=== PATIENT | female | born 1935 | race Caucasian/White ===

== ENCOUNTER 2016-12-15 12:06 | Outpatient (CLI) | payer MEDICARE, BC | END 2016-12-15 12:07 | disposition home or self-care (01) | LOC: LABBT 12:06 | PROVIDERS: ATTEND Internal Medicine Cardiovascular Disease | DX: Z01.818 Encounter for other preprocedural examination (principal); I48.91 Unspecified atrial fibrillation ==

== ENCOUNTER 2016-12-18 06:15 | Day surgery (SDC) | payer MEDICARE, BC ==
[2016-12-15 12:14] VITALS: BMI 30.2
[2016-12-18] MEDS ORDERED: Diprivan 20 ML ONE (07:32)
[2016-12-18] MEDS ORDERED: Propofol 200 MG/20 ML VIAL ONE (08:03)
--- NOTE | 2016-12-18 08:35 | OP ---
DATE OF PROCEDURE: 12/18/2016 PROCEDURE: External cardioversion. INDICATION: Persistent atrial fibrillation. The patient was brought to cardiac recovery area in the fasting state. She confirmed that she had b een taking her Xarelto and also took it last night. She was sedated by Anesthesia. She was given 2 00 joules direct current energy, synchronized and converted to sinus rhythm. CONCLUSION: Successful cardioversion. The patient will resume her previous cardiac medicines to see me in 2-3 weeks. If she has recurrent atrial fibrillation, consideration for atrial fibrillation ablation as she is highly symptomatic wh en she is in atrial fibrillation. ADDENDUM: The patient's hemoglobin was 13. Previously, she had some recent laboratory work done at her primary care physician's office.
== END 2016-12-18 09:00 | disposition home or self-care (01) ==
LOC: SDC 06:15
PROVIDERS: ATTEND Internal Medicine Cardiovascular Disease
DX: I48.1 Persistent atrial fibrillation (principal); I11.0 Hypertensive heart disease with heart failure; I50.9 Heart failure, unspecified; E78.5 Hyperlipidemia, unspecified; E03.9 Hypothyroidism, unspecified; Z88.1 Allergy status to other antibiotic agents; Z90.49 Acquired absence of other specified parts of digestive tract; Z90.710 Acquired absence of both cervix and uterus; Z90.89 Acquired absence of other organs; Z96.651 Presence of right artificial knee joint; Z98.890 Other specified postprocedural states; Z87.891 Personal history of nicotine dependence
CPT/HCPCS: 92960; J2704

== ENCOUNTER 2016-12-21 10:22 | Observation (INO) | payer MEDICARE, BC ==
[2016-12-21 10:52] LABS: Hematocrit 36.5 % (36.0-47.0); Mean Platelet Volume 7.7 fL (7.4-10.4); Red Blood Cell (RBC) Count 3.96 mill/uL (4.20-5.40); White Blood Cell (WBC) Count 9.2 thou/uL (4.8-10.8)
[2016-12-21 10:56] LABS: PTT 35.5 SEC (22.9-36.1); Prothrombin Time 16.5 SEC (12.0-14.7)
--- NOTE | 2016-12-21 11:05 | RAD ---
PORTABLE CHEST: Date: 12/21/16 HISTORY: Chest pain. COMPARISON: 06/16/09. FINDINGS: Heart size is mildly prominent. Mild vascular prominence. No focal infiltrate. Interstitium is promi nent, but is stable from prior exam. IMPRESSION: No acute interval change. POS: [facility]
[2016-12-21 11:27] LABS: Band 6 % (5-11); Neutrophil 58 % (42-75); Reactive Lymphocytes 1 % (0-10)
[2016-12-21] MEDS ORDERED: Albuterol Sulfate 2.5 mg/3 ml Neb ONE (12:54)
[2016-12-21] MEDS ORDERED: Albuterol Sulfate 2.5 mg/0.5 ml Neb ONE (12:54)
[2016-12-21 14:06] LABS: ALT (SGPT) 20 U/L (8-55); AST (SGOT) 17 U/L (5-34); Alkaline Phosphatase 62 U/L (40-150); Anion Gap 17 mmol/L (10-20); BUN (Urea Nitrogen) 14 mg/dL (9.8-20.1); Bilirubin, Total 0.6 mg/dL (0.2-1.2); Calc. Creatinine Clearance 0 mL/min (70-130); Carbon Dioxide 21 mmol/L (23-31); Chloride 101 mmol/L (98-107); Estimated GFR-MDRD 68; Globulin 2.8 g/dL (2.4-3.5); Protein, Total 6.7 g/dL (6.0-8.3)
[2016-12-21 15:00] LABS: Troponin I 0.017 ng/mL (< 0.028)
--- NOTE | 2016-12-21 15:03 | HP ---
PRIMARY CARE PHYSICIAN: Sheree Santos M.D. PRIMARY LIFT TRUCK OPERATOR: Dr. Ennis. REASON FOR ADMISSION: Dyspnea. HISTORY OF PRESENT ILLNESS: An 81-year-old female who has history of paroxysmal atrial fibrillation who had cardioversion on last Wednesday. Procedure was done on Wednesday morning and she did very well d uring Wednesday, entire day. On Wednesday, she was experiencing dyspnea on exertion. After walking few steps, she was feeling dyspnea. On Wednesday, she noticed wheezing. She denies any lower extremity e rogelio. She denies any cough. She denies any chest pain. She was feeling mild dizziness. She denie s any palpitations. She denies any orthopnea, PND. She denies any fever or any flu-like illness. She denies any runny nose, sore throat, or hemoptysis. She denies any lower extremity edema or calf tenderness. She denies any urinary tract infection symptoms. Patient was feeling shortness of mo ath with exertion. Patient does not know when she had last echocardiography done, but she is taking Lasix. She does no t know the diagnosis of congestive heart failure. She denies any history of asthma or COPD and she denies any ongoing smoking. This patient was saturating 96% on room air and she was hypertensive initially, patient also reporte d to me that her blood pressure was fluctuating at home since Wednesday. REVIEW OF SYSTEMS: The following complete review of systems was negative, unless otherwise mentione d in the HPI or below: Constitutional: Weight loss or gain, ability to conduct usual activities. Skin: Rash, itching. Eyes: Double vision, pain. ENT/Mouth: Nose bleeding, neck stiffness, pain, tenderness. Cardiovascular: Palpitations, dyspnea on exertion, orthopnea. Respiratory: Shortness of breath, wheezing, cough, hemoptysis, fever or night sweats. Gastrointestinal: Poor appetite, abdominal pain, heartburn, nausea, vomiting, constipation, or diar marvin. Genitourinary: Urgency, frequency, dysuria, nocturia. Musculoskeletal: Pain, swelling. Neurologic/Psychiatric: Anxiety, depression. Allergy/Immunologic: Skin rash, bleeding tendency. Please see my HPI for pertinent positive and negative. All other review of systems reviewed and neg ative except as mentioned in the HPI. PAST MEDICAL HISTORY: Paroxysmal atrial fibrillation, required cardioversion on last Wednesday; polyne uropathy; osteoarthritis; restless leg syndrome; hypothyroidism; hypertension; diet controlled diabe tania. PAST SURGICAL HISTORY: Right knee replacement, biopsy of the bilateral breast, surgery to right elb ow, appendicectomy, cholecystectomy, hysterectomy, tonsillectomy, and cardioversion was done on last Wednesday PAST PSYCHIATRIC HISTORY: Anxiety and depression. CURRENT HOME MEDICATIONS: Tegretol 200 mg p.o. daily, Coreg 6.25 mg p.o. b.i.d., flecainide 50 mg p .o. b.i.d., Lasix 20 mg p.o. twice daily, hydralazine 10 mg twice daily, Synthroid 125 mcg p.o. briana y, Limbrel 500 mg twice daily, levothyroxine 5 mcg p.o. daily, Lipitor 40 mg p.o. daily, metformin 5 00 mg p.o. b.i.d., Zoloft 100 mg p.o. at bedtime, Xarelto 20 mg p.o. at bedtime, Mirapex 0.5 mg p.o. in the evening, lisinopril 10 mg p.o. b.i.d., Flonase nasal spray daily, vitamin D3 1000 units p.o. b.i.d., azelastine nasal spray b.i.d., Lipitor 40 mg p.o. at bedtime, Xanax 0.25 mg p.o. at bedtime , and tramadol 100 mg p.o. b.i.d. SOCIAL HISTORY: Patient drinks alcohol socially. She is a former smoker. She quit smoking more th an 10 years ago. She lives at home by herself. No history of drug abuse. FAMILY HISTORY: No strong family history of premature coronary artery disease, stroke or cancer. ALLERGIES: STREPTOMYCIN. EMERGENCY ROOM COURSE: Patient has received albuterol nebulization therapy. The patient had elevat ed D-dimer and that is why she is getting CT angio. PHYSICAL EXAMINATION: VITAL SIGNS: On arrival, blood pressure 174/106, pulse 81, respiratory rate 24, temperature 98.5, s aturation 100% on room air, and weight 81.6 kilograms. GENERAL: Patient is currently alert, awake, no obvious acute distress. HEAD: Normocephalic, atraumatic. EYES: Pupils round, reactive to light. Extraocular muscles intact. ENT: Oropharynx within normal limits. Moist mucous membranes. No oral lesions. No pharyngeal trevor thema, no exudate. NECK: Supple. Range of motion is normal. No meningeal signs of irritation. LUNGS: On admission, the patient had end expiratory wheezing bilaterally, but after albuterol nebul ization therapy, patient's wheezing significantly reduced and air entry is reduced. I could not hea r any rales basally. No accessory muscles of respiration in use. CARDIAC: S1, S2 appears regular. No murmur, no gallop, no rub. ABDOMEN: Soft, bowel sounds present, nontender, nondistended. No organomegaly, no mass, no suprapu bic tenderness. BACK: Examination unremarkable, no CVA tenderness. EXTREMITIES: Upper extremity passive movements of all joints are normal. Lower extremity, no edema , no calf tenderness. Good distal pulsation. SKIN: No skin rash. HEMATOLOGICAL SYSTEM: No lymphadenopathy. PSYCHIATRIC: Normal affect. IMAGING AND SIGNIFICANT LABORATORY DATA: 1. EKG based on my review reveals normal sinus rhythm, nonspecific ST-T changes. 2. Chest x-ray based on my review, no acute cardiopulmonary process. 3. CBC: WBC 9.2, hemoglobin 11.9, platelet 225 with bands 6%. INR 1.3. D-dimer 0.45. 4. BMP: CK 160, CK-MB 2.7, troponin I 0.020. BNP 177.1. 5. CMP profile is pending and CT angio is pending. ASSESSMENT AND PLAN/IMPRESSION: 1. Dyspnea on exertion. At this point, I have 3 differential diagnoses for this particular problem . One, patient has recently required hospital visit for cardioversion and at that time, patient fallon ht have given sedatives for procedure, so possibly aspiration is one of the possibility and subseque nt atypical pneumonia versus aspiration pneumonia is possibility given her wheezing as well as bande es, but she does not have any fever at this point in hospital other than just low grade 99 subjecti ve fever here reported one time only. Second possibility is given her D-dimer is slightly elevated and she was just in hospital though probability of pulmonary embolism extremely unlikely, but we nhung l do CT angio that will also help us to rule out any silent infiltration which we are not able to se e on x-ray chest and third possibility is given her uncontrolled hypertension and elevated BNP, hughes tolic dysfunction/diastolic heart failure is also a possibility. This patient will be treated with empiric antibiotic therapy with levofloxacin 500 mg p.o. daily. Patient will be given Lasix 20 mg I V b.i.d. and we are also going to do CT angio to rule out pulmonary embolism and we will try to cont rol her blood pressure effectively while in hospital. 2. Chronic diastolic heart failure. I am suspecting this patient has underlying congestive heart f ailure though type of congestive heart failure is not known given the patient is taking Lasix alread y at home. We will continue Lasix IV while in hospital and we will control her blood pressure with her home medication for blood pressure. 3. Hypothyroidism. We will continue Synthroid 125 mcg p.o. daily and levothyroxine 5 mcg p.o. briana y. 4. Dyslipidemia. Continue Lipitor 40 mg p.o. at bedtime. 5. Paroxysmal atrial fibrillation, currently in sinus rhythm after cardioversion. Patient is on fl ecainide 50 mg p.o. twice daily. I am hoping that patient should be on anticoagulant therapy, which she is taking Xarelto at home. We will continue while in hospital if she is taking still at home. 6. Hypertension. We will continue with lisinopril 10 mg p.o. b.i.d., hydralazine 10 mg twice daily , Coreg 6.25 mg twice daily and we will adjust blood pressure medication. 7. Diabetes type 2. We will continue with insulin as per sliding scale per protocol. We will hold on metformin therapy given CT angio. 8. Anxiety and depression. We will continue Xanax and Zoloft as per home dosage. 9. Peripheral neuropathy. We will continue Tegretol 200 mg p.o. daily. 10. Deep venous thrombosis prophylaxis not needed because the patient is on chronic anticoagulation therapy. 11. Gastrointestinal prophylaxis, Pepcid 20 mg p.o. b.i.d. 12. Code status: The patient is FULL CODE. Patient does not have any surrogate decision maker. Disposition and plan based on clinical course, most likely within 24 hours patient will be discharge d home. During this admission, we will try to control her blood pressure and adjust medication for blood pressure.
--- NOTE | 2016-12-21 15:51 | CT ---
CT ANGIOGRAM THORAX WITH IV CONTRAST AND 3D RECONSTRUCTIONS: Date: 12-21-16 History: Elevated D-Dimer, dyspnea, worsening shortness of breath which began Wednesday afternoon. Wh eezing. FINDINGS: No filling defects are seen in the pulmonary arteries to suggest pulmonary embolus. Thoracic aorta is normal in caliber without evidence of an aortic dissection. Vascular calcification s are seen in the coronary arteries as well as involving the thoracic aorta. There is calcification in the region of the mitral valve annulus. The heart is mildly enlarged. There are small bilateral pleural effusions, greater on the right, with associated passive atelectas is. There is mild interstitial thickening which may relate to an element of mild pulmonary edema. Villa btle ground glass densities are also present. There is a very tiny less than 3 mm pulmonary nodule lateral aspect of the right upper lobe. Small p leural based nodular density at the right lung base which could be related to atelectasis as this is adjacent to the region of the pleural effusion. Small hiatal hernia is noted. IMPRESSION: 1. Small bilateral pleural effusions with findings likely related to element of mild pulmonary edema . 2. Cardiomegaly. 3. No CT evidence of a pulmonary embolus. 4. Small hiatal hernia. POS: [facility]
[2016-12-21] MEDS ORDERED: Acetaminophen 325 MG TAB PO PRN ×2 (16:04→16:30)
[2016-12-21] MEDS ORDERED: Ondansetron HCl/PF 4 MG/2 ML Vial IVP PRN (16:30)
[2016-12-21] MEDS ORDERED: HYDROcodone/Acetaminophen 5/325 mg Tablet PO PRN (16:30)
[2016-12-21] MEDS ORDERED: Labetalol HCl 100 MG/20 ML VIAL SLOW IVP PRN (16:30)
[2016-12-21] MEDS ORDERED: Zolpidem Tartrate 5 MG TAB PO PRN (16:30)
[2016-12-21] MEDS ORDERED: Albuterol Sulfate 2.5 mg/3 ml Neb NEB PRN (16:30)
[2016-12-21] MEDS ORDERED: Mag-Al 1200 mg/1200 mg/30 ML UDCUP PO PRN (16:30)
[2016-12-21] MEDS ORDERED: Eucerin (Mineral Oil/Petrolatum,White) 30 gm Jar TOP PRN (16:30)
[2016-12-21] MEDS ORDERED: Dextrose 50% Abboject 50 ML SYRINGE SLOW IVP PRN (16:30)
[2016-12-21] MEDS ORDERED: Diabetic Tussin 200 MG/10 ML UDCUP PO PRN (16:30)
[2016-12-21] MEDS ORDERED: Ondansetron ODT 4 MG TAB PO PRN (16:30)
[2016-12-21] MEDS ORDERED: HumaLOG 300 UNITS/3 ML VIAL SC PRN ×2 (16:30)
[2016-12-21] MEDS ORDERED: Sodium Chloride 0.65% Nasal 44 ML BOT EA NARE PRN (16:30)
[2016-12-21] MEDS ORDERED: Chloraseptic Spray 180 ml Bottle PO PRN (16:30)
[2016-12-21] MEDS ORDERED: Dextrose 5% in Water 1,000 ML IV PRN (16:30)
[2016-12-21] MEDS ORDERED: Milk Of Magnesia 30 ML UDCUP PO PRN (16:30)
[2016-12-21] MEDS ORDERED: Artificial Tears 18 DROP/0.9 ML EA EYE PRN (16:30)
[2016-12-21] MEDS ORDERED: Senokot 8.6 MG TAB PO PRN (16:30)
[2016-12-21] MEDS ORDERED: Loperamide HCl 2 MG CAP PO PRN (16:30)
[2016-12-21] MEDS ORDERED: Nitroglycerin 0.4 MG TAB (25 Tab Bottle) SL PRN (16:30)
[2016-12-21] MEDS ORDERED: Loratadine 10 MG TAB PO PRN (16:30)
[2016-12-21] MEDS ORDERED: ISOVUE-370 76%-LOCM 1 ML ONE (16:32)
[2016-12-21 17:28] VITALS: BMI 30.3
[2016-12-21 17:44] LABS: Troponin I 0.012 ng/mL (< 0.028)
[2016-12-21] MEDS ORDERED: Spironolactone 25 MG TAB PO SCH (18:15)
[2016-12-21] MEDS ORDERED: Potassium Chloride 20 MEQ TAB PO SCH (18:15)
[2016-12-21] MEDS ORDERED: Furosemide 100 MG/10 ML VIAL SLOW IVP SCH (18:15)
[2016-12-21] MEDS: Rivaroxaban 10 MG TAB PO SCH (18:16)
[2016-12-21] MEDS: Carvedilol 6.25 MG TAB PO SCH (18:16)
[2016-12-21 19:49] LABS: Bilirubin Negative (Negative); Blood, Urine Negative (Negative); Glucose, Urine (Dipstick) Negative (Negative); Ketone, Urine Negative (Negative); Nitrite Negative (Negative); Protein, Urine (Dipstick) Negative (Neg-Trace); Urobilinogen 0.2 mg/dL (0.2-1.0)
[2016-12-21 19:51] LABS: Bacteria/HPF 4+ HPF (None Seen); Hyaline Casts/LPF 0-3 HYALINE CAST LPF (0-3 Hyaline); RBC/HPF 0-3 HPF (0-3); Squamous Epithelial None Seen HPF (0-3)
[2016-12-21] MEDS: Atorvastatin Calcium 40 MG TAB PO SCH (20:55)
[2016-12-21] MEDS: Famotidine 20 MG TAB PO SCH (20:55)
[2016-12-21] MEDS: ALPRAZolam 0.25 MG TAB PO PRN (21:59)
--- NOTE | 2016-12-21 23:06 | CON ---
DATE OF CONSULTATION: 12/21/2016 REASON FOR CONSULTATION: Shortness of breath and diastolic congestive heart failure. HISTORY OF PRESENT ILLNESS: Ms. Angelica Tony is a very pleasant 81-year-old woman. She has a histor y of atrial fibrillation, paroxysmal. She has undergone previous ablation I believe for atrial flut ter. She has never had an atrial fibrillation ablation. She came to the office recently short of b reath and not feeling well and she was found to be in atrial fibrillation. She has underwent cardio version and felt better, but over the weekend started getting more short of breath and was having so me wheezing. Finally, came to the emergency room here and found to have evidence of mild pulmonary edema on imaging. The patient is still having some trouble breathing. MEDICATIONS: At home, she was taking Xarelto 20 mg a day in the evening meal. She was taken diuret ic twice a day. The other medicines included: 1. Flecainide 50 mg twice a day. 2. Coreg 6.25 mg twice a day. 3. Hydralazine 10 mg twice a day. 4. Lisinopril 10 mg twice a day. 5. Lipitor. 6. Xanax. 7. Tramadol. 8. Lasix 20 mg twice a day. SOCIAL HISTORY: Occasional alcohol. Former smoker. FAMILY HISTORY: No strong family history of coronary artery disease at a young age. ALLERGIES: STREPTOMYCIN. PHYSICAL EXAMINATION: GENERAL: A pleasant elderly woman. VITAL SIGNS: Initially blood pressure was high at 174/106, pulse 80 regular. HEENT: Eyes: Sclerae nonicteric. Mouth mucous membranes moist. NECK: Supple, no lymphadenopathy. LUNGS: Expiratory wheezing. CARDIAC: Normal S1, normal S2. I do not hear a murmur, rub, or gallop. ABDOMEN: Soft, nontender, no hepatosplenomegaly. EXTREMITIES: Warm, dry, no clubbing or cyanosis. There is no edema. X-RAY FINDINGS: Chest x-ray I was interpreted show some evidence of congestive heart failure. CT p ulmonary angiogram showed no clots, but it looked like there was some pulmonary edema. PERTINENT LABORATORY AND IMAGING: BNP 177. EKG does show sinus rhythm. ASSESSMENT: Diastolic congestive heart failure, decompensated, previously normal left ventricular f unction. PLAN: 1. Additional diuretic therapy. 2. Echocardiogram to be reviewed. 3. Stress testing at some point.
[2016-12-21] MEDS: Nitroglycerin 2% Ointment 1 INCH/1 GM Packet TOP SCH (23:15)
[2016-12-22 05:38] LABS: Anion Gap 13 mmol/L (10-20); BUN (Urea Nitrogen) 11 mg/dL (9.8-20.1); Calc. Creatinine Clearance 77 mL/min (70-130); Calcium 9.2 mg/dL (7.8-10.44); Carbon Dioxide 25 mmol/L (23-31); Chloride 104 mmol/L (98-107); Estimated GFR-MDRD 75
[2016-12-22 05:42] LABS: Band 1 % (5-11); Hematocrit 37.2 % (36.0-47.0); Mean Platelet Volume 7.3 fL (7.4-10.4); Neutrophil 60 % (42-75); Red Blood Cell (RBC) Count 4.02 mill/uL (4.20-5.40); White Blood Cell (WBC) Count 7.2 thou/uL (4.8-10.8)
[2016-12-22] MEDS: Nitroglycerin 2% Ointment 1 INCH/1 GM Packet TOP SCH (06:27)
[2016-12-22] MEDS: Levothyroxine Sodium 125 MCG TAB PO SCH (06:29)
[2016-12-22] MEDS: Furosemide 20 MG/2 ML VIAL SLOW IVP SCH ×2 (06:29→14:56)
[2016-12-22] MEDS: Lisinopril 10 MG TAB PO SCH ×2 (08:24→19:43)
[2016-12-22] MEDS: Aspirin 81 mg Enteric Coated Tablet PO SCH (08:24)
[2016-12-22] MEDS: carBAMazepine 200 MG TAB PO SCH (08:25)
[2016-12-22] MEDS: Famotidine 20 MG TAB PO SCH ×2 (08:25→19:42)
[2016-12-22] MEDS: Carvedilol 6.25 MG TAB PO SCH ×2 (08:25→18:35)
[2016-12-22] MEDS: Liothyronine Sodium 5 MCG TAB PO SCH (08:26)
[2016-12-22] MEDS ORDERED: Spironolactone 25 MG TAB PO SCH (10:15)
--- NOTE | 2016-12-22 10:22 | PRG ---
DATE OF SERVICE: 12/22/2016 Ms. Tony feels MUCH better. She states that she had an excellent response to the diuretic last night. She says, \\\\"oh Lordy yes \\\\" when asked if she had a good response to the diuretics. She said, \\\\" I was up all night urinat ing.\\\\" Her I\\T\\O only reflects 2 liters out last night, but I think likely she had liters more. PHYSICAL EXAMINATION: VITAL SIGNS: Blood pressure 152/67, pulse 70, it is regular. LUNGS: Clear with only minimal wheezing. CARDIAC: Normal S1 and S2. ABDOMEN: Soft, nontender. EXTREMITIES: No edema. ASSESSMENT: 1. Diastolic congestive heart failure, improved. 2. No significant coronary artery disease based on catheterization 2014. PLAN: 1. Continue diuretic therapy. 2. Probably be released home tomorrow.
[2016-12-22] MEDS ORDERED: Potassium Chloride 20 MEQ TAB PO SCH (12:00)
--- NOTE | 2016-12-22 13:38 | PDOC.PN ---
- Subjective Encounter Start Date: 12/22/16 Encounter Start Time: 11:00 Patient seen and examined. No new complaints. No overnight events. SOb improving. Ambulating in hallways - Objective Resuscitation Status: Resuscitation Status FULL:Full Resuscitation MAR Reviewed: Yes Vital Signs & Weight: Vital Signs (12 hours) Temp Pulse Resp BP Pulse Ox 12/22/16 10:45 98.6 F 63 16 121/59 L 95 12/22/16 08:20 98.7 F 72 16 12/22/16 07:10 98.7 F 72 16 152/67 H 95 12/22/16 05:00 98.9 F 74 16 156/72 H 93 L Weight Weight 182 lb 9.6 oz I&O: 12/21/16 12/22/16 12/23/16 06:59 06:59 06:59 Intake Total 850 550 Output Total 1800 850 Balance -950 -300 Result Diagrams: 12/22/16 04:58 12/22/16 04:58 Additional Labs: Accuchecks 12/22/16 12/22/16 12/21/16 10:52 06:34 20:51 POC Glucose 139 H 109 196 H 12/21/16 18:12 POC Glucose 105 EKG Reviewed by me: Yes (Tele SR) Phys Exam - Physical Examination Constitutional: NAD Respiratory: no wheezing, no rhonchi Scat bibasilar rales Cardiovascular: RRR, no rub Gastrointestinal: soft, non-tender, positive bowel sounds Musculoskeletal: edema present (trace) Neurological: moves all 4 limbs Dx/Plan (1) Acute on chronic diastolic heart failure Code(s): I50.33 - ACUTE ON CHRONIC DIASTOLIC (CONGESTIVE) HEART FAILURE Status : Acute (2) UTI (urinary tract infection) Status: Acute (3) DM2 (diabetes mellitus, type 2) Status: Chronic (4) HTN (hypertension) Code(s): I10 - ESSENTIAL (PRIMARY) HYPERTENSION Status: Chronic (5) Paroxysmal a-fib Code(s): I48.0 - PAROXYSMAL ATRIAL FIBRILLATION Status: Chronic Comment: s/ p recent cardioversion (6) other issues per previous notes Status: Chronic Comment: Obesity BMI 30.4, Anxiety and Depression, Dyslipidemia, Peripheral neuropathy, CKD 2 - Plan cont current plan of care, continue antibiotics * Cardiology following * AM labs * Cont current meds as below * Cont diuresis * Urine culture pending Review of Systems - Review of Systems Respiratory: negative: Cough, Dry, Shortness of Breath, Hemoptysis, SOB with Excertion, Pleuritic Pain, Sputum, Wheezing Cardiovascular: negative: Chest Pain, Palpitations, Orthopnea, Paroxysmal Noc. Dyspnea, Edema, Light Headedness, Other Gastrointestinal: negative: Nausea, Vomiting, Abdominal Pain, Diarrhea, Constipation, Melena, Hematochezia, Other - Medications/Allergies Allergies/Adverse Reactions: Allergies Allergy/AdvReac Type Severity Reaction Status Date / Time streptomycin Allergy Verified 12/15/16 12:13 Medications: Current Medications Acetaminophen (Tylenol) 650 mg PO Q4H PRN PRN Reason: Headache/Fever or Pain Hydrocodone Bitart/Acetaminophen (Flat Top 5/325) 1 tab PO Q4H PRN PRN Reason: Moderate Pain (4-6) Al Hydroxide/Mg Hydroxide (Maalox) 30 ml PO Q6H PRN PRN Reason: Heartburn or Indigestion Albuterol Sulfate (Ventolin) 2.5 mg NEB [id number] PRN PRN Reason: Wheezing Alprazolam (Xanax) 0.25 mg PO HSPRN PRN PRN Reason: Anxiety/INSOMNIA Last Admin: 12/21/16 21:59 Dose: 0.25 mg Artificial Tears (Tears Naturale) 0 drop EA EYE PRN PRN PRN Reason: Dry Eyes Aspirin (Ecotrin) 81 mg PO DAILY [facility] Last Admin: 12/22/16 08:24 Dose: 81 mg Atorvastatin Calcium (Lipitor) 40 mg PO HS [facility] Last Admin: 12/21/16 20:55 Dose: 40 mg Carbamazepine (Tegretol) 200 mg PO DAILY [facility] Last Admin: 12/22/16 08:25 Dose: 200 mg Carvedilol (Coreg) 6.25 mg PO BID-WM [facility] Last Admin: 12/22/16 08:25 Dose: 6.25 mg Dextrose/Water (Dextrose 50%) 25 gm SLOW IVP PRN PRN PRN Reason: Hypoglycemia Famotidine (Pepcid) 20 mg PO BID [facility] Last Admin: 12/22/16 08:25 Dose: 20 mg Flecainide Acetate (Tambocor) 50 mg PO Q12HR [facility] Last Admin: 12/22/16 08:24 Dose: 50 mg Furosemide (Lasix) 20 mg SLOW IVP 0600,1400 [facility] Last Admin: 12/22/16 06:29 Dose: 20 mg Glucagon (Glucagon) 1 mg IM PRN PRN PRN Reason: Hypoglycemia Guaifenesin (Robitussin Sf) 200 mg PO Q4H PRN PRN Reason: Cough Hydralazine HCl (Apresoline) 10 mg SLOW IVP Q4H PRN PRN Reason: Systolic BP > 180 Hydralazine HCl (Apresoline) 10 mg PO BID [facility] Last Admin: 12/22/16 08:26 Dose: 10 mg Dextrose/Water (D5w) 1,000 mls @ 0 mls/hr IV .Q0M PRN; As Directed PRN Reason: Hypoglycemia Insulin Human Lispro (Humalog) 0 units SC .MODERATE SLIDING SC PRN PRN Reason: Moderate Correctional Scale Insulin Human Lispro (Humalog) 0 units SC .BEDTIME SLIDING SC PRN PRN Reason: Bedtime Correctional Scale Labetalol HCl (Normodyne) 20 mg SLOW IVP Q4H PRN PRN Reason: Systolic BP > 180 Levofloxacin (Levaquin) 500 mg PO 1999 [facility] Last Admin: 12/21/16 20:55 Dose: 500 mg Levothyroxine Sodium (Synthroid) 125 mcg PO 0600 [facility] Last Admin: 12/22/16 06:29 Dose: 125 mcg Liothyronine Sodium (Cytomel) 5 mcg PO DAILY [facility] Last Admin: 12/22/16 08:26 Dose: 5 mcg Lisinopril (Zestril) 10 mg PO BID [facility] Last Admin: 12/22/16 08:24 Dose: 10 mg Loperamide HCl (Imodium) 2 mg PO PRN PRN PRN Reason: Diarrhea/Loose Stools Loratadine (Claritin) 10 mg PO DAILYPRN PRN PRN Reason: Sinus Symptoms Magnesium Hydroxide (Milk Of Magnesium) 30 ml PO DAILYPRN PRN PRN Reason: Constipation Mineral Oil/White Petrolatum (Eucerin Cream) 0 gm TOP BIDPRN PRN PRN Reason: Dry Skin Nitroglycerin (Nitrostat) 0.4 mg SL Q5MIN PRN PRN Reason: Chest Pain Ondansetron HCl (Zofran Odt) 4 mg PO Q6H PRN PRN Reason: Nausea/Vomiting Ondansetron HCl (Zofran) 4 mg IVP Q6H PRN PRN Reason: Nausea/Vomiting Phenol (Chloraseptic Walton 180 Ml Bot) 0 ml PO PRN PRN PRN Reason: Sore Throat Potassium Chloride (K-Dur) 20 meq PO NOW [facility] Stop: 12/22/16 14:01 Last Admin: 12/22/16 12:13 Dose: 20 meq Rivaroxaban (Xarelto) 20 mg PO 1800 [facility] Last Admin: 12/21/16 18:16 Dose: 20 mg Senna (Senokot) 2 tab PO HSPRN PRN PRN Reason: Constipation Sodium Chloride (Shallow Water Nasal Walton 0.65%) 0 ml EA NARE QIDPRN PRN PRN Reason: Nasal Congestion Spironolactone (Aldactone) 25 mg PO QA-[facility] Zolpidem Tartrate (Ambien) 5 mg PO HSPRN PRN PRN Reason: Insomnia
[2016-12-22] MEDS: Rivaroxaban 10 MG TAB PO SCH (18:34)
[2016-12-22] MEDS: Atorvastatin Calcium 40 MG TAB PO SCH (19:42)
[2016-12-22] MEDS: ALPRAZolam 0.25 MG TAB PO PRN (21:15)
[2016-12-23 04:20] VITALS: TEMP 98.4
[2016-12-23] MEDS: Furosemide 20 MG/2 ML VIAL SLOW IVP SCH (05:15)
[2016-12-23] MEDS: Levothyroxine Sodium 125 MCG TAB PO SCH (05:15)
[2016-12-23 06:55] LABS: Anion Gap 11 mmol/L (10-20); BUN (Urea Nitrogen) 17 mg/dL (9.8-20.1); Calc. Creatinine Clearance 58 mL/min (70-130); Calcium 9.4 mg/dL (7.8-10.44); Carbon Dioxide 29 mmol/L (23-31); Chloride 101 mmol/L (98-107); Estimated GFR-MDRD 56; Magnesium 2.3 mg/dL (1.6-2.6); Phosphorus 3.9 mg/dL (2.3-4.7)
[2016-12-23] MEDS ORDERED: Spironolactone 25 MG TAB PO SCH (08:00)
[2016-12-23 08:09] VITALS: BP 122/58
[2016-12-23] MEDS: Aspirin 81 mg Enteric Coated Tablet PO SCH (09:01)
[2016-12-23] MEDS: Carvedilol 6.25 MG TAB PO SCH (09:01)
[2016-12-23] MEDS: carBAMazepine 200 MG TAB PO SCH (09:01)
[2016-12-23] MEDS: Lisinopril 10 MG TAB PO SCH (09:02)
[2016-12-23] MEDS: Famotidine 20 MG TAB PO SCH (09:02)
[2016-12-23] MEDS: Liothyronine Sodium 5 MCG TAB PO SCH (09:02)
[2016-12-23 09:20] LABS: Anion Gap 12 mmol/L (10-20); BUN (Urea Nitrogen) 16 mg/dL (9.8-20.1); Calc. Creatinine Clearance 60 mL/min (70-130); Carbon Dioxide 29 mmol/L (23-31); Chloride 99 mmol/L (98-107); Estimated GFR-MDRD 57
--- NOTE | 2016-12-23 09:39 | PRG ---
DATE OF SERVICE: 12/23/2016 SUBJECTIVE: Ms. Tony is doing well today, no complaints. She feels better. She said she did not sleep well, but her breathing is fine. No chest pain or pressure. PHYSICAL EXAMINATION: VITAL SIGNS: Blood pressure 122/58, pulse 66 regular. LUNGS: Clear. There is no wheezing today. CARDIAC: Normal S1, normal S2. ABDOMEN: Soft, nontender. EXTREMITIES: No edema. ASSESSMENT: 1. Diastolic congestive heart failure, acute on chronic, improved. 2. Atrial fibrillation, paroxysmal, staying in sinus rhythm. 3. Hypertension, controlled. PLAN: 1. She will go home on spironolactone 25 mg daily. Other medicines the same as prior to admission: 2. She will have a base met in 1 week and she will have another basic met before she leaves today.
[2016-12-23] MEDS ORDERED: Furosemide 20 MG TAB PO SCH (14:00)
--- NOTE | 2016-12-24 08:05 | DIS ---
DISCHARGE DISPOSITION: Home. FOLLOWUP: Follow up with primary care physician, Dr. Sheree Santos in 1 week. Follow up with Cardiol oggarret, Dr. Ennis as scheduled. Base met in 1 week is recommended. Primary care physician is advised to follow. ALLERGIES: Patient is allergic to STREPTOMYCIN. BRIEF HOSPITAL COURSE: The patient is an 81-year-old female with paroxysmal atrial fibrillation wit h cardioversion last week who presented to the hospital with shortness of breath. Please refer to t jane history and physical dated 12/21/2016 for further details. The patient was admitted to the hospital with acute on chronic diastolic heart failure. She was sta rted on diuretics with good response. The patient was evaluated by Cardiology as well. The patient remained in sinus rhythm. Her medications have been optimized by Dr. Ennis. She has been cleared by Dr. Ennis for discharge. DIAGNOSTIC TESTS: CT angiogram of the chest showed small bilateral pleural effusion with mild pulmo nary edema without any pulmonary embolus. DISCHARGE MEDICATIONS: 1. Xanax 0.25 mg at bedtime as needed. 2. Lipitor 40 mg daily. 3. Azelastine as needed. 4. Limbrel 500 mg b.i.d. 5. Carvedilol 6.25 mg b.i.d. 6. Vitamin D3 1000 units b.i.d. 7. Flecainide 50 mg b.i.d. 8. Flonase b.i.d. 9. Lasix 20 mg b.i.d. 10. Levaquin 500 mg daily for the next 2 days. 11. Levothyroxine 125 mcg daily. 12. Liothyronine 5 mcg daily. 13. Lisinopril 10 mg b.i.d. 14. Mirapex 0.5 mg q.p.m. 15. Xarelto 20 mg at bedtime. 16. Zoloft 100 mg at bedtime. 17. Aldactone 25 mg daily (new medication). . 18. Carbamazepine 200 mg daily. 19. Hydralazine 10 mg b.i.d. 20. Metformin 500 mg b.i.d. to be restarted after 1 more day. 21. Tramadol 50 mg b.i.d. FINAL DIAGNOSES: 1. Acute on chronic diastolic heart failure exacerbation, resolved. 2. Paroxysmal atrial fibrillation with cardioversion last week, currently on anticoagulation. 3. Hypertension. 4. Diabetes mellitus type 2. 5. Klebsiella urinary tract infection sensitive to quinolones. 6. Obesity with a BMI 3.0. 7. Anxiety, depression. 8. Dyslipidemia. 9. Peripheral neuropathy. 10. Chronic kidney disease stage 2. 11. Diet controlled diabetes mellitus type 2.
--- OUTSIDE RECORDS SUMMARY | 2016-12-28 03:19 | XMS | Clinical Summary ---
:1935 Author Organization [facility] Address [address] [place] [address] Phone Care Team Providers Name Role Phone , Primary Care Provider Unavailable Allergies Not on File Current Medications Not on file Active Problems Not on file Social History Tobacco Use Types Packs/Day Years Used Date Never Assessed Sex Assigned at Date Recorded Not on file Last Filed Vital Signs Not on file Plan of Treatment Not on file Results Not on filefrom Last 3 Months
== END 2016-12-23 10:45 | disposition home or self-care (01) ==
LOC: ERS 10:22 → 2SW 15:36
PROVIDERS: ADMIT Internal Medicine; ATTEND Internal Medicine
DX: I13.0 Hypertensive heart and chronic kidney disease with heart failure and stage 1 through stage 4 chronic kidney disease, or unspecified chronic kidney disease (principal); I50.33 Acute on chronic diastolic (congestive) heart failure; N18.2 Chronic kidney disease, stage 2 (mild); E11.22 Type 2 diabetes mellitus with diabetic chronic kidney disease; I48.0 Paroxysmal atrial fibrillation; N39.0 Urinary tract infection, site not specified; E78.5 Hyperlipidemia, unspecified; E11.42 Type 2 diabetes mellitus with diabetic polyneuropathy; B96.1 Klebsiella pneumoniae [K. pneumoniae] as the cause of diseases classified elsewhere; E66.9 Obesity, unspecified; Z68.30 Body mass index [BMI] 30.0-30.9, adult; Z79.01 Long term (current) use of anticoagulants; Z79.84 Long term (current) use of oral hypoglycemic drugs; Z79.899 Other long term (current) drug therapy; Z16.23 Resistance to quinolones and fluoroquinolones; Z88.1 Allergy status to other antibiotic agents
CPT/HCPCS: 71010; 71275; 80048 ×3; 80053; 81001; 82550; 82553; 82962 ×3; 83735; 83880; 84100; 84484 ×2; 85025 ×2; 85379; 85610; 85730; 87077; 87086; 87186; 90732; 93005; 93306; 93798; 94640; 94760; 96374; 96376 ×2; 99285; G0009; G0378; 36415; 36416; 90471; J1940; J7611

== ENCOUNTER 2017-03-15 09:07 | Day surgery (SDC) | payer MEDICARE, BC ==
[2017-03-12 14:17] VITALS: BMI 29.3
[2017-03-15 10:53] LABS: INR-International Normal Ratio 1.3; PTT 29.8 SEC (22.9-36.1); Prothrombin Time 16.1 SEC (12.0-14.7)
[2017-03-15 10:57] LABS: #Eosinphils 0.1 thou/uL (0.0-0.7); #Lymphocytes 1.5 thou/uL (1.20-3.40); #Neutrophils 4.5 thou/uL (1.40-6.50); %Basophils 0.6 % (0.0-1.0); %Eosinophils 1.2 % (0.0-10.0); %Lymphocytes 20.7 % (21.0-51.0); %Monocytes 14.1 % (0.0-10.0); %Neutrophils 63.4 % (42.0-75.0); Hemoglobin 11.5 g/dL (12.0-16.0); Mean Corpuscular HGB CONC 33.1 g/dL (32.0-36.0); Mean Corpuscular Hemoglobin 30.4 pg (27.0-31.0); Mean Platelet Volume 8.2 fL (7.4-10.4); Platelet Count 204 thou/uL (130-400); RBC Distribution Width 12.1 % (11.5-14.5); Red Blood Cell (RBC) Count 3.78 mill/uL (4.20-5.40); White Blood Cell (WBC) Count 7.1 thou/uL (4.8-10.8)
[2017-03-15 11:04] LABS: ALT (SGPT) 20 U/L (8-55); AST (SGOT) 18 U/L (5-34); Albumin 4.1 g/dL (3.4-4.8); Alkaline Phosphatase 44 U/L (40-150); Anion Gap 14 mmol/L (10-20); BUN (Urea Nitrogen) 24 mg/dL (9.8-20.1); Bilirubin, Total 0.4 mg/dL (0.2-1.2); Calc. Creatinine Clearance 50 mL/min (70-130); Calcium 9.3 mg/dL (7.8-10.44); Carbon Dioxide 28 mmol/L (23-31); Chloride 102 mmol/L (98-107); Estimated GFR-MDRD 50; Globulin 2.3 g/dL (2.4-3.5); Glucose 115 mg/dL (83-110); Potassium 4.1 mmol/L (3.5-5.1); Protein, Total 6.4 g/dL (6.0-8.3); Sodium 140 mmol/L (136-145)
[2017-03-15] MEDS ORDERED: PROPOFOL 20 ML ONE (14:30)
[2017-03-15] MEDS ORDERED: PROPOFOL 200 MG/20 ML VIAL ONE (16:53)
--- NOTE | 2017-03-15 21:34 | OP ---
DATE OF PROCEDURE: 03/15/2017 CARDIOVERSION REPORT REASON FOR PROCEDURE: Ms. Tony is an 82-year-old woman who has a history of longstanding flecainide use and sufficient suppression of her atrial fibrillation. Now, she is persisting in atrial fibrill ation. Her flecainide was increased to 75 mg twice a day dose. She did not take her dose this morni ng, but she has been taking her Xarelto without interruption. She is here for cardioversion. PROCEDURE: The patient received propofol per Anesthesia specialist. After an adequate level of reema tion achieved, a synchronized 100 joule shock promptly converted her back to sinus rhythm. CONCLUSION: Successful cardioversion. PLAN: Resume flecainide and continue Xarelto. Followup in the office.
--- NOTE | 2017-04-09 16:31 | EKG ---
Test Reason : POST CARDIOVERSION Blood Pressure : / mmHG Vent. Rate : 071 BPM Atrial Rate : 043 BPM P-R Int : 182 ms QRS Dur : 094 ms QT Int : 420 ms P-R-T Axes : 076 011 101 degrees QTc Int : 456 ms Marked sinus bradycardia with marked sinus arrhythmia with Premature supraventricular complexes Nonspecific ST and T wave abnormality Abnormal ECG When compared with ECG of 13-JAN-2017 16:29, Sinus rhythm has replaced Atrial flutter Criteria for Anteroseptal infarct are no longer Present Confirmed by DR. Sapna LEDEZMA ([id number]) on 04/09/2017 4:31:06 PM Referred By: [facility] Confirmed By:DR. Sapna LEDEZMA
== END 2017-03-15 15:55 | disposition home or self-care (01) ==
LOC: CCL 09:07
PROVIDERS: ATTEND Internal Medicine Cardiovascular Disease
DX: I48.1 Persistent atrial fibrillation (principal); I10 Essential (primary) hypertension; E78.5 Hyperlipidemia, unspecified; E11.9 Type 2 diabetes mellitus without complications; M19.049 Primary osteoarthritis, unspecified hand; Z87.891 Personal history of nicotine dependence; Z82.3 Family history of stroke; Z88.1 Allergy status to other antibiotic agents; Z79.84 Long term (current) use of oral hypoglycemic drugs; Z79.51 Long term (current) use of inhaled steroids; Z79.01 Long term (current) use of anticoagulants; Z79.899 Other long term (current) drug therapy; Z96.651 Presence of right artificial knee joint; Z90.710 Acquired absence of both cervix and uterus; Z90.49 Acquired absence of other specified parts of digestive tract; Z98.890 Other specified postprocedural states
CPT/HCPCS: 36415; 80053; 85025; 85610; 85730; 92960; 93005; 93010; J2704

== ENCOUNTER 2017-07-08 10:17 | Outpatient (CLI) | payer MEDICARE, BC ==
[2017-07-08] MEDS ORDERED: ISOVUE-370 76%-LOCM 1 ML ONE (13:22)
== END 2017-07-08 10:18 | disposition home or self-care (01) ==
LOC: BICCT 10:17
PROVIDERS: ATTEND Internal Medicine Cardiovascular Disease
DX: I48.0 Paroxysmal atrial fibrillation (principal); I48.1 Persistent atrial fibrillation; K44.9 Diaphragmatic hernia without obstruction or gangrene
CPT/HCPCS: 71275; 82565

== ENCOUNTER 2017-07-08 12:01 | Outpatient (CLI) | payer MEDICARE, BC ==
[2017-07-08 12:57] LABS: Hemoglobin 12.3 g/dL (12.0-16.0); Mean Corpuscular HGB CONC 33.8 g/dL (32.0-36.0); Mean Corpuscular Hemoglobin 30.7 pg (27.0-31.0); Mean Corpuscular Volume 90.9 fl (81.0-99.0); Mean Platelet Volume 8.8 fL (7.4-10.4); Platelet Count 198 thou/uL (130-400); RBC Distribution Width 11.8 % (11.5-14.5); White Blood Cell (WBC) Count 4.7 thou/uL (4.8-10.8)
[2017-07-08 13:06] LABS: INR-International Normal Ratio 1.3; PTT 29.2 SEC (22.9-36.1); Prothrombin Time 16.9 SEC (12.0-14.7)
[2017-07-08 13:10] LABS: Anion Gap 12 mmol/L (10-20); BUN (Urea Nitrogen) 26 mg/dL (9.8-20.1); Calc. Creatinine Clearance 0 mL/min (70-130); Calcium 8.9 mg/dL (7.8-10.44); Carbon Dioxide 26 mmol/L (23-31); Chloride 99 mmol/L (98-107); Estimated GFR-MDRD 56; Glucose 124 mg/dL (83-110); Potassium 4.3 mmol/L (3.5-5.1); Sodium 133 mmol/L (136-145)
--- NOTE | 2017-07-09 07:25 | EKG ---
Test Reason : Blood Pressure : / mmHG Vent. Rate : 065 BPM Atrial Rate : 065 BPM P-R Int : 192 ms QRS Dur : 092 ms QT Int : 404 ms P-R-T Axes : 072 025 067 degrees QTc Int : 420 ms Normal sinus rhythm Anteroseptal infarct , age undetermined Abnormal ECG When compared with ECG of 15-MAR-2017 14:57, Premature supraventricular complexes are no longer Present Anteroseptal infarct is now Present T wave inversion no longer evident in Lateral leads Confirmed by DR. Fang PAREKH ([id number]) on 07/09/2017 7:25:19 AM Referred By: [facility] Confirmed By:DR. Fang PAREKH
== END 2017-07-08 12:02 | disposition home or self-care (01) ==
LOC: LABBT 12:01
PROVIDERS: ATTEND Internal Medicine Cardiovascular Disease
DX: Z01.818 Encounter for other preprocedural examination (principal); Z51.81 Encounter for therapeutic drug level monitoring; I48.91 Unspecified atrial fibrillation; Z79.01 Long term (current) use of anticoagulants
CPT/HCPCS: 80048; 85027; 85610; 85730; 93005; 93010

== ENCOUNTER 2017-07-12 05:51 | Day surgery (SDC) | payer MEDICARE, BC ==
[2017-07-08 12:51] VITALS: BMI 29.2
[2017-07-12] MEDS ORDERED: Heparin 10,000 UNITS/1 ML VIAL ONE ×2 (06:41→10:05)
[2017-07-12] MEDS ORDERED: Lidocaine 1% (PF) 30 ML VIAL ONE (06:41)
[2017-07-12] MEDS ORDERED: Fentanyl 100 MCG/2 ML VIAL ONE (07:28)
[2017-07-12] MEDS ORDERED: Heparin 25,000 units/D5W 500 ML ONE (09:14)
[2017-07-12] MEDS ORDERED: Isoproterenol 0.2 MG/1 ML AMP ONE (10:22)
[2017-07-12] MEDS ORDERED: Furosemide 40 MG/4 ML VIAL ONE (11:00)
[2017-07-12] MEDS ORDERED: Protamine Sulfate 50 MG/5 ML VIAL ONE ×2 (11:00→11:22)
[2017-07-12] MEDS ORDERED: PROPOFOL 200 MG/20 ML VIAL ONE (11:56)
[2017-07-12] MEDS ORDERED: Heparin 30,000 units/30 ml VIAL ONE (11:56)
[2017-07-12] MEDS ORDERED: Lidocaine 1% PF 5 ML VIAL ONE (11:56)
[2017-07-12] MEDS ORDERED: PHENYLEPHRINE-NS 100 MCG/ML 10 ML SYRINGE ONE (11:56)
[2017-07-12] MEDS ORDERED: Glycopyrrolate 0.2 MG/ML 5 ML SYRINGE ONE (11:56)
--- NOTE | 2017-07-12 12:05 | OP ---
DATE OF PROCEDURE: 07/12/2017 ELECTROPHYSIOLOGY STUDY AND RADIOFREQUENCY ABLATION REFERRING PHYSICIAN: Dr. Conrado Ennis REASON FOR PROCEDURE: Mrs. Tony is an 82-year-old woman who has history of paroxysmal atrial fibrillation, previously well suppressed with flecainide, but now recently had recurrences of atrial fibrillation despite flecainide suppression. She had a cardioversion in 12/2016 and 03/2017. She has been on Xarelto for anticoagulation. She stopped yesterday. PROCEDURE: The patient received propofol per Anesthesia specialist. The left and right femoral venous area was prepped, draped and anesthetized using subcutaneous lidocaine and under ultrasound guidance a 4-8-[place] sheaths were introduced. Subsequent to that the left-sided veins were ablated to 11 [place] sheath through which a 10 [place] intracardiac echo catheter was advanced to the right atrial area for further monitoring of the procedure, transseptal and rule out effusions. With the help of a preface sheath a Duodeca catheter was advanced to the CS right atrial area. Following that, the right-sided veins were accessed and a SL1 transseptal catheter was advanced to the right atrium. With ultrasound guidance, a transseptal puncture was performed with the Cop[place] transseptal needle x2. The catheters were exchanged over the wire to an Agiles deflectable catheter. Through the Agiles sheath a deflectable Lasso catheter was advanced to the left atrium and left atrial 3D map was obtained with the Carto imaging system. Following that with the help of a FJ deflectable bidirectional ThermoCool SF ST catheter was advanced to the left atrium and pulmonary venous isolation procedure was performed. Throughout the procedure the esophageal temperature were monitored. Heparin was administered at the time of transseptal puncture and it was adjusted with the heparin drip to maintain ACT over 350. The posterior wall was also isolated with a roofl and an inferior line as well. At the end of the procedure and complete EP study was performed. Baseline cycle is 847 milliseconds, OH 74, QRS 82, QT 397 milliseconds, HV 44 milliseconds. The sinus node recovery time was 1329, corrected was 480 milliseconds. The AV Wenckebach cycle was 450 milliseconds without preexcitation. VA Wenckebach cycle length was about 400 milliseconds with also central retrograde deactivation, AV nitza ERP was measured at 600/350. No dual AV physiology was demonstrated. Burst atrial pacing caused atrial fibrillation , which was eventually shock terminated. Isuprel was administered and the reconnections were ablated. Eventually all 4 pulmonary veins were isolated as well as posterior remained isolated. The cardiac silhouette did not change from baseline and the ice catheter demonstrates no significant pericardial effusion. The patient remained hemodynamically stable. At the end of the case the anticoagulation was reversed with 40 mg of protamine and the sheaths were pulled in the equipment operator/laborer. The patient tolerated the procedure well, no complication noted. PLAN: Resume Xarelto, Carafate and Protonix. Routine followup requested. For now we will hold off flecainide unless recurrent atrial arrhythmias are seen. MTDD
[2017-07-12] MEDS: metFORMIN 500 MG TAB PO SCH (18:22)
[2017-07-12] MEDS: Sucralfate 1 GM TAB PO SCH (18:22)
[2017-07-12] MEDS ORDERED: Rivaroxaban 10 MG TAB PO SCH (21:00)
[2017-07-12] MEDS ORDERED: Pramipexole Di-HCl 0.25 MG TAB PO SCH (21:00)
[2017-07-12] MEDS: Lisinopril 10 MG TAB PO SCH (21:02)
[2017-07-12] MEDS: hydrALAZINE 10 MG TAB PO SCH (21:03)
[2017-07-12] MEDS: Levothyroxine Sodium 125 MCG TAB PO SCH (21:03)
[2017-07-12] MEDS: traMADol HCl 50 MG TAB PO SCH (21:03)
[2017-07-13] MEDS: Sucralfate 1 GM TAB PO SCH ×3 (04:41→12:53)
[2017-07-13] MEDS ORDERED: Spironolactone 25 MG TAB PO SCH (08:00)
[2017-07-13] MEDS ORDERED: Liothyronine Sodium 5 MCG TAB PO SCH (09:00)
[2017-07-13] MEDS ORDERED: Acetaminophen 325 MG TAB PO PRN (09:17)
[2017-07-13] MEDS: Lisinopril 10 MG TAB PO SCH (09:32)
[2017-07-13] MEDS: hydrALAZINE 10 MG TAB PO SCH (09:33)
[2017-07-13] MEDS: Levothyroxine Sodium 125 MCG TAB PO SCH (09:33)
[2017-07-13] MEDS: metFORMIN 500 MG TAB PO SCH (09:35)
[2017-07-13] MEDS: traMADol HCl 50 MG TAB PO SCH (09:40)
[2017-07-13] MEDS ORDERED: Potassium Chloride 20 MEQ TAB PO SCH (13:15)
[2017-07-13] MEDS ORDERED: Furosemide 40 MG/4 ML VIAL SLOW IVP SCH (13:15)
--- NOTE | 2017-07-13 14:31 | EKG ---
Test Reason : POST ABLATION Blood Pressure : / mmHG Vent. Rate : 072 BPM Atrial Rate : 072 BPM P-R Int : 180 ms QRS Dur : 092 ms QT Int : 406 ms P-R-T Axes : 078 030 099 degrees QTc Int : 444 ms Normal sinus rhythm Nonspecific ST and T wave abnormality Abnormal ECG When compared with ECG of 08-JUL-2017 12:19, Criteria for Anteroseptal infarct are no longer Present Nonspecific T wave abnormality now evident in Lateral leads Confirmed by DR. Sapna LEDEZMA ([id number]) on 07/13/2017 2:31:09 PM Referred By: [facility]ABE Confirmed By:DR. Sapna LEDEZMA
[2017-07-13 16:03] VITALS: BP 125/59; TEMP 98.7
--- NOTE | 2017-07-13 16:21 | DIS ---
DATE OF ADMISSION: 07/12/2017 DATE OF DISCHARGE: 07/13/2017 This is Denise Juares, nurse practitioner, dictating for Dr. Reinier Yarbrough. ATTENDING PHYSICIAN: Reinier Yarbrough M.D. FINAL DIAGNOSES: Paroxysmal atrial fibrillation, early recurrence of atypical flutter. CONDITION ON DISCHARGE: Stable. PROCEDURES PERFORMED: Pulmonary venous isolation and complete EP study. HISTORY OF PRESENT ILLNESS: Ms. Tony is a very pleasant 82-year-old woman with a history of paroxys mal atrial fibrillation that was previously well suppressed with flecainide, who began experiencing r ecurrence of atrial fibrillation despite antiarrhythmic therapy. She had required 2 cardioversions i n the past 6-9 months. She has been maintained on Xarelto for oral anticoagulation and stroke prophy laxis in the setting of paroxysmal atrial arrhythmias. She was admitted on 07/12/2017 for an electiv e pulmonary venous isolation ablation by Dr. Yarbrough which was performed on the date of admission. A co mplete EP study was performed. All 4 pulmonary veins were isolated as well as the posterior wall. T he patient tolerated the procedure well and has had an uneventful recovery. She maintained sinus rhy thm overnight with occasional atrial ectopy. She did have some shortness of breath and has shown bao e clinical signs of fluid retention this morning on exam. She had some slight bibasilar crackles as well as some mild jugular venous distention. She has been up ambulating without difficulty and denie s any heart racing, palpitations, chest pain, pressure, syncope or near syncope. Her bilateral groin sites have remained stable and are without hematoma or complication. At one point while up ambulati ng to the restroom, her heart rate did climb to 120 beats per minute and she converted to atypical at rial flutter. She is currently stating they are with ventricular rates controlled in the 80-90 beats per minute range. She is asymptomatic with this and otherwise vital signs remained stable. Most re cent blood pressure 141/63, T-max of 99.0 overnight. Currently, 98.2, respirations are 20. Given he r early recurrence of her atypical flutter, I will resume her previous dose of flecainide at 50 mg b. i.d. and she is okay to discharge home. She is to continue on Xarelto without interruption for the f ollowing 3 months and has been instructed to call [facility] prior to stopping this medication. Routine fol lowup is requested in 4-6 weeks post-ablation and she will receive an event monitor mailed to her [facility] e for her use over the next 6 months. She is to call [facility] with any additional questions. DISCHARGE MEDICATIONS: Prescriptions provided include: 1. Protonix 40 mg daily x30 days. 2. Carafate 1 g a.c. and at bedtime x14 days. 3. Lasix 40 mg daily x3 days, then as needed for shortness of breath. 4. Potassium chloride 20 mEq daily x3 days and only if taking Lasix. HOME MEDICATIONS: To continue Xanax, atorvastatin, Astepro, carbamazepine, carvedilol 6.25 mg b.i.d. , vitamin D, flecainide 50 mg b.i.d., Flonase, furosemide 40 mg daily x3 days, then resume home dose, hydralazine, levothyroxine 125 mcg daily, liothyronine sodium 5 mcg daily, lisinopril 10 mg b.i.d., metformin 500 mg b.i.d., Protonix 40 mg daily x30 days, potassium chloride 20 mEq daily x3 days, then as needed only of taking in a higher dose of Lasix, Mirapex, Xarelto 20 mg at bedtime, sertraline 10 0 mg p.o. at bedtime, spironolactone 25 mg q.a.m., Carafate 1 gram p.o. before meals and at bedtime x 14 days, and tramadol 50 mg p.o. b.i.d. DISCHARGE INSTRUCTIONS: No soaking baths or lifting greater than 25 pounds for 1 week, then no restr ictions and resume activity as tolerated. Monitor for signs of recurrence of atrial arrhythmias incl uding heart racing, palpitations, fatigue, shortness of breath or dyspnea on exertion. Use event mon itor at least once a week and with any concerns of abnormal heart rhythms. Take medications as presc ribed and call [facility] with any questions regarding medication instructions or postoperative care. Follo w up with [facility] in 4-6 weeks as already scheduled.
[2017-07-13] MEDS ORDERED: Sucralfate 1 GM TAB PO SCH (17:00)
[2017-07-14] MEDS ORDERED: Furosemide 40 MG TAB PO SCH (07:30)
[2017-07-14] MEDS ORDERED: Potassium Chloride 20 MEQ TAB PO SCH (08:00)
== END 2017-07-13 14:37 | disposition home or self-care (01) ==
LOC: CCL 05:51 → UNDOADMOB 13:12 → 2SW 13:12 → CCL 07-13 14:37 → UNDODISOB 07-13 14:37
PROVIDERS: ATTEND Internal Medicine Cardiovascular Disease
PROC: 4A023FZ Measurement of Cardiac Rhythm, Percutaneous Approach (ICD-10-PCS; principal; 2017-07-12)
PROC: 4A0234Z Measurement of Cardiac Electrical Activity, Percutaneous Approach (ICD-10-PCS; 2017-07-12)
DX: I48.0 Paroxysmal atrial fibrillation (principal); I11.0 Hypertensive heart disease with heart failure; I50.30 Unspecified diastolic (congestive) heart failure; E03.9 Hypothyroidism, unspecified; E78.5 Hyperlipidemia, unspecified; E11.9 Type 2 diabetes mellitus without complications; Z88.1 Allergy status to other antibiotic agents; Z79.01 Long term (current) use of anticoagulants; Z79.84 Long term (current) use of oral hypoglycemic drugs; Z79.899 Other long term (current) drug therapy; Z98.890 Other specified postprocedural states
CPT/HCPCS: 76942; 82962; 85347 ×2; 92960; 93005 ×2; 93613; 93623; 93656; 93662; 93798; C1730; C1731; C1732; C1759; C1769; 36416; 93010; A4216; J1644; J1940; J2001; J2704; J2720; J3010

== ENCOUNTER → 2017-07-23 | Day surgery (SDC) | payer MEDICARE, BC ==
[2017-07-22 15:58] VITALS: BMI 28.3
[~2017-07-23] MED LIST: Flecainide 50 MG TAB PO SCH; PROPOFOL 0 ML ONE; PROPOFOL 20 ML ONE; PROPOFOL 200 MG/20 ML VIAL ONE
--- NOTE | 2017-07-23 22:21 | OP ---
DATE OF PROCEDURE: 07/23/2017 CARDIOVERSION REPORT REFERRING PHYSICIAN: Dr. Ennis. REASON FOR PROCEDURE: Ms. Tony is an 82-year-old woman with history of persistent atrial fibrillati on, flecainide in the past. She underwent a pulmonary venous isolation procedure on 07/10/2017. She is here for a cardioversion hence recurrence. She has restarted her flecainide medication, but did not take it this morning. Hence, she has been on Xarelto without fail since the procedure. PROCEDURE IN DETAIL: The patient received propofol via anesthesia specialist. After adequate level of sedation achieved, a synchronized 70-joule shock promptly converted the patient back to sinus rhyt hm. CONCLUSION: Successful cardioversion. PLAN: Continue flecainide and Xarelto. Routine followup in the office.
--- NOTE | 2017-07-26 18:38 | EKG ---
Test Reason : POST CARDIOVERSION Blood Pressure : / mmHG Vent. Rate : 082 BPM Atrial Rate : 082 BPM P-R Int : 176 ms QRS Dur : 094 ms QT Int : 380 ms P-R-T Axes : 082 022 113 degrees QTc Int : 443 ms Normal sinus rhythm Abnormal ECG When compared with ECG of 23-JUL-2017 12:31, (Unconfirmed) Sinus rhythm has replaced Atrial fibrillation Confirmed by ENRICO GONCALVES (2) on 07/26/2017 6:38:20 PM Referred By: GABE Confirmed By:ENRICO GONCALVES
--- NOTE | 2017-07-26 18:38 | EKG ---
Test Reason : PREOP Blood Pressure : / mmHG Vent. Rate : 088 BPM Atrial Rate : 234 BPM P-R Int : 000 ms QRS Dur : 094 ms QT Int : 354 ms P-R-T Axes : 000 004 131 degrees QTc Int : 428 ms Atrial fibrillation Abnormal ECG When compared with ECG of 13-JUL-2017 14:30, Atrial fibrillation has replaced Atrial flutter T wave inversion more evident in Lateral leads Confirmed by ENRICO GONCALVES (2) on 07/26/2017 6:37:56 PM Referred By: GABE Confirmed By:ENRICO GONCALVES
== END ==
LOC: CCL 11:48
PROVIDERS: ATTEND Internal Medicine Cardiovascular Disease
PROC: 5A2204Z Restoration of Cardiac Rhythm, Single (ICD-10-PCS; principal; 2017-07-23)
DX: I48.1 Persistent atrial fibrillation (principal); I48.0 Paroxysmal atrial fibrillation; E03.9 Hypothyroidism, unspecified; E78.5 Hyperlipidemia, unspecified; E11.9 Type 2 diabetes mellitus without complications; I11.0 Hypertensive heart disease with heart failure; I50.30 Unspecified diastolic (congestive) heart failure; M19.90 Unspecified osteoarthritis, unspecified site; Z87.891 Personal history of nicotine dependence; Z79.01 Long term (current) use of anticoagulants; Z79.84 Long term (current) use of oral hypoglycemic drugs; Z79.51 Long term (current) use of inhaled steroids; Z79.899 Other long term (current) drug therapy; Z88.1 Allergy status to other antibiotic agents
CPT/HCPCS: 92960; 93005; 93010; J2704

== ENCOUNTER 2017-07-27 12:55 | Outpatient (CLI) | payer MEDICARE, BC ==
--- NOTE | 2017-07-27 14:22 | CT ---
NONCONTRAST CT THORAX: DATE: 07/27/17. HISTORY: Shortness of breath, dyspnea. History of multiple heart ablations. COMPARISON: CTA of the chest on 12/21/16. FINDINGS: Again noted are small bilateral pleural effusions and associated passive atelectasis. Linear density is seen in the right upper lobe, also noted on prior study, which may relate to mild scarring. Ther e is a stable pleural-based nodular density right lung base measuring 6 mm. This was present on the prior exam and is adjacent to the region of pleural fluid. No other discrete pulmonary nodule or mas s is seen. There is dense calcification and mitral valve annulus. Vascular calcifications are again seen involv ing the pulmonary arteries as well as the thoracic aorta. Lack of intravenous contrast limits evaluation of the mediastinum and vascular structures, but no enl arged lymph nodes are seen by CT size criteria. A small hiatal hernia is noted. Post cholecystectomy changes. There is minimal pneumobilia present. Colonic diverticulosis is present. Degenerative changes are again seen in the thoracic spine. IMPRESSION: 1. Stable pleural-based pulmonary nodule right lower lobe measuring 6 mm. This also appeared to hav e been present on a prior CT angiogram of the thorax in 2009. 2. Small bilateral pleural effusions. 3. Small hiatal hernia. 4. Post cholecystectomy changes with evidence of pneumobilia. POS: [facility]
== END 2017-07-27 12:56 | disposition home or self-care (01) ==
LOC: CT 12:55
PROVIDERS: ATTEND Internal Medicine Cardiovascular Disease
DX: R06.00 Dyspnea, unspecified (principal); R91.1 Solitary pulmonary nodule; J90 Pleural effusion, not elsewhere classified; K44.9 Diaphragmatic hernia without obstruction or gangrene; Z90.49 Acquired absence of other specified parts of digestive tract
CPT/HCPCS: 71250

== ENCOUNTER 2017-08-17 09:49 | Outpatient (CLI) | payer MEDICARE, BC ==
--- NOTE | 2017-08-18 12:12 | MMO ---
BILATERAL DIGITAL SCREENING MAMMOGRAMS WITH CAD: COMPARISON: 07/13/2016, 01/02/2015, 12/29/2013 FINDINGS: There are scattered fibroglandular densities with benign calcifications. No suspicious masses or luis a cifications are identified. IMPRESSION: BI-RADS Category 2: Benign findings. Return to annual mammographic screening. POS: [facility]
== END 2017-08-17 09:50 | disposition home or self-care (01) ==
LOC: SCSMAMMO 09:49
PROVIDERS: ATTEND Internal Medicine
DX: Z12.31 Encounter for screening mammogram for malignant neoplasm of breast (principal)
CPT/HCPCS: 77067

== ENCOUNTER → 2017-08-31 | Day surgery (SDC) | payer MEDICARE, BC ==
[2017-08-30 16:16] VITALS: BMI 28.3
[2017-08-31 11:53] LABS: Hemoglobin 11.1 g/dL (12.0-16.0); Mean Corpuscular HGB CONC 32.9 g/dL (32.0-36.0); Mean Corpuscular Hemoglobin 29.5 pg (27.0-31.0); Mean Corpuscular Volume 89.7 fL (78.0-98.0); Platelet Count 215 thou/uL (130-400); RBC Distribution Width 12.3 % (11.5-14.5); Red Blood Cell (RBC) Count 3.76 mill/uL (4.20-5.40); White Blood Cell (WBC) Count 6.9 thou/uL (4.8-10.8)
[2017-08-31 12:02] LABS: INR-International Normal Ratio 1.3; PTT 27.7 SEC (22.9-36.1); Prothrombin Time 16.6 SEC (12.0-14.7)
[2017-08-31 12:17] LABS: Anion Gap 12 mmol/L (10-20); BUN (Urea Nitrogen) 21 mg/dL (9.8-20.1); Band 2 % (5-11); Calc. Creatinine Clearance 53 mL/min (70-130); Calcium 9.6 mg/dL (7.8-10.44); Carbon Dioxide 26 mmol/L (23-31); Chloride 102 mmol/L (98-107); Eosinophils 3 % (0-10); Estimated GFR-MDRD 55; Glucose 101 mg/dL (83-110); Lymphocytes 22 % (21-51); MDiff Complete? YES; Monocytes 13 % (0-10); Neutrophil 54 % (42-75); Potassium 4.8 mmol/L (3.5-5.1); RBC Morphology Normal; Reactive Lymphocytes 4 % (0-10); Sodium 135 mmol/L (136-145)
--- NOTE | 2017-09-13 15:51 | EKG ---
Test Reason : CONVERTED TO SRTHYM Blood Pressure : / mmHG Vent. Rate : 070 BPM Atrial Rate : 070 BPM P-R Int : 182 ms QRS Dur : 100 ms QT Int : 390 ms P-R-T Axes : 072 -03 076 degrees QTc Int : 421 ms Normal sinus rhythm Nonspecific ST abnormality Abnormal ECG When compared with ECG of 23-JUL-2017 14:27, T wave inversion no longer evident in Lateral leads Confirmed by DR. Sapna LEDEZMA ([id number]) on 09/13/2017 3:51:09 PM Referred By: GABE Confirmed By:DR. Sapna LEDEZMA
--- NOTE | 2017-09-22 00:47 | PRG ---
DATE OF SERVICE: 08/31/2017 This is a canceled procedure report. SUBJECTIVE: Ms. Tony is here for a cardioversion. Her EKG though suggest sinus rhythm, therefore, cardioversion was canceled. PLAN: Continue current medication and routine followup in the office.
== END ==
LOC: CCL 11:05
PROVIDERS: ATTEND Internal Medicine Cardiovascular Disease
DX: I48.91 Unspecified atrial fibrillation (principal); E78.5 Hyperlipidemia, unspecified; E11.9 Type 2 diabetes mellitus without complications; E03.9 Hypothyroidism, unspecified; I11.0 Hypertensive heart disease with heart failure; I50.30 Unspecified diastolic (congestive) heart failure; Z53.8 Procedure and treatment not carried out for other reasons; Z79.899 Other long term (current) drug therapy; Z79.01 Long term (current) use of anticoagulants; Z79.52 Long term (current) use of systemic steroids; Z88.1 Allergy status to other antibiotic agents; Z79.84 Long term (current) use of oral hypoglycemic drugs
CPT/HCPCS: 36415; 80048; 85025; 85610; 85730; 93005; 93010

== ENCOUNTER 2017-09-13 08:11 | Outpatient (CLI) | payer MEDICARE, BC ==
--- NOTE | 2017-09-13 12:28 | MRI ---
MRA REDDING OF CHANG WITH 3D VOLUME RENDERING: CLINICAL HISTORY: Aneurysm. COMPARISON: No prior imaging comparisons are available. 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 There is an additional 4 mm aneurysm, just lat eral to the origin of the right PCOM, at the posterior aspect of the right carotid terminus. Each AC A and MCA are patent, without high grade stenosis or occlusion. There is a left sided variant circulation with a prominent PCOM and a diminutive A1 segment left WRITING CENTER DIRECTOR. Posterior cerebral arteries reveal no significant stenosis. The distal right vertebral artery is patent. There is nonvisualizat ion of a distal left vertebral artery on this exam, which may relate to termination in PICA. The leeroy ged distal ICA bilaterally reveals appropriate patency. 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 The additional 4 mm aneurysm is at the basilar tip. Consider six month follow-up imaging for con tinued assessment. The case was discussed with the patient's neurosurgeon, Yash Wilson M.D., at the time of the interpre tation. CODE CR POS: [facility]
== END 2017-09-13 08:12 | disposition home or self-care (01) ==
LOC: MRI 08:11
PROVIDERS: ATTEND Neurological Surgery
DX: I67.1 Cerebral aneurysm, nonruptured (principal); I72.5 Aneurysm of other precerebral arteries
CPT/HCPCS: 70544

== ENCOUNTER 2017-11-16 15:34 | Outpatient (CLI) | payer MEDICARE, BC ==
[2017-11-16 16:39] LABS: Hemoglobin 12.5 g/dL (12.0-16.0); Mean Corpuscular HGB CONC 33.6 g/dL (32.0-36.0); Mean Corpuscular Hemoglobin 29.7 pg (27.0-31.0); Mean Corpuscular Volume 88.6 fL (78.0-98.0); Mean Platelet Volume 8.3 fL (7.4-10.4); Platelet Count 238 thou/uL (130-400); RBC Distribution Width 13.5 % (11.5-14.5); Red Blood Cell (RBC) Count 4.19 mill/uL (4.20-5.40); White Blood Cell (WBC) Count 5.9 thou/uL (4.8-10.8)
[2017-11-16 17:02] LABS: PTT 25.4 SEC (22.9-36.1); Prothrombin Time 13.7 SEC (12.0-14.7)
[2017-11-16 17:07] LABS: Anion Gap 15 mmol/L (10-20); BUN (Urea Nitrogen) 28 mg/dL (9.8-20.1); Calc. Creatinine Clearance 0 mL/min (70-130); Calcium 9.3 mg/dL (7.8-10.44); Carbon Dioxide 25 mmol/L (23-31); Chloride 102 mmol/L (98-107); Estimated GFR-MDRD 46; Glucose 96 mg/dL (83-110); Sodium 137 mmol/L (136-145)
== END 2017-11-16 15:35 | disposition home or self-care (01) ==
LOC: LABBT 15:34
PROVIDERS: ATTEND Internal Medicine Cardiovascular Disease
DX: Z01.818 Encounter for other preprocedural examination (principal); Z51.81 Encounter for therapeutic drug level monitoring; I48.91 Unspecified atrial fibrillation; Z79.01 Long term (current) use of anticoagulants
CPT/HCPCS: 80048; 85027; 85610; 85730; 93005; 93010

== ENCOUNTER 2017-11-18 06:07 | Day surgery (SDC) | payer MEDICARE, BC ==
[2017-11-16 15:57] VITALS: BMI 28.6
--- NOTE | 2017-11-18 08:21 | OP ---
DATE OF PROCEDURE: 11/18/2017 SURGEON: Dr. Reinier Yarbrough PROCEDURE: Cardioversion. PRIMARY CARE PHYSICIAN: ____ REASON FOR PROCEDURE: Ms. Tony is a pleasant 82-year-old woman with history of paroxysmal atrial f ibrillation, eventually failing flecainide and requiring a venous isolation procedure in 07/23/2017. She has a recurrence of atypical atrial flutter. Hence she was placed back on flecainide. She was also continued on anticoagulation with Xarelto without a fail. She is here for cardioversion. PROCEDURE: The patient received propofol by Anesthesia specialist. After adequate level of sedation achieved, a synchronized 70 joule shock promptly converted the patient back to sinus rhythm. CONCLUSION: Successful cardioversion. PLAN: Continue Xarelto and flecainide. The plan is a redo left atrial ablation procedure in a near date.
== END 2017-11-18 08:51 | disposition home or self-care (01) ==
LOC: CCL 06:07
PROVIDERS: ATTEND Internal Medicine Cardiovascular Disease
DX: I48.4 Atypical atrial flutter (principal); I48.0 Paroxysmal atrial fibrillation; Z79.01 Long term (current) use of anticoagulants; Z79.899 Other long term (current) drug therapy; Z79.52 Long term (current) use of systemic steroids; Z88.1 Allergy status to other antibiotic agents; Z98.890 Other specified postprocedural states
CPT/HCPCS: 92960

== ENCOUNTER 2017-12-09 12:12 | Outpatient (CLI) | payer MEDICARE, BC ==
--- NOTE | 2017-12-09 17:17 | ULT ---
ABDOMINAL ULTRASOUND: Date: 12-09-17 Provided Clinical History: Abdominal pain. FINDINGS: The visualized abdominal aorta, IVC, and pancreas appear normal. The liver demonstrates no evidence f or mass or intrahepatic biliary ductal dilatation. Common duct is not dilated. Gallbladder is not vis ualized, compatible with the provided clinical history of prior cholecystectomy. Kidneys demonstrate no hydronephrosis or mass. Spleen is not enlarged and demonstrates no focal abnormality. IMPRESSION: No evidence for an acute process. POS: [facility]
== END 2017-12-09 12:13 | disposition home or self-care (01) ==
LOC: BICULT 12:12
PROVIDERS: ATTEND Internal Medicine Nephrology
DX: I13.10 Hypertensive heart and chronic kidney disease without heart failure, with stage 1 through stage 4 chronic kidney disease, or unspecified chronic kidney disease (principal); E11.22 Type 2 diabetes mellitus with diabetic chronic kidney disease; N18.9 Chronic kidney disease, unspecified; D63.1 Anemia in chronic kidney disease; N17.9 Acute kidney failure, unspecified; N39.0 Urinary tract infection, site not specified; K21.9 Gastro-esophageal reflux disease without esophagitis; M19.90 Unspecified osteoarthritis, unspecified site; E78.5 Hyperlipidemia, unspecified; E03.9 Hypothyroidism, unspecified; I25.10 Atherosclerotic heart disease of native coronary artery without angina pectoris
CPT/HCPCS: 76700

== ENCOUNTER 2018-01-06 13:11 | Inpatient (IN) | payer MEDICARE, BC ==
[2018-01-06] MEDS ORDERED: Iopamidol 370 76% 50 ML VIAL FS ONE (13:27)
[2018-01-06 13:45] LABS: Hemoglobin 10.9 g/dL (12.0-16.0); Mean Corpuscular HGB CONC 31.7 g/dL (32.0-36.0); Mean Corpuscular Hemoglobin 28.8 pg (27.0-31.0); Mean Corpuscular Volume 90.9 fL (78.0-98.0); Platelet Count 170 thou/uL (130-400); RBC Distribution Width 13.6 % (11.5-14.5); Red Blood Cell (RBC) Count 3.79 mill/uL (4.20-5.40); White Blood Cell (WBC) Count 11.9 thou/uL (4.8-10.8)
[2018-01-06 13:49] LABS: INR-International Normal Ratio 1.3; PTT 28.7 SEC (22.9-36.1); Prothrombin Time 16.6 SEC (12.0-14.7)
[2018-01-06 14:05] LABS: ALT (SGPT) 85 U/L (8-55); AST (SGOT) 154 U/L (5-34); Albumin 3.9 g/dL (3.4-4.8); Alkaline Phosphatase 73 U/L (40-150); Anion Gap 15 mmol/L (10-20); BUN (Urea Nitrogen) 26 mg/dL (9.8-20.1); Bilirubin, Total 0.6 mg/dL (0.2-1.2); CK (CPK) 291 U/L (29-168); Calc. Creatinine Clearance 0 mL/min (70-130); Calcium 8.9 mg/dL (7.8-10.44); Carbon Dioxide 21 mmol/L (23-31); Chloride 101 mmol/L (98-107); Estimated GFR-MDRD 27; Globulin 2.6 g/dL (2.4-3.5); Glucose 210 mg/dL (83-110); Protein, Total 6.5 g/dL (6.0-8.3); Sodium 132 mmol/L (136-145)
[2018-01-06 14:06] LABS: Band 4 % (5-11); Eosinophils 1 % (0-10); Lymphocytes 13 % (21-51); MDiff Complete? YES; Monocytes 13 % (0-10); Neutrophil 66 % (42-75); PLT Morphology Comment Appears Adequate; Polychromasia SLIGHT = 2-3 cells (100X) (0-2/hpf); Reactive Lymphocytes 3 % (0-10)
[2018-01-06 14:09] LABS: CKMB 6.3 ng/mL (0-6.6)
--- NOTE | 2018-01-06 14:50 | RAD ---
SINGLE VIEW CHEST: Date: 01/06/18 COMPARISON: 06/16/09 and 10/16/16. HISTORY: Generalized weakness and nausea this morning. Chest pain. FINDINGS: Single view of the chest shows a normal sized cardiomediastinal silhouette. There is no evidence of c onsolidation, mass, or pleural effusion. Degenerative changes are seen in the spine. IMPRESSION: No evidence of acute cardiopulmonary disease. POS: [facility]
[2018-01-06] MEDS ORDERED: Lidocaine 1% (PF) 30 ML VIAL ONE ×2 (15:16→16:36)
[2018-01-06] MEDS ORDERED: CEFAZOLIN 2 GM/50 ML BAG ONE ×2 (15:16→15:42)
[2018-01-06] MEDS ORDERED: CEFAZOLIN 1 GM VIAL ONE (15:16)
[2018-01-06] MEDS ORDERED: Gentamicin 80 MG/2 ML VIAL ONE (15:16)
[2018-01-06 16:02] LABS: Bilirubin Negative (Negative); Blood, Urine Negative (Negative); Clarity CLOUDY (Clear); Glucose, Urine (Dipstick) Negative (Negative); Leukocyte Large (Negative); Nitrite Negative (Negative); Protein, Urine (Dipstick) 100 mg/dL (Neg-Trace); Specific Gravity, Urine 1.018 (1.002-1.036); Urobilinogen 0.2 mg/dL (0.2-1.0); pH, Urine 5.5 (5.0-9.0)
[2018-01-06 16:04] LABS: Bacteria/HPF None Seen HPF (None Seen); Hyaline Casts/LPF 0-3 HYALINE CAST LPF (0-3 Hyaline); Pathc Cast-AUWi Flag 0.29 (0-2.49); Squamous Epithelial 0-3 HPF (0-3)
[2018-01-06] MEDS ORDERED: diphenhydrAMINE 50 MG/ML VIAL ONE (16:13)
[2018-01-06] MEDS ORDERED: Hydrocortisone Sod Succ/PF 100 mg/2 ml Vial ONE (16:13)
[2018-01-06] MEDS ORDERED: Fentanyl 100 MCG/2 ML VIAL ONE (16:34)
--- NOTE | 2018-01-06 16:44 | CON ---
DATE OF CONSULTATION: 01/06/2018 REASON FOR CONSULTATION: Chest pain. PRIMARY TOP LIFT NAILER: Conrado Ennis M.D. HISTORY OF PRESENT ILLNESS: Ms. Tony is a very pleasant 82-year-old white female who comes to the ospital for not feeling well. She has a history of atrial fibrillation, recently had an ablation, bu t 2 days ago, daughter who is in the room with her tells me that she has been going downhill ever sin ce she has not felt that well, felt lightheaded when she would stand up and felt chest pain when she would take a deep breath in. She was otherwise at home today and started feeling much worse, started vomiting, so she decided to come in for evaluation. In the ER, an EKG was drawn and her heart rate was in the 30s, but the EKG was read as possibly having an inferior CO, so Cardiology is being consul jonh emergently. On my evaluation, Mrs. Tony is chest pain free. Her only pain is when she takes a deep breath consistent with a recent ablation. She is comfortably lying on the bed. I do not think EKG shows any acute ischemia. I do not think it fits the criteria for acute ST elevation CO. She ot herwise has no other issues for now. PAST MEDICAL HISTORY: 1. Atrial fibrillation, status post ablation. 2. Osteoarthritis. PAST SURGICAL HISTORY: 1. Knee replacement. 2. Breast biopsy. SOCIAL HISTORY: No alcohol, tobacco or drugs. FAMILY HISTORY: No early coronary artery disease. OUTPATIENT MEDICATIONS: 1. Tramadol. 2. Metformin. 3. Hydralazine 10 mg p.o. b.i.d. 4. Carbamazepine. 5. PreserVision vitamin. 6. Torsemide 20 mg a day. 7. Aldactone 25 mg q.a.m. 8. Sertraline 100 mg at bedtime. 9. Xarelto 10 mg at bedtime. 10. Mirapex q.p.m. 11. Lisinopril 10 mg p.o. b.i.d. 12. Liothyronine (Cytomel) 5 mcg b.i.d. 13. Synthroid 125 mcg q.a.m. 14. Fluticasone. 15. Flecainide 100 mg b.i.d. 16. Docusate. 17. Cholecalciferol. 18. Carvedilol 6.25 b.i.d. 19. Azelastine. 20. Atorvastatin. 21. Alprazolam. ALLERGIES: STREPTOMYCIN. REVIEW OF SYSTEMS: A 12-point review of systems was done and is all negative unless stated in the hi story of present illness. PHYSICAL EXAMINATION: VITAL SIGNS: Respiratory is 22, pulse is 38, blood pressure is , temperature is 98.4. GENERAL: Awake, alert, oriented x3, in no distress. HEENT: Normocephalic. NECK: Supple. LUNGS: Clear. CARDIOVASCULAR: S1, S2, no S3, S4, no murmurs. ABDOMEN: Soft. Positive bowel sounds. EXTREMITIES: No edema. SKIN: Warm and dry. LABORATORY WORK: Reviewed. CBC with a white count of 11, hemoglobin 10, hematocrit 34, platelet cou nt of 170. Coags were reviewed. Chemistry with a troponin of 8 consistent with recent ablation. BN P is 530, creatinine 1.7, BUN 26. UA with yellow, cloudy, large leukocyte esterase, 50 white blood c ells, 100 proteins. EKG is reviewed, atrial fibrillation and severely bradycardic in the mid-30s. Echocardiogram was reviewed. She has got no pericardial effusion. Her EF is actually 60-65% with no regional wall motion abnormalities. Inferior wall is moving quite well. We can see very well on th e test. She has severe mitral annular calcification with mild to moderate MR and moderate tricuspid regurgitation. No pericardial effusion. ASSESSMENT AND PLAN: 1. Atrial fibrillation with slow ventricular response. 2. Tachybrady syndrome, recent ablation. 3. Elevated troponin likely related to recent ablation. PLAN: 1. Dr. Daigle wanted us to make sure that this was not an inferior CO which I do not think it is and if that was the case, she will need a pacemaker. This will be placed later today with Dr. Daigle. I do not think this is an acute coronary syndrome as her LV seems to be quite normal and her EKG avitia ges are not meeting criteria for an acute myocardial infarction. 2. Dr. Ennis, her primary holder pile driving will follow up in the morning.
[2018-01-06] MEDS ORDERED: Midazolam HCl 2 mg/2 ml Vial ONE (16:53)
[2018-01-06] MEDS ORDERED: DOPamine 400 MG/D5W 250 ML 250 ML ONE (17:16)
[2018-01-06] MEDS ORDERED: Dextrose 50% Abboject 50 ML SYRINGE IVP PRN (19:13)
[2018-01-06] MEDS ORDERED: Dextrose 5% in Water 1,000 ML IV PRN (19:13)
--- NOTE | 2018-01-06 20:53 | RAD ---
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 Pacemaker placement. FINDINGS: Single view of the chest shows a normal sized cardiomediastinal silhouette. There is a left subclavia n pacemaker with its leads in the right atrium and ventricle. No pneumothorax is seen. IMPRESSION: Status post pacemaker placement without evidence of complication. POS: [facility]
--- NOTE | 2018-01-06 20:55 | HP ---
DATE OF CONSULTATION: 01/06/2018 REASON FOR CONSULTATION: Severe symptomatic bradycardia. PHYSICIAN REQUESTING CONSULTATION: Emergency Department. HISTORY OF PRESENT ILLNESS: Angelica Tony is an 82-year-old woman. She is well known to me with a his tory of atrial fibrillation. She underwent pulmonary vein antral isolation, did included left atrial appendage isolation on 01/04/2018. She underwent a Watchman closure over appendage, which had been previously planned at the time of that procedure. Once pentecostalism of sinus rhythm was seen, the pat ient had sinus rhythm with no significant bradycardia. She was discharged home in stable condition o n all of her home medications. She came in this afternoon complaining of presyncope and was found to be severely bradycardic with a sinus rhythm but with a heart rate in the 35-40 beat per minute range . There have been no changes to medications of any kind. She remains on anticoagulation as per prot ocol following Watchman and ablation. REVIEW OF SYSTEMS: Negative 10-point except as outlined in the HPI. PHYSICAL EXAMINATION: NECK: Supple. HEART: Demonstrates a regular but bradycardic rate, normal S1, S2. LUNGS: Clear with no rales, rhonchi or wheezes. ABDOMEN: Soft. EXTREMITIES: Without edema. SKIN: Warm and dry. NEUROLOGIC: Nonfocal. LABORATORY AND X-RAY FINDINGS: Electrocardiogram demonstrates severe sinus bradycardia with first de gree AV block and a narrow QRS complex with an escape rhythm. MEDICAL DECISION MAKING: I had a 15-minute discussion with Mr. Tony and her daughter. We talked ab out all treatment options and alternatives. At this juncture, it appears that she is no obvious reve rsible cause for bradycardia which appears to be at the level of sinus node. The ablation was not pe rformed at the level of the sinus node but if possible that her previous tachyarrhythmias could have masked this underlying problem. As a result, I think that a dual-chamber pacemaker placement is appr opriate and essentially unavoidable at this point. She understands risks, benefits, and alternatives , and agreed to proceed. IMPRESSION: 1. Symptomatic bradycardia, sinus. 2. History of atrial arrhythmia, status post recent ablation of the left atrium which included isola tion of the appendage. 3. Status post Watchman closure of the appendage. 4. High CHADS-VASc score and high bleeding risk. RECOMMENDATIONS: Proceed with dual-chamber pacemaker placement today.
[2018-01-06] MEDS ORDERED: Acetaminophen 325 MG TAB PO PRN ×2 (20:57→20:58)
[2018-01-06] MEDS ORDERED: carBAMazepine 200 MG TAB PO SCH (21:00)
[2018-01-06] MEDS ORDERED: Liothyronine Sodium 5 MCG TAB PO SCH (21:00)
[2018-01-06] MEDS ORDERED: Spironolactone 25 MG TAB PO SCH (21:00)
[2018-01-06] MEDS: Docusate Calcium (SURFAK) 240 MG CAP PO SCH (21:25)
[2018-01-06] MEDS: Pramipexole Di-HCl 0.25 MG TAB PO SCH (21:26)
[2018-01-06 22:35] VITALS: BMI 31.0
[2018-01-07] MEDS: Morphine 4 MG/ML VIAL SLOW IVP PRN ×3 (03:09→22:01)
[2018-01-07] MEDS: Acetaminophen/Codeine 30-300mg Tablet PO PRN (07:16)
[2018-01-07] MEDS: Levothyroxine Sodium 125 MCG TAB PO SCH (07:16)
--- NOTE | 2018-01-07 07:40 | OP ---
DATE OF PROCEDURE: 01/06/2018 PROCEDURE PERFORMED: Pericardiocentesis. REFERRING PHYSICIAN: Dr. Daigle. REASON FOR PROCEDURE: Ms. Tony has developed marked bradycardia requiring emergent pacemaker implantation. She developed hypertension and a single pericardial effusion, that was detected fluro and also on stat echocardiography. Decision was made to proceed with emergent pericardiocentesis. PROCEDURE IN DETAIL: The patient received Versed and fentanyl. Subcutaneous lidocaine was used to anesthetize the epigastric area after prep and drape. Under fluoroscopic guidance utilizing contrast dye, pericardiocentesis was performed and a long draining sheath was introduced. About 200 mL of bloody effusion was drained, then no more effusion could be drained further. Reduction of the pericardial silhouette has been noted. Sheath was sutured in place, blood pressure stabilized, the patient tolerated the procedure well. CONCLUSION: Successful pericardiocentesis. PLAN: A gravity drain overnight. Hold anticoagulants. Repeat echo in the morning to evaluate residual effusion. Admit to ICU. [facility]
[2018-01-07] MEDS ORDERED: Furosemide 20 MG/2 ML VIAL SLOW IVP SCH (08:00)
--- NOTE | 2018-01-07 08:12 | RAD ---
PORTABLE SEMI-UPRIGHT FRONTAL CHEST RADIOGRAPH: 01/07/2018 HISTORY: Generalized weakness and nausea. Recent cardiac ablation. Atrial fibrillation. Chest pain. COMPARISON: 01/06/2018 FINDINGS: There is a dual-lead transvenous pacing device inserted via a left subclavian approach. The cardiac silhouette is enlarged and unchanged. No pneumothorax is seen. There is mild increased density in t he medial left base, which may represent volume loss or infiltrate. When compared to the 01/06/2018 examination, there is new focal increased density in the right perihilar region. There is also new/w orsened blunting of the right costophrenic angle, with new increased density in the inferolateral rig ht upper lobe and new increased density in the medial right lung base. IMPRESSION: New right perihilar and right basilar opacity. Findings suggest developing right pleural effusion an d nonspecific right parenchymal opacity, which may signify passive atelectasis, infiltrate, or aspira tion. Follow-up imaging following treatment, to document resolution, advised. POS: BRITANY
[2018-01-07 08:35] LABS: INR-International Normal Ratio 1.2; PTT 28.8 SEC (22.9-36.1); Prothrombin Time 15.5 SEC (12.0-14.7)
[2018-01-07 08:37] LABS: Hemoglobin 10.5 g/dL (12.0-16.0); Mean Corpuscular HGB CONC 31.2 g/dL (32.0-36.0); Mean Corpuscular Hemoglobin 28.3 pg (27.0-31.0); Mean Corpuscular Volume 90.6 fL (78.0-98.0); Mean Platelet Volume 9.1 fL (7.4-10.4); Platelet Count 169 thou/uL (130-400); RBC Distribution Width 13.5 % (11.5-14.5); Red Blood Cell (RBC) Count 3.71 mill/uL (4.20-5.40); White Blood Cell (WBC) Count 16.5 thou/uL (4.8-10.8)
[2018-01-07 08:38] LABS: Anion Gap 20 mmol/L (10-20); BUN (Urea Nitrogen) 18 mg/dL (9.8-20.1); Calc. Creatinine Clearance 27 mL/min (70-130); Calcium 8.6 mg/dL (7.8-10.44); Carbon Dioxide 17 mmol/L (23-31); Chloride 104 mmol/L (98-107); Estimated GFR-MDRD 24; Glucose 127 mg/dL (83-110); Potassium 4.6 mmol/L (3.5-5.1); Sodium 136 mmol/L (136-145)
[2018-01-07 08:43] LABS: Critical Call Chem Troponin I RESULT DECREASING; Troponin I 3.591 ng/mL (< 0.028)
[2018-01-07 08:56] LABS: Band 3 % (5-11); Lymphocytes 21 % (21-51); MDiff Complete? YES; Monocytes 4 % (0-10); Neutrophil 72 % (42-75); PLT Morphology Comment Appears Adequate
[2018-01-07] MEDS ORDERED: Prevnar 13-Val Conj/PF 0.5 ML SYRINGE IM ONE (09:00)
[2018-01-07] MEDS: hydrALAZINE 10 MG TAB PO SCH ×2 (09:50→22:09)
[2018-01-07] MEDS: Spironolactone 25 MG TAB PO SCH (09:50)
[2018-01-07] MEDS: Docusate Calcium (SURFAK) 240 MG CAP PO SCH ×2 (09:50→22:00)
[2018-01-07] MEDS: Liothyronine Sodium 5 MCG TAB PO SCH ×2 (09:56→22:01)
[2018-01-07] MEDS: Torsemide 20 MG TAB PO SCH (10:14)
[2018-01-07] MEDS: traMADol HCl 50 MG TAB PO PRN (10:14)
[2018-01-07] MEDS: Insulin Regular 300 UNITS/3 ML VIAL SC PRN ×2 (12:24→18:02)
[2018-01-07] MEDS: Fluticasone Propionate Nasal Spray 16 gm Bottle NASAL SCH ×2 (14:00→21:59)
--- NOTE | 2018-01-07 14:20 | PDOC.CTH ---
Cardiology Progress Note - Subjective EP progress note: Doing fair overnight. Her VS have been stable without suspicion for recurrent tamponade. No hypotension. reports mild pain at pacemaker implant site as well as pain with deep inspiration. Denies: heart racing, palpitations, dizziness, passing out, shortness of breath , leg swelling, nausea, vomiting, diarrhea Reports: dyspnea with deep inspiration, pain at implant site. mild fatigue - Objective Vital Signs Temp Pulse BP 01/07/18 12:00 99.9 F H 01/07/18 09:50 86 139/70 01/07/18 08:00 98.3 F Weight 180 lb 12.465 oz 01/06/18 01/07/18 01/08/18 06:59 06:59 06:59 Intake Total 750 560 Output Total 420 200 Balance 330 360 - Physical Examination General/Neuro: alert & oriented x3, NAD Neck: carotid US brisk, no JVD present Lungs: CTA, unlabored respirations Heart: other: (parox flutter, demand AV pacing) - Telemetry Telemetry Rhythm: parox flutter, demand AV pacing - Labs Result Diagrams: 01/10/18 05:21 01/10/18 05:21 Troponin/CKMB CK-MB (CK-2) 6.3 ng/mL (0-6.6) 01/06/18 13:30 Troponin I 3.591 ng/mL (< 0.028) H* 01/07/18 07:52 - Assessment/Plan Assessment: 1. Atrial fibrillation/atypical flutter -s/p redo ablation last week with Dr Daigle, now in early recurrent atypical atrial flutter. Largely controlled VR 90-100 2. Symptomatic sinus bradycardia -s/p dual chamber pacemaker implantation, complicated by acute pericardial effusion. 3. Pericardial effusion -s/p pericardiocentesis and drain placement. Intially 200mLs removed. 200mL output overnight and progressively serous in appearance. Attempted further aspiration bedside via drain with no additional output received. Drain was removed and gauze dressing applied. Patient tolerated well. 4. Pleural effusion, right -mild by CXR this AM 5. Dyspnea -attributed to inflammation with recent ablation, pericardial effusion and drain placement 6. Dual chamber [employer] pacemaker - Site stable this AM with minimal swelling and bruising. Painful to patient. PRN ultram, T3, and morphine available. No pneumothorax by CXR this AM. - Stable device check today 7. Acute kidney injury - Creatinine 2 today 8. Hypotension - transient, largely resolved with percardiocentesis. Stable this AM. Plan: - Resume home coreg 6.25mg BID - Monitor over weekend for recurrent pericardial effusion - Resuming OAC am with reduced dose Eliquis 2.5mg BID as she had a watchman closure device placed last week following her redo ablation. Protocol requires OAC x 6 weeks after watchman. OAC for at least 3 months post ablation. - Hospitalist consult to assist with medical needs. - Anticipate transfer out of ICU to tele today. - Continue rate control for paroxysmal atrial flutter. Minimal atrial pacing seen on tele today, rate regular, Difficult to see the flutter but evident on PPM interrogation/EGM review. - Cardiology will also follow over the weekend. Attending Addendum - Attending Addendum Date/Time: 01/10/18 [id number] I personally evaluated the patient and discussed the management with Ms Juares. I agree with the History, Examination, Assessment and Plan documented above with any addition or exceptions noted below.
--- NOTE | 2018-01-07 15:03 | PRG ---
DATE OF SERVICE: 01/07/2018. SUBJECTIVE: Ms. Tony is doing well. As outlined in the chart, the patient had recent atrial fibril lation ablation and Watchman procedure. Subsequently, developed severe bradycardia requiring emergen cy pacemaker insertion. The patient did suffer pericardial effusion due to perforation with successf ul pericardiocentesis. The tube has been removed. Dr. Yarbrough has placed her back on apixaban. The patient is doing well now. OBJECTIVE: VITAL SIGNS: Blood pressure 134/66, pulse 90, appears to be atrial sensed ventricular paced. LUNGS: Clear. CARDIAC: Normal S1, normal S2. ASSESSMENT: 1. Status post recent atrial fibrillation ablation and Watchman procedure. 2. Pacemaker insertion, requiring pericardiocentesis. PLAN: 1. We will keep her in the Intensive Care Unit overnight as she is being put back on the apixaban. 2. She received a dose of furosemide. 3. Reduce carvedilol for now. 4. She is on torsemide and spironolactone.
[2018-01-07] MEDS ORDERED: Bisacodyl 5 MG TAB PO PRN (16:31)
[2018-01-07] MEDS ORDERED: Mag-Al 1200 mg/1200 mg/30 ML UDCUP PO PRN (16:31)
--- NOTE | 2018-01-07 16:34 | PDOC.PN ---
- Subjective Encounter Start Date: 01/07/18 Encounter Start Time: 16:32 Subjective: seen and examined at bedside.chart reviewed .PCP Sheree Santos -: s/p Watchman Wednesday and ablation w bradycardia & PPM & pericard effusion -: no ws/p Abhinav sam subsequent removal.IM team consulted for medical issues Reports epigastric pain and some constipation. having difficulty breathing due to pain - Objective MAR Reviewed: Yes Vital Signs & Weight: Vital Signs (12 hours) Temp Pulse BP Pulse Ox 01/07/18 12:00 99.9 F H 01/07/18 09:50 86 139/70 01/07/18 08:00 98.3 F 100 Weight Weight 180 lb 12.465 oz Most Recent Monitor Data Heart Rate from ECG 90 NIBP 126/70 NIBP BP-Mean 88 Respiration from ECG 31 SpO2 95 I&O: 01/06/18 01/07/18 01/08/18 06:59 06:59 06:59 Intake Total 750 680 Output Total 420 500 Balance 330 180 Result Diagrams: 01/07/18 08:22 01/07/18 07:52 Additional Labs: Accuchecks 01/07/18 01/07/18 12:18 06:38 POC Glucose 168 H 108 Phys Exam - Physical Examination Constitutional: NAD easily winded HEENT: PERRLA, moist MMs, sclera anicteric, oral pharynx no lesions Neck: no nodes, no JVD, supple, full ROM Respiratory: no wheezing, no rales, no rhonchi, clear to auscultation bilateral Cardiovascular: RRR, no significant murmur, no rub Gastrointestinal: soft, no distention, positive bowel sounds TTP epigastric region Musculoskeletal: no edema, pulses present Neurological: non-focal, normal sensation, moves all 4 limbs Psychiatric: normal affect, A&O x 3 Skin: no rash Dx/Plan (1) MARKUS (acute kidney injury) Code(s): N17.9 - ACUTE KIDNEY FAILURE, UNSPECIFIED Status: Acute (2) Pericardial effusion Code(s): I31.3 - PERICARDIAL EFFUSION (NONINFLAMMATORY) Status: Acute Comment: s/p pericardiocentesis and drain removal (3) Epigastric pain Code(s): R10.13 - EPIGASTRIC PAIN Status: Acute (4) Chronic diastolic heart failure Code(s): I50.32 - CHRONIC DIASTOLIC (CONGESTIVE) HEART FAILURE Status: Chronic (5) DM2 (diabetes mellitus, type 2) Status: Chronic (6) HTN (hypertension) Code(s): I10 - ESSENTIAL (PRIMARY) HYPERTENSION Status: Chronic (7) Hypothyroidism Code(s): E03.9 - HYPOTHYROIDISM, UNSPECIFIED Status: Chronic (8) Paroxysmal a-fib Code(s): I48.0 - PAROXYSMAL ATRIAL FIBRILLATION Status: Chronic Comment: s/ p recent cardioversion - Plan continue antibiotics, clinical social worker, out of bed/ambulate, DVT proph w/SCDs add PPI. ? gastritis. Monitor H/H. Maalox prn.laxatives prn -: Urine and blood Cx. WBC high likley d/t stress and reactive. -: Monitor renal Fx as pt on diuretics. suspect hypoperfusion. Urien output OK -: Supportive care.CCU monitoring -: Cardiology & EP .IM team will follow. Check Labs in am * . Review of Systems - Review of Systems Constitutional: weakness, malaise. negative: fever, chills, sweats, other Respiratory: Shortness of Breath. negative: Cough, Dry, Hemoptysis, SOB with Excertion, Pleuritic Pain, Sputum, Wheezing Cardiovascular: negative: chest pain, palpitations, orthopnea, paroxysmal nocturnal dyspnea, edema, light headedness, other Gastrointestinal: Abdominal Pain. negative: Nausea, Vomiting, Diarrhea, Constipation, Melena, Hematochezia, Other Genitourinary: negative: Dysuria, Frequency, Incontinence, Hematuria, Retention , Other Musculoskeletal: negative: Neck Pain, Shoulder Pain, Arm Pain, Back Pain, Hand Pain, Leg Pain, Foot Pain, Other Skin: negative: Rash, Lesions, Michael, Bruising, Other Neurological: negative: Weakness, Numbness, Incoordination, Change in Speech, Confusion, Seizures, Other - Medications/Allergies Allergies/Adverse Reactions: Allergies Allergy/AdvReac Type Severity Reaction Status Date / Time streptomycin Allergy Verified 01/06/18 22:45 Medications: Current Medications Acetaminophen (Tylenol) 325 mg PO ONE PRN PRN Reason: Headache Stop: 01/07/18 23:00 Last Admin: 01/06/18 21:24 Dose: 325 mg Acetaminophen/Codeine Phosphate (Tylenol #3) 1 tab PO Q4H PRN PRN Reason: Mild Pain (1-3) Last Admin: 01/07/18 07:16 Dose: 1 tab Acetaminophen/Codeine Phosphate (Tylenol #3) 2 tab PO Q4H PRN PRN Reason: Moderate Pain (4-6) Al Hydroxide/Mg Hydroxide (Maalox) 30 ml PO Q4H PRN PRN Reason: Heartburn or Indigestion Apixaban (Eliquis) 2.5 mg PO BID [facility] Bisacodyl (Dulcolax) 10 mg PO DAILYPRN PRN PRN Reason: Constipation Carbamazepine (Tegretol) 200 mg PO HS [facility] Carvedilol (Coreg) 3.12 mg PO BID-WM [facility] Cephalexin (Keflex) 500 mg PO TID [facility] Dextrose/Water (Dextrose 50%) 25 gm IVP PRN PRN PRN Reason: HYPOGLYCEMIA PROTOCOL Docusate Calcium (Surfak) 240 mg PO BID [facility] Last Admin: 01/07/18 09:50 Dose: 240 mg Fluticasone Propionate (Flonase Nasal [employer]) 0 gm NASAL BID [facility] Glucagon (Glucagon) 1 mg IM PRN PRN PRN Reason: HYPOGLYCEMIA PROTOCOL Hydralazine HCl (Apresoline) 10 mg PO BID [facility] Last Admin: 01/07/18 09:50 Dose: 10 mg Dextrose/Water (D5w) 1,000 mls @ 0 mls/hr IV INF PRN PRN Reason: HYPOGLYCEMIA PROTOCOL Insulin Human Regular (Humulin R) 0 units SC .MODERATE SLIDING SC PRN; Protocol PRN Reason: MODERATE SLIDING SCALE Last Admin: 01/07/18 12:24 Dose: 2 unit Insulin Human Regular (Humulin R) 0 units SC .BEDTIME SLIDING SC PRN; Protocol PRN Reason: BEDTIME SLIDING SCALE Levothyroxine Sodium (Synthroid) 125 mcg PO 0600 [facility] Last Admin: 01/07/18 07:16 Dose: 125 mcg Liothyronine Sodium (Cytomel) 5 mcg PO BID [facility] Last Admin: 01/07/18 09:56 Dose: 5 mcg Mometasone Furoate (Asmanex) 1 puff INH 1830 [facility] Morphine Sulfate (Morphine) 1 mg SLOW IVP Q2H PRN PRN Reason: Breakthrough Pain Morphine Sulfate (Morphine) 2 mg SLOW IVP Q2H PRN PRN Reason: SEVERE Breakthrough Pain Last Admin: 01/07/18 12:25 Dose: 2 mg Pantoprazole Sodium (Protonix) 40 mg IVP DAILY [facility] Pramipexole Dihydrochloride (Mirapex) 0.5 mg PO HS [facility] Last Admin: 01/06/18 21:26 Dose: 0.5 mg Sodium Chloride (Flush - Normal Saline) 10 ml IVF PRN PRN PRN Reason: Saline Flush Spironolactone (Aldactone) 25 mg PO DAILY [facility] Last Admin: 01/07/18 09:50 Dose: 25 mg Torsemide (Demadex) 20 mg PO DAILY [facility] Last Admin: 01/07/18 10:14 Dose: 20 mg Tramadol HCl (Ultram) 100 mg PO BID PRN PRN Reason: Moderate Pain (4-6) Last Admin: 01/07/18 10:14 Dose: 100 mg
[2018-01-07] MEDS ORDERED: Pantoprazole 40 MG VIAL IVP SCH (17:00)
[2018-01-07] MEDS ORDERED: Carvedilol 6.25 MG TAB PO SCH (17:00)
[2018-01-07] MEDS: Carvedilol 6.25 MG TAB PO SCH (17:57)
[2018-01-07] MEDS: Mometasone Furoate 30 PUFF 220 MCG INH SCH (19:17)
--- NOTE | 2018-01-07 20:23 | CON ---
DATE OF CONSULTATION: 01/07/2018 HISTORY OF PRESENT ILLNESS: Ms. Tony has been admitted to the Critical Care Unit. She is a patient of mine that I have cared for for many years. I have not seen her in the office recently. Apparently, she presented with bradycardia and a pacemaker procedure was recommended. She subsequently required a pericardiocentesis. She has been admitted to the Critical Care Unit. She has no complaints at this time. Her only compl aints were regarding the discomfort yesterday during the procedure. PAST MEDICAL HISTORY: Remarkable for ablation for atrial fibrillation, degenerative arthritis, knee replacement, and breast biopsy. SOCIAL HISTORY: She is nonsmoker, nondrinker. FAMILY HISTORY: Negative for lung disease in early age. MEDICATIONS: Have been reviewed. FAMILY HISTORY: Negative for lung disease in early age. REVIEW OF SYSTEMS: 10-point review of systems is otherwise negative. PHYSICAL EXAMINATION: GENERAL: She is in no distress. VITAL SIGNS: Blood pressure 126/70, heart rate 90, respiratory rates in the 20s. HEENT: Pupils react equally. Sclerae are anicteric. NECK: Supple. No lymphadenopathy. LUNGS: Clear. HEART: Regular rhythm. S1 and S2 are normal. ABDOMEN: Soft and nontender. EXTREMITIES: Without clubbing, cyanosis, or edema. IMPRESSION: Status post pacemaker, followed by pericardiocentesis, clinically stable at this time. I will be happy to follow with the other physicians caring for her. This is a 50-minute consult, 50% of the time was spent on the unit coordinating care.
[2018-01-07] MEDS ORDERED: Apixaban 2.5 MG TAB PO SCH (21:00)
[2018-01-07] MEDS: Cephalexin 250 MG CAP PO SCH (22:00)
[2018-01-07] MEDS: carBAMazepine 200 MG TAB PO SCH (22:01)
[2018-01-07] MEDS: Pramipexole Di-HCl 0.25 MG TAB PO SCH (22:12)
[2018-01-08] MEDS: Morphine 4 MG/ML VIAL SLOW IVP PRN ×2 (01:19→18:09)
[2018-01-08] MEDS: Acetaminophen/Codeine 30-300mg Tablet PO PRN ×3 (02:08→14:40)
[2018-01-08 04:13] LABS: Hemoglobin 9.9 g/dL (12.0-16.0); Mean Corpuscular HGB CONC 31.1 g/dL (32.0-36.0); Mean Platelet Volume 9.7 fL (7.4-10.4); Platelet Count 160 thou/uL (130-400); RBC Distribution Width 13.5 % (11.5-14.5); Red Blood Cell (RBC) Count 3.53 mill/uL (4.20-5.40); White Blood Cell (WBC) Count 14.1 thou/uL (4.8-10.8)
[2018-01-08 04:31] LABS: Anion Gap 16 mmol/L (10-20); BUN (Urea Nitrogen) 37 mg/dL (9.8-20.1); Calc. Creatinine Clearance 31 mL/min (70-130); Calcium 8.8 mg/dL (7.8-10.44); Carbon Dioxide 21 mmol/L (23-31); Chloride 103 mmol/L (98-107); Estimated GFR-MDRD 27; Glucose 149 mg/dL (83-110); Potassium 4.9 mmol/L (3.5-5.1); Sodium 135 mmol/L (136-145)
[2018-01-08] MEDS: Levothyroxine Sodium 125 MCG TAB PO SCH (06:12)
--- NOTE | 2018-01-08 08:11 | PDOC.CTH ---
Cardiology Progress Note - Subjective Feels good overall. No complaints. - Objective Vital Signs Temp Pulse BP 01/08/18 04:00 98.6 F 01/08/18 00:00 98.5 F 01/07/18 23:00 98.5 F 01/07/18 22:09 72 109/66 Weight 180 lb 12.465 oz 01/07/18 01/08/18 01/09/18 06:59 06:59 05:59 Intake Total 750 2168 Output Total 420 1050 Balance 330 1118 - Physical Examination General/Neuro: alert & oriented x3, NAD Neck: carotid US brisk, no JVD present Lungs: CTA, unlabored respirations Heart: PMI normal, RRR Abdomen: NT/ND, soft Extremities: + femoral B - Labs Result Diagrams: 01/08/18 03:26 01/08/18 03:26 Troponin/CKMB CK-MB (CK-2) 6.3 ng/mL (0-6.6) 01/06/18 13:30 Troponin I 3.591 ng/mL (< 0.028) H* 01/07/18 07:52 - Assessment/Plan Pericardial effusion s/p pericardicentesis s/p watchman s/p pacer ACT to be resumed HR BP stable currently May recommend repeat echo tomorrow if stable after starting ACT
[2018-01-08] MEDS: Torsemide 20 MG TAB PO SCH (09:30)
[2018-01-08] MEDS: Apixaban 2.5 MG TAB PO SCH ×2 (09:30→20:08)
[2018-01-08] MEDS: Liothyronine Sodium 5 MCG TAB PO SCH ×2 (09:30→20:08)
[2018-01-08] MEDS: Spironolactone 25 MG TAB PO SCH (09:31)
[2018-01-08] MEDS: Cephalexin 250 MG CAP PO SCH ×3 (09:31→20:08)
[2018-01-08] MEDS: hydrALAZINE 10 MG TAB PO SCH ×2 (09:32→20:10)
[2018-01-08] MEDS: Docusate Calcium (SURFAK) 240 MG CAP PO SCH ×2 (09:32→20:08)
[2018-01-08] MEDS: Carvedilol 6.25 MG TAB PO SCH ×2 (09:32→16:05)
[2018-01-08] MEDS: Fluticasone Propionate Nasal Spray 16 gm Bottle NASAL SCH ×2 (09:33→20:10)
[2018-01-08] MEDS: Pantoprazole 40 MG VIAL IVP SCH (09:33)
--- NOTE | 2018-01-08 11:55 | PDOC.PN ---
- Subjective Encounter Start Date: 01/08/18 Encounter Start Time: 11:53 Subjective: feels a little better today.still pain at the site of PPM & pericar drain -: mild SOB w exertion -: poor appetite - Objective MAR Reviewed: Yes Vital Signs & Weight: Vital Signs (12 hours) Temp Pulse Resp BP Pulse Ox 01/08/18 09:48 95 20 94 L 01/08/18 09:32 72 97/49 L 01/08/18 08:00 98 01/08/18 07:00 98.2 F 01/08/18 04:00 98.6 F 01/08/18 00:00 98.5 F Weight Weight 180 lb 12.465 oz Most Recent Monitor Data Heart Rate from ECG 96 NIBP 97/49 NIBP BP-Mean 65 Respiration from ECG 30 SpO2 95 I&O: 01/07/18 01/08/18 01/09/18 06:59 06:59 05:59 Intake Total 750 2168 120 Output Total 420 1050 300 Balance 330 1118 -180 Result Diagrams: 01/08/18 03:26 01/08/18 03:26 Additional Labs: Accuchecks 01/08/18 01/07/18 01/07/18 06:20 22:14 17:39 POC Glucose 124 H 185 H 159 H 01/07/18 12:18 POC Glucose 168 H Microbiology 01/07/18 16:02 Venous blood - Right Arm Blood Culture - Preliminary Specimen has been received and culture in progress. No Growth to date. 01/07/18 16:00 Venous blood - Left Hand Blood Culture - Preliminary Specimen has been received and culture in progress. No Growth to date. Phys Exam - Physical Examination Constitutional: NAD sitting up in chair HEENT: PERRLA, moist MMs, sclera anicteric, oral pharynx no lesions Neck: no nodes, no JVD, supple, full ROM Respiratory: no wheezing, no rales, no rhonchi, clear to auscultation bilateral Cardiovascular: RRR, no significant murmur Gastrointestinal: soft, non-tender, no distention, positive bowel sounds Musculoskeletal: no edema, pulses present Neurological: non-focal, normal sensation, moves all 4 limbs Psychiatric: normal affect, A&O x 3 Dx/Plan (1) MARKUS (acute kidney injury) Code(s): N17.9 - ACUTE KIDNEY FAILURE, UNSPECIFIED Status: Acute Comment: Improving. (2) Pericardial effusion Code(s): I31.3 - PERICARDIAL EFFUSION (NONINFLAMMATORY) Status: Acute Comment: s/p pericardiocentesis and drain removal (3) Epigastric pain Code(s): R10.13 - EPIGASTRIC PAIN Status: Acute Comment: Likley due to post procedure from pericardial drain site (4) Chronic diastolic heart failure Code(s): I50.32 - CHRONIC DIASTOLIC (CONGESTIVE) HEART FAILURE Status: Chronic (5) DM2 (diabetes mellitus, type 2) Status: Chronic (6) HTN (hypertension) Code(s): I10 - ESSENTIAL (PRIMARY) HYPERTENSION Status: Chronic (7) Hypothyroidism Code(s): E03.9 - HYPOTHYROIDISM, UNSPECIFIED Status: Chronic (8) Paroxysmal a-fib Code(s): I48.0 - PAROXYSMAL ATRIAL FIBRILLATION Status: Chronic Comment: s/ p recent cardioversion - Plan continue antibiotics, out of bed/ambulate, DVT proph w/SCDs on PO Keflex.Monitor urine & Blood Cx -: leucocytosis likley reactive. no indication for broad Abx Rx for now -: renal Fx improving. Cont Demadex & Aldactone.Lasix stopped -: HD stable.No more bradycardic episode post PPM -: IM team will cont to follow. * . Review of Systems - Review of Systems Constitutional: weakness, malaise. negative: fever, chills, sweats, other Respiratory: SOB with Excertion. negative: Cough, Dry, Shortness of Breath, Hemoptysis, Pleuritic Pain, Sputum, Wheezing Cardiovascular: negative: chest pain, palpitations, orthopnea, paroxysmal nocturnal dyspnea, edema, light headedness, other Gastrointestinal: negative: Nausea, Vomiting, Abdominal Pain, Diarrhea, Constipation, Melena, Hematochezia, Other Genitourinary: negative: Dysuria, Frequency, Incontinence, Hematuria, Retention , Other Musculoskeletal: Other. negative: Neck Pain, Shoulder Pain, Arm Pain, Back Pain , Hand Pain, Leg Pain, Foot Pain Skin: negative: Rash, Lesions, Michael, Bruising, Other Neurological: negative: Weakness, Numbness, Incoordination, Change in Speech, Confusion, Seizures, Other - Medications/Allergies Allergies/Adverse Reactions: Allergies Allergy/AdvReac Type Severity Reaction Status Date / Time streptomycin Allergy Verified 01/06/18 22:45 Medications: Current Medications Acetaminophen/Codeine Phosphate (Tylenol #3) 1 tab PO Q4H PRN PRN Reason: Mild Pain (1-3) Last Admin: 01/08/18 02:08 Dose: 1 tab Acetaminophen/Codeine Phosphate (Tylenol #3) 2 tab PO Q4H PRN PRN Reason: Moderate Pain (4-6) Last Admin: 01/08/18 09:40 Dose: 2 tab Al Hydroxide/Mg Hydroxide (Maalox) 30 ml PO Q4H PRN PRN Reason: Heartburn or Indigestion Apixaban (Eliquis) 2.5 mg PO BID [facility] Last Admin: 01/08/18 09:30 Dose: 2.5 mg Bisacodyl (Dulcolax) 10 mg PO DAILYPRN PRN PRN Reason: Constipation Carbamazepine (Tegretol) 200 mg PO [facility] Last Admin: 01/07/18 22:01 Dose: 200 mg Carvedilol (Coreg) 3.12 mg PO BID[facility] Last Admin: 01/08/18 09:32 Dose: 3.12 mg Cephalexin (Keflex) 500 mg PO TID [facility] Last Admin: 01/08/18 09:31 Dose: 500 mg Dextrose/Water (Dextrose 50%) 25 gm IVP PRN PRN PRN Reason: HYPOGLYCEMIA PROTOCOL Docusate Calcium (Surfak) 240 mg PO BID [facility] Last Admin: 01/08/18 09:32 Dose: 240 mg Fluticasone Propionate (Flonase Nasal [place]) 0 gm NASAL BID [facility] Last Admin: 01/08/18 09:33 Dose: 1 spr Glucagon (Glucagon) 1 mg IM PRN PRN PRN Reason: HYPOGLYCEMIA PROTOCOL Hydralazine HCl (Apresoline) 10 mg PO BID [facility] Last Admin: 01/08/18 09:32 Dose: Not Given Dextrose/Water (D5w) 1,000 mls @ 0 mls/hr IV INF PRN PRN Reason: HYPOGLYCEMIA PROTOCOL Insulin Human Regular (Humulin R) 0 units SC .MODERATE SLIDING SC PRN; Protocol PRN Reason: MODERATE SLIDING SCALE Last Admin: 01/07/18 18:02 Dose: 2 unit Insulin Human Regular (Humulin R) 0 units SC .BEDTIME SLIDING SC PRN; Protocol PRN Reason: BEDTIME SLIDING SCALE Levothyroxine Sodium (Synthroid) 125 mcg PO 0600 [facility] Last Admin: 01/08/18 06:12 Dose: 125 mcg Liothyronine Sodium (Cytomel) 5 mcg PO BID [facility] Last Admin: 01/08/18 09:30 Dose: 5 mcg Mometasone Furoate (Asmanex) 1 puff INH 1830 [facility] Last Admin: 01/07/18 19:17 Dose: 1 puff Morphine Sulfate (Morphine) 1 mg SLOW IVP Q2H PRN PRN Reason: Breakthrough Pain Morphine Sulfate (Morphine) 2 mg SLOW IVP Q2H PRN PRN Reason: SEVERE Breakthrough Pain Last Admin: 01/08/18 01:19 Dose: 2 mg Pantoprazole Sodium (Protonix) 40 mg IVP DAILY [facility] Last Admin: 01/08/18 09:33 Dose: 40 mg Pramipexole Dihydrochloride (Mirapex) 0.5 mg PO HS [facility] Last Admin: 01/07/18 22:12 Dose: 0.5 mg Sodium Chloride (Flush - Normal Saline) 10 ml IVF PRN PRN PRN Reason: Saline Flush Last Admin: 01/07/18 22:09 Dose: 10 ml Spironolactone (Aldactone) 25 mg PO DAILY [facility] Last Admin: 01/08/18 09:31 Dose: 25 mg Torsemide (Demadex) 20 mg PO DAILY [facility] Last Admin: 01/08/18 09:30 Dose: 20 mg Tramadol HCl (Ultram) 100 mg PO BID PRN PRN Reason: Moderate Pain (4-6) Last Admin: 01/07/18 10:14 Dose: 100 mg
--- NOTE | 2018-01-08 16:01 | PRG ---
DATE OF SERVICE: 01/08/2018 OBJECTIVE: GENERAL: Angelica Tony is in no distress. VIALS: She is afebrile, heart rate 76, respiratory rate 17, oximetry is 92 on 1 liter, blood pressur e 154/60. LUNGS: Clear. HEART: Regular rhythm. ABDOMEN: Soft. EXTREMITIES: Without edema. LABORATORY DATA: Hemoglobin is 9.9, white count is 14.1, platelets 160. Sodium 135, potassium 4.9, chloride 103, bicarbonate 21, BUN 37, creatinine 1.7, glucose 149. IMPRESSION: 1. Status post pericardiocentesis. 2. Status post pacemaker. 3. Status post Watchman. PLAN: Continue supportive care. She is stable to move out of critical care.
[2018-01-08] MEDS: Mometasone Furoate 30 PUFF 220 MCG INH SCH (18:35)
[2018-01-08] MEDS: Pramipexole Di-HCl 0.25 MG TAB PO SCH (20:08)
[2018-01-08] MEDS: carBAMazepine 200 MG TAB PO SCH (20:09)
--- NOTE | 2018-01-08 21:15 | EKG ---
Test Reason : Blood Pressure : / mmHG Vent. Rate : 037 BPM Atrial Rate : 163 BPM P-R Int : 000 ms QRS Dur : 090 ms QT Int : 462 ms P-R-T Axes : 000 017 051 degrees QTc Int : 362 ms Atrial fibrillation with slow ventricular response Septal infarct , age undetermined Abnormal ECG Confirmed by GOOD RIVAS D.O. ([id number]), electronic news gathering editor ANA AMIN ([id number]) on 01/08/2018 9:14:42 PM Referred By: Confirmed By:GOOD RIVAS D.O.
[2018-01-09] MEDS: Morphine 4 MG/ML VIAL SLOW IVP PRN ×2 (01:29→12:29)
[2018-01-09] MEDS: Levothyroxine Sodium 125 MCG TAB PO SCH (05:31)
[2018-01-09 05:38] LABS: Hemoglobin 9.2 g/dL (12.0-16.0); Mean Corpuscular HGB CONC 32.4 g/dL (32.0-36.0); Mean Corpuscular Hemoglobin 28.8 pg (27.0-31.0); Mean Corpuscular Volume 89.1 fL (78.0-98.0); Mean Platelet Volume 9.4 fL (7.4-10.4); Platelet Count 167 thou/uL (130-400); RBC Distribution Width 13.6 % (11.5-14.5); Red Blood Cell (RBC) Count 3.19 mill/uL (4.20-5.40); White Blood Cell (WBC) Count 12.1 thou/uL (4.8-10.8)
[2018-01-09] MEDS: Apixaban 2.5 MG TAB PO SCH ×2 (08:40→21:26)
[2018-01-09] MEDS: Spironolactone 25 MG TAB PO SCH (08:41)
[2018-01-09] MEDS: Docusate Calcium (SURFAK) 240 MG CAP PO SCH ×2 (08:41→21:27)
[2018-01-09] MEDS: Torsemide 20 MG TAB PO SCH (08:41)
[2018-01-09] MEDS: hydrALAZINE 10 MG TAB PO SCH ×2 (08:41→21:27)
[2018-01-09] MEDS: Carvedilol 6.25 MG TAB PO SCH ×2 (08:41→16:42)
[2018-01-09] MEDS: Cephalexin 250 MG CAP PO SCH ×2 (08:41→15:25)
[2018-01-09] MEDS: Liothyronine Sodium 5 MCG TAB PO SCH ×2 (08:41→21:26)
[2018-01-09] MEDS: Pantoprazole 40 MG VIAL IVP SCH (08:42)
[2018-01-09] MEDS: Fluticasone Propionate Nasal Spray 16 gm Bottle NASAL SCH ×2 (08:42→21:33)
[2018-01-09] MEDS ORDERED: Apixaban 2.5 MG TAB PO SCH (09:00)
--- NOTE | 2018-01-09 10:02 | PDOC.CTH ---
<Nehal Platt Veronica - Last Filed: 01/09/18 10:00> Cardiology Progress Note - Subjective c/o SOB. Patient says she has been continually SOB since admission. Cannot catch breath, but doesn't feel like it's worse in the last 48 hours. - Objective Vital Signs Temp Pulse Resp BP BP Pulse Ox 01/09/18 08:41 88 97/50 L 01/09/18 07:46 98.3 F 88 17 133/60 92 L 01/09/18 03:31 98.6 F 95 20 133/64 94 L 01/09/18 02:00 95 Weight 165 lb 3.2 oz 01/08/18 01/09/18 01/10/18 07:59 06:59 06:59 Intake Total Output Total Balance - Physical Examination General/Neuro: alert & oriented x3 Neck: no JVD present Lungs: CTA Heart: RRR Abdomen: NT/ND - Labs Result Diagrams: 01/09/18 04:52 01/08/18 03:26 Troponin/CKMB CK-MB (CK-2) 6.3 ng/mL (0-6.6) 01/06/18 13:30 Troponin I 3.591 ng/mL (< 0.028) H* 01/07/18 07:52 - Assessment/Plan 1. Symptomatic bradycardia s/p pacer 2. Post-procedure pericardial effusion s/p pericardiocentesis 3. AF s/p recent PVI and watchman placement 4. SOB Repeat ECHO ordered for this morning. CXR ordered by primary team. Patient was in acute CHF with bradycardia at presentation. Will repeat BNP as well to see if she need lasix. H/H stable. Monitor closely. <Janusz Mendes - Last Filed: 01/09/18 14:34> Cardiology Progress Note - Objective Vital Signs Temp Pulse Pulse Pulse Resp BP BP 01/09/18 12:45 79 90 143/67 H 01/09/18 12:00 99.1 F 93 22 H 01/09/18 08:41 88 97/50 L 01/09/18 08:00 01/09/18 07:46 98.3 F 88 17 01/09/18 03:31 98.6 F 95 20 BP BP Pulse Ox Pulse Ox Pulse Ox 01/09/18 12:45 142/61 H 93 L 93 L 01/09/18 12:00 115/71 91 L 01/09/18 08:41 01/09/18 08:00 92 L 01/09/18 07:46 133/60 92 L 01/09/18 03:31 133/64 94 L Weight 165 lb 3.2 oz 01/08/18 01/09/18 01/10/18 07:59 06:59 06:59 Intake Total Output Total Balance - Labs Result Diagrams: 01/09/18 04:52 01/08/18 03:26 Troponin/CKMB CK-MB (CK-2) 6.3 ng/mL (0-6.6) 01/06/18 13:30 Troponin I 3.591 ng/mL (< 0.028) H* 01/07/18 07:52 - Assessment/Plan Pt seen and examined Echo without pericardial effusion. Add lasix IV Pt recently showered and soaked bandage overlying pericarial incision Asked nursing staff to change the dressing and watch for drainage. On Abx
--- NOTE | 2018-01-09 11:27 | PDOC.PN ---
- Subjective Encounter Start Date: 01/09/18 Encounter Start Time: 11:24 Subjective: feels SOB and uncomfortable because of that -: still w some pain at site of PPM and pericard Drain -: no fever/chills/cough/CP - Objective MAR Reviewed: Yes Vital Signs & Weight: Vital Signs (12 hours) Temp Pulse Resp BP BP Pulse Ox 01/09/18 08:41 88 97/50 L 01/09/18 08:00 92 L 01/09/18 07:46 98.3 F 88 17 133/60 92 L 01/09/18 03:31 98.6 F 95 20 133/64 94 L 01/09/18 02:00 95 Weight Weight 165 lb 3.2 oz Most Recent Monitor Data Heart Rate from ECG 95 NIBP 107/54 NIBP BP-Mean 71 Respiration from ECG 25 SpO2 82 I&O: 01/08/18 01/09/18 01/10/18 07:59 06:59 06:59 Intake Total Output Total Balance Result Diagrams: 01/09/18 04:52 01/08/18 03:26 Additional Labs: Accuchecks 01/09/18 01/08/18 01/08/18 05:17 20:34 16:41 POC Glucose 157 H 202 H 219 H Microbiology 01/07/18 21:30 Urine voided Urine Culture - Preliminary NO GROWTH AT 12 HOURS 01/07/18 16:02 Venous blood - Right Arm Blood Culture - Preliminary Specimen has been received and culture in progress. No Growth to date. 01/07/18 16:00 Venous blood - Left Hand Blood Culture - Preliminary Specimen has been received and culture in progress. No Growth to date. Laboratory Tests 01/06/18 01/07/18 01/08/18 13:30 07:52 03:26 Creatinine 1.78 H 2.01 H 1.77 H Phys Exam - Physical Examination Constitutional: NAD HEENT: PERRLA, moist MMs, sclera anicteric, oral pharynx no lesions Neck: no nodes, no JVD, supple, full ROM Respiratory: no wheezing, no rales, no rhonchi, clear to auscultation bilateral Cardiovascular: RRR, no significant murmur Gastrointestinal: soft, non-tender, no distention, positive bowel sounds Musculoskeletal: no edema, pulses present Neurological: non-focal, normal sensation, moves all 4 limbs Psychiatric: normal affect, A&O x 3 Skin: no rash Dx/Plan (1) Dyspnea Code(s): R06.00 - DYSPNEA, UNSPECIFIED Status: Acute Qualifiers: Dyspnea type: shortness of breath Qualified Code(s): R06.02 - Shortness of breath; R06.00 - Dyspnea, unspecified; R06.01 - Orthopnea Comment: ? CHF/Edema Vs HCAP Vs Pericardial effusion (2) MARKUS (acute kidney injury) Code(s): N17.9 - ACUTE KIDNEY FAILURE, UNSPECIFIED Status: Acute Comment: Improving. (3) Pericardial effusion Code(s): I31.3 - PERICARDIAL EFFUSION (NONINFLAMMATORY) Status: Acute Comment: s/p pericardiocentesis and drain removal (4) Epigastric pain Code(s): R10.13 - EPIGASTRIC PAIN Status: Acute Comment: Likley due to post procedure from pericardial drain site (5) Chronic diastolic heart failure Code(s): I50.32 - CHRONIC DIASTOLIC (CONGESTIVE) HEART FAILURE Status: Chronic (6) DM2 (diabetes mellitus, type 2) Status: Chronic (7) HTN (hypertension) Code(s): I10 - ESSENTIAL (PRIMARY) HYPERTENSION Status: Chronic (8) Hypothyroidism Code(s): E03.9 - HYPOTHYROIDISM, UNSPECIFIED Status: Chronic (9) Paroxysmal a-fib Code(s): I48.0 - PAROXYSMAL ATRIAL FIBRILLATION Status: Chronic Comment: s/ p recent cardioversion - Plan PT/OT, respiratory therapy, incentive spirometry, DVT proph w/SCDs ECHo and CXR. already on Demadex and aldactone -: Follow Cx. negative so far. -: WBC trending down -: check renal Fx in am. -: OT/PT * . Review of Systems - Review of Systems Constitutional: weakness, malaise. negative: fever, chills, sweats, other ENT: negative: Ear Pain, Ear Discharge, Nose Pain, Nose Discharge, Nose Congestion, Mouth Pain, Mouth Swelling, Throat Pain, Throat Swelling, Other Respiratory: Shortness of Breath, SOB with Excertion. negative: Cough, Dry, Hemoptysis, Pleuritic Pain, Sputum, Wheezing Cardiovascular: negative: chest pain, palpitations, orthopnea, paroxysmal nocturnal dyspnea, edema, light headedness, other Gastrointestinal: negative: Nausea, Vomiting, Abdominal Pain, Diarrhea, Constipation, Melena, Hematochezia, Other Genitourinary: negative: Dysuria, Frequency, Incontinence, Hematuria, Retention , Other Musculoskeletal: negative: Neck Pain, Shoulder Pain, Arm Pain, Back Pain, Hand Pain, Leg Pain, Foot Pain, Other Skin: negative: Rash, Lesions, Michael, Bruising, Other Neurological: negative: Weakness, Numbness, Incoordination, Change in Speech, Confusion, Seizures, Other - Medications/Allergies Allergies/Adverse Reactions: Allergies Allergy/AdvReac Type Severity Reaction Status Date / Time streptomycin Allergy Verified 01/06/18 22:45 Medications: Current Medications Acetaminophen/Codeine Phosphate (Tylenol #3) 1 tab PO Q4H PRN PRN Reason: Mild Pain (1-3) Last Admin: 01/08/18 02:08 Dose: 1 tab Acetaminophen/Codeine Phosphate (Tylenol #3) 2 tab PO Q4H PRN PRN Reason: Moderate Pain (4-6) Last Admin: 01/08/18 14:40 Dose: 2 tab Al Hydroxide/Mg Hydroxide (Maalox) 30 ml PO Q4H PRN PRN Reason: Heartburn or Indigestion Albuterol/Ipratropium (Duoneb) 3 ml NEB Q4H PRN PRN Reason: SOB &/or Wheezing Last Admin: 01/09/18 02:00 Dose: 3 ml Apixaban (Eliquis) 2.5 mg PO BID [facility] Last Admin: 01/09/18 08:40 Dose: 2.5 mg Bisacodyl (Dulcolax) 10 mg PO DAILYPRN PRN PRN Reason: Constipation Carbamazepine (Tegretol) 200 mg PO HS [facility] Last Admin: 01/08/18 20:09 Dose: 200 mg Carvedilol (Coreg) 3.12 mg PO BID-[facility] Last Admin: 01/09/18 08:41 Dose: 3.12 mg Cephalexin (Keflex) 500 mg PO TID [facility] Last Admin: 01/09/18 08:41 Dose: 500 mg Dextrose/Water (Dextrose 50%) 25 gm IVP PRN PRN PRN Reason: HYPOGLYCEMIA PROTOCOL Docusate Calcium (Surfak) 240 mg PO BID [facility] Last Admin: 01/09/18 08:41 Dose: 240 mg Fluticasone Propionate (Flonase Nasal [place]) 0 gm NASAL BID [facility] Last Admin: 01/09/18 08:42 Dose: 2 spr Glucagon (Glucagon) 1 mg IM PRN PRN PRN Reason: HYPOGLYCEMIA PROTOCOL Hydralazine HCl (Apresoline) 10 mg PO BID [facility] Last Admin: 01/09/18 08:41 Dose: 10 mg Dextrose/Water (D5w) 1,000 mls @ 0 mls/hr IV INF PRN PRN Reason: HYPOGLYCEMIA PROTOCOL Insulin Human Regular (Humulin R) 0 units SC .MODERATE SLIDING SC PRN; Protocol PRN Reason: MODERATE SLIDING SCALE Last Admin: 01/07/18 18:02 Dose: 2 unit Insulin Human Regular (Humulin R) 0 units SC .BEDTIME SLIDING SC PRN; Protocol PRN Reason: BEDTIME SLIDING SCALE Levothyroxine Sodium (Synthroid) 125 mcg PO 0600 [facility] Last Admin: 01/09/18 05:31 Dose: 125 mcg Liothyronine Sodium (Cytomel) 5 mcg PO BID [facility] Last Admin: 01/09/18 08:41 Dose: 5 mcg Mometasone Furoate (Asmanex) 1 puff INH 1830 [facility] Last Admin: 01/08/18 18:35 Dose: 1 puff Morphine Sulfate (Morphine) 1 mg SLOW IVP Q2H PRN PRN Reason: Breakthrough Pain Last Admin: 01/08/18 18:09 Dose: 1 mg Morphine Sulfate (Morphine) 2 mg SLOW IVP Q2H PRN PRN Reason: SEVERE Breakthrough Pain Last Admin: 01/09/18 01:29 [employer] Dose: 2 mg Pantoprazole Sodium (Protonix) 40 mg IVP DAILY [facility] Last Admin: 01/09/18 08:42 Dose: 40 mg Pramipexole Dihydrochloride (Mirapex) 0.5 mg PO HS [facility] Last Admin: 01/08/18 20:08 Dose: 0.5 mg Sodium Chloride (Flush - Normal Saline) 10 ml IVF PRN PRN PRN Reason: Saline Flush Last Admin: 01/07/18 22:09 Dose: 10 ml Spironolactone (Aldactone) 25 mg PO DAILY [facility] Last Admin: 01/09/18 08:41 Dose: 25 mg Torsemide (Demadex) 20 mg PO DAILY [facility] Last Admin: 01/09/18 08:41 Dose: 20 mg Tramadol HCl (Ultram) 100 mg PO BID PRN PRN Reason: Moderate Pain (4-6) Last Admin: 01/07/18 10:14 Dose: 100 mg
--- NOTE | 2018-01-09 12:02 | RAD ---
PORTABLE CHEST 1 VIEW: DATE: 01/09/2018. TIME: 10:11 a.m. HISTORY: Dyspnea, pericardial effusion. FINDINGS/IMPRESSION: Comparison is made with the exam of 01/07/2018. Interval development of opacity seen at the left lung base with accompanying small effusion. A right -sided pleural effusion is again seen with adjacent atelectasis change/infiltrate. The heart is enla rged. Left-sided pacing device remains in place. No pneumothoraces are seen. POS: BRITANY
[2018-01-09] MEDS: Insulin Regular 300 UNITS/3 ML VIAL SC PRN ×3 (12:42→21:29)
[2018-01-09] MEDS ORDERED: methylPREDNISolone Sod Succ/PF 125 MG/2 ML VIAL IVP SCH (13:45)
[2018-01-09] MEDS ORDERED: Furosemide 40 MG/4 ML VIAL SLOW IVP SCH (14:15)
--- NOTE | 2018-01-09 14:27 | PRG ---
DATE OF SERVICE: 01/09/2018 SUBJECTIVE: Ms. Tony is complaining of wheezing today. OBJECTIVE: VITALS: She is afebrile, heart rate is 72, respiratory rate is 22, oximetry is 91 on 2 liters, blood pressure 143/67. LUNGS: Remarkable for faint wheezes. She is not using accessory muscles. HEART: Regular rhythm. ABDOMEN: Soft. LABORATORY DATA: White count 12.1, hemoglobin 9.2, platelets 167. Sodium 135. She has no new elect rolytes today. IMPRESSION: 1. Status post pericardiocentesis after pacemaker and a Watchman procedure. 2. Bronchospasm. We will add nebulized treatments, one dose of steroids.
[2018-01-09] MEDS: Acetaminophen/Codeine 30-300mg Tablet PO PRN ×2 (15:26→23:08)
--- NOTE | 2018-01-09 16:12 | PDOC.EVN ---
Event Note - Event Note Event Note: Positive urine Cx and CXR concerning for LLL PNA.will start IV meropenam.Follow final Cx results.
[2018-01-09] MEDS ORDERED: Meropenem 1 GM in Sodium Chloride 0.9% 100 ML IVPB SCH (18:00)
[2018-01-09] MEDS ORDERED: MEROPENEM 1 GM/50 ML 1 GM in Premix Bag 1 BAG IVPB SCH (18:00)
[2018-01-09] MEDS: MEROPENEM 1 GM/50 ML 1 GM in Premix Bag 1 BAG IVPB SCH (18:47)
[2018-01-09] MEDS: Mometasone Furoate 30 PUFF 220 MCG INH SCH (19:17)
[2018-01-09] MEDS: traMADol HCl 50 MG TAB PO PRN (19:39)
[2018-01-09] MEDS: carBAMazepine 200 MG TAB PO SCH (21:26)
[2018-01-09] MEDS: Pramipexole Di-HCl 0.25 MG TAB PO SCH (21:26)
[2018-01-10] MEDS: MEROPENEM 1 GM/50 ML 1 GM in Premix Bag 1 BAG IVPB SCH ×2 (05:49→17:41)
[2018-01-10] MEDS: Levothyroxine Sodium 125 MCG TAB PO SCH (05:49)
[2018-01-10 06:12] LABS: Anion Gap 15 mmol/L (10-20); BUN (Urea Nitrogen) 51 mg/dL (9.8-20.1); Calc. Creatinine Clearance 36 mL/min (70-130); Calcium 9.1 mg/dL (7.8-10.44); Carbon Dioxide 25 mmol/L (23-31); Chloride 99 mmol/L (98-107); Estimated GFR-MDRD 36; Glucose 153 mg/dL (83-110); Potassium 4.8 mmol/L (3.5-5.1); Sodium 134 mmol/L (136-145)
[2018-01-10 06:21] LABS: Hemoglobin 8.8 g/dL (12.0-16.0); Lymphocytes 14 % (21-51); MDiff Complete? YES; Mean Corpuscular HGB CONC 32.5 g/dL (32.0-36.0); Mean Corpuscular Hemoglobin 29.1 pg (27.0-31.0); Mean Corpuscular Volume 89.5 fL (78.0-98.0); Mean Platelet Volume 8.7 fL (7.4-10.4); Monocytes 15 % (0-10); Neutrophil 71 % (42-75); PLT Morphology Comment Appears Adequate; Platelet Count 172 thou/uL (130-400); RBC Distribution Width 13.3 % (11.5-14.5); Red Blood Cell (RBC) Count 3.03 mill/uL (4.20-5.40); White Blood Cell (WBC) Count 8.8 thou/uL (4.8-10.8)
[2018-01-10] MEDS: hydrALAZINE 10 MG TAB PO SCH ×2 (08:25→20:55)
[2018-01-10] MEDS: Spironolactone 25 MG TAB PO SCH (08:25)
[2018-01-10] MEDS: Docusate Calcium (SURFAK) 240 MG CAP PO SCH ×2 (08:26→20:55)
[2018-01-10] MEDS: Apixaban 2.5 MG TAB PO SCH ×2 (08:26→20:54)
[2018-01-10] MEDS: Torsemide 20 MG TAB PO SCH (08:26)
[2018-01-10] MEDS: Liothyronine Sodium 5 MCG TAB PO SCH ×2 (08:26→20:54)
[2018-01-10] MEDS: Carvedilol 6.25 MG TAB PO SCH (08:28)
[2018-01-10] MEDS: Pantoprazole 40 MG VIAL IVP SCH (08:30)
[2018-01-10] MEDS: Insulin Regular 300 UNITS/3 ML VIAL SC PRN ×3 (08:30→20:56)
[2018-01-10] MEDS: Fluticasone Propionate Nasal Spray 16 gm Bottle NASAL SCH ×2 (08:30→20:56)
--- NOTE | 2018-01-10 09:58 | PRG ---
DATE OF SERVICE: 01/10/2018 HISTORY: Ms. Tony is breathing somewhat better today. She is sitting up in the chair. No chest pa in, but she still has shortness of breath. PHYSICAL EXAMINATION: VITAL SIGNS: Her blood pressure 120/60, pulse 70. LUNGS: Expiratory wheezing. CARDIAC: Normal S1, normal S2. ABDOMEN: Soft, nontender. EXTREMITIES: No significant edema. ASSESSMENT: 1. Probably diastolic heart failure. 2. Recent pacemaker insertion. 3. Normal left ventricular systolic function. 4. Wheezing. PLAN: 1. Stop carvedilol. 2. Check iron level. She is anemic. 3. Continue with diuresis. 4. Continue Eliquis at reduced dose.
--- NOTE | 2018-01-10 10:31 | PRG ---
DATE OF SERVICE: 01/10/2018 SUBJECTIVE: She says she is feeling better. She feels like the nebulizer treatments are helping. OBEJCTIVE: VITAL SIGNS: She is afebrile, heart rate is 92, respiratory rate is 18, oximetry is 94 on 2 liters, blood pressure 112/58. LUNGS: Remarkable for faint wheezes. HEART: Regular rhythm. ABDOMEN: Soft. IMPRESSION: Reactive airways clinically improved. We will add Mucinex to see if this helps. I will continue to follow with the other physicians caring for her. Chest radiograph shows bilateral small effusions, which I suspect are result of her pericardial issues. I doubt she has pneumonia.
[2018-01-10] MEDS ORDERED: Potassium Chloride 20 MEQ TAB PO SCH (12:00)
--- NOTE | 2018-01-10 12:24 | PRG ---
DATE OF SERVICE: 01/10/2018 SUBJECTIVE: Ms. Tony seems to be doing somewhat better. She still has minor abdominal discomfort and coughing yellow phlegm. She is still somewhat short of breath. OBJECTIVE: VITAL SIGNS: Blood pressure is 125/59, heart rate 89, respiration is 18, temperature 98.3 degrees Fahrenheit. GENERAL: Alert and oriented woman in no apparent distress. NECK: Supple. Jugular veins not distended. CHEST: Coarse without crackles. CARDIOVASCULAR: Heart sounds are regular. No murmur or gallop. ABDOMEN: Benign. Bowel sounds positive. EXTREMITIES: Lower extremities without edema, clubbing or cyanosis. Pulses are adequate. NEUROLOGIC: Patient nonfocal. HEENT: Without joint swelling or deformity. SKIN: Without rash. DATABASE: EKGs reviewed revealing an atrial flutter with 2:1 AV conduction, somewhat variable AV conduction. Overall, ventricular rate is reasonably controlled. LABORATORY DATA: White count is 8.8 reducing, hemoglobin 8.8, platelet count is 172. Sodium 134, potassium 4.8, BUN is 51, creatinine is 1.39. BNP from the 4th was 413.6. Chest x-ray from 01/09/2018 reveals bilateral pleural effusions and small left basal effusion as well. Pacemaker in adequate placement, left lung base opacity was noted. A 2D echo was reviewed from 01/09/2018 revealing a minimal pericardial substrate mostly non-echo dense, possibly clotting material. No evidence of tamponade present. LV 55%. ASSESSMENT AND PLAN: Ms. Tony is a pleasant 83-year-old woman with history of atrial arrhythmias. She underwent repeated left atrial ablation procedure and she eventually required a Watchman device placement as well last week. She presented with marked symptomatic bradycardia requiring urgent pacemaker placement, this was performed on 01/06/2018. Subsequently, she developed a pericardial effusion which was drained promptly and the subsequent day, the drain was removed. The pericardial effusion has not recurred. Her pacemaker is functioning well. She still has dyspnea which could be possibly due to reactive airways disease, rule out pneumonia. She is being treated with antibiotics. Also has minimal pleural effusions. She has been restarted on oral anticoagulation and low dose Eliquis 2.5 mg twice a day. For now, we will not increase it with history of recent bleed. Eventually, this could be though further increased if renal function stabilizes. At this point, would continue supportive care. I appreciate Pulmonary and Internal Medicine input. We will follow with you. DOMINIQUE
--- NOTE | 2018-01-10 12:46 | PDOC.PN ---
- Subjective Encounter Start Date: 01/10/18 Encounter Start Time: 12:45 Subjective: feels about the same.very SOB w Exertion.O2 dependent -: no bleeding.no Fever/chills. mild cough - Objective MAR Reviewed: Yes Vital Signs & Weight: Vital Signs (12 hours) Temp Pulse Resp BP Pulse Ox 01/10/18 11:40 98.3 F 89 18 125/59 L 94 L 01/10/18 10:55 92 20 92 L 01/10/18 07:40 100 01/10/18 07:37 98.5 F 77 22 H 120/61 100 01/10/18 06:39 94 L 01/10/18 06:36 94 20 94 L 01/10/18 04:20 94 L 01/10/18 04:00 97.9 F 92 18 112/58 L 94 L Weight Weight 164 lb 14.4 oz Most Recent Monitor Data Heart Rate from ECG 95 NIBP 107/54 NIBP BP-Mean 71 Respiration from ECG 25 SpO2 82 I&O: 01/09/18 01/10/18 01/11/18 06:59 06:59 06:59 Intake Total 575 Output Total 1250 Balance -675 Result Diagrams: 01/10/18 05:21 01/10/18 05:21 Additional Labs: Accuchecks 01/10/18 01/10/18 01/09/18 11:05 05:14 20:03 POC Glucose 132 H 177 H 261 H 01/09/18 17:02 POC Glucose 200 H Microbiology 01/07/18 21:30 Urine voided Urine Culture - Final Gram Negative Aric 01/07/18 16:02 Venous blood - Right Arm Blood Culture - Preliminary NO GROWTH AT 48 HOURS 01/07/18 16:00 Venous blood - Left Hand Blood Culture - Preliminary NO GROWTH AT 48 HOURS Laboratory Tests 01/13/17 01/06/18 01/06/18 16:08 13:30 13:30 Creatinine 1.78 H B-Natriuretic Peptide 236.3 H 530.6 H 01/07/18 01/08/18 01/09/18 07:52 03:26 11:55 Creatinine 2.01 H 1.77 H B-Natriuretic Peptide 413.6 H 01/10/18 05:21 Creatinine 1.39 H B-Natriuretic Peptide Phys Exam - Physical Examination Constitutional: NAD easily winded w conversation HEENT: PERRLA, moist MMs, sclera anicteric, oral pharynx no lesions Neck: no nodes, no JVD, supple, full ROM Respiratory: no wheezing, no rales, no rhonchi, clear to auscultation bilateral reduced at Left base Cardiovascular: RRR, no significant murmur Gastrointestinal: soft, non-tender, no distention, positive bowel sounds Musculoskeletal: no edema, pulses present Neurological: non-focal, normal sensation, moves all 4 limbs Psychiatric: normal affect, A&O x 3 Skin: no rash Dx/Plan (1) Dyspnea Code(s): R06.00 - DYSPNEA, UNSPECIFIED Status: Acute Qualifiers: Dyspnea type: shortness of breath Qualified Code(s): R06.02 - Shortness of breath; R06.00 - Dyspnea, unspecified; R06.01 - Orthopnea Comment: ? CHF/Edema Vs HCAP Vs Pericardial effusion (2) MARKUS (acute kidney injury) Code(s): N17.9 - ACUTE KIDNEY FAILURE, UNSPECIFIED Status: Acute Comment: Improving. (3) Pericardial effusion Code(s): I31.3 - PERICARDIAL EFFUSION (NONINFLAMMATORY) Status: Acute Comment: s/p pericardiocentesis and drain removal (4) Epigastric pain Code(s): R10.13 - EPIGASTRIC PAIN Status: Acute Comment: Likley due to post procedure from pericardial drain site.improving (5) Chronic diastolic heart failure Code(s): I50.32 - CHRONIC DIASTOLIC (CONGESTIVE) HEART FAILURE Status: Chronic (6) DM2 (diabetes mellitus, type 2) Status: Chronic (7) HTN (hypertension) Code(s): I10 - ESSENTIAL (PRIMARY) HYPERTENSION Status: Chronic (8) Hypothyroidism Code(s): E03.9 - HYPOTHYROIDISM, UNSPECIFIED Status: Chronic (9) Paroxysmal a-fib Code(s): I48.0 - PAROXYSMAL ATRIAL FIBRILLATION Status: Chronic Comment: s/ p recent cardioversion - Plan continue antibiotics, PT/OT, respiratory therapy, incentive spirometry, DVT proph w/SCDs Add IS.Cont empiric ABx. follow final Cxresults -: Unsure if true UTI as Bacterial counts <100,00cfu -: may or may not be PNA-on empiric Abx w improvemnet in leucocytosis -: cont diuresis.renal Fx imrpoving. -: H/H stable on OAC.Im team will follow * . Review of Systems - Review of Systems Constitutional: weakness, malaise. negative: fever, chills, sweats, other Respiratory: Cough, Shortness of Breath. negative: Dry, Hemoptysis, SOB with Excertion, Pleuritic Pain, Sputum, Wheezing Cardiovascular: negative: chest pain, palpitations, orthopnea, paroxysmal nocturnal dyspnea, edema, light headedness, other Gastrointestinal: negative: Nausea, Vomiting, Abdominal Pain, Diarrhea, Constipation, Melena, Hematochezia, Other Genitourinary: negative: Dysuria, Frequency, Incontinence, Hematuria, Retention , Other Musculoskeletal: negative: Neck Pain, Shoulder Pain, Arm Pain, Back Pain, Hand Pain, Leg Pain, Foot Pain, Other Skin: negative: Rash, Lesions, Michael, Bruising, Other Neurological: negative: Weakness, Numbness, Incoordination, Change in Speech, Confusion, Seizures, Other - Medications/Allergies Allergies/Adverse Reactions: Allergies Allergy/AdvReac Type Severity Reaction Status Date / Time streptomycin Allergy Verified 01/06/18 22:45 Medications: Current Medications Acetaminophen/Codeine Phosphate (Tylenol #3) 1 tab PO Q4H PRN PRN Reason: Mild Pain (1-3) Last Admin: 01/09/18 15:26 Dose: 1 tab Acetaminophen/Codeine Phosphate (Tylenol #3) 2 tab PO Q4H PRN PRN Reason: Moderate Pain (4-6) Last Admin: 01/09/18 23:08 Dose: 2 tab Al Hydroxide/Mg Hydroxide (Maalox) 30 ml PO Q4H PRN PRN Reason: Heartburn or Indigestion Albuterol/Ipratropium (Duoneb) 3 ml NEB Q4H PRN PRN Reason: SOB &/or Wheezing Last Admin: 01/09/18 23:11 Dose: 3 ml Albuterol/Ipratropium (Duoneb) 3 ml NEB [id number] [facility] Last Admin: 01/10/18 10:55 Dose: 3 ml Apixaban (Eliquis) 2.5 mg PO BID [facility] Last Admin: 01/10/18 08:26 Dose: 2.5 mg Bisacodyl (Dulcolax) 10 mg PO DAILYPRN PRN PRN Reason: Constipation Carbamazepine (Tegretol) 200 mg PO HS [facility] Last Admin: 01/09/18 21:26 Dose: 200 mg Dextrose/Water (Dextrose 50%) 25 gm IVP PRN PRN PRN Reason: HYPOGLYCEMIA PROTOCOL Docusate Calcium (Surfak) 240 mg PO BID [facility] Last Admin: 01/10/18 08:26 Dose: 240 mg Fluticasone Propionate (Flonase Nasal [place]) 0 gm NASAL BID [facility] Last Admin: 01/10/18 08:30 Dose: 2 spr Furosemide (Lasix) 40 mg SLOW IVP DAILY [facility] Glucagon (Glucagon) 1 mg IM PRN PRN PRN Reason: HYPOGLYCEMIA PROTOCOL Hydralazine HCl (Apresoline) 10 mg PO BID [facility] Last Admin: 01/10/18 08:25 Dose: 10 mg Dextrose/Water (D5w) 1,000 mls @ 0 mls/hr IV INF PRN PRN Reason: HYPOGLYCEMIA PROTOCOL Meropenem 1 gm/ Device 50 mls @ 100 mls/hr IVPB 0600,1800 [facility] Last Admin: 01/10/18 05:49 Dose: 50 mls Insulin Human Regular (Humulin R) 0 units SC .MODERATE SLIDING SC PRN; Protocol PRN Reason: MODERATE SLIDING SCALE Last Admin: 01/10/18 08:30 Dose: 2 unit Insulin Human Regular (Humulin R) 0 units SC .BEDTIME SLIDING SC PRN; Protocol PRN Reason: BEDTIME SLIDING SCALE Last Admin: 01/09/18 21:29 Dose: 3 unit Levothyroxine Sodium (Synthroid) 125 mcg PO 0600 [facility] Last Admin: 01/10/18 05:49 Dose: 125 mcg Liothyronine Sodium (Cytomel) 5 mcg PO BID [facility] Last Admin: 01/10/18 08:26 Dose: 5 mcg Mometasone Furoate (Asmanex) 1 puff INH 1830 [facility] Last Admin: 01/09/18 19:17 Dose: 1 puff Morphine Sulfate (Morphine) 1 mg SLOW IVP Q2H PRN PRN Reason: Breakthrough Pain Last Admin: 01/09/18 12:29 Dose: 1 mg Morphine Sulfate (Morphine) 2 mg SLOW IVP Q2H PRN PRN Reason: SEVERE Breakthrough Pain Last Admin: 01/09/18 01:29 [employer]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 Dose: 2 mg Pantoprazole Sodium (Protonix) 40 mg IVP DAILY [facility] Last Admin: 01/10/18 08:30 Dose: 40 mg Potassium Chloride (K-Dur) 40 meq PO 1200 [facility] Stop: 01/10/18 14:00 Last Admin: 01/10/18 11:48 Dose: 40 meq Pramipexole Dihydrochloride (Mirapex) 0.5 mg PO HS [facility] Last Admin: 01/09/18 21:26 Dose: 0.5 mg Sodium Chloride (Flush - Normal Saline) 10 ml IVF PRN PRN PRN Reason: Saline Flush Last Admin: 01/10/18 05:49 Dose: 10 ml Spironolactone (Aldactone) 25 mg PO DAILY [facility] Last Admin: 01/10/18 08:25 Dose: 25 mg Torsemide (Demadex) 20 mg PO DAILY [facility] Last Admin: 01/10/18 08:26 Dose: 20 mg Tramadol HCl (Ultram) 100 mg PO BID PRN PRN Reason: Moderate Pain (4-6) Last Admin: 01/09/18 19:39 Dose: 100 mg
[2018-01-10] MEDS: Mometasone Furoate 30 PUFF 220 MCG INH SCH (18:51)
[2018-01-10] MEDS: Acetaminophen/Codeine 30-300mg Tablet PO PRN (20:54)
[2018-01-10] MEDS: Pramipexole Di-HCl 0.25 MG TAB PO SCH (20:55)
[2018-01-10] MEDS: carBAMazepine 200 MG TAB PO SCH (20:55)
[2018-01-11 05:48] LABS: Anion Gap 17 mmol/L (10-20); BUN (Urea Nitrogen) 50 mg/dL (9.8-20.1); Calc. Creatinine Clearance 40 mL/min (70-130); Calcium 9.1 mg/dL (7.8-10.44); Carbon Dioxide 21 mmol/L (23-31); Chloride 101 mmol/L (98-107); Estimated GFR-MDRD 41; Glucose 116 mg/dL (83-110); Iron 38 ug/dL (50-170); Iron Binding Capacity, Total 243 mcg/dL (265-497); Potassium 4.9 mmol/L (3.5-5.1); Sodium 134 mmol/L (136-145)
[2018-01-11] MEDS: Levothyroxine Sodium 125 MCG TAB PO SCH (06:48)
[2018-01-11] MEDS: MEROPENEM 1 GM/50 ML 1 GM in Premix Bag 1 BAG IVPB SCH ×2 (06:48→08:30)
[2018-01-11] MEDS: Liothyronine Sodium 5 MCG TAB PO SCH ×2 (09:02→21:17)
[2018-01-11] MEDS: Docusate Calcium (SURFAK) 240 MG CAP PO SCH ×2 (09:02→21:16)
[2018-01-11] MEDS: Apixaban 2.5 MG TAB PO SCH ×2 (09:02→21:15)
[2018-01-11] MEDS: Torsemide 20 MG TAB PO SCH (09:02)
[2018-01-11] MEDS: Fluticasone Propionate Nasal Spray 16 gm Bottle NASAL SCH ×2 (09:03→21:16)
[2018-01-11] MEDS: hydrALAZINE 10 MG TAB PO SCH ×2 (09:03→21:16)
[2018-01-11] MEDS: Spironolactone 25 MG TAB PO SCH (09:03)
[2018-01-11] MEDS: Furosemide 40 MG/4 ML VIAL SLOW IVP SCH ×2 (09:04→09:37)
[2018-01-11] MEDS: Pantoprazole 40 MG VIAL IVP SCH ×2 (09:04→09:37)
--- NOTE | 2018-01-11 09:12 | PRG ---
DATE OF SERVICE: 01/11/2018 Ms. Tony states she just does not feel well overall. Still has some shortness of breath. No chest pain. OBJECTIVE: VITAL SIGNS: Blood pressure 143/72, pulse 80, it is regular. LUNGS: Expiratory wheezing. CARDIAC: Normal S1, normal S2. ABDOMEN: Soft, nontender. EXTREMITIES: There is no edema. ASSESSMENT: 1. Status post ablation of atrial arrhythmias and placement of Watchman device. 2. Bradycardia status post pacemaker insertion. 3. Pericardial fluid drained emergently. 4. Renal insufficiency. PLAN: 1. She is on daily furosemide. 2. Carvedilol was stopped. 3. Still on Apixaban. 4. Continue to monitor labs. 5. Continue inhaled bronchodilators.
--- NOTE | 2018-01-11 12:06 | PDOC.CTH ---
Cardiology Progress Note - Subjective EP Progress Note: Patient seen and examined. Continues to have dyspnea with wheezing even at rest. Frequent urination from diuretics. Has not been OOB walking. Very weak. - ROS shortness of breath - Objective Vital Signs Temp Pulse Resp BP Pulse Ox 01/11/18 10:09 91 18 92 L 01/11/18 07:46 97.9 F 79 20 143/72 H 97 01/11/18 06:55 83 16 96 01/11/18 04:00 97.5 F L 81 20 96/55 L 92 L 01/11/18 00:58 98 Weight 165 lb 3.2 oz 01/10/18 01/11/18 01/12/18 06:59 06:59 06:59 Intake Total 575 1040 Output Total 1250 1600 Balance -675 -560 - Physical Examination General/Neuro: alert & oriented x3, NAD Neck: carotid US brisk Lungs: unlabored respirations, other: (wheezes throughout. 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 Atrial fibrillation/atypical flutter -s/p recent redo ablation with Dr Daigle, now in early recurrent atypical atrial flutter. Rate controlled, asymptomatic 2. Symptomatic sinus bradycardia -s/p dual chamber pacemaker implantation, complicated by acute pericardial effusion. Adequate function. 3. Pericardial effusion - resolved, s/p pericardiocentesis and drain placement. 400mL output total before drain removed the following AM. Without recurrence 4. Pleural effusion, right -mild by CXR 5. Dyspnea - being treated empirically for possible PNA. extensive wheezing today. dyspnea with slight conversation 6. Dual chamber Medtronic pacemaker - Functioning normally. Site stable 7. Acute kidney injury - Creatinine 2 last week. Now 1.24 8. Hypotension - transient. Off coreg. BP low this AM otherwise stable 9. Oral anticoagulation -Newly placed watchman in placed. continued OAC required. Creatinine improved enough for return to Eliquis 5mg BID. will keep on reduced dose for now 10. Anemia -Continue with daily H&H. Not checked this AM. H&H ordered for now. Plan: - Continue OAC with reduced dose Eliquis 2.5mg BID as she had a watchman closure device placed following her redo ablation. Protocol requires OAC x 6 weeks after watchman. OAC for at least 3 months post ablation. - Continue rate control for A flutter. Will consider cardioversion at a later date once on full dose Eliquis and other medical issues have stabilized. She feels well inspite of the atrial flutter.
[2018-01-11 13:24] LABS: Hemoglobin 9.8 g/dL (12.0-16.0); Platelet Count 262 thou/uL (130-400)
[2018-01-11] MEDS ORDERED: predniSONE 20 MG TAB PO SCH ×2 (14:04→15:15)
[2018-01-11] MEDS ORDERED: Magnesium 2 GM/50 ML 2 GM in Premix Bag 1 BAG IVPB SCH (14:15)
--- NOTE | 2018-01-11 15:01 | PRG ---
DATE OF SERVICE: 01/11/2018 SUBJECTIVE: Ms. Tony still has dyspnea on exertion. OBJECTIVE: GENERAL: She is still wheezing. VITAL SIGNS: She is afebrile, heart rate 64, respiratory rates in the high teens to low 20s, oximetr y is 95% on 2 liters, blood pressure 143/72. LUNGS: Remarkable for distant wheezes. HEART: Regular rhythm. ABDOMEN: Soft. EXTREMITIES: Without edema. IMPRESSION: 1. Status post ablation with placement of a Watchman. 2. Bradycardia after her ablation with pacemaker implantation. 3. Status post emergent pericardiocentesis. 4. Chronic kidney disease. 5. Reactive airways. PLAN: IV magnesium. Continue with nebulizer treatments. I feel her radiograph is more a reaction to her pericardial effusion than pneumonia. I will simplify her antibiotics today. I will place her on a daily dose of prednisone for now.
[2018-01-11] MEDS: Acetaminophen/Codeine 30-300mg Tablet PO PRN (15:51)
[2018-01-11] MEDS: Mometasone Furoate 30 PUFF 220 MCG INH SCH (19:04)
--- NOTE | 2018-01-11 20:13 | PDOC.PN ---
- Subjective Encounter Start Date: 01/11/18 Encounter Start Time: 20:09 Subjective: nsg notes rev, connor ovn, overall feels that her breathing is better compared -: to 2 days ago and is optimistic she will continue to feel better - Objective Vital Signs & Weight: Vital Signs (12 hours) Temp Pulse Resp BP Pulse Ox 01/11/18 19:03 84 18 98 01/11/18 15:43 98.3 F 82 20 133/60 96 01/11/18 14:09 80 16 95 01/11/18 13:16 64 28 H 95 01/11/18 12:00 98.2 F 69 24 H 136/70 96 01/11/18 10:09 91 18 92 L Weight Weight 165 lb 3.2 oz Most Recent Monitor Data Heart Rate from ECG 95 NIBP 107/54 NIBP BP-Mean 71 Respiration from ECG 25 SpO2 82 I&O: 01/10/18 01/11/18 01/12/18 06:59 06:59 06:59 Intake Total 575 1040 860 Output Total 1250 1600 1300 Balance -149 -512 -116 Result Diagrams: 01/11/18 13:10 01/11/18 05:10 Additional Labs: Accuchecks 01/11/18 01/11/18 01/11/18 17:03 10:59 05:35 POC Glucose 167 H 166 H 109 01/10/18 20:55 POC Glucose 225 H Dx/Plan - Plan Constitutional: NAD, seated on the edge of the hospital bed HEENT: PERRLA, moist MMs, sclera anicteric, oral pharynx no lesions Neck: no nodes, no JVD, supple, full ROM Respiratory: no wheezing, no rales, no rhonchi, clear to auscultation bilateral dec air mvmt, mild conversational dyspnea although subjectively better per pt own report compared to prior days Cardiovascular: RRR, no significant murmur Gastrointestinal: soft, non-tender, no distention, positive bowel sounds Musculoskeletal: no edema, pulses present Neurological: non-focal, normal sensation, moves all 4 limbs Psychiatric: normal affect, A&O x 3 Dx/Plan (1) Dyspnea Code(s): R06.00 - DYSPNEA, UNSPECIFIED Status: Acute Qualifiers: Dyspnea type: shortness of breath Qualified Code(s): R06.02 - Shortness of breath; R06.00 - Dyspnea, unspecified; R06.01 - Orthopnea Comment: ? CHF/Edema Vs HCAP Vs Pericardial effusion improving apprec pulmonary c/s apprec card c/s question of whether or not there was actually prior pna - leukocytosis is improving on abx (2) MARKUS (acute kidney injury) Code(s): N17.9 - ACUTE KIDNEY FAILURE, UNSPECIFIED Status: Acute Comment: Improving. continue to monitor and continue to monitor renal fxn while diuresing pending final ucx results - empiric abx (3) Pericardial effusion Code(s): I31.3 - PERICARDIAL EFFUSION (NONINFLAMMATORY) Status: Acute Comment: s/p pericardiocentesis and drain removal hemodynamically stable (4) Epigastric pain Code(s): R10.13 - EPIGASTRIC PAIN Status: Acute Comment: Likley due to post procedure from pericardial drain site.improving (5) Chronic diastolic heart failure Code(s): I50.32 - CHRONIC DIASTOLIC (CONGESTIVE) HEART FAILURE Status: Chronic (6) DM2 (diabetes mellitus, type 2) Status: Chronic (7) HTN (hypertension) Code(s): I10 - ESSENTIAL (PRIMARY) HYPERTENSION Status: Chronic (8) Hypothyroidism Code(s): E03.9 - HYPOTHYROIDISM, UNSPECIFIED Status: Chronic (9) Paroxysmal a-fib Code(s): I48.0 - PAROXYSMAL ATRIAL FIBRILLATION Status: Chronic Comment: s/ p recent cardioversion - Plan continue antibiotics, PT/OT, respiratory therapy, incentive spirometry, DVT proph w/SCDs d/w pt at bedside greater than 30 minutes spent discussing plan of care Review of Systems - Medications/Allergies Allergies/Adverse Reactions: Allergies Allergy/AdvReac Type Severity Reaction Status Date / Time streptomycin Allergy Verified 01/06/18 22:45 Medications: Current Medications Acetaminophen/Codeine Phosphate (Tylenol #3) 1 tab PO Q4H PRN PRN Reason: Mild Pain (1-3) Last Admin: 01/11/18 15:51 Dose: 1 tab Acetaminophen/Codeine Phosphate (Tylenol #3) 2 tab PO Q4H PRN PRN Reason: Moderate Pain (4-6) Last Admin: 01/10/18 20:54 Dose: 2 tab Al Hydroxide/Mg Hydroxide (Maalox) 30 ml PO Q4H PRN PRN Reason: Heartburn or Indigestion Albuterol/Ipratropium (Duoneb) 3 ml NEB Q4H PRN PRN Reason: SOB &/or Wheezing Last Admin: 01/11/18 13:16 Dose: 3 ml Albuterol/Ipratropium (Duoneb) 3 ml NEB [id number] [facility] Last Admin: 01/11/18 19:03 Dose: 3 ml Apixaban (Eliquis) 2.5 mg PO BID [facility] Last Admin: 01/11/18 09:02 Dose: 2.5 mg Bisacodyl (Dulcolax) 10 mg PO DAILYPRN PRN PRN Reason: Constipation Last Admin: 01/11/18 09:02 Dose: 10 mg Carbamazepine (Tegretol) 200 mg PO HS [facility] Last Admin: 01/10/18 20:55 Dose: 200 mg Cefdinir (Omnicef) 300 mg PO BID [facility] Dextrose/Water (Dextrose 50%) 25 gm IVP PRN PRN PRN Reason: HYPOGLYCEMIA PROTOCOL Docusate Calcium (Surfak) 240 mg PO BID [facility] Last Admin: 01/11/18 09:02 Dose: 240 mg Fluticasone Propionate (Flonase Nasal [place]) 0 gm NASAL BID [facility] Last Admin: 01/11/18 09:03 Dose: 1 spr Furosemide (Lasix) 40 mg SLOW IVP DAILY [facility] Last Admin: 01/11/18 09:37 Dose: 40 mg Glucagon (Glucagon) 1 mg IM PRN PRN PRN Reason: HYPOGLYCEMIA PROTOCOL Hydralazine HCl (Apresoline) 10 mg PO BID [facility] Last Admin: 01/11/18 09:03 Dose: 10 mg Dextrose/Water (D5w) 1,000 mls @ 0 mls/hr IV INF PRN PRN Reason: HYPOGLYCEMIA PROTOCOL Insulin Human Regular (Humulin R) 0 units SC .MODERATE SLIDING SC PRN; Protocol PRN Reason: MODERATE SLIDING SCALE Last Admin: 01/10/18 18:18 Dose: 2 unit Insulin Human Regular (Humulin R) 0 units SC .BEDTIME SLIDING SC PRN; Protocol PRN Reason: BEDTIME SLIDING SCALE Last Admin: 01/10/18 20:56 Dose: 2 unit Levothyroxine Sodium (Synthroid) 125 mcg PO 0600 [facility] Last Admin: 01/11/18 06:48 Dose: 125 mcg Liothyronine Sodium (Cytomel) 5 mcg PO BID [facility] Last Admin: 01/11/18 09:02 Dose: 5 mcg Mometasone Furoate (Asmanex) 1 puff INH 1830 [facility] Last Admin: 01/11/18 19:04 Dose: 1 puff Morphine Sulfate (Morphine) 1 mg SLOW IVP Q2H PRN PRN Reason: Breakthrough Pain Last Admin: 01/09/18 12:29 Dose: 1 mg Morphine Sulfate (Morphine) 2 mg SLOW IVP Q2H PRN PRN Reason: SEVERE Breakthrough Pain Last Admin: 01/09/18 01:29 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: 2 mg Pantoprazole Sodium (Protonix) 40 mg IVP DAILY [facility] Last Admin: 01/11/18 09:37 Dose: 40 mg Pramipexole Dihydrochloride (Mirapex) 0.5 mg PO HS [facility] Last Admin: 01/10/18 20:55 Dose: 0.5 mg Prednisone (Prednisone) 40 mg PO [facility] Sodium Chloride (Flush - Normal Saline) 10 ml IVF PRN PRN PRN Reason: Saline Flush Last Admin: 01/11/18 09:04 Dose: 10 ml Spironolactone (Aldactone) 25 mg PO DAILY [facility] Last Admin: 01/11/18 09:03 Dose: 25 mg Torsemide (Demadex) 20 mg PO DAILY [facility] Last Admin: 01/11/18 09:02 Dose: 20 mg Tramadol HCl (Ultram) 100 mg PO BID PRN PRN Reason: Moderate Pain (4-6) Last Admin: 01/09/18 19:39 Dose: 100 mg
[2018-01-11] MEDS ORDERED: MEROPENEM 1 GM/50 ML 1 GM in Premix Bag 1 BAG IVPB SCH (21:00)
[2018-01-11] MEDS: carBAMazepine 200 MG TAB PO SCH (21:15)
[2018-01-11] MEDS: Cefdinir 300 MG CAP PO SCH (21:16)
[2018-01-11] MEDS: Pramipexole Di-HCl 0.25 MG TAB PO SCH (21:17)
[2018-01-11] MEDS: Insulin Regular 300 UNITS/3 ML VIAL SC PRN (21:19)
[2018-01-12] MEDS: Levothyroxine Sodium 125 MCG TAB PO SCH (06:18)
[2018-01-12 06:23] LABS: Anion Gap 14 mmol/L (10-20); BUN (Urea Nitrogen) 39 mg/dL (9.8-20.1); Calc. Creatinine Clearance 54 mL/min (70-130); Calcium 9.1 mg/dL (7.8-10.44); Carbon Dioxide 24 mmol/L (23-31); Chloride 104 mmol/L (98-107); Estimated GFR-MDRD 58; Glucose 133 mg/dL (83-110); Potassium 4.9 mmol/L (3.5-5.1); Sodium 137 mmol/L (136-145)
[2018-01-12 06:31] LABS: Band 2 % (5-11); Eosinophils 1 % (0-10); Hemoglobin 8.9 g/dL (12.0-16.0); Lymphocytes 7 % (21-51); MDiff Complete? YES; Mean Corpuscular HGB CONC 32.2 g/dL (32.0-36.0); Mean Corpuscular Volume 90.3 fL (78.0-98.0); Mean Platelet Volume 7.8 fL (7.4-10.4); Monocytes 21 % (0-10); Neutrophil 69 % (42-75); PLT Morphology Comment Appears Adequate; Platelet Count 230 thou/uL (130-400); RBC Distribution Width 13.7 % (11.5-14.5); Red Blood Cell (RBC) Count 3.08 mill/uL (4.20-5.40); White Blood Cell (WBC) Count 9.4 thou/uL (4.8-10.8)
--- NOTE | 2018-01-12 09:30 | PDOC.CTH ---
Cardiology Progress Note - Subjective EP progress note: Denies heart racing, palpitations, dizziness, or passing out. + mild substernal discomfort after drain removed but is gradually improving. + productive cough, dyspnea, wheezing, fatigue. 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 Atrial fibrillation/atypical flutter -s/p recent redo ablation with Dr Daigle, now in early recurrent atypical atrial flutter. Rate controlled, asymptomatic 2. Symptomatic sinus bradycardia -s/p dual chamber pacemaker implantation, complicated by acute pericardial effusion. Normal function. 3. Pericardial effusion - resolved, s/p pericardiocentesis and drain placement. 400mL output total before drain removed the following AM. Without recurrence 4. Pleural effusion, right -mild by CXR 5. Dyspnea - being treated empirically for possible PNA. wheezing persists. + productive cough, yellow sputum 6. Dual chamber Medtronic pacemaker - Functioning normally. Site stable 7. Acute kidney injury - Creatinine 2 last week. Now normalizing 8. Hypotension - transient. Off coreg. BP stable 9. Oral anticoagulation -Newly placed watchman in placed. continued OAC required. Creatinine improved enough for return to Eliquis 5mg BID. will keep on reduced dose for 10. Anemia -Continue with daily H&H. Stable with low dose eliquis. Plan: - Continue OAC with reduced dose Eliquis 2.5mg BID as she had a watchman closure device placed following her redo ablation. Protocol requires OAC x 6 weeks after watchman. OAC for at least 3 months post ablation. - Continue rate control for A flutter. Will consider cardioversion at least one month post WM placement and other medical issues have stabilized. She feels ok in atrial flutter for now. - She would benefit from rehab at [facility] (where she resides) upon DC if possible. -Mostly pulmonary issues at this point. Stable from EP perspective.
[2018-01-12] MEDS: Liothyronine Sodium 5 MCG TAB PO SCH ×2 (09:35→20:19)
[2018-01-12] MEDS: Fluticasone Propionate Nasal Spray 16 gm Bottle NASAL SCH ×2 (09:35→20:19)
[2018-01-12] MEDS: hydrALAZINE 10 MG TAB PO SCH ×2 (09:35→20:19)
[2018-01-12] MEDS: Torsemide 20 MG TAB PO SCH (09:36)
[2018-01-12] MEDS: Pantoprazole 40 MG VIAL IVP SCH (09:36)
[2018-01-12] MEDS: Spironolactone 25 MG TAB PO SCH (09:36)
[2018-01-12] MEDS: predniSONE 20 MG TAB PO SCH (09:36)
[2018-01-12] MEDS: Docusate Calcium (SURFAK) 240 MG CAP PO SCH ×2 (09:36→20:20)
[2018-01-12] MEDS: Cefdinir 300 MG CAP PO SCH ×2 (09:36→20:19)
[2018-01-12] MEDS: Apixaban 2.5 MG TAB PO SCH ×2 (09:36→20:18)
[2018-01-12] MEDS: Furosemide 40 MG/4 ML VIAL SLOW IVP SCH (09:37)
--- NOTE | 2018-01-12 14:02 | PRG ---
DATE OF SERVICE: 01/12/2018 Ms. Tony is feeling better every day. Her breathing is improved. No chest pain. OBJECTIVE: VITAL SIGNS: Blood pressure 139/63, pulse 80. LUNGS: Still some expiratory wheezing. CARDIAC: Normal S1, normal S2. ABDOMEN: Soft, nontender. EXTREMITIES: There is no edema. ASSESSMENT: 1. Status post ablation and Watchman device. 2. Some recurrent atrial arrhythmias, underlying atrial flutter or fibrillation with ventricular pac ing. 3. Diastolic congestive heart failure. PLAN: 1. Hopefully, should try to avoid ventricular pacing with diastolic heart failure. 2. We will discontinue furosemide. 3. She is off of carvedilol as her left ventricular function is normal.
--- NOTE | 2018-01-12 15:46 | PRG ---
DATE OF SERVICE: 01/12/2018 SUBJECTIVE: Ms. Tony says she is feeling better. She wants to stay one more day. OBJECTIVE: VITAL SIGNS: She is afebrile, heart rates in the 80s, respiratory rate is 18, oximetry is 96% on 1 l iter, blood pressure 139/63. LUNGS: Clear. HEART: Regular rhythm. ABDOMEN: Soft. IMPRESSION AND PLAN: 1. Reactive airways, clinically improved. 2. Status post emergent pericardiocentesis. 3. Status post pacemaker. 4. Status post Watchman. 5. Atrial arrhythmias. 6. History of diastolic heart failure. Hopefully, she will be a candidate to go home in the morning .
--- NOTE | 2018-01-12 17:40 | PDOC.PN ---
- Subjective Encounter Start Date: 01/12/18 Encounter Start Time: 14:00 Patient seen and examined for med mngt. No new complaints. No overnight events - Objective MAR Reviewed: Yes Vital Signs & Weight: Vital Signs (12 hours) Temp Pulse Pulse Pulse Resp BP BP 01/12/18 16:45 97.8 F 75 18 01/12/18 14:02 91 16 01/12/18 12:05 98.4 F 84 18 01/12/18 11:06 95 85 178/79 H 165/72 H 01/12/18 10:16 82 18 01/12/18 08:12 98.2 F 84 22 H 01/12/18 07:03 70 16 BP Pulse Ox Pulse Ox Pulse Ox 01/12/18 16:45 139/67 95 01/12/18 14:02 01/12/18 12:05 139/63 96 01/12/18 11:06 92 L 93 L 01/12/18 10:16 94 L 01/12/18 08:12 143/65 H 96 01/12/18 07:03 96 Weight Weight 165 lb 7 oz Most Recent Monitor Data Heart Rate from ECG 95 NIBP 107/54 NIBP BP-Mean 71 Respiration from ECG 25 SpO2 82 I&O: 01/11/18 01/12/18 01/13/18 06:59 06:59 06:59 Intake Total 1040 1100 Output Total 1600 2900 Balance -560 -1800 Result Diagrams: 01/12/18 04:58 01/12/18 04:58 Additional Labs: Accuchecks 01/12/18 01/12/18 01/12/18 16:55 11:02 05:20 POC Glucose 222 H 162 H 130 H 01/11/18 20:47 POC Glucose 311 H EKG Reviewed by me: Yes (Tele paced) Phys Exam - Physical Examination Constitutional: NAD Respiratory: no wheezing, no rhonchi Cardiovascular: RRR, no rub Gastrointestinal: soft, non-tender, positive bowel sounds Musculoskeletal: no edema Dx/Plan - Plan 1. MARKUS on CKD 2 - improving 2. DM2 3. HTN 4. Hypothyroidism PLAN: Cont sliding scale Resume Metformin at dc Cont Levothyroxine Cont Aldactone Review of Systems - Review of Systems Respiratory: negative: Cough, Dry, Shortness of Breath, Hemoptysis, SOB with Excertion, Pleuritic Pain, Sputum, Wheezing Cardiovascular: negative: chest pain, palpitations, orthopnea, paroxysmal nocturnal dyspnea, edema, light headedness, other - Medications/Allergies Allergies/Adverse Reactions: Allergies Allergy/AdvReac Type Severity Reaction Status Date / Time streptomycin Allergy Verified 01/06/18 22:45 Medications: Current Medications Acetaminophen/Codeine Phosphate (Tylenol #3) 1 tab PO Q4H PRN PRN Reason: Mild Pain (1-3) Last Admin: 01/11/18 15:51 Dose: 1 tab Acetaminophen/Codeine Phosphate (Tylenol #3) 2 tab PO Q4H PRN PRN Reason: Moderate Pain (4-6) Last Admin: 01/10/18 20:54 Dose: 2 tab Al Hydroxide/Mg Hydroxide (Maalox) 30 ml PO Q4H PRN PRN Reason: Heartburn or Indigestion Albuterol/Ipratropium (Duoneb) 3 ml NEB Q4H PRN PRN Reason: SOB &/or Wheezing Last Admin: 01/11/18 13:16 Dose: 3 ml Albuterol/Ipratropium (Duoneb) 3 ml NEB [id number] [facility] Last Admin: 01/12/18 14:02 Dose: 3 ml Apixaban (Eliquis) 2.5 mg PO BID [facility] Last Admin: 01/12/18 09:36 Dose: 2.5 mg Bisacodyl (Dulcolax) 10 mg PO DAILYPRN PRN PRN Reason: Constipation Last Admin: 01/11/18 09:02 Dose: 10 mg Carbamazepine (Tegretol) 200 mg PO [facility] Last Admin: 01/11/18 21:15 Dose: 200 mg Cefdinir (Omnicef) 300 mg PO BID [facility] Last Admin: 01/12/18 09:36 Dose: 300 mg Dextrose/Water (Dextrose 50%) 25 gm IVP PRN PRN PRN Reason: HYPOGLYCEMIA PROTOCOL Docusate Calcium (Surfak) 240 mg PO BID [facility] Last Admin: 01/12/18 09:36 Dose: 240 mg Famotidine (Pepcid) 20 mg PO BID [facility] Fluticasone Propionate (Flonase Nasal [place]) 0 gm NASAL BID [facility] Last Admin: 01/12/18 09:35 Dose: 1 spr Glucagon (Glucagon) 1 mg IM PRN PRN PRN Reason: HYPOGLYCEMIA PROTOCOL Hydralazine HCl (Apresoline) 10 mg PO BID [facility] Last Admin: 01/12/18 09:35 Dose: 10 mg Dextrose/Water (D5w) 1,000 mls @ 0 mls/hr IV INF PRN PRN Reason: HYPOGLYCEMIA PROTOCOL Insulin Human Regular (Humulin R) 0 units SC .MODERATE SLIDING SC PRN; Protocol PRN Reason: MODERATE SLIDING SCALE Last Admin: 01/10/18 18:18 Dose: 2 unit Insulin Human Regular (Humulin R) 0 units SC .BEDTIME SLIDING SC PRN; Protocol PRN Reason: BEDTIME SLIDING SCALE Last Admin: 01/11/18 21:19 Dose: 4 unit Levothyroxine Sodium (Synthroid) 125 mcg PO 0600 [facility] Last Admin: 01/12/18 06:18 Dose: 125 mcg Liothyronine Sodium (Cytomel) 5 mcg PO BID [facility] Last Admin: 01/12/18 09:35 Dose: 5 mcg Mometasone Furoate (Asmanex) 1 puff INH 1830 [facility] Last Admin: 01/11/18 19:04 Dose: 1 puff Morphine Sulfate (Morphine) 1 mg SLOW IVP Q2H PRN PRN Reason: Breakthrough Pain Last Admin: 01/09/18 12:29 Dose: 1 mg Morphine Sulfate (Morphine) 2 mg SLOW IVP Q2H PRN PRN Reason: SEVERE Breakthrough Pain Last Admin: 01/09/18 01:29 CRISIS MANAGER Dose: 2 mg Pramipexole Dihydrochloride (Mirapex) 0.5 mg PO HS [facility] Last Admin: 01/11/18 21:17 Dose: 0.5 mg Prednisone (Prednisone) 40 mg PO QAM-WM [facility] Last Admin: 01/12/18 09:36 Dose: 40 mg Sodium Chloride (Flush - Normal Saline) 10 ml IVF PRN PRN PRN Reason: Saline Flush Last Admin: 01/12/18 09:37 Dose: 10 ml Spironolactone (Aldactone) 25 mg PO DAILY [facility] Last Admin: 01/12/18 09:36 Dose: 25 mg Torsemide (Demadex) 20 mg PO DAILY [facility] Last Admin: 01/12/18 09:36 Dose: 20 mg Tramadol HCl (Ultram) 100 mg PO BID PRN PRN Reason: Moderate Pain (4-6) Last Admin: 01/09/18 19:39 Dose: 100 mg
[2018-01-12] MEDS: Insulin Regular 300 UNITS/3 ML VIAL SC PRN (17:52)
[2018-01-12] MEDS: Mometasone Furoate 30 PUFF 220 MCG INH SCH (18:53)
[2018-01-12] MEDS: Pramipexole Di-HCl 0.25 MG TAB PO SCH (20:19)
[2018-01-12] MEDS: carBAMazepine 200 MG TAB PO SCH (20:19)
[2018-01-12] MEDS: Acetaminophen/Codeine 30-300mg Tablet PO PRN (20:51)
[2018-01-13] MEDS: Levothyroxine Sodium 125 MCG TAB PO SCH (05:17)
[2018-01-13 05:36] LABS: Anion Gap 15 mmol/L (10-20); BUN (Urea Nitrogen) 33 mg/dL (9.8-20.1); Calc. Creatinine Clearance 53 mL/min (70-130); Calcium 9.3 mg/dL (7.8-10.44); Carbon Dioxide 27 mmol/L (23-31); Chloride 102 mmol/L (98-107); Estimated GFR-MDRD 57; Glucose 116 mg/dL (83-110); Potassium 4.5 mmol/L (3.5-5.1); Sodium 139 mmol/L (136-145)
[2018-01-13 05:52] LABS: Band 2 % (5-11); Eosinophils 6 % (0-10); Hemoglobin 9.7 g/dL (12.0-16.0); Lymphocytes 16 % (21-51); MDiff Complete? YES; Mean Corpuscular HGB CONC 31.7 g/dL (32.0-36.0); Mean Corpuscular Hemoglobin 28.8 pg (27.0-31.0); Mean Platelet Volume 7.5 fL (7.4-10.4); Monocytes 16 % (0-10); Myelocyte 1 % (0-0); Neutrophil 59 % (42-75); Platelet Count 291 thou/uL (130-400); RBC Distribution Width 13.8 % (11.5-14.5); Red Blood Cell (RBC) Count 3.36 mill/uL (4.20-5.40); White Blood Cell (WBC) Count 9.4 thou/uL (4.8-10.8)
[2018-01-13] MEDS: predniSONE 20 MG TAB PO SCH (08:41)
[2018-01-13] MEDS: Docusate Calcium (SURFAK) 240 MG CAP PO SCH (08:42)
[2018-01-13] MEDS: Cefdinir 300 MG CAP PO SCH (08:42)
[2018-01-13] MEDS: Apixaban 2.5 MG TAB PO SCH (08:42)
[2018-01-13] MEDS: Torsemide 20 MG TAB PO SCH (08:43)
[2018-01-13] MEDS: Spironolactone 25 MG TAB PO SCH (08:43)
[2018-01-13] MEDS: hydrALAZINE 10 MG TAB PO SCH (08:43)
[2018-01-13] MEDS: Fluticasone Propionate Nasal Spray 16 gm Bottle NASAL SCH (08:43)
[2018-01-13] MEDS: Liothyronine Sodium 5 MCG TAB PO SCH (08:43)
[2018-01-13] MEDS ORDERED: Famotidine 20 MG TAB PO SCH (09:00)
--- NOTE | 2018-01-13 09:04 | PDOC.CTH ---
Cardiology Progress Note - Subjective EP progress note: Feeling slightly improved. Denies heart racing, palpitations, dizziness, or passing out. + mild substernal discomfort after drain removed but is gradually improving. + productive cough, dyspnea, fatigue. - Objective Vital Signs Temp Pulse Resp BP BP Pulse Ox 01/13/18 08:43 108 H 01/13/18 07:42 98.0 F 108 H 18 140/66 94 L 01/13/18 07:31 120 H 14 01/13/18 04:00 98.1 F 97 17 121/58 L 92 L Weight 165 lb 9 oz 01/12/18 01/13/18 01/14/18 06:59 06:59 06:59 Intake Total 1100 1300 Output Total 2900 900 Balance -1800 400 - Physical Examination General/Neuro: alert & oriented x3, NAD Neck: carotid US brisk, no JVD present Lungs: CTA, unlabored respirations Heart: PMI normal Abdomen: NT/ND, soft - Telemetry Telemetry Rhythm: AF - Labs Result Diagrams: 01/13/18 05:02 01/13/18 05:02 Troponin/CKMB CK-MB (CK-2) 6.3 ng/mL (0-6.6) 01/06/18 13:30 Troponin I 3.591 ng/mL (< 0.028) H* 01/07/18 07:52 - Assessment/Plan Assessment: 1. Atrial fibrillation/atypical flutter -s/p recent redo ablation with Dr Daigle, now in early recurrent atypical atrial flutter. Rate controlled, asymptomatic 2. Symptomatic sinus bradycardia -s/p dual chamber pacemaker implantation, complicated by acute pericardial effusion. Normal function. 3. Pericardial effusion - resolved, s/p pericardiocentesis and drain placement. 400mL output total before drain removed the following AM. Without recurrence 4. Pleural effusion, right -mild by CXR 5. Dyspnea - being treated empirically for possible PNA. wheezing persists. + productive cough, yellow sputum 6. Dual chamber [employer] pacemaker - Functioning normally. Site stable 7. Acute kidney injury - Creatinine 2 last week. Now 0.93 8. Hypertension -on hydralazine 10mg BID. adding Diltiazem CD 120mg QD 9. Oral anticoagulation -Newly placed watchman in placed. continued OAC required. Creatinine improved enough for return to Eliquis 5mg BID. 10. Anemia -Continue with daily H&H. Plan: - Continue OAC with Eliquis 5mg BID as she had a watchman closure device placed following her redo ablation. Protocol requires OAC x 6 weeks after watchman. OAC for at least 3 months post ablation. - Continue rate control for A flutter. Will consider cardioversion at least one month post WM placement and other medical issues have stabilized. She feels ok in atrial flutter for now. Mostly rate controlled but addition of Cartia will give further control - Stable for DC to outpatient rehab -Spoke with Dr Paulson. Continue cefdinir x 7 days, prednisone taper, and continue duonebs in rehab/SNF
[2018-01-13] MEDS: Insulin Regular 300 UNITS/3 ML VIAL SC PRN (11:26)
[2018-01-13] MEDS ORDERED: Acetaminophen 325 MG TAB PO PRN (13:21)
--- NOTE | 2018-01-13 14:52 | PRG ---
DATE OF SERVICE: 01/13/2018 SUBJECTIVE: Angelica Tony is tenderly scheduled to go to a swing bed. OBJECTIVE: VITAL SIGNS: She is afebrile, heart rate 107, respiratory rate 17, oximetry is 97, blood pressure 14 3/62. LUNGS: Remarkable for faint wheezes. HEART: Regular rhythm. ABDOMEN: Soft. IMPRESSION: 1. Asthmatic bronchitis, I doubt she has pneumonia. 2. Reactive pleural effusions. 3. Status post pericardiocentesis. PLAN: Continue cefdinir for another 7 days. Continue with prednisone at 20 mg a day and taper over the next 2 weeks. She should receive nebulizer treatments in her swing bed. I will see her in the office in 2-3 weeks.
[2018-01-13 15:37] VITALS: BP 118/59; TEMP 98.9
== END 2018-01-13 15:55 | DRG 242 ==
LOC: ERS 13:11 → CCL 15:59 → 2NO 16:58 → CCU 18:10 → 2NO 01-08 12:56
PROVIDERS: ADMIT Internal Medicine Cardiovascular Disease; ATTEND Internal Medicine Cardiovascular Disease
PROC: 0JH606Z Insertion of Pacemaker, Dual Chamber into Chest Subcutaneous Tissue and Fascia, Open Approach (ICD-10-PCS; principal; 2018-01-06)
PROC: 02H63JZ Insertion of Pacemaker Lead into Right Atrium, Percutaneous Approach (ICD-10-PCS; 2018-01-06)
PROC: 02HK3JZ Insertion of Pacemaker Lead into Right Ventricle, Percutaneous Approach (ICD-10-PCS; 2018-01-06)
PROC: 0W9D30Z Drainage of Pericardial Cavity with Drainage Device, Percutaneous Approach (ICD-10-PCS; 2018-01-06)
DX: I48.0 Paroxysmal atrial fibrillation (principal); I50.33 Acute on chronic diastolic (congestive) heart failure; J18.9 Pneumonia, unspecified organism; I31.3 Pericardial effusion (noninflammatory); N17.9 Acute kidney failure, unspecified; I13.0 Hypertensive heart and chronic kidney disease with heart failure and stage 1 through stage 4 chronic kidney disease, or unspecified chronic kidney disease; I48.92 Unspecified atrial flutter; J98.01 Acute bronchospasm; M19.90 Unspecified osteoarthritis, unspecified site; Z96.659 Presence of unspecified artificial knee joint; Z79.899 Other long term (current) drug therapy; Z79.84 Long term (current) use of oral hypoglycemic drugs; Z79.01 Long term (current) use of anticoagulants; Z88.1 Allergy status to other antibiotic agents; D64.9 Anemia, unspecified; N18.2 Chronic kidney disease, stage 2 (mild); E11.22 Type 2 diabetes mellitus with diabetic chronic kidney disease; E03.9 Hypothyroidism, unspecified
CPT/HCPCS: 33025; 33249; 36005; 36415; 36416; 71045; 75820; 80048; 80053; 81003; 81015; 82553; 82728; 83540; 83550; 83735; 83880; 84484; 85014; 85018; 85025; 85027; 85049; 85610; 85730; 86850; 86900; 86901; 87040; 87086; 93005; 93306; 93798; 94640; 96360; 99152; 99153; C1785; C1898; C9113; J0690; J1200; J1265; J1580; J1720; J1815; J1940; J2001; J2185; J2250; J2270; J2930; J3010; J3490; J7050; J7506; J7620

== ENCOUNTER 2018-02-21 14:31 | Outpatient (CLI) | payer MEDICARE, BC ==
[2018-02-21 16:22] LABS: INR-International Normal Ratio 1.2
[2018-02-21 16:27] LABS: Hemoglobin 10.1 g/dL (12.0-16.0); Mean Corpuscular HGB CONC 31.9 g/dL (32.0-36.0); Mean Corpuscular Hemoglobin 27.7 pg (27.0-31.0); Mean Corpuscular Volume 86.9 fL (78.0-98.0); Mean Platelet Volume 8.2 fL (7.4-10.4); Platelet Count 267 thou/uL (130-400); RBC Distribution Width 13.1 % (11.5-14.5); Red Blood Cell (RBC) Count 3.65 mill/uL (4.20-5.40)
[2018-02-21 16:31] LABS: Anion Gap 14 mmol/L (10-20); BUN (Urea Nitrogen) 25 mg/dL (9.8-20.1); Calc. Creatinine Clearance 0 mL/min (70-130); Calcium 9.9 mg/dL (7.8-10.44); Carbon Dioxide 24 mmol/L (23-31); Chloride 100 mmol/L (98-107); Estimated GFR-MDRD 36; Glucose 153 mg/dL (83-110); Potassium 4.2 mmol/L (3.5-5.1); Sodium 134 mmol/L (136-145)
--- NOTE | 2018-02-22 17:51 | EKG ---
Test Reason : Blood Pressure : / mmHG Vent. Rate : 088 BPM Atrial Rate : 088 BPM P-R Int : 344 ms QRS Dur : 090 ms QT Int : 324 ms P-R-T Axes : 000 066 208 degrees QTc Int : 392 ms Sinus rhythm with 1st degree A-V block with Premature atrial complexes Anteroseptal infarct (cited on or before 16-NOV-2017) Abnormal ECG When compared with ECG of 06-JAN-2018 13:22, Significant changes have occurred Confirmed by DESHAWN HANKINS ([id number]) on 02/22/2018 5:51:28 PM Referred By: SUSAN Confirmed By:DESHAWN HANKINS
== END 2018-02-21 14:32 | disposition home or self-care (01) ==
LOC: LABBT 14:31
PROVIDERS: ATTEND Internal Medicine Cardiovascular Disease
DX: Z01.818 Encounter for other preprocedural examination (principal); I48.91 Unspecified atrial fibrillation
CPT/HCPCS: 80048; 85027; 85610; 85730; 93005; 93010

== ENCOUNTER → 2018-02-23 | Day surgery (SDC) | payer MEDICARE, BC ==
[2018-02-21 15:12] VITALS: BMI 27.4
[~2018-02-23] MED LIST changes: -Flecainide 50 MG TAB PO SCH; +Lidocaine Viscous Sol 2% 15 ml UD Cup ONE; -PROPOFOL 0 ML ONE; -PROPOFOL 20 ML ONE; -PROPOFOL 200 MG/20 ML VIAL ONE; +PROPOFOL 40 ML ONE
--- NOTE | 2018-02-23 14:12 | OP ---
DATE OF PROCEDURE: 02/23/2018 PROCEDURE: Cardioversion. DESCRIPTION: The patient was brought to the post cath area in a fasting state. She was sedated. Transesophageal echo revealed that she had a Watchman device with some thrombus behind the Watchman. Dr. Btuler identified a very small leak. He conferred with Dr. Ding. Dr. Ding indicated was safe to proceed with the cardioversion. She was given 100 joules direct current energy and converted to a regular rhythm, which appears to be likely sinus. EKG is pending and the pacemaker check is pending. ASSESSMENT: Appears to be successful cardioversion. Job ID: [id number]
--- NOTE | 2018-02-23 18:15 | EKG ---
Test Reason : POST CARDIOVERSION Blood Pressure : / mmHG Vent. Rate : 085 BPM Atrial Rate : 085 BPM P-R Int : 230 ms QRS Dur : 090 ms QT Int : 364 ms P-R-T Axes : 061 030 097 degrees QTc Int : 433 ms Sinus rhythm with sinus arrhythmia with 1st degree A-V block Nonspecific T wave abnormality , can not R/O high lateral ischemia. Abnormal ECG When compared with ECG of 21-FEB-2018 15:49, Premature atrial complexes are no longer Present Criteria for Anteroseptal infarct are no longer Present Non-specific change in ST segment in Inferior leads T wave inversion no longer evident in Inferior leads Nonspecific T wave abnormality has replaced inverted T waves in Lateral leads Confirmed by DESHAWN HANKINS ([id number]) on 02/23/2018 6:14:55 PM Referred By: BRISA Confirmed By:DESHAWN HANKINS
--- NOTE | 2018-02-23 21:48 | OP ---
DATE OF PROCEDURE: 02/23/18 SURGEON: Conrado Ennis M.D. PROCEDURE: Cardioversion. The patient underwent elective cardioversion today. She was sedated and underwent transesophageal ech ocardiogram showing a Watchman catheter in place. There was some thrombus behind the Watchman. There appeared to be a small leak. Dr. Butler did the transesophageal echo. Dr. Garcia looked at the [facility] and indicated he thought it was reasonable to go ahead and proceed with the cardioversion. That w as his advised, so that was done. She was given direct current energy, 100 joules and converted to s inus rhythm. CONCLUSION: Successful cardioversion.
--- NOTE | 2018-02-24 14:59 | ECHO ---
TRANSESOPHAGEAL ECHOCARDIOGRAM: DATE OF PROCEDURE: 02/23/18 INDICATION: 83-year-old woman with atypical flutter. DESCRIPTION OF PROCEDURE: The patient was taken to the PACU. The patient was sedated by anesthesiology. A transesophageal probe was placed in the distal esophagus and stomach. Echocardiographic images were obtained. The transesophageal probe was removed. FINDINGS: 1. Normal mitral and aortic valves. 2. The Watchman device is well positioned in the left atrial appendage. 3. Miniscule leak was noted around the Watchman device. 4. Thrombus noted behind the Watchman device. 5. Atherosclerotic debris in the descending aorta. IMPRESSION: Miniscule leak noted around the Watchman device. MTDD
== END ==
LOC: CCL 10:38
PROVIDERS: ATTEND Internal Medicine Cardiovascular Disease
PROC: 5A2204Z Restoration of Cardiac Rhythm, Single (ICD-10-PCS; principal; 2018-02-23)
DX: I48.1 Persistent atrial fibrillation (principal); I48.4 Atypical atrial flutter; I49.5 Sick sinus syndrome; Z95.0 Presence of cardiac pacemaker; Z79.01 Long term (current) use of anticoagulants; Z88.1 Allergy status to other antibiotic agents; Z79.899 Other long term (current) drug therapy
CPT/HCPCS: 92960; 93005; 93010; 93312; J2704

== ENCOUNTER 2018-04-06 06:27 | Outpatient (CLI) | payer MEDICARE, BC ==
[2018-04-06 11:23] LABS: Hemoglobin 11.1 g/dL (12.0-16.0); Mean Corpuscular HGB CONC 31.9 g/dL (32.0-36.0); Mean Corpuscular Hemoglobin 27.2 pg (27.0-31.0); Mean Corpuscular Volume 85.3 fL (78.0-98.0); Mean Platelet Volume 8.3 fL (7.4-10.4); Platelet Count 242 thou/uL (130-400); RBC Distribution Width 13.3 % (11.5-14.5); Red Blood Cell (RBC) Count 4.08 mill/uL (4.20-5.40); White Blood Cell (WBC) Count 6.2 thou/uL (4.8-10.8)
[2018-04-06 11:31] LABS: PTT 25.6 SEC (22.9-36.1); Prothrombin Time 13.4 SEC (12.0-14.7)
[2018-04-06 11:47] LABS: Anion Gap 15 mmol/L (10-20); BUN (Urea Nitrogen) 27 mg/dL (9.8-20.1); Calc. Creatinine Clearance 0 mL/min (70-130); Calcium 9.8 mg/dL (7.8-10.44); Carbon Dioxide 26 mmol/L (23-31); Chloride 101 mmol/L (98-107); Estimated GFR-MDRD 50; Glucose 94 mg/dL (83-110); Potassium 4.4 mmol/L (3.5-5.1); Sodium 138 mmol/L (136-145)
--- NOTE | 2018-04-06 16:02 | EKG ---
Test Reason : Blood Pressure : / mmHG Vent. Rate : 078 BPM Atrial Rate : 241 BPM P-R Int : 000 ms QRS Dur : 112 ms QT Int : 396 ms P-R-T Axes : 000 064 082 degrees QTc Int : 451 ms Accelerated Junctional rhythm Anteroseptal infarct , age undetermined Abnormal ECG When compared with ECG of 23-FEB-2018 13:18, Junctional rhythm has replaced Sinus rhythm QRS duration has increased Anteroseptal infarct is now Present T wave amplitude has decreased in Anterior leads Confirmed by SYLVIA KRUEGER, DR. Haile ([id number]) on 04/06/2018 4:01:49 PM Referred By: [facility] Confirmed By:DR. Mic WARD MD
== END 2018-04-06 06:28 | disposition home or self-care (01) ==
LOC: LABBT 06:27
PROVIDERS: ATTEND Internal Medicine Cardiovascular Disease
DX: Z01.818 Encounter for other preprocedural examination (principal); I48.91 Unspecified atrial fibrillation
CPT/HCPCS: 80048; 85027; 85610; 85730; 93005; 93010

== ENCOUNTER → 2018-04-11 | Day surgery (SDC) | payer MEDICARE, BC ==
[2018-04-06 10:37] VITALS: BMI 27.4
[~2018-04-11] MED LIST changes: +Acetaminophen 500 MG TAB ONE; +CEFAZOLIN 2 GM/50 ML BAG ONE; +Iopamidol 370 76% 50 ML VIAL FS ONE; +Lidocaine 1% (PF) 30 ML VIAL ONE; -Lidocaine Viscous Sol 2% 15 ml UD Cup ONE; -PROPOFOL 40 ML ONE; +Propofol 1,000 MG/100 ML VIAL IV ONE
--- NOTE | 2018-04-11 18:00 | RAD ---
AP VIEW CHEST: 04/11/2018 HISTORY: Postoperative pacemaker insertion. COMPARISON: 01/09/2018 FINDINGS: AP view chest demonstrates a dual-lead intracardiac pacing device. Mild pulmonary vascular congestio n is seen. No evidence of effusions, pneumonia, or pneumothorax is seen. IMPRESSION: 1. Mild pulmonary vascular congestion. 2. No evidence of hemothorax or pneumothorax is seen. POS: [facility]
--- NOTE | 2018-04-12 09:24 | EKG ---
Test Reason : Blood Pressure : / mmHG Vent. Rate : 090 BPM Atrial Rate : 090 BPM P-R Int : 240 ms QRS Dur : 088 ms QT Int : 352 ms P-R-T Axes : 075 010 119 degrees QTc Int : 430 ms Atrial-paced rhythm with prolonged AV conduction Abnormal ECG When compared with ECG of 06-APR-2018 11:06, Electronic atrial pacemaker has replaced Junctional rhythm QRS duration has decreased Confirmed by DR. Sapna LEDEZMA ([id number]) on 04/12/2018 9:24:34 AM Referred By: Confirmed By:DR. Sapna LEDEZMA
== END ==
LOC: CCL 11:15
PROVIDERS: ATTEND Internal Medicine Cardiovascular Disease
PROC: 02H63JZ Insertion of Pacemaker Lead into Right Atrium, Percutaneous Approach (ICD-10-PCS; principal; 2018-04-11)
PROC: 02PA3MZ Removal of Cardiac Lead from Heart, Percutaneous Approach (ICD-10-PCS; 2018-04-11)
DX: T82.120A Displacement of cardiac electrode, initial encounter (principal); I48.1 Persistent atrial fibrillation; E03.9 Hypothyroidism, unspecified; I48.92 Unspecified atrial flutter; I11.0 Hypertensive heart disease with heart failure; I50.30 Unspecified diastolic (congestive) heart failure; E78.5 Hyperlipidemia, unspecified; E11.9 Type 2 diabetes mellitus without complications; Z79.01 Long term (current) use of anticoagulants; Z88.1 Allergy status to other antibiotic agents; Z79.899 Other long term (current) drug therapy; Z79.84 Long term (current) use of oral hypoglycemic drugs
CPT/HCPCS: 33216; 36005; 71045; 75820; 93005; 93010; J2001; J2704; J3490; Q9967

== ENCOUNTER 2018-06-22 11:39 | Outpatient (CLI) | payer MEDICARE, BC ==
[2018-06-22 12:54] LABS: Hemoglobin 11.1 g/dL (12.0-16.0); Mean Corpuscular Hemoglobin 27.4 pg (27.0-31.0); Mean Corpuscular Volume 85.7 fL (78.0-98.0); Mean Platelet Volume 8.3 fL (7.4-10.4); Platelet Count 259 thou/uL (130-400); RBC Distribution Width 13.1 % (11.5-14.5); Red Blood Cell (RBC) Count 4.06 mill/uL (4.20-5.40); White Blood Cell (WBC) Count 7.6 thou/uL (4.8-10.8)
[2018-06-22 13:14] LABS: Anion Gap 17 mmol/L (10-20); BUN (Urea Nitrogen) 25 mg/dL (9.8-20.1); Calc. Creatinine Clearance 0 mL/min (70-130); Calcium 9.4 mg/dL (7.8-10.44); Carbon Dioxide 24 mmol/L (23-31); Chloride 101 mmol/L (98-107); Estimated GFR-MDRD 47; Glucose 80 mg/dL (83-110); Potassium 4.5 mmol/L (3.5-5.1); Sodium 137 mmol/L (136-145)
[2018-06-22 18:56] LABS: PTT 24.7 SEC (22.9-36.1); Prothrombin Time 13.2 SEC (12.0-14.7)
== END 2018-06-22 11:40 | disposition home or self-care (01) ==
LOC: LABBT 11:39
PROVIDERS: ATTEND Internal Medicine Cardiovascular Disease
DX: Z01.818 Encounter for other preprocedural examination (principal); I48.91 Unspecified atrial fibrillation
CPT/HCPCS: 80048; 85027; 85610; 85730; 93005; 93010

== ENCOUNTER 2018-06-27 06:34 | Day surgery (SDC) | payer MEDICARE, BC ==
[2018-06-22 12:40] VITALS: BMI 27.4
[2018-06-27] MEDS ORDERED: PROPOFOL 200 MG/20 ML VIAL ONE (11:24)
[2018-06-27] MEDS ORDERED: Lidocaine 1% PF 5 ML VIAL ONE (11:24)
--- NOTE | 2018-06-27 11:26 | ECHO ---
CARDIOLOGY PROCEDURE NOTE: Date: 06/27/18 PROCEDURE: Transesophageal echocardiogram. REASON FOR PROCEDURE: Ms. Tony is an 83-year-old woman with history of atrial fibrillation, post ablation, sinus node dise ase, status post lower chamber pacemaker implantation in the past, Watchman device placement on 01/[address] Daigle. Follow-up [facility] in February 2018 showed miniscule leak. Patient is here for a follow -up on that. She is still taking aspirin and Plavix. PROCEDURE DETAILS: The patient was given propofol by the anesthesia specialist. After adequate level of sedation achieve d, the standard transesophageal echocardiogram probe was passed into the distal esophagus without dif ficulty. The patient tolerated the procedure well. No complications noted. RESULTS: Left atrium is moderately enlarged. Left atrial appendage is well-visualized, with adequately placed Watchman device. Minimal echo lucency noted behind the Watchman device. No obvious leak is identified when checking the Watchman device from different angles. Three out of four pulmonary veins were edis rly seen, with no reversal. Moderate mitral regurgitation is noted. Aortic valve has mild to moderate regurgitation as well. Three leaflets identified. No stenosis noted. Left ventricular systolic funct ion is preserved. Right-sided chambers with pacemaker wires in adequate position. Trivial pericardial fluid seen in the normal range only. Right-sided chambers nondilated. Pulmonic valve borderline visu alized. CONCLUSION: 1. Adequately sealed left atrial appendage with Watchman device, without evidence of residual leak. 2. Normal left ventricular systolic function. 3. Moderate mitral and aortic regurgitation. 4. Moderate left atrial enlargement. 5. Right-sided chambers with pacemaker in place. 6. No pericardial effusion. PLAN: Likely stop Plavix 6 months after device implant, which should be 07/05/18.
== END 2018-06-27 11:24 | disposition home or self-care (01) ==
LOC: CCL 06:34
PROVIDERS: ATTEND Internal Medicine Cardiovascular Disease
PROC: B24BZZ4 Ultrasonography of Heart with Aorta, Transesophageal (ICD-10-PCS; principal; 2018-06-27)
DX: I48.91 Unspecified atrial fibrillation (principal); I08.0 Rheumatic disorders of both mitral and aortic valves; M19.90 Unspecified osteoarthritis, unspecified site; I10 Essential (primary) hypertension; E11.9 Type 2 diabetes mellitus without complications; Z87.891 Personal history of nicotine dependence; Z79.02 Long term (current) use of antithrombotics/antiplatelets; Z79.82 Long term (current) use of aspirin; Z79.84 Long term (current) use of oral hypoglycemic drugs; Z79.899 Other long term (current) drug therapy; Z95.818 Presence of other cardiac implants and grafts; Z95.0 Presence of cardiac pacemaker; Z88.1 Allergy status to other antibiotic agents
CPT/HCPCS: 93312; J2001; J2704

== ENCOUNTER 2018-09-20 15:21 | Emergency (ER) | payer MEDICARE, BC ==
[~2018-09-20 15:21] MED LIST changes: -Acetaminophen 500 MG TAB ONE; -CEFAZOLIN 2 GM/50 ML BAG ONE; +Iopamidol 370 76% 100 ML VIAL ONE; -Iopamidol 370 76% 50 ML VIAL FS ONE; -Lidocaine 1% (PF) 30 ML VIAL ONE; -Propofol 1,000 MG/100 ML VIAL IV ONE
[2018-09-20 16:07] LABS: ALT (SGPT) 21 U/L (8-55); AST (SGOT) 19 U/L (5-34); Albumin 4.1 g/dL (3.4-4.8); Alkaline Phosphatase 58 U/L (40-150); Anion Gap 16 mmol/L (10-20); BUN (Urea Nitrogen) 33 mg/dL (9.8-20.1); Bilirubin, Total 0.2 mg/dL (0.2-1.2); Calc. Creatinine Clearance 0 mL/min (70-130); Calcium 9.5 mg/dL (7.8-10.44); Carbon Dioxide 24 mmol/L (23-31); Chloride 102 mmol/L (98-107); Estimated GFR-MDRD 34; Globulin 2.7 g/dL (2.4-3.5); Glucose 133 mg/dL (83-110); Potassium 4.8 mmol/L (3.5-5.1); Protein, Total 6.8 g/dL (6.0-8.3); Sodium 137 mmol/L (136-145)
[2018-09-20 16:11] LABS: Band 5 % (5-11); Eosinophils 1 % (0-10); Hemoglobin 10.5 g/dL (12.0-16.0); Lymphocytes 10 % (21-51); MDiff Complete? YES; Mean Corpuscular Hemoglobin 27.4 pg (27.0-31.0); Mean Corpuscular Volume 85.6 fL (78.0-98.0); Mean Platelet Volume 8.7 fL (7.4-10.4); Monocytes 7 % (0-10); Neutrophil 76 % (42-75); Platelet Count 223 thou/uL (130-400); Platelet Morphology Comment Appears Adequate; RBC Distribution Width 13.5 % (11.5-14.5); Reactive Lymphocytes 1 % (0-10); Red Blood Cell (RBC) Count 3.83 mill/uL (4.20-5.40)
[2018-09-20] MEDS ORDERED: Ondansetron PF 4 MG/2 ML Vial ONE (16:24)
[2018-09-20] MEDS ORDERED: Pantoprazole 40 MG VIAL ONE (16:24)
[2018-09-20] MEDS ORDERED: Metoclopramide HCl 10 MG/2 ML VIAL ONE (16:24)
[2018-09-20 16:41] LABS: Bilirubin Negative (Negative); Blood, Urine Trace (Negative); Clarity Cloudy (Clear); Glucose, Urine (Dipstick) Negative (Negative); Leukocyte Large (Negative); Nitrite Negative (Negative); Protein, Urine (Dipstick) > or equal to 300 mg/dL (Neg-Trace); Urobilinogen 0.2 mg/dL (Less than 2)
[2018-09-20 16:44] LABS: Bacteria/HPF 3+ HPF (None Seen); Mucous/LPF 1+ LPF (<2+); Squamous Epithelial 0-3 HPF (0-3); WBC/HPF Greater Than 50 HPF (0-3)
--- NOTE | 2018-09-20 17:13 | CT ---
EXAM: CT Abdomen Pelvis W Con PROVIDED CLINICAL HISTORY: Abdominal pain COMPARISON: None FINDINGS: The visualized lung bases are free of significant opacity. Small hiatal hernia. The liver, spleen, pancreas and adrenal glands demonstrate an unremarkable CT appearance. Changes of prior cholecystectomy with small foci of pneumobilia presumably reflecting prior sphincterotomy. The kidneys demonstrate no evidence for hydronephrosis or mass. There is an extrarenal pelvis on the right. There is urothelial thickening involving the right renal pelvis and right ureter, particularly involving the portions of the ureter proximal to the iliac crossing. There is mild surro unding fat stranding adjacent to portions of the right ureter. No urinary tract calculi are evident. Urinary bladder wall appears mildly thickened and there is suggestion of fat stranding about the urinary bladder. There is no bowel dilatation, additional inflammatory fat stranding, free fluid or free air apparent. Small fat-containing umbilical hernia. Conspicuous atherosclerotic vascular calcification. The osseous structures demonstrate no concerning lytic or blastic lesions. Prominent degenerative change involving the lumbar spine. IMPRESSION: Urothelial thickening involving the right renal pelvis, majority of right ureter and probably also th e urinary bladder with mild surrounding fat stranding. Findings suggest urinary tract infection. Other etiologies are possible. Follow-up is recommended.
[2018-09-20] MEDS ORDERED: Nitrofurantoin Macrocrystal 50 MG CAP ONE (17:21)
== END 2018-09-20 17:26 | disposition home or self-care (01) ==
LOC: SCSER 15:21
DX: N39.0 Urinary tract infection, site not specified (principal); I11.0 Hypertensive heart disease with heart failure; I50.9 Heart failure, unspecified; I48.91 Unspecified atrial fibrillation; M19.90 Unspecified osteoarthritis, unspecified site; F41.9 Anxiety disorder, unspecified; E11.9 Type 2 diabetes mellitus without complications; E03.9 Hypothyroidism, unspecified; Z79.84 Long term (current) use of oral hypoglycemic drugs; Z79.899 Other long term (current) drug therapy
CPT/HCPCS: 74177; 80053; 81003; 81015; 84484; 85025; 87077; 87086; 87186; 93005; 96361; 96374; 96375; C9113; J0500; J2405; J2765; Q9967

== ENCOUNTER 2018-09-30 11:49 | Emergency (ER) | payer MEDICARE, BC ==
[~2018-09-30 11:49] MED LIST changes: +ISOVUE-370 76%-LOCM 1 ML ONE; -Iopamidol 370 76% 100 ML VIAL ONE
[2018-09-30 12:42] LABS: Hemoglobin 9.5 g/dL (12.0-16.0); Mean Corpuscular HGB CONC 33.8 g/dL (32.0-36.0); Mean Corpuscular Hemoglobin 28.4 pg (27.0-31.0); Mean Corpuscular Volume 84.2 fL (78.0-98.0); Mean Platelet Volume 8.2 fL (7.4-10.4); Platelet Count 219 thou/uL (130-400); Red Blood Cell (RBC) Count 3.35 mill/uL (4.20-5.40); White Blood Cell (WBC) Count 10.6 thou/uL (4.8-10.8)
[2018-09-30 12:59] LABS: Band 4 % (5-11); Eosinophils 2 % (0-10); Lymphocytes 9 % (21-51); MDiff Complete? YES; Monocytes 19 % (0-10); Neutrophil 66 % (42-75); Ovalocytes SLIGHT = 2-5 cells (100X) (0-1/hpf); Platelet Morphology Comment Appears Adequate; Polychromasia SLIGHT = 2-3 cells (100X) (0-2/hpf)
[2018-09-30 13:00] LABS: ALT (SGPT) 13 U/L (8-55); AST (SGOT) 16 U/L (5-34); Alkaline Phosphatase 57 U/L (40-150); Anion Gap 15 mmol/L (10-20); BUN (Urea Nitrogen) 27 mg/dL (9.8-20.1); Bilirubin, Total 0.6 mg/dL (0.2-1.2); Calc. Creatinine Clearance 0 mL/min (70-130); Calcium 9.6 mg/dL (7.8-10.44); Carbon Dioxide 24 mmol/L (23-31); Chloride 102 mmol/L (98-107); Estimated GFR-MDRD 47; Globulin 2.7 g/dL (2.4-3.5); Glucose 106 mg/dL (83-110); Potassium 3.9 mmol/L (3.5-5.1); Protein, Total 6.7 g/dL (6.0-8.3); Sodium 137 mmol/L (136-145)
--- NOTE | 2018-09-30 13:51 | CT ---
CT PULMONARY ANGIOGRAM WITH IV CONTRAST AND 3-D POSTPROCESSING: HISTORY:Dyspnea FINDINGS: There is good contrast opacification of the pulmonary arterial vasculature without filling defects to suggest pulmonary embolism. The thoracic aorta is without aneurysm. Vascular calcifications are present. No pericardial effusion is seen. There are small bilateral pleural effusions, right larger than left with adjacent atelectatic changes. No pneumothoraces, focal areas of consolidation or lung nodules are noted. There are degenerative changes in the spine. A small hiatal hernia is present. upper abdominal tomograms demonstrate changes of cholecystectomy. IMPRESSION: No CT evidence of pulmonary embolism.
[2018-09-30 14:39] LABS: Bilirubin Negative (Negative); Blood, Urine Negative (Negative); Clarity Clear (Clear); Glucose, Urine (Dipstick) Normal (Negative); Leukocyte Negative Leu/uL (Negative); Nitrite Negative (Negative); Protein, Urine (Dipstick) Negative (Neg-Trace); Urobilinogen Normal mg/dL (Less than 2)
== END 2018-09-30 15:46 | disposition home or self-care (01) ==
LOC: ERS 11:49
DX: R06.00 Dyspnea, unspecified (principal); I11.0 Hypertensive heart disease with heart failure; I50.9 Heart failure, unspecified; I48.91 Unspecified atrial fibrillation; M19.90 Unspecified osteoarthritis, unspecified site; F41.9 Anxiety disorder, unspecified; E11.9 Type 2 diabetes mellitus without complications; E03.9 Hypothyroidism, unspecified
CPT/HCPCS: 71275; 80053; 81003; 83880; 84484; 85025; 93005; Q9966

== ENCOUNTER 2019-01-24 08:55 | Outpatient (CLI) | payer MEDICARE, BC ==
--- NOTE | 2019-01-24 09:45 | RAD ---
PA AND LATERAL VIEWS CHEST: Date: 01/24/19 HISTORY: Dyspnea. FINDINGS: Comparison made with exam of 04/11/18. Left-sided pacemaker device remains in place. The heart size is normal. The aorta is tortuous. The florence ngs are expanded with stable mild chronic changes. No lobar consolidation, pneumothoraces, or pleural effusions are seen. No acute osseous abnormalities are identified. IMPRESSION: No acute process. POS: OFF
== END 2019-01-24 08:56 | disposition home or self-care (01) ==
LOC: RAD 08:55
PROVIDERS: ATTEND Internal Medicine Critical Care Medicine
DX: R06.00 Dyspnea, unspecified (principal)
CPT/HCPCS: 71046

== ENCOUNTER 2020-01-21 09:32 | Emergency (ER) | payer MEDICARE, BC ==
[2020-01-21 10:19] LABS: Hemoglobin 12.4 g/dL (12.0-16.0); Mean Corpuscular HGB CONC 32.7 g/dL (32.0-36.0); Mean Corpuscular Hemoglobin 29.6 pg (27.0-31.0); Mean Corpuscular Volume 90.6 fL (78.0-98.0); Mean Platelet Volume 9.3 fL (7.4-10.4); Platelet Count 144 thou/uL (130-400); RBC Distribution Width 11.7 % (11.5-14.5); Red Blood Cell (RBC) Count 4.19 mill/uL (4.20-5.40); White Blood Cell (WBC) Count 6.1 thou/uL (4.8-10.8)
[2020-01-21 10:30] LABS: Bacteria/HPF 3+ HPF (None Seen); Bilirubin Negative (Negative); Blood, Urine Negative (Negative); Clarity Turbid (Clear); Glucose, Urine (Dipstick) Normal (Negative); Ketone, Urine Negative (Negative); Leukocyte 250 Leu/uL (Negative); Nitrite 2+ (Negative); Protein, Urine (Dipstick) 10 mg/dL (Neg-Trace); RBC/HPF 0-3 HPF (0-3); Specific Gravity, Urine 1.018 (1.002-1.036); Squamous Epithelial None Seen HPF (0-3); Transitional Epithelial 0-3 HPF (None Seen); Urobilinogen Normal mg/dL (Less than 2); WBC/HPF 21-50 HPF (0-3)
[2020-01-21 10:32] LABS: ALT (SGPT) 18 U/L (8-55); AST (SGOT) 18 U/L (5-34); Alkaline Phosphatase 51 U/L (40-110); Anion Gap 15 mmol/L (10-20); BUN (Urea Nitrogen) 22 mg/dL (9.8-20.1); Bilirubin, Total 0.6 mg/dL (0.2-1.2); Calc. Creatinine Clearance 0 mL/min (70-130); Calcium 9.2 mg/dL (7.8-10.44); Carbon Dioxide 25 mmol/L (23-31); Chloride 101 mmol/L (98-107); Globulin 2.4 g/dL (2.4-3.5); Glucose 125 mg/dL (83-110); Lipase 20 U/L (8-78); Potassium 4.1 mmol/L (3.5-5.1); Protein, Total 6.4 g/dL (6.0-8.3); Sodium 137 mmol/L (136-145)
[2020-01-21 10:49] LABS: Lymphocytes 11 % (21-51); MDiff Complete? YES; Monocytes 19 % (0-10); Neutrophil 60 % (42-75); Platelet Morphology Comment Appears Adequate; Reactive Lymphocytes 10 % (0-10)
--- NOTE | 2020-01-21 10:53 | RAD ---
Chest AP view INDICATION: Racing heart with mild shortness of breath COMPARISON: Chest 2 views dated January 24, 2019 FINDINGS: Lungs: There are increased interstitial opacities within both lower lobes. Cardiac silhouette: There is stable mild cardiomegaly Pulmonary vasculature: There is mild pulmonary vascular congestion Pleural spaces: No pleural effusion or pneumothorax is demonstrated. Upper abdomen: No abnormality seen. Osseous structures: No acute osseous abnormality. Additional findings: Dual-lead pacemaker is unchanged. IMPRESSION: Mild cardiac megaly, mild pulmonary vascular congestion and interstitial prominence suspicious for un derlying edema. Recommend correlation for mild CHF.
[2020-01-21] MEDS ORDERED: Furosemide 40 MG/4 ML VIAL ONE (11:36)
[2020-01-21] MEDS ORDERED: cefTRIAXone\\ROCEPHIN 1 GM VIAL ONE (11:36)
[2020-01-21] MEDS ORDERED: Phenazopyridine HCl 97.5 MG TABLET PO SCH (11:45)
--- NOTE | 2020-01-27 17:03 | EKG ---
Test Reason : Blood Pressure : / mmHG Vent. Rate : 081 BPM Atrial Rate : 081 BPM P-R Int : 196 ms QRS Dur : 082 ms QT Int : 368 ms P-R-T Axes : 075 012 100 degrees QTc Int : 427 ms Electronic atrial pacemaker Septal infarct , age undetermined Abnormal ECG Confirmed by LIAN HEIN DO ([id number]), assistant editor DARINEL HOLMAN ([id number]) on 01/27/2020 5:03:26 PM Referred By: Confirmed By:LIAN HEIN DO
== END 2020-01-21 13:54 | disposition home or self-care (01) ==
LOC: ERS 09:32
DX: I11.0 Hypertensive heart disease with heart failure (principal); I50.9 Heart failure, unspecified; N39.0 Urinary tract infection, site not specified; I48.91 Unspecified atrial fibrillation; E11.9 Type 2 diabetes mellitus without complications; F41.9 Anxiety disorder, unspecified; E03.9 Hypothyroidism, unspecified; Z79.899 Other long term (current) drug therapy
CPT/HCPCS: 36415; 71045; 80053; 81003; 81015; 83690; 83880; 84484; 85025; 87077; 87086; 87186; 93005; 96365; 96375; J0696; J1940

== ENCOUNTER 2020-04-16 10:55 | Observation (INO) | payer MEDICARE, BC ==
[2020-04-16] MEDS ORDERED: Aspirin Chewable 81 MG TAB ONE (11:20)
[2020-04-16 11:34] LABS: Hemoglobin 13.9 g/dL (12.0-16.0); Mean Corpuscular HGB CONC 33.2 g/dL (32.0-36.0); Mean Corpuscular Hemoglobin 29.7 pg (27.0-31.0); Mean Corpuscular Volume 89.4 fL (78.0-98.0); Mean Platelet Volume 9.2 fL (7.4-10.4); Platelet Count 175 thou/uL (130-400); RBC Distribution Width 11.8 % (11.5-14.5); Red Blood Cell (RBC) Count 4.67 mill/uL (4.20-5.40); White Blood Cell (WBC) Count 5.8 thou/uL (4.8-10.8)
--- NOTE | 2020-04-16 11:39 | RAD ---
EXAM: Single view of the chest HISTORY: Chest pain COMPARISON: 01/21/2020 FINDINGS: Single view of the chest shows an enlarged but stable cardiomediastinal silhouette. Bilater al pulmonary vascular enlargement is stable. Atherosclerotic calcifications are seen in the aorta. The pacemaker is unchanged in position. Diffuse increased interstitial markings are stable. A 2.1 cm nodule projects over the left lower lobe. No acute osseous abnormality. IMPRESSION: Left lower lobe nodularity. A CT of the chest with contrast is recommended for further ev aluation.
[2020-04-16 11:51] LABS: ALT (SGPT) 20 U/L (8-55); AST (SGOT) 21 U/L (5-34); Albumin 4.3 g/dL (3.4-4.8); Alkaline Phosphatase 61 U/L (40-110); Anion Gap 17 mmol/L (10-20); BUN (Urea Nitrogen) 20 mg/dL (9.8-20.1); Calc. Creatinine Clearance 0 mL/min (70-130); Calcium 9.2 mg/dL (7.8-10.44); Carbon Dioxide 21 mmol/L (23-31); Chloride 105 mmol/L (98-107); Globulin 2.6 g/dL (2.4-3.5); Glucose 164 mg/dL (83-110); Potassium 3.8 mmol/L (3.5-5.1); Protein, Total 6.9 g/dL (5.8-8.1); Sodium 139 mmol/L (136-145)
[2020-04-16 11:54] LABS: Band 2 % (5-11); Lymphocytes 16 % (21-51); MDiff Complete? YES; Monocytes 9 % (0-10); Neutrophil 62 % (42-75); RBC Morphology Normal; Reactive Lymphocytes 11 % (0-10)
--- NOTE | 2020-04-16 14:55 | PDOC.HHP ---
Hospitalist HPI Chest pain History of Present Illness: Ms. Tony insulin 85-year-old female past medical history of atrial fibrillation not on anticoagulation, type 2 diabetes mellitus, hypertension, hyperlipidemia, hypothyroidism, TAVR, watchman procedure, permanent pacemaker, chronic kidney disease who presents to the emergency room for generalized weakness and chest discomfort. Patient reports that she has had intermittent chest discomfort mainly in the epigastric region. She denies any radiation. Denies any shortness of breath or palpitations. Reports she overall feels generally weak and fatigued. She denies any nausea vomiting diarrhea. Denies melena, hematochezia. She also reports she feels lightheaded at times especially when she stands up. She denies any visual changes, numbness weakness or paresthesias. Emergency room initial vital signs 113/69, 87, 98.3, 95% on room air. An EKG showed atrial fibrillation with PVCs but no ST changes. Initial troponin 0 0.024. H/H 13.9/41.8, WBC 5.8. BUN/CR 20/1.36. Sodium 139, potassium 3.8. Chest x-ray with no acute findings, but did note it pulmonary nodule with recommended follow-up. Allergies/Adverse Reactions: Allergy/AdvReac Type Severity Reaction Status Date / Time streptomycin Allergy Unknown hearing Verified 05/27/19 16:15 loss Home Medications: Medication Instructions Recorded Confirmed Type ALPRAZolam [Xanax] 0.25 tab PO BID PRN 07/20/14 06/27/18 History Atorvastatin Calcium [Lipitor] 40 mg PO QAM 07/20/14 06/27/18 History Levothyroxine Sodium [Synthroid] 125 mcg PO QAM 07/20/14 06/27/18 History Liothyronine Sodium [Cytomel] 5 mcg PO BID 07/20/14 06/27/18 History Lisinopril [Zestril] 10 mg PO BID 07/20/14 06/27/18 History Sertraline HCl [Zoloft] 100 mg PO HS 07/20/14 06/27/18 History carBAMazepine 200 mg PO QPM 07/20/14 06/27/18 History hydrALAZINE [Apresoline] 10 mg PO BID 07/20/14 06/27/18 History metFORMIN [Glucophage] 500 mg PO BID- 07/20/14 06/27/18 History traMADol HCl [Ultram] 2 tab PO BID 07/20/14 06/27/18 History Azelastine HCl [Astepro 0.15%] 2 spray EA NARE BID 12/15/16 06/27/18 History Cholecalciferol (Vitamin D3) 1,000 unit PO DAILY 12/15/16 06/27/18 History [Vitamin D] Spironolactone [Aldactone] 25 mg PO QAM-WM #30 tab 12/23/16 06/27/18 Rx Docusate Sodium 240 mg PO BID 11/16/17 06/27/18 History Diltiazem CD [Cardizem CD] 120 mg PO DAILY #30 cap 01/13/18 06/27/18 Rx Ipratropium/Albuterol Sulfate 3 ml NEB [id number] PRN 02/21/18 06/22/18 History [DuoNeb] Torsemide [Demadex] 1 tab PO DAILY 02/21/18 06/27/18 History Aspirin [Aspir-Low] 81 mg PO HS 04/06/18 06/27/18 History Clopidogrel Bisulfate [Plavix] 75 mg PO HS 04/06/18 06/27/18 History Pramipexole Di-HCl [Mirapex] 2 tab PO HS 06/22/18 06/27/18 History Past History: PMHx: A. fib Arthritis Diabetes mellitus Hypertension Hyperlipidemia Hypothyroidism Permanent pacemaker PSHx: PPM Cardiac ablation Cholecystectomy Hysterectomy Appendectomy Right knee replacement FHx: No pertinent family history Social: Occasional social drinking, denies drug or tobacco use. 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 denies: fever, chills, sweats, other Eyes: denies: pain, vision change, conjunctivae inflammation, eyelid inflammation, redness, other ENT: denies: ear pain, ear discharge, nose pain, nose discharge, nose congestion, mouth pain, mouth swelling, throat pain, throat swelling, other Respiratory: denies: cough, dry, shortness of breath, hemoptysis, SOB with excertion, pleuritic pain, sputum, wheezing, other Cardiovascular: reports: chest pain. denies: palpitations, orthopnea, paroxysmal noc. dyspnea, edema, light headedness, other Gastrointestinal: denies: nausea, vomiting, abdominal pain, diarrhea, constipation, melena, hematochezia, other Genitourinary: denies: dysuria, frequency, incontinence, hematuria, retention, other Musculoskeletal: denies: neck pain, shoulder pain, arm pain, back pain, hand pain, leg pain, foot pain, other Skin: denies: rash, lesions, tanmay, bruising, other Neurological: denies: weakness, numbness, incoordination, change in speech, confusion, seizures, other Hospitalist Exam General Appearance: NAD, awake alert Eye: PERRL, anicteric sclera ENT: normocephalic atraumatic, no oropharyngeal lesions, moist mucosa Neck: supple, symmetric, no JVD, no thyromegaly, no lymphadenopathy, no carotid bruit Heart: RRR, no murmur, no gallops, no rubs, normal peripheral pulses Respiratory: CTAB, no wheezes, no rales, no ronchi, normal chest expansion, no tachypnea, normal percussion Gastrointestinal: soft, non-tender, non-distended, normal bowel sounds, no palpable masses, no hepatomegaly, no splenomegaly, no bruit Extremities: no cyanosis, no clubbing, no edema Skin: normal turgor, no lesions, no rashes Neurological: cranial nerve grossly intact, normal sensation to touch, no weakness, no focal deficits, no new deficit Musculoskeletal: normal tone, normal strength, no muscle wasting Psychiatric: normal affect, normal behavior, A&O x 3 Hospitalist Results Result Diagrams: 04/16/20 11:10 04/16/20 11:10 Lab results: Laboratory Last Values WBC 5.8 thou/uL (4.8-10.8) 04/16/20 11:10 RBC 4.67 mill/uL (4.20-5.40) 04/16/20 11:10 Hgb 13.9 g/dL (12.0-16.0) 04/16/20 11:10 Hct 41.8 % (36.0-47.0) 04/16/20 11:10 MCV 89.4 fL (78.0-98.0) 04/16/20 11:10 MCH 29.7 pg (27.0-31.0) 04/16/20 11:10 MCHC 33.2 g/dL (32.0-36.0) 04/16/20 11:10 RDW 11.8 % (11.5-14.5) 04/16/20 11:10 Plt Count 175 thou/uL (130-400) 04/16/20 11:10 MPV 9.2 fL (7.4-10.4) 04/16/20 11:10 Neutrophils % (Manual) 62 % (42-75) 04/16/20 11:10 Band Neuts % (Manual) 2 % (5-11) L 04/16/20 11:10 Lymphocytes % (Manual) 16 % (21-51) L 04/16/20 11:10 Reactive Lymphs % 11 % (0-10) H 04/16/20 11:10 Monocytes % (Manual) 9 % (0-10) 04/16/20 11:10 Lymphocytes # Not Reportable 04/16/20 11:10 RBC Morph Comment Normal 04/16/20 11:10 Sodium 139 mmol/L (136-145) 04/16/20 11:10 Potassium 3.8 mmol/L (3.5-5.1) 04/16/20 11:10 Chloride 105 mmol/L (98-107) 04/16/20 11:10 Carbon Dioxide 21 mmol/L (23-31) L 04/16/20 11:10 Anion Gap 17 mmol/L (10-20) 04/16/20 11:10 BUN 20 mg/dL (9.8-20.1) 04/16/20 11:10 Creatinine 1.36 mg/dL (0.6-1.1) H 04/16/20 11:10 Estimated GFR (MDRD) 37 04/16/20 11:10 Glucose 164 mg/dL (83-110) H 04/16/20 11:10 Calcium 9.2 mg/dL (7.8-10.44) 04/16/20 11:10 Total Bilirubin 1.0 mg/dL (0.2-1.2) 04/16/20 11:10 AST 21 U/L (5-34) 04/16/20 11:10 ALT 20 U/L (8-55) 04/16/20 11:10 Alkaline Phosphatase 61 U/L (40-110) 04/16/20 11:10 Troponin I 0.024 ng/mL (< 0.028) 04/16/20 11:10 B-Natriuretic Peptide 231.8 pg/mL (0-100) H 04/16/20 11:10 Serum Total Protein 6.9 g/dL (5.8-8.1) 04/16/20 11:10 Albumin 4.3 g/dL (3.4-4.8) 04/16/20 11:10 Globulin 2.6 g/dL (2.4-3.5) 04/16/20 11:10 Albumin/Globulin Ratio 1.7 g/dL (1.2-2.2) 04/16/20 11:10 Hospitalist H&P A/P Plan: Chest pain 85-year-old, generalized weakness and chest discomfort. Patient describes epigastric midsternal pain that does not radiate. No aggravating or alleviating factors. Troponin 0 0.024. EKG shows A. fib with PVCs but no ST changes. Will trend troponin and place on telemetry monitoring. We will also interrogate pacemaker. Plan Trend troponin Telemetry monitoring TSH, magnesium Consider stress test Generalized weakness Patient reports lightheadedness. No changes in vision no numbness weakness or paresthesias. Suspect likely component of dehydration given BUN/CR 20/1.36. Will obtain orthostatic vital signs, and start gentle IV fluids. Patient with history of A. fib, arrhythmias may also be contributing. Will place on telemetry and interrogate pacemaker. Patient afebrile with no white blood cell count. Patient has also been vaccinated against Covid and received her second dose approximately 3 weeks ago. We will send respiratory viral panel. Plan IV fluids Mini [facility] Pacemaker interrogation Atrial fibrillation History of A. fib. Patient on flecainide. No anticoagulation. In review of records patient used to be on Xarelto and Eliquis. Patient is unsure why these were stopped. Patient with normal ventricular rate. Will interrogate pacer, temperature monitoring and treatment as above. Plan Continue home medications once dosage confirmed Telemetry monitoring Plan as above PPM in situ Patient with permanent pacemaker in situ. Was placed after a TAVR, watchman procedure with closure of the atrial appendage. Patient had a syncopal event requiring emergent pericardiocentesis and emergent placement permanent pacemaker placement. Patient has had no known difficulties after that. She denies any recurrent episodes of syncope. We will interrogate pacer. Plan Telemetry monitoring Pacer interrogation Type 2 diabetes mellitus Continue home medications once dosage confirmed. Placed on ACHS and ISS. Hypertension Continue home antihypertensive once dosages are confirmed. Hypothyroidism Continue home levothyroxine. Pulmonary Nodule CXR with pulmonary nodule. Will need outpatient follow up with PCP DVT prophylaxisSCDs DNR Case discussed with attending physician, Dr. Soto
[2020-04-16] MEDS ORDERED: Ondansetron PF 4 MG/2 ML Vial IVP PRN (15:05)
[2020-04-16] MEDS ORDERED: Nitroglycerin 0.4 MG TAB (25 Tab Bottle) SL PRN (15:05)
[2020-04-16] MEDS ORDERED: Ondansetron ODT 4 MG TAB PO PRN (15:05)
[2020-04-16] MEDS ORDERED: Acetaminophen 325 MG TAB PO PRN (15:05)
[2020-04-16] MEDS ORDERED: Acetaminophen 650 MG Suppository PR PRN (15:05)
[2020-04-16 15:06] LABS: Troponin I 0.014 ng/mL (< 0.028)
[2020-04-16] MEDS ORDERED: Aspirin 325 MG TAB PO SCH (15:15)
[2020-04-16] MEDS ORDERED: HumaLOG 300 UNITS/3 ML VIAL SC PRN ×2 (15:23)
[2020-04-16] MEDS ORDERED: Dextrose 5% in Water 1,000 ML IV PRN (15:23)
[2020-04-16] MEDS ORDERED: Dextrose 50% Abboject 50 ML SYRINGE SLOW IVP PRN (15:23)
[2020-04-16 17:38] LABS: Troponin I 0.016 ng/mL (< 0.028)
[2020-04-16] MEDS: Flecainide 50 MG TAB PO SCH (20:49)
[2020-04-16] MEDS ORDERED: ALPRAZolam 0.25 MG TAB PO SCH (21:00)
[2020-04-17 04:02] LABS: SARS-CoV-2 PCR by NAA Not Detected (NotDetected)
[2020-04-17 04:30] LABS: Anion Gap 13 mmol/L (10-20); BUN (Urea Nitrogen) 19 mg/dL (9.8-20.1); Calc. Creatinine Clearance 40 mL/min (70-130); Carbon Dioxide 26 mmol/L (23-31); Chloride 103 mmol/L (98-107); Cholesterol 115 mg/dl (< 200 Desired); Glucose 91 mg/dL (83-110); HDL Cholesterol 57 mg/dL (>60 Neg Risk); LDL Cholesterol, Calculated 42 mg/dL; Potassium 3.7 mmol/L (3.5-5.1); Sodium 138 mmol/L (136-145); Triglycerides 79 mg/dL (Less than 150)
[2020-04-17 04:36] LABS: Band 1 % (5-11); Hemoglobin 12.2 g/dL (12.0-16.0); Lymphocytes 32 % (21-51); MDiff Complete? YES; Mean Corpuscular HGB CONC 33.2 g/dL (32.0-36.0); Mean Corpuscular Hemoglobin 29.9 pg (27.0-31.0); Mean Platelet Volume 9.2 fL (7.4-10.4); Monocytes 20 % (0-10); Neutrophil 47 % (42-75); Platelet Count 147 thou/uL (130-400); Platelet Morphology Comment Appears Adequate; RBC Distribution Width 11.9 % (11.5-14.5); RBC Morphology Normal; Red Blood Cell (RBC) Count 4.06 mill/uL (4.20-5.40); White Blood Cell (WBC) Count 5.9 thou/uL (4.8-10.8)
[2020-04-17] MEDS ORDERED: Levothyroxine Sodium 125 MCG TAB PO SCH (06:00)
[2020-04-17 06:55] VITALS: BMI 27.8
[2020-04-17] MEDS ORDERED: Atorvastatin Calcium 40 MG TAB PO SCH (09:00)
[2020-04-17] MEDS ORDERED: FLU VACC QS2020-21(65YR UP)/PF 240 MCG/0.7 ML SYRINGE IM ONE (09:00)
[2020-04-17] MEDS ORDERED: Aspirin Chewable 81 MG TAB PO SCH (09:00)
[2020-04-17] MEDS ORDERED: Regadenoson 0.4 MG/5 ML SYRINGE ONE (10:23)
[2020-04-17] MEDS: Flecainide 50 MG TAB PO SCH (11:12)
[2020-04-17 11:19] VITALS: BP 146/77; TEMP 97.9
--- NOTE | 2020-04-17 11:41 | NM ---
Radionucleotide stress and rest myocardial perfusion scan with CT attenuation correction and SPECT im aging Left ventricular wall motion evaluation and ejection fraction HISTORY: Chest pain. FINDINGS: Lexiscan protocol. Homogeneous uptake of radiotracer throughout the left ventricular myocar dium. No focal perfusion defect or reversibility. QGS analysis of gated SPECT images shows no focal wall motion abnormalities. Ejection fraction calcul ated at greater than 80%. IMPRESSION : No evidence of ischemia. Normal LVEF.
--- NOTE | 2020-04-17 13:14 | CT ---
CT angiogram chest with IV contrast and 3-D imaging HISTORY: Chest pain. Dyspnea. COMPARISON: 09/30/2018. FINDINGS: There is good contrast opacification pulmonary arteries and thoracic aorta with normal bran susanna of the great vessels at the aortic arch. Scattered arterial calcification. Lungs remain hyperinflated with scattered areas of parenchymal scarring. No pleural fluid or pneumoth orax. No mediastinal adenopathy. Small hiatal hernia. Gallbladder surgically absent. IMPRESSION : No evidence of pulmonary embolus. Chronic-type findings are stable.
--- NOTE | 2020-04-17 13:49 | PDOC.DS.DS ---
Provider Date of Admission: 04/16/20 14:06 Date of Discharge: 04/17/20 Admitting Provider: Tre Soto MD Primary Care Physician: Giles Key MD Course Hospital Course: Discharge diagnosis: 1. Chest pain 2. Low TSH, patient will need to have her free T4 checked through primary care provider's office. Hospital course: Patient is a pleasant 85-year-old lady who was admitted to the hospital on April 16, 2020 for chest pain. She had nuclear stress test, which did not show any evidence of ischemia. Left ventricular ejection fraction was greater than 80%. She had an elevated D-dimer and therefore had CT angiogram of the chest. There was no evidence of pulmonary embolus. She had chronic type findings which were stable. Her TSH was low at 0.0230. It was low in March 2019 and December 2017 as well. However, her free T4 was normal in the past. Therefore I did not change her thyroid replacement therapy dose. I advised the patient to have her free T4 through primary care provider's office. There was also suspicion of lung nodule on chest x-ray done at the time of admission. I discussed with radiologist, who kindly went over the CT angiogram images. The nodule was not seen on the CT scan. He recommended no further imaging to pursue the lung nodule. Many thanks for allowing me to participate in your patient's care. Please feel free to contact me with any questions or concerns. Discharge destination: Home Resuscitation Status: 04/16/20 15:05 Resuscitation Status Routine Co-Sign Provider: Resuscitation Status: DNAR: NO Resuscitation Discussed with: Patient, Family, Attending Lab Results: 04/17/20 03:46 04/17/20 03:46 Abnormal Lab Results - Last 48 hrs 04/16/20 11:10: B-Natriuretic Peptide 231.8 H 04/16/20 11:10: Carbon Dioxide 21 L, Creatinine 1.36 H 04/16/20 11:10: Band Neuts % (Manual) 2 L, Lymphocytes % (Manual) 16 L, Reactive Lymphs % 11 H 04/16/20 14:34: TSH 3rd Generation 0.0230 L 04/17/20 03:46: Creatinine 1.14 H 04/17/20 03:46: RBC 4.06 L, Band Neuts % (Manual) 1 L, Monocytes % (Manual) 20 H 04/17/20 11:09: D-Dimer 0.96 H Vitals: Vital Signs (12 hours) Temp Pulse Resp BP BP Pulse Ox 04/17/20 11:16 97.9 F 85 18 146/77 H 96 04/17/20 07:23 98.1 F 94 18 126/60 97 04/17/20 04:05 98.0 F 94 16 135/64 93 L Weight Admit Weight 157 lb 1.143 oz Weight 157 lb 1.143 oz Physical Exam: The patient was seen and examined on the day of discharge. Patient denies chest pain or shortness of breath. Vital signs are stable. S1 and S2 are heard. Lungs are clear to auscultation bilaterally. Plan Home Medications: Medication Instructions Recorded Confirmed Type ALPRAZolam [Xanax] 0.25 tab PO BID PRN 07/20/14 04/16/20 History Atorvastatin Calcium [Lipitor] 40 mg PO QAM 07/20/14 04/16/20 History Levothyroxine Sodium [Synthroid] 125 mcg PO QAM 07/20/14 04/16/20 History Liothyronine Sodium [Cytomel] 5 mcg PO DAILY 07/20/14 04/16/20 History Lisinopril [Zestril] 10 mg PO BID 07/20/14 04/16/20 History Sertraline HCl [Zoloft] 100 mg PO DAILY 07/20/14 04/16/20 History hydrALAZINE [Apresoline] 25 mg PO BID 07/20/14 04/16/20 History metFORMIN [Glucophage] 500 mg PO BID-WM 07/20/14 04/16/20 History Carvedilol [Coreg] 6.25 mg PO BID 04/16/20 04/16/20 History Flecainide [Tambocor] 50 mg PO BID 04/16/20 04/16/20 History Furosemide [Lasix] 20 mg PO BID 04/16/20 04/16/20 History Pramipexole Di-HCl [Mirapex] 0.25 mg PO DAILY 04/16/20 04/16/20 History carBAMazepine [Carbamazepine] 200 mg PO DAILY 04/16/20 04/16/20 History Allergies: streptomycin Allergy (Unknown, Verified 05/27/19 16:15) hearing loss Discharge Instructions:: HAVE YOUR FREE T4 CHECKED THROUGH YOUR PRIMARY CARE PROVIDER'S OFFICE. Activity:: Activity as Tolerated Nourishment:: Diabetic Diet, Heart Healthy Diet Referrals: Giles Key MD [Primary Care Provider] - 3 Days (Please follow-up within 3 days.) Disposition: HOME Quality CORE MEASURES:: N/A
[2020-04-17] MEDS ORDERED: Iopamidol 370 76% 100 ML VIAL ONE (14:22)
== END 2020-04-17 14:40 | disposition home or self-care (01) ==
LOC: ERS 10:55 → 2NO 14:06
PROVIDERS: ADMIT Internal Medicine; ATTEND Internal Medicine
DX: R07.89 Other chest pain (principal); R53.1 Weakness; I48.91 Unspecified atrial fibrillation; I12.9 Hypertensive chronic kidney disease with stage 1 through stage 4 chronic kidney disease, or unspecified chronic kidney disease; E11.22 Type 2 diabetes mellitus with diabetic chronic kidney disease; N18.9 Chronic kidney disease, unspecified; E78.5 Hyperlipidemia, unspecified; E03.9 Hypothyroidism, unspecified; R91.1 Solitary pulmonary nodule; E11.42 Type 2 diabetes mellitus with diabetic polyneuropathy; M19.90 Unspecified osteoarthritis, unspecified site; G25.81 Restless legs syndrome; F41.9 Anxiety disorder, unspecified; K44.9 Diaphragmatic hernia without obstruction or gangrene; Z66 Do not resuscitate; Z79.02 Long term (current) use of antithrombotics/antiplatelets; Z79.82 Long term (current) use of aspirin; Z79.84 Long term (current) use of oral hypoglycemic drugs; Z79.899 Other long term (current) drug therapy; Z88.1 Allergy status to other antibiotic agents; Z95.0 Presence of cardiac pacemaker; Z20.822 Contact with and (suspected) exposure to COVID-19
CPT/HCPCS: 71045; 71275; 78452; 80048; 80061; 82962 ×2; 83735; 83880; 84484 ×2; 85025; 85379; 93005; 93017; 99285; A9500; U0003; U0005; 36415; 36416; 80053; 84443; 87635; G0378; J2785; Q9967

== ENCOUNTER 2020-11-15 09:37 | Inpatient (IN) | payer MEDICARE, BC ==
[2020-11-15 11:24] LABS: Hemoglobin 12.2 g/dL (12.0-16.0); Mean Corpuscular HGB CONC 32.8 g/dL (32.0-36.0); Mean Corpuscular Hemoglobin 29.3 pg (27.0-31.0); Mean Corpuscular Volume 89.4 fL (78.0-98.0); Mean Platelet Volume 8.5 fL (7.4-10.4); Platelet Count 212 thou/uL (130-400); RBC Distribution Width 12.9 % (11.5-14.5); Red Blood Cell (RBC) Count 4.17 mill/uL (4.20-5.40); White Blood Cell (WBC) Count 14.8 thou/uL (4.8-10.8)
[2020-11-15 11:37] LABS: ALT (SGPT) 45 U/L (8-55); AST (SGOT) 24 U/L (5-34); Albumin 3.7 g/dL (3.4-4.8); Alkaline Phosphatase 63 U/L (40-110); Anion Gap 13 mmol/L (10-20); BUN (Urea Nitrogen) 23 mg/dL (9.8-20.1); Bilirubin, Total 1.4 mg/dL (0.2-1.2); Calc. Creatinine Clearance 0 mL/min (70-130); Carbon Dioxide 28 mmol/L (23-31); Chloride 99 mmol/L (98-107); Globulin 2.3 g/dL (2.4-3.5); Glucose 135 mg/dL (83-110); Lipase 17 U/L (8-78); Sodium 136 mmol/L (136-145)
[2020-11-15 11:59] LABS: Band 3 % (5-11); Lymphocytes 6 % (21-51); MDiff Complete? YES; Monocytes 18 % (0-10); Neutrophil 72 % (42-75); RBC Morphology Normal; Reactive Lymphocytes 1 % (0-10)
[2020-11-15] MEDS ORDERED: Furosemide 20 MG TAB PO SCH (13:45)
[2020-11-15] MEDS ORDERED: Amiodarone 200 MG TAB PO SCH (13:45)
[2020-11-15] MEDS ORDERED: Ondansetron PF 4 MG/2 ML Vial IVP PRN (13:47)
[2020-11-15] MEDS ORDERED: Ondansetron ODT 4 MG TAB PO PRN (13:47)
[2020-11-15] MEDS ORDERED: Nitroglycerin 0.4 MG TAB (25 Tab Bottle) SL PRN (13:50)
[2020-11-15] MEDS ORDERED: Aspirin Chewable 81 MG TAB ONE (14:32)
[2020-11-15 14:46] LABS: Free T4 (Free Thyroxine) 1.04 ng/dL (0.70-1.48); Thyroid Stimulating Hormone 0.9273 uIU/mL (0.35-4.94)
[2020-11-15 15:23] LABS: Magnesium 2.1 mg/dL (1.6-2.6)
[2020-11-15] MEDS ORDERED: ALPRAZolam 0.25 MG TAB PO PRN (17:27)
[2020-11-15 17:33] LABS: Troponin I Less than 0.010 ng/mL (< 0.028)
[2020-11-15 19:30] LABS: Bacteria/HPF 4+ HPF (None Seen); Bilirubin Negative (Negative); Blood, Urine 1+ (Negative); Clarity Turbid (Clear); Glucose, Urine (Dipstick) Normal (Negative); Ketone, Urine Negative (Negative); Leukocyte 500 Leu/uL (Negative); Nitrite Negative (Negative); Protein, Urine (Dipstick) 30 mg/dL (Neg-Trace); RBC/HPF 0-3 HPF (0-3); Specific Gravity, Urine 1.017 (1.002-1.036); Squamous Epithelial 0-3 HPF (0-3); Urobilinogen Normal mg/dL (Less than 2); WBC/HPF Greater than 50 HPF (0-3); pH, Urine 5.5 (5.0-9.0)
[2020-11-15] MEDS: Acetaminophen 325 MG TAB PO PRN (20:52)
[2020-11-15] MEDS: Lisinopril 10 MG TAB PO SCH (20:54)
[2020-11-15] MEDS: Atorvastatin Calcium 20 MG TAB PO SCH (20:55)
[2020-11-15] MEDS: Donepezil HCl 10 MG TAB PO SCH (20:55)
[2020-11-15] MEDS: Gabapentin 300 MG CAP PO SCH (20:55)
[2020-11-15] MEDS: Amiodarone 200 MG TAB PO SCH (20:56)
[2020-11-16 04:39] LABS: #Eosinphils 0.4 thou/uL (0.0-0.7); #Lymphocytes 1.2 thou/uL (1.20-3.40); #Monocytes 1.2 thou/uL (0.11-0.59); #Neutrophils 6.8 thou/uL (1.40-6.50); %Basophils 0.4 % (0.0-1.0); %Eosinophils 4.2 % (0.0-10.0); %Lymphocytes 12.2 % (21.0-51.0); %Monocytes 12.6 % (0.0-10.0); %Neutrophils 70.6 % (42.0-75.0); Hemoglobin 12.2 g/dL (12.0-16.0); Mean Corpuscular HGB CONC 32.9 g/dL (32.0-36.0); Mean Corpuscular Hemoglobin 29.3 pg (27.0-31.0); Mean Corpuscular Volume 89.2 fL (78.0-98.0); Mean Platelet Volume 8.5 fL (7.4-10.4); Platelet Count 198 thou/uL (130-400); Red Blood Cell (RBC) Count 4.17 mill/uL (4.20-5.40); White Blood Cell (WBC) Count 9.6 thou/uL (4.8-10.8)
[2020-11-16 05:01] LABS: Anion Gap 11 mmol/L (10-20); BUN (Urea Nitrogen) 22 mg/dL (9.8-20.1); Calc. Creatinine Clearance 39 mL/min (70-130); Calcium 8.9 mg/dL (7.8-10.44); Carbon Dioxide 28 mmol/L (23-31); Cardiac Risk 2.3 (Less than 4.5); Chloride 103 mmol/L (98-107); Cholesterol 131 mg/dl (< 200 Desired); Glucose 114 mg/dL (83-110); HDL Cholesterol 57 mg/dL (>60 Neg Risk); LDL Cholesterol, Calculated 61 mg/dL; Potassium 3.9 mmol/L (3.5-5.1); Sodium 138 mmol/L (136-145); Triglycerides 64 mg/dL (Less than 150)
[2020-11-16] MEDS: Levothyroxine Sodium 100 MCG TAB PO SCH (05:58)
[2020-11-16] MEDS: Acetaminophen 325 MG TAB PO PRN (08:58)
[2020-11-16] MEDS: Aspirin 81 mg Enteric Coated Tablet PO SCH (08:58)
[2020-11-16] MEDS: Amiodarone 200 MG TAB PO SCH ×2 (08:59→21:03)
[2020-11-16] MEDS: FLUoxetine HCl 20 MG CAP PO SCH (08:59)
[2020-11-16] MEDS: Torsemide 20 MG TAB PO SCH (08:59)
[2020-11-16] MEDS: Lisinopril 10 MG TAB PO SCH ×2 (08:59→21:02)
[2020-11-16] MEDS: Liothyronine Sodium 5 MCG TAB PO SCH (08:59)
[2020-11-16] MEDS ORDERED: Aspirin 81 mg Enteric Coated Tablet PO SCH (09:00)
[2020-11-16 09:40] LABS: Troponin I Less than 0.010 ng/mL (< 0.028)
[2020-11-16] MEDS: Morphine 2 MG/ML VIAL SLOW IVP PRN ×2 (10:15→22:15)
[2020-11-16 13:21] VITALS: BMI 26.5
[2020-11-16 19:21] LABS: SARS-CoV-2 PCR by NAA Not Detected (NotDetected)
[2020-11-16] MEDS: Donepezil HCl 10 MG TAB PO SCH (21:02)
[2020-11-16] MEDS: Atorvastatin Calcium 20 MG TAB PO SCH (21:05)
[2020-11-16] MEDS: Gabapentin 300 MG CAP PO SCH (21:05)
[2020-11-16] MEDS: Calcium Carbonate 500 MG ChewTAB PO PRN (22:07)
[2020-11-17 04:54] LABS: Anion Gap 13 mmol/L (10-20); BUN (Urea Nitrogen) 16 mg/dL (9.8-20.1); Calc. Creatinine Clearance 40 mL/min (70-130); Calcium 8.4 mg/dL (7.8-10.44); Carbon Dioxide 26 mmol/L (23-31); Chloride 102 mmol/L (98-107); Glucose 99 mg/dL (83-110); Potassium 3.8 mmol/L (3.5-5.1); Sodium 137 mmol/L (136-145)
[2020-11-17 05:24] LABS: Hemoglobin 11.2 g/dL (12.0-16.0); Mean Corpuscular HGB CONC 33.9 g/dL (32.0-36.0); Mean Corpuscular Hemoglobin 30.4 pg (27.0-31.0); Mean Corpuscular Volume 89.8 fL (78.0-98.0); Mean Platelet Volume 8.4 fL (7.4-10.4); Platelet Count 211 thou/uL (130-400); Red Blood Cell (RBC) Count 3.68 mill/uL (4.20-5.40); White Blood Cell (WBC) Count 7.4 thou/uL (4.8-10.8)
[2020-11-17 05:26] LABS: Band 3 % (5-11); Eosinophils 3 % (0-10); Lymphocytes 18 % (21-51); MDiff Complete? YES; Monocytes 15 % (0-10); Neutrophil 61 % (42-75)
[2020-11-17] MEDS: Levothyroxine Sodium 100 MCG TAB PO SCH (06:16)
[2020-11-17] MEDS: Torsemide 20 MG TAB PO SCH (09:01)
[2020-11-17] MEDS: Amiodarone 200 MG TAB PO SCH ×2 (09:01→21:09)
[2020-11-17] MEDS: Lisinopril 10 MG TAB PO SCH ×2 (09:01→21:09)
[2020-11-17] MEDS: Aspirin 81 mg Enteric Coated Tablet PO SCH (09:01)
[2020-11-17] MEDS: FLUoxetine HCl 20 MG CAP PO SCH (09:01)
[2020-11-17] MEDS: Liothyronine Sodium 5 MCG TAB PO SCH (09:01)
[2020-11-17] MEDS: cefTRIAXone\\ROCEPHIN 1 GM in Sodium Chloride 0.9% 100 ML IVPB SCH (11:18)
[2020-11-17] MEDS: Docusate 100 MG CAP PO PRN (11:20)
[2020-11-17] MEDS: Acetaminophen 325 MG TAB PO PRN (15:40)
[2020-11-17] MEDS: Gabapentin 300 MG CAP PO SCH (21:08)
[2020-11-17] MEDS: Calcium Carbonate 500 MG ChewTAB PO PRN (21:08)
[2020-11-17] MEDS: Atorvastatin Calcium 20 MG TAB PO SCH (21:09)
[2020-11-17] MEDS: Donepezil HCl 10 MG TAB PO SCH (21:09)
[2020-11-18] MEDS: Levothyroxine Sodium 100 MCG TAB PO SCH (05:14)
[2020-11-18] MEDS: Aspirin 81 mg Enteric Coated Tablet PO SCH (09:04)
[2020-11-18] MEDS: Amiodarone 200 MG TAB PO SCH ×2 (09:04→20:57)
[2020-11-18] MEDS: FLUoxetine HCl 20 MG CAP PO SCH (09:04)
[2020-11-18] MEDS: Liothyronine Sodium 5 MCG TAB PO SCH (09:05)
[2020-11-18] MEDS: Lisinopril 10 MG TAB PO SCH ×2 (09:05→20:57)
[2020-11-18] MEDS: Torsemide 20 MG TAB PO SCH (09:05)
[2020-11-18] MEDS ORDERED: Furosemide 20 MG/2 ML VIAL SLOW IVP SCH (10:15)
[2020-11-18] MEDS: cefTRIAXone\\ROCEPHIN 1 GM in Sodium Chloride 0.9% 100 ML IVPB SCH (11:04)
[2020-11-18] MEDS ORDERED: Potassium Chloride 20 MEQ TAB PO SCH (13:00)
[2020-11-18] MEDS: Calcium Carbonate 500 MG ChewTAB PO PRN ×2 (18:52→21:58)
[2020-11-18] MEDS: Gabapentin 300 MG CAP PO SCH (20:57)
[2020-11-18] MEDS: Donepezil HCl 10 MG TAB PO SCH (20:57)
[2020-11-18] MEDS: Atorvastatin Calcium 20 MG TAB PO SCH (20:57)
[2020-11-18] MEDS: Docusate 100 MG CAP PO PRN (21:02)
[2020-11-19 05:01] LABS: ALT (SGPT) 31 U/L (8-55); AST (SGOT) 18 U/L (5-34); Albumin 3.5 g/dL (3.4-4.8); Alkaline Phosphatase 53 U/L (40-110); Anion Gap 12 mmol/L (10-20); BUN (Urea Nitrogen) 12 mg/dL (9.8-20.1); Calc. Creatinine Clearance 39 mL/min (70-130); Calcium 8.9 mg/dL (7.8-10.44); Carbon Dioxide 29 mmol/L (23-31); Chloride 101 mmol/L (98-107); Globulin 2.2 g/dL (2.4-3.5); Glucose 104 mg/dL (83-110); Magnesium 2.1 mg/dL (1.6-2.6); Protein, Total 5.7 g/dL (5.8-8.1); Sodium 138 mmol/L (136-145)
[2020-11-19] MEDS: Levothyroxine Sodium 100 MCG TAB PO SCH (05:47)
[2020-11-19] MEDS ORDERED: Furosemide 20 MG/2 ML VIAL SLOW IVP SCH ×2 (09:00→18:00)
[2020-11-19] MEDS: Aspirin 81 mg Enteric Coated Tablet PO SCH (09:11)
[2020-11-19] MEDS: Calcium Carbonate 500 MG ChewTAB PO PRN ×3 (09:11→20:33)
[2020-11-19] MEDS: Torsemide 20 MG TAB PO SCH (09:11)
[2020-11-19] MEDS: Docusate 100 MG CAP PO PRN (09:11)
[2020-11-19] MEDS: Liothyronine Sodium 5 MCG TAB PO SCH (09:11)
[2020-11-19] MEDS: Lisinopril 10 MG TAB PO SCH ×2 (09:11→20:34)
[2020-11-19] MEDS: Amiodarone 200 MG TAB PO SCH ×2 (09:12→20:34)
[2020-11-19] MEDS: FLUoxetine HCl 20 MG CAP PO SCH (09:12)
[2020-11-19] MEDS: cefTRIAXone\\ROCEPHIN 1 GM in Sodium Chloride 0.9% 100 ML IVPB SCH (11:15)
[2020-11-19] MEDS ORDERED: Artificial Tear Sol 15 ML BOT EA EYE PRN (11:17)
[2020-11-19] MEDS ORDERED: Potassium Chloride 20 MEQ TAB PO SCH (12:00)
[2020-11-19] MEDS: Atorvastatin Calcium 20 MG TAB PO SCH (20:33)
[2020-11-19] MEDS: Donepezil HCl 10 MG TAB PO SCH (20:34)
[2020-11-19] MEDS: Gabapentin 300 MG CAP PO SCH (20:34)
[2020-11-20] MEDS: Levothyroxine Sodium 100 MCG TAB PO SCH (05:41)
[2020-11-20] MEDS ORDERED: Torsemide 20 MG TAB PO SCH (09:00)
[2020-11-20] MEDS: Aspirin 81 mg Enteric Coated Tablet PO SCH (09:19)
[2020-11-20] MEDS: Lisinopril 10 MG TAB PO SCH (09:19)
[2020-11-20] MEDS: Amiodarone 200 MG TAB PO SCH (09:19)
[2020-11-20] MEDS: Liothyronine Sodium 5 MCG TAB PO SCH (09:20)
[2020-11-20] MEDS: FLUoxetine HCl 20 MG CAP PO SCH (09:20)
[2020-11-20] MEDS: Calcium Carbonate 500 MG ChewTAB PO PRN (09:20)
[2020-11-20 09:34] LABS: Anion Gap 14 mmol/L (10-20); BUN (Urea Nitrogen) 14 mg/dL (9.8-20.1); Calc. Creatinine Clearance 33 mL/min (70-130); Calcium 9.4 mg/dL (7.8-10.44); Carbon Dioxide 31 mmol/L (23-31); Chloride 98 mmol/L (98-107); Glucose 111 mg/dL (83-110); Potassium 4.6 mmol/L (3.5-5.1); Sodium 138 mmol/L (136-145)
[2020-11-20] MEDS: Acetaminophen 325 MG TAB PO PRN (11:13)
[2020-11-20] MEDS: cefTRIAXone\\ROCEPHIN 1 GM in Sodium Chloride 0.9% 100 ML IVPB SCH (11:14)
[2020-11-20 13:48] VITALS: BP 146/60; TEMP 98.2
== END 2020-11-20 14:15 | disposition home or self-care (01) | DRG 291 ==
LOC: ERS 09:37 → ERHOLD 13:11 → 2NO 14:31 → OBSVTOIN 11-17 14:50
PROVIDERS: ADMIT Family Medicine; ATTEND Family Medicine
DX: I13.0 Hypertensive heart and chronic kidney disease with heart failure and stage 1 through stage 4 chronic kidney disease, or unspecified chronic kidney disease (principal); I50.33 Acute on chronic diastolic (congestive) heart failure; N17.9 Acute kidney failure, unspecified; N39.0 Urinary tract infection, site not specified; I48.19 Other persistent atrial fibrillation; I48.92 Unspecified atrial flutter; Z20.822 Contact with and (suspected) exposure to COVID-19; Z66 Do not resuscitate; N18.30 Chronic kidney disease, stage 3 unspecified; E11.22 Type 2 diabetes mellitus with diabetic chronic kidney disease; E03.9 Hypothyroidism, unspecified; B96.1 Klebsiella pneumoniae [K. pneumoniae] as the cause of diseases classified elsewhere; G62.9 Polyneuropathy, unspecified; M19.90 Unspecified osteoarthritis, unspecified site; G25.81 Restless legs syndrome; F41.9 Anxiety disorder, unspecified; Z96.651 Presence of right artificial knee joint; I48.0 Paroxysmal atrial fibrillation; Z88.5 Allergy status to narcotic agent; Z88.1 Allergy status to other antibiotic agents; Z90.49 Acquired absence of other specified parts of digestive tract; Z90.710 Acquired absence of both cervix and uterus; Z95.0 Presence of cardiac pacemaker; Z79.899 Other long term (current) drug therapy; Z79.890 Hormone replacement therapy; Z79.84 Long term (current) use of oral hypoglycemic drugs
CPT/HCPCS: 36415; 71045; 80048; 80053; 80061; 81001; 83690; 83735; 83880; 84439; 84443; 84484; 85025; 87077; 87086; 87186; 93005; 94760; 96374; 96375; G0378; J0696; J1940; J2270; J3490; U0003; U0005

== ENCOUNTER 2021-04-01 11:36 | Observation (INO) | payer MEDICARE, BC ==
[2021-04-01 12:36] LABS: Hemoglobin 13.2 g/dL (12.0-16.0); Mean Corpuscular HGB CONC 32.9 g/dL (32.0-36.0); Mean Corpuscular Hemoglobin 29.4 pg (27.0-31.0); Mean Corpuscular Volume 89.5 fL (78.0-98.0); Mean Platelet Volume 8.8 fL (7.4-10.4); Platelet Count 170 thou/uL (130-400); RBC Distribution Width 13.1 % (11.5-14.5); Red Blood Cell (RBC) Count 4.47 mill/uL (4.20-5.40); White Blood Cell (WBC) Count 7.2 thou/uL (4.8-10.8)
[2021-04-01] MEDS ORDERED: Aspirin Chewable 81 MG TAB ONE (12:40)
[2021-04-01 13:02] LABS: ALT (SGPT) 69 U/L (8-55); AST (SGOT) 42 U/L (5-34); Albumin 3.9 g/dL (3.4-4.8); Alkaline Phosphatase 56 U/L (40-110); Anion Gap 12 mmol/L (10-20); BUN (Urea Nitrogen) 22 mg/dL (9.8-20.1); Band 3 % (5-11); Bilirubin, Total 1.2 mg/dL (0.2-1.2); Calc. Creatinine Clearance 0 mL/min (70-130); Calcium 8.9 mg/dL (7.8-10.44); Carbon Dioxide 27 mmol/L (23-31); Chloride 103 mmol/L (98-107); Globulin 2.7 g/dL (2.4-3.5); Glucose 85 mg/dL (83-110); Lipase 24 U/L (8-78); Lymphocytes 8 % (21-51); MDiff Complete? YES; Monocytes 24 % (0-10); Neutrophil 60 % (42-75); Platelet Morphology Comment Appears Adequate; Protein, Total 6.6 g/dL (5.8-8.1); RBC Morphology Normal; Reactive Lymphocytes 5 % (0-10); Sodium 138 mmol/L (136-145)
[2021-04-01 13:03] LABS: Bilirubin Negative (Negative); Blood, Urine Negative (Negative); Clarity Clear (Clear); Glucose, Urine (Dipstick) Normal (Negative); Ketone, Urine Negative (Negative); Leukocyte Negative Leu/uL (Negative); Nitrite Negative (Negative); Protein, Urine (Dipstick) Negative (Neg-Trace); Specific Gravity, Urine 1.007 (1.002-1.036); Urobilinogen Normal mg/dL (Less than 2)
[2021-04-01] MEDS ORDERED: Furosemide 20 MG/2 ML VIAL ONE (15:04)
[2021-04-01 17:31] LABS: SARS-CoV-2 NAA Rapid Test Not Detected (NotDetected)
[2021-04-01] MEDS ORDERED: Acetaminophen 325 MG TAB PO PRN (19:36)
[2021-04-01 20:46] LABS: Troponin I 0.014 ng/mL (< 0.028)
[2021-04-01] MEDS ORDERED: Atorvastatin Calcium 20 MG TAB PO SCH (21:00)
[2021-04-01] MEDS ORDERED: Atorvastatin Calcium 40 MG TAB PO SCH (21:00)
[2021-04-01] MEDS: Gabapentin 300 MG CAP PO SCH (22:00)
[2021-04-01] MEDS: Atorvastatin Calcium 20 MG TAB PO SCH (22:00)
[2021-04-01] MEDS: Donepezil HCl 10 MG TAB PO SCH (22:00)
[2021-04-02 05:21] LABS: Magnesium 2.1 mg/dL (1.6-2.6)
[2021-04-02] MEDS ORDERED: Levothyroxine Sodium 100 MCG TAB PO SCH (06:00)
[2021-04-02] MEDS ORDERED: Carvedilol 6.25 MG TAB PO SCH (08:00)
[2021-04-02] MEDS: Aspirin 81 mg Enteric Coated Tablet PO SCH (08:22)
[2021-04-02] MEDS ORDERED: Liothyronine Sodium 5 MCG TAB PO SCH (09:00)
[2021-04-02] MEDS ORDERED: Furosemide 40 MG/4 ML VIAL SLOW IVP SCH ×2 (09:00→21:00)
[2021-04-02] MEDS ORDERED: Empagliflozin 10 MG TAB PO SCH (10:00)
[2021-04-02] MEDS: Pramipexole Di-HCl 0.125 MG TAB PO SCH (10:32)
[2021-04-02] MEDS ORDERED: Potassium Chloride 20 MEQ TAB PO SCH (12:00)
[2021-04-02 14:54] VITALS: BMI 29.8
[2021-04-02] MEDS: Gabapentin 300 MG CAP PO SCH (21:29)
[2021-04-02] MEDS: Atorvastatin Calcium 20 MG TAB PO SCH (21:30)
[2021-04-02] MEDS: Donepezil HCl 10 MG TAB PO SCH (21:33)
[2021-04-03 05:43] LABS: Anion Gap 14 mmol/L (10-20); BUN (Urea Nitrogen) 22 mg/dL (9.8-20.1); Calc. Creatinine Clearance 36 mL/min (70-130); Calcium 9.2 mg/dL (7.8-10.44); Carbon Dioxide 28 mmol/L (23-31); Chloride 100 mmol/L (98-107); Glucose 110 mg/dL (83-110); Potassium 3.8 mmol/L (3.5-5.1); Sodium 138 mmol/L (136-145)
[2021-04-03 07:58] VITALS: TEMP 98.4
[2021-04-03] MEDS ORDERED: Furosemide 20 MG/2 ML VIAL SLOW IVP SCH (09:00)
[2021-04-03] MEDS ORDERED: Empagliflozin 10 MG TAB PO SCH (09:00)
[2021-04-03 09:24] VITALS: BP 167/68
[2021-04-03] MEDS: Pramipexole Di-HCl 0.125 MG TAB PO SCH (09:46)
[2021-04-03] MEDS: Aspirin 81 mg Enteric Coated Tablet PO SCH (09:46)
[2021-04-04] MEDS ORDERED: Torsemide 20 MG TAB PO SCH (09:00)
[2021-04-04] MEDS ORDERED: Lisinopril 10 MG TAB PO SCH (09:00)
== END 2021-04-03 11:36 | disposition home or self-care (01) ==
LOC: ERS 11:36 → 2NO 16:27
PROVIDERS: ADMIT Internal Medicine; ATTEND Internal Medicine
DX: I13.0 Hypertensive heart and chronic kidney disease with heart failure and stage 1 through stage 4 chronic kidney disease, or unspecified chronic kidney disease (principal); N18.30 Chronic kidney disease, stage 3 unspecified; I50.33 Acute on chronic diastolic (congestive) heart failure; J96.01 Acute respiratory failure with hypoxia; E05.80 Other thyrotoxicosis without thyrotoxic crisis or storm; T38.1X5A Adverse effect of thyroid hormones and substitutes, initial encounter; E03.9 Hypothyroidism, unspecified; E87.6 Hypokalemia; G25.81 Restless legs syndrome; G62.9 Polyneuropathy, unspecified; M19.90 Unspecified osteoarthritis, unspecified site; I08.1 Rheumatic disorders of both mitral and tricuspid valves; I44.0 Atrioventricular block, first degree; E78.00 Pure hypercholesterolemia, unspecified; Z79.82 Long term (current) use of aspirin; Z79.899 Other long term (current) drug therapy; Z88.1 Allergy status to other antibiotic agents; Z88.5 Allergy status to narcotic agent; Z95.0 Presence of cardiac pacemaker; Z95.818 Presence of other cardiac implants and grafts; Z20.822 Contact with and (suspected) exposure to COVID-19
CPT/HCPCS: 71045; 76705; 80048; 81003; 83690; 83735; 83880; 84439; 84484 ×2; 85379; 93005; 93306; 93798 ×2; 94760; 96374 ×2; 96376; 97139 ×4; 99285; G0378 ×4; U0002; 36415; 80053; 84443; 85025; J1940

== ENCOUNTER 2021-08-05 10:04 | Emergency (ER) | payer MEDICARE, BC ==
[2021-08-05 10:39] LABS: Hemoglobin 13.6 g/dL (12.0-16.0); Mean Corpuscular HGB CONC 31.1 g/dL (32.0-36.0); Mean Corpuscular Hemoglobin 28.8 pg (27.0-31.0); Mean Corpuscular Volume 92.6 fL (78.0-98.0); Mean Platelet Volume 9.4 fL (7.4-10.4); Platelet Count 177 thou/uL (130-400); RBC Distribution Width 13.6 % (11.5-14.5); Red Blood Cell (RBC) Count 4.71 mill/uL (4.20-5.40); White Blood Cell (WBC) Count 5.9 thou/uL (4.8-10.8)
[2021-08-05 11:02] LABS: ALT (SGPT) 50 U/L (8-55); AST (SGOT) 34 U/L (5-34); Albumin 3.9 g/dL (3.4-4.8); Alkaline Phosphatase 52 U/L (40-110); Anion Gap 11 mmol/L (10-20); BUN (Urea Nitrogen) 20 mg/dL (9.8-20.1); Bilirubin, Total 0.8 mg/dL (0.2-1.2); Calc. Creatinine Clearance 0 mL/min (70-130); Calcium 8.8 mg/dL (7.8-10.44); Carbon Dioxide 28 mmol/L (23-31); Chloride 105 mmol/L (98-107); Globulin 2.6 g/dL (2.4-3.5); Glucose 119 mg/dL (83-110); Potassium 4.4 mmol/L (3.5-5.1); Protein, Total 6.5 g/dL (5.8-8.1); Sodium 140 mmol/L (136-145)
[2021-08-05 11:08] LABS: Band 9 % (5-11); Eosinophils 1 % (0-10); Lymphocytes 19 % (21-51); MDiff Complete? YES; Monocytes 20 % (0-10); Neutrophil 48 % (42-75); Platelet Morphology Comment Appears Adequate; RBC Morphology Normal; Reactive Lymphocytes 3 % (0-10)
[2021-08-05 13:50] LABS: Troponin I Less than 0.010 ng/mL (< 0.028)
== END 2021-08-05 14:37 | disposition home or self-care (01) ==
LOC: ERS 10:04
DX: R07.9 Chest pain, unspecified (principal); I13.0 Hypertensive heart and chronic kidney disease with heart failure and stage 1 through stage 4 chronic kidney disease, or unspecified chronic kidney disease; I50.9 Heart failure, unspecified; N18.9 Chronic kidney disease, unspecified; G25.81 Restless legs syndrome; I48.91 Unspecified atrial fibrillation; E03.9 Hypothyroidism, unspecified
CPT/HCPCS: 36415; 71045; 80053; 83880; 84484; 85025; 93005

== ENCOUNTER 2021-08-11 10:19 | Observation (INO) | payer MEDICARE, BC ==
[2021-08-11 11:12] LABS: Hemoglobin 14.4 g/dL (12.0-16.0); Mean Corpuscular HGB CONC 31.2 g/dL (32.0-36.0); Mean Corpuscular Hemoglobin 28.6 pg (27.0-31.0); Mean Corpuscular Volume 91.8 fL (78.0-98.0); Platelet Count 177 thou/uL (130-400); RBC Distribution Width 13.6 % (11.5-14.5); Red Blood Cell (RBC) Count 5.02 mill/uL (4.20-5.40); White Blood Cell (WBC) Count 5.1 thou/uL (4.8-10.8)
[2021-08-11 11:16] LABS: ALT (SGPT) 59 U/L (8-55); AST (SGOT) 46 U/L (5-34); Albumin 4.3 g/dL (3.4-4.8); Alkaline Phosphatase 61 U/L (40-110); Anion Gap 15 mmol/L (10-20); BUN (Urea Nitrogen) 19 mg/dL (9.8-20.1); Bilirubin, Total 0.9 mg/dL (0.2-1.2); Calc. Creatinine Clearance 0 mL/min (70-130); Calcium 8.9 mg/dL (7.8-10.44); Carbon Dioxide 27 mmol/L (23-31); Chloride 102 mmol/L (98-107); Globulin 2.5 g/dL (2.4-3.5); Glucose 135 mg/dL (83-110); Potassium 4.3 mmol/L (3.5-5.1); Protein, Total 6.8 g/dL (5.8-8.1); Sodium 140 mmol/L (136-145)
[2021-08-11 11:51] LABS: Band 3 % (5-11); Lymphocytes 14 % (21-51); MDiff Complete? YES; Monocytes 16 % (0-10); Neutrophil 65 % (42-75); Platelet Morphology Comment Appears Adequate; RBC Morphology Normal; Reactive Lymphocytes 2 % (0-10)
[2021-08-11] MEDS ORDERED: Ondansetron ODT 4 MG TAB PO PRN (13:48)
[2021-08-11] MEDS ORDERED: Acetaminophen 325 MG TAB PO PRN (13:48)
[2021-08-11] MEDS ORDERED: Calcium Carbonate 500 MG ChewTAB PO PRN (13:48)
[2021-08-11] MEDS ORDERED: Acetaminophen 650 MG Suppository PR PRN (13:48)
[2021-08-11] MEDS ORDERED: Senokot S 8.6-50 MG TAB PO PRN (13:48)
[2021-08-11] MEDS ORDERED: Bisacodyl 5 MG TAB PO PRN (13:48)
[2021-08-11] MEDS ORDERED: Dextrose 50% Abboject 50 ML SYRINGE SLOW IVP PRN (14:11)
[2021-08-11] MEDS ORDERED: HumaLOG 300 UNITS/3 ML VIAL SC PRN (14:11)
[2021-08-11] MEDS ORDERED: Dextrose 5% in Water 1,000 ML IV PRN (14:11)
[2021-08-11 14:45] LABS: Magnesium 2.5 mg/dL (1.6-2.6)
[2021-08-11 14:49] LABS: Troponin I Less than 0.010 ng/mL (< 0.028)
[2021-08-11 15:04] LABS: Free T4 (Free Thyroxine) 1.08 ng/dL (0.70-1.48); Thyroid Stimulating Hormone 11.8552 uIU/mL (0.35-4.94)
[2021-08-11 15:06] LABS: Hep C IgG Ab Non-Reactive (NonReactive); Hep C Index 0.05 S/CO (0-0.79)
[2021-08-11] MEDS ORDERED: Enoxaparin Sodium 30 MG/0.3 ML SYRINGE SC SCH (15:15)
[2021-08-11 15:17] VITALS: BMI 29.6
[2021-08-11] MEDS: Furosemide 40 MG/4 ML VIAL SLOW IVP SCH (15:35)
[2021-08-11 17:39] LABS: Troponin I Less than 0.010 ng/mL (< 0.028)
[2021-08-11 18:52] LABS: SARS-CoV-2 NAA Rapid Test Not Detected (NotDetected)
[2021-08-11] MEDS ORDERED: Atorvastatin Calcium 20 MG TAB PO SCH (21:00)
[2021-08-11] MEDS ORDERED: Gabapentin 300 MG CAP PO SCH (21:00)
[2021-08-11] MEDS ORDERED: Donepezil HCl 10 MG TAB PO SCH (21:00)
[2021-08-11] MEDS ORDERED: Lisinopril 10 MG TAB PO SCH (21:00)
[2021-08-11] MEDS: clonazePAM 0.5 MG TAB PO SCH (22:15)
[2021-08-12 05:05] LABS: Prothrombin Time 13.3 sec (12.0-14.7)
[2021-08-12 05:24] LABS: Hemoglobin 13.9 g/dL (12.0-16.0); Mean Corpuscular HGB CONC 32.1 g/dL (32.0-36.0); Mean Corpuscular Hemoglobin 29.2 pg (27.0-31.0); Mean Corpuscular Volume 90.9 fL (78.0-98.0); Mean Platelet Volume 8.6 fL (7.4-10.4); Platelet Count 194 thou/uL (130-400); RBC Distribution Width 13.6 % (11.5-14.5); Red Blood Cell (RBC) Count 4.76 mill/uL (4.20-5.40); White Blood Cell (WBC) Count 5.9 thou/uL (4.8-10.8)
[2021-08-12 05:29] LABS: ALT (SGPT) 52 U/L (8-55); AST (SGOT) 37 U/L (5-34); Albumin 3.9 g/dL (3.4-4.8); Alkaline Phosphatase 57 U/L (40-110); Anion Gap 13 mmol/L (10-20); BUN (Urea Nitrogen) 23 mg/dL (9.8-20.1); Bilirubin, Total 0.7 mg/dL (0.2-1.2); Calc. Creatinine Clearance 25 mL/min (70-130); Calcium 9.2 mg/dL (7.8-10.44); Carbon Dioxide 31 mmol/L (23-31); Chloride 100 mmol/L (98-107); Globulin 2.7 g/dL (2.4-3.5); Glucose 89 mg/dL (83-110); Potassium 4.2 mmol/L (3.5-5.1); Protein, Total 6.6 g/dL (5.8-8.1); Sodium 140 mmol/L (136-145)
[2021-08-12] MEDS: Furosemide 40 MG/4 ML VIAL SLOW IVP SCH (05:48)
[2021-08-12 05:51] LABS: Band 8 % (5-11); Lymphocytes 20 % (21-51); MDiff Complete? YES; Monocytes 17 % (0-10); Neutrophil 55 % (42-75)
[2021-08-12] MEDS ORDERED: Levothyroxine Sodium 75 MCG TAB PO SCH (06:00)
[2021-08-12 08:25] VITALS: TEMP 97.4
[2021-08-12] MEDS ORDERED: Enoxaparin Sodium 30 MG/0.3 ML SYRINGE SC SCH (09:00)
[2021-08-12] MEDS ORDERED: Aspirin 81 mg Enteric Coated Tablet PO SCH (09:00)
[2021-08-12] MEDS ORDERED: Amiodarone 200 MG TAB PO SCH (09:00)
[2021-08-12] MEDS ORDERED: Cholecalciferol 1,000 UNITS (25 MCG) TAB PO SCH (09:00)
[2021-08-12] MEDS ORDERED: FLUoxetine HCl 20 MG CAP PO SCH (09:00)
[2021-08-12] MEDS ORDERED: Empagliflozin 10 MG TAB PO SCH (09:00)
[2021-08-12] MEDS ORDERED: Aspirin Chewable 81 MG TAB PO SCH (09:00)
[2021-08-12] MEDS: clonazePAM 0.5 MG TAB PO SCH (09:35)
[2021-08-12 13:38] VITALS: BP 121/60
[2021-08-14 22:18] LABS: HIV-1 Quantitative, RNA PCR <20 copies/mL (.)
== END 2021-08-12 11:40 | disposition home health service (06) ==
LOC: ERS 10:19 → 2NO 12:49
PROVIDERS: ADMIT Family Medicine; ATTEND Family Medicine
DX: I13.0 Hypertensive heart and chronic kidney disease with heart failure and stage 1 through stage 4 chronic kidney disease, or unspecified chronic kidney disease (principal); N18.9 Chronic kidney disease, unspecified; I50.33 Acute on chronic diastolic (congestive) heart failure; R07.9 Chest pain, unspecified; R10.13 Epigastric pain; E03.9 Hypothyroidism, unspecified; R74.01 Elevation of levels of liver transaminase levels; K76.0 Fatty (change of) liver, not elsewhere classified; I48.91 Unspecified atrial fibrillation; I48.92 Unspecified atrial flutter; G62.9 Polyneuropathy, unspecified; M19.90 Unspecified osteoarthritis, unspecified site; G25.81 Restless legs syndrome; Z51.5 Encounter for palliative care; Z66 Do not resuscitate; Z79.82 Long term (current) use of aspirin; Z79.84 Long term (current) use of oral hypoglycemic drugs; Z79.899 Other long term (current) drug therapy; Z88.1 Allergy status to other antibiotic agents; Z95.0 Presence of cardiac pacemaker; Z20.822 Contact with and (suspected) exposure to COVID-19
CPT/HCPCS: 71045; 71250; 76705; 80053; 82962; 83735; 83880 ×2; 84439; 84481; 84484 ×2; 85025; 85610; 86803; 87536; 93005; 97139 ×3; 97530 ×2; 97535; 99285; U0002; 36415; 36416; 84443; 96372; 96374; 96376; G0378; J1650; J1940

== ENCOUNTER 2021-08-15 10:04 | Emergency (ER) | payer MEDICARE, BC ==
[2021-08-15 10:42] LABS: Mean Corpuscular HGB CONC 32.7 g/dL (32.0-36.0); Mean Corpuscular Hemoglobin 29.5 pg (27.0-31.0); Mean Corpuscular Volume 90.4 fL (78.0-98.0); Mean Platelet Volume 8.5 fL (7.4-10.4); Platelet Count 179 thou/uL (130-400); RBC Distribution Width 13.4 % (11.5-14.5); Red Blood Cell (RBC) Count 4.74 mill/uL (4.20-5.40); White Blood Cell (WBC) Count 5.4 thou/uL (4.8-10.8)
[2021-08-15 11:00] LABS: Band 2 % (5-11); Eosinophils 1 % (0-10); Lymphocytes 28 % (21-51); MDiff Complete? YES; Monocytes 19 % (0-10); Neutrophil 48 % (42-75); RBC Morphology Normal; Reactive Lymphocytes 2 % (0-10)
[2021-08-15 11:05] LABS: ALT (SGPT) 48 U/L (8-55); AST (SGOT) 40 U/L (5-34); Albumin 4.1 g/dL (3.4-4.8); Alkaline Phosphatase 59 U/L (40-110); Anion Gap 15 mmol/L (10-20); BUN (Urea Nitrogen) 28 mg/dL (9.8-20.1); Calc. Creatinine Clearance 0 mL/min (70-130); Calcium 9.2 mg/dL (7.8-10.44); Carbon Dioxide 26 mmol/L (23-31); Chloride 99 mmol/L (98-107); Globulin 2.8 g/dL (2.4-3.5); Glucose 101 mg/dL (83-110); Lipase 30 U/L (8-78); Potassium 4.2 mmol/L (3.5-5.1); Protein, Total 6.9 g/dL (5.8-8.1); Sodium 136 mmol/L (136-145)
[2021-08-15] MEDS ORDERED: Sterile Water 10 ML ONE (12:18)
[2021-08-15] MEDS ORDERED: Ziprasidone 20 MG VIAL ONE (12:18)
[2021-08-15 14:48] LABS: Troponin I Less than 0.010 ng/mL (< 0.028)
== END 2021-08-15 15:34 | disposition home or self-care (01) ==
LOC: ERS 10:04
DX: R07.9 Chest pain, unspecified (principal); I11.0 Hypertensive heart disease with heart failure; I50.9 Heart failure, unspecified; E03.9 Hypothyroidism, unspecified; Z79.899 Other long term (current) drug therapy
CPT/HCPCS: 36415; 71045; 80053; 83690; 83880; 84484; 85025; 93005; J3486

== ENCOUNTER 2021-08-26 11:12 | Emergency (ER) | payer OTHER, MEDICARE, BC ==
[2021-08-26 11:56] LABS: Hemoglobin 13.3 g/dL (12.0-16.0); Mean Corpuscular Hemoglobin 29.3 pg (27.0-31.0); Mean Corpuscular Volume 91.4 fL (78.0-98.0); Mean Platelet Volume 9.1 fL (7.4-10.4); Platelet Count 166 thou/uL (130-400); RBC Distribution Width 13.5 % (11.5-14.5); Red Blood Cell (RBC) Count 4.53 mill/uL (4.20-5.40); White Blood Cell (WBC) Count 5.9 thou/uL (4.8-10.8)
[2021-08-26 12:18] LABS: ALT (SGPT) 69 U/L (8-55); AST (SGOT) 59 U/L (5-34); Albumin 3.9 g/dL (3.4-4.8); Alkaline Phosphatase 51 U/L (40-110); Anion Gap 13 mmol/L (10-20); BUN (Urea Nitrogen) 22 mg/dL (9.8-20.1); Calc. Creatinine Clearance 0 mL/min (70-130); Calcium 9.1 mg/dL (7.8-10.44); Carbon Dioxide 27 mmol/L (23-31); Chloride 100 mmol/L (98-107); Globulin 2.7 g/dL (2.4-3.5); Glucose 108 mg/dL (83-110); Potassium 4.3 mmol/L (3.5-5.1); Protein, Total 6.6 g/dL (5.8-8.1); Sodium 136 mmol/L (136-145)
[2021-08-26 12:21] LABS: Band 4 % (5-11); Lymphocytes 13 % (21-51); MDiff Complete? YES; Monocytes 18 % (0-10); Neutrophil 65 % (42-75); Platelet Morphology Comment Appears Adequate; RBC Morphology Normal
== END 2021-08-26 13:51 | disposition home or self-care (01) ==
LOC: ERS 11:12
DX: R51.9 Headache, unspecified (principal); W17.89XA Other fall from one level to another, initial encounter; Y92.89 Other specified places as the place of occurrence of the external cause; E03.9 Hypothyroidism, unspecified; I11.0 Hypertensive heart disease with heart failure; I50.9 Heart failure, unspecified; I48.91 Unspecified atrial fibrillation; M19.90 Unspecified osteoarthritis, unspecified site; G25.81 Restless legs syndrome
CPT/HCPCS: 36415; 70450; 80053; 83605; 84484; 85025

== ENCOUNTER 2021-09-01 10:40 | Outpatient (CLI) | payer MEDICARE, BC | END 2021-09-01 10:41 | disposition home or self-care (01) | LOC: RAD 10:40 | PROVIDERS: ATTEND Internal Medicine Critical Care Medicine | DX: R06.00 Dyspnea, unspecified (principal) | CPT/HCPCS: 71046 ==

== ENCOUNTER 2021-09-14 09:40 | Observation (INO) | payer MEDICARE, BC ==
[2021-09-14 11:08] LABS: Bilirubin Negative (Negative); Blood, Urine Negative (Negative); Clarity Clear (Clear); Glucose, Urine (Dipstick) 500 mg/dL (Negative); Ketone, Urine Negative (Negative); Leukocyte Negative Leu/uL (Negative); Nitrite Negative (Negative); Protein, Urine (Dipstick) Negative (Neg-Trace); Specific Gravity, Urine 1.006 (1.002-1.036); Urobilinogen Normal mg/dL (Less than 2)
[2021-09-14 11:09] LABS: Mean Corpuscular HGB CONC 31.7 g/dL (32.0-36.0); Mean Corpuscular Volume 91.5 fL (78.0-98.0); Mean Platelet Volume 8.9 fL (7.4-10.4); Platelet Count 185 thou/uL (130-400); RBC Distribution Width 13.6 % (11.5-14.5); Red Blood Cell (RBC) Count 4.85 mill/uL (4.20-5.40); White Blood Cell (WBC) Count 5.3 thou/uL (4.8-10.8)
[2021-09-14] MEDS ORDERED: cefTRIAXone\\ROCEPHIN 2 GM VIAL ONE (11:16)
[2021-09-14 11:30] LABS: ALT (SGPT) 59 U/L (8-55); AST (SGOT) 44 U/L (5-34); Albumin 4.3 g/dL (3.4-4.8); Alkaline Phosphatase 61 U/L (40-110); Anion Gap 15 mmol/L (10-20); BUN (Urea Nitrogen) 23 mg/dL (9.8-20.1); Bilirubin, Total 0.9 mg/dL (0.2-1.2); Calc. Creatinine Clearance 0 mL/min (70-130); Calcium 9.3 mg/dL (7.8-10.44); Carbon Dioxide 29 mmol/L (23-31); Chloride 101 mmol/L (98-107); Estimated GFR 31; Globulin 2.7 g/dL (2.4-3.5); Glucose 111 mg/dL (83-110); Potassium 3.7 mmol/L (3.5-5.1); Sodium 141 mmol/L (136-145)
[2021-09-14 11:32] LABS: Band 5 % (5-11); Lymphocytes 16 % (21-51); MDiff Complete? YES; Monocytes 15 % (0-10); Neutrophil 60 % (42-75); Platelet Morphology Comment Appears Adequate; RBC Morphology Normal; Reactive Lymphocytes 4 % (0-10)
[2021-09-14] MEDS ORDERED: Azithromycin 500 MG VIAL ONE (11:49)
[2021-09-14] MEDS ORDERED: Aspirin Chewable 81 MG TAB ONE (13:09)
[2021-09-14 14:23] LABS: Troponin I 0.013 ng/mL (< 0.028)
[2021-09-14] MEDS ORDERED: Acetaminophen 325 MG TAB PO PRN (14:34)
[2021-09-14 14:52] LABS: Lactic Acid 2.5 mmol/L (0.5-2.2)
[2021-09-14 15:06] LABS: Hemoglobin A1c 6.4 % (4.0-6.0)
[2021-09-14] MEDS ORDERED: Iopamidol-370 76% 500 ML 1 ML ONE (15:36)
[2021-09-14 16:19] LABS: Lipase 28 U/L (8-78); Magnesium 2.3 mg/dL (1.6-2.6)
[2021-09-14 16:34] LABS: SARS-CoV-2 NAA Rapid Test Not Detected (NotDetected)
[2021-09-14 17:23] LABS: Troponin I Less than 0.010 ng/mL (< 0.028)
[2021-09-14 18:38] VITALS: BMI 27.1
[2021-09-14] MEDS ORDERED: Budesonide 0.5 MG/2 ML NEB NEB PRN (20:25)
[2021-09-14] MEDS ORDERED: Arformoterol 15 MCG/2 ML NEB NEB PRN (20:25)
[2021-09-14] MEDS: clonazePAM 0.5 MG TAB PO SCH (20:55)
[2021-09-14] MEDS ORDERED: Donepezil HCl 10 MG TAB PO SCH (21:00)
[2021-09-14] MEDS ORDERED: Gabapentin 300 MG CAP PO SCH (21:00)
[2021-09-14] MEDS ORDERED: Atorvastatin Calcium 20 MG TAB PO SCH ×2 (21:00)
[2021-09-15 05:11] LABS: Anion Gap 14 mmol/L (10-20); BUN (Urea Nitrogen) 23 mg/dL (9.8-20.1); Calc. Creatinine Clearance 31 mL/min (70-130); Calcium 8.9 mg/dL (7.8-10.44); Carbon Dioxide 28 mmol/L (23-31); Chloride 104 mmol/L (98-107); Cholesterol 199 mg/dl (< 200 Desired); Estimated GFR 34; Glucose 93 mg/dL (83-110); HDL Cholesterol 100 mg/dL (>60 Neg Risk); LDL Cholesterol, Calculated 89 mg/dL; Potassium 3.6 mmol/L (3.5-5.1); Sodium 142 mmol/L (136-145); Triglycerides 51 mg/dL (Less than 150)
[2021-09-15 05:23] LABS: Band 1 % (5-11); Eosinophils 1 % (0-10); Hemoglobin 12.7 g/dL (12.0-16.0); Lymphocytes 17 % (21-51); MDiff Complete? YES; Mean Corpuscular HGB CONC 32.3 g/dL (32.0-36.0); Mean Corpuscular Hemoglobin 29.4 pg (27.0-31.0); Mean Corpuscular Volume 91.1 fL (78.0-98.0); Monocytes 20 % (0-10); Neutrophil 59 % (42-75); Platelet Count 175 thou/uL (130-400); Platelet Morphology Comment Appears Adequate; RBC Distribution Width 13.6 % (11.5-14.5); RBC Morphology Normal; Red Blood Cell (RBC) Count 4.31 mill/uL (4.20-5.40); White Blood Cell (WBC) Count 6.3 thou/uL (4.8-10.8)
[2021-09-15] MEDS ORDERED: Levothyroxine Sodium 75 MCG TAB PO SCH (06:00)
[2021-09-15] MEDS ORDERED: FLUoxetine HCl 20 MG CAP PO SCH (09:00)
[2021-09-15] MEDS ORDERED: Lisinopril 10 MG TAB PO SCH (09:00)
[2021-09-15] MEDS ORDERED: Aspirin Chewable 81 MG TAB PO SCH (09:00)
[2021-09-15] MEDS ORDERED: Torsemide 20 MG TAB PO SCH (09:00)
[2021-09-15] MEDS ORDERED: Meloxicam 7.5 MG TAB PO SCH (09:00)
[2021-09-15] MEDS ORDERED: Empagliflozin 10 MG TAB PO SCH (09:00)
[2021-09-15] MEDS: clonazePAM 0.5 MG TAB PO SCH (09:40)
[2021-09-15] MEDS ORDERED: Mag-Al Plus 1200 MG/1200 MG/120 MG/30 ML UDCUP PO SCH (09:41)
[2021-09-15 12:54] VITALS: TEMP 97.6
[2021-09-15 13:06] VITALS: BP 158/65
== END 2021-09-15 13:39 | disposition home health service (06) ==
LOC: ERS 09:40 → ERHOLD 13:02 → 2SW 18:18
PROVIDERS: ADMIT Internal Medicine; ATTEND Internal Medicine
DX: R07.89 Other chest pain (principal); I13.0 Hypertensive heart and chronic kidney disease with heart failure and stage 1 through stage 4 chronic kidney disease, or unspecified chronic kidney disease; N18.9 Chronic kidney disease, unspecified; I50.30 Unspecified diastolic (congestive) heart failure; E03.9 Hypothyroidism, unspecified; I48.91 Unspecified atrial fibrillation; I48.4 Atypical atrial flutter; R00.1 Bradycardia, unspecified; E78.5 Hyperlipidemia, unspecified; G25.81 Restless legs syndrome; I27.21 Secondary pulmonary arterial hypertension; Z79.84 Long term (current) use of oral hypoglycemic drugs; Z79.890 Hormone replacement therapy; Z79.899 Other long term (current) drug therapy; Z88.1 Allergy status to other antibiotic agents; Z95.0 Presence of cardiac pacemaker; Z95.818 Presence of other cardiac implants and grafts; Z20.822 Contact with and (suspected) exposure to COVID-19
CPT/HCPCS: 0240U; 71045; 71275; 80048; 80061; 81003; 83036; 83605; 83690; 83735; 83880; 84436; 84484 ×2; 85025; 87040; 87077; 87086; 87186; 93005; 94640; 94760 ×2; 36415; 80053; 84443; 96365; 96367; G0378; J0456; J0696; J7620; Q9967

== ENCOUNTER 2021-09-26 11:58 | Emergency (ER) | payer MEDICARE, BC ==
[2021-09-26 12:46] LABS: Hemoglobin 14.3 g/dL (12.0-16.0); Mean Corpuscular HGB CONC 32.1 g/dL (32.0-36.0); Mean Corpuscular Hemoglobin 29.1 pg (27.0-31.0); Mean Corpuscular Volume 90.8 fL (78.0-98.0); Mean Platelet Volume 9.6 fL (7.4-10.4); Platelet Count 172 thou/uL (130-400); RBC Distribution Width 13.7 % (11.5-14.5); Red Blood Cell (RBC) Count 4.92 mill/uL (4.20-5.40); White Blood Cell (WBC) Count 6.4 thou/uL (4.8-10.8)
[2021-09-26 13:09] LABS: ALT (SGPT) 56 U/L (8-55); AST (SGOT) 44 U/L (5-34); Albumin 4.4 g/dL (3.4-4.8); Alkaline Phosphatase 60 U/L (40-110); Anion Gap 15 mmol/L (10-20); BUN (Urea Nitrogen) 25 mg/dL (9.8-20.1); Calc. Creatinine Clearance 0 mL/min (70-130); Calcium 9.4 mg/dL (7.8-10.44); Carbon Dioxide 29 mmol/L (23-31); Chloride 101 mmol/L (98-107); Estimated GFR 29; Globulin 2.6 g/dL (2.4-3.5); Glucose 85 mg/dL (83-110); Potassium 4.1 mmol/L (3.5-5.1); Sodium 141 mmol/L (136-145)
[2021-09-26 13:10] LABS: Band 4 % (5-11); Lymphocytes 16 % (21-51); MDiff Complete? YES; Monocytes 13 % (0-10); Neutrophil 63 % (42-75); Platelet Morphology Comment Appears Adequate; RBC Morphology Normal; Reactive Lymphocytes 1 % (0-10)
[2021-09-26] MEDS ORDERED: Nitroglycerin 2% Ointment 1 INCH/1 GM Packet ONE (13:14)
[2021-09-26 16:48] LABS: Troponin I Less than 0.010 ng/mL (< 0.028)
== END 2021-09-26 18:54 | disposition home or self-care (01) ==
LOC: ERS 11:58
DX: R07.89 Other chest pain (principal); N17.9 Acute kidney failure, unspecified; I11.0 Hypertensive heart disease with heart failure; I50.9 Heart failure, unspecified; E03.9 Hypothyroidism, unspecified; Z79.899 Other long term (current) drug therapy; Z79.84 Long term (current) use of oral hypoglycemic drugs; Z79.82 Long term (current) use of aspirin
CPT/HCPCS: 36415; 71045; 80053; 83880; 84484; 85025; 93005

== ENCOUNTER 2021-10-31 10:50 | Inpatient (IN) | payer MEDICARE, BC ==
[2021-10-31] MEDS ORDERED: methylPREDNISolone Sod Succ/PF 125 MG/2 ML VIAL ONE (11:22)
[2021-10-31 11:36] LABS: Hemoglobin 13.5 g/dL (12.0-16.0); Mean Corpuscular HGB CONC 32.3 g/dL (32.0-36.0); Mean Corpuscular Hemoglobin 28.8 pg (27.0-31.0); Mean Corpuscular Volume 89.1 fL (78.0-98.0); Mean Platelet Volume 9.8 fL (7.4-10.4); Platelet Count 131 thou/uL (130-400); Red Blood Cell (RBC) Count 4.69 mill/uL (4.20-5.40); White Blood Cell (WBC) Count 4.1 thou/uL (4.8-10.8)
[2021-10-31 11:57] LABS: Band 4 % (5-11); Eosinophils 3 % (0-10); Lymphocytes 22 % (21-51); MDiff Complete? YES; Monocytes 25 % (0-10); Neutrophil 45 % (42-75); RBC Morphology Normal
[2021-10-31 11:58] LABS: ALT (SGPT) 506 U/L (8-55); AST (SGOT) 389 U/L (5-34); Alkaline Phosphatase 61 U/L (40-110); Anion Gap 17 mmol/L (10-20); BUN (Urea Nitrogen) 30 mg/dL (9.8-20.1); Bilirubin, Total 1.2 mg/dL (0.2-1.2); Calc. Creatinine Clearance 0 mL/min (70-130); Calcium 8.7 mg/dL (7.8-10.44); Carbon Dioxide 25 mmol/L (23-31); Chloride 104 mmol/L (98-107); Estimated GFR 28; Globulin 2.7 g/dL (2.4-3.5); Glucose 110 mg/dL (83-110); Magnesium 2.2 mg/dL (1.6-2.6); Potassium 3.9 mmol/L (3.5-5.1); Protein, Total 6.7 g/dL (5.8-8.1); Sodium 142 mmol/L (136-145)
[2021-10-31 14:07] LABS: Bacteria/HPF 3+ HPF (None Seen); Bilirubin Negative (Negative); Blood, Urine Trace (Negative); Clarity Turbid (Clear); Glucose, Urine (Dipstick) Greater than 1000 mg/dL (Negative); Ketone, Urine Negative (Negative); Leukocyte Negative Leu/uL (Negative); Nitrite 1+ (Negative); Protein, Urine (Dipstick) 20 mg/dL (Neg-Trace); RBC/HPF 0-3 HPF (0-3); Specific Gravity, Urine 1.017 (1.002-1.036); Squamous Epithelial 0-3 HPF (0-3); Urobilinogen Normal mg/dL (Less than 2); WBC/HPF 0-3 HPF (0-3)
[2021-10-31] MEDS ORDERED: cefTRIAXone\\ROCEPHIN 1 GM VIAL ONE (14:25)
[2021-10-31] MEDS ORDERED: Azithromycin 250 MG TAB ONE (14:57)
[2021-10-31] MEDS ORDERED: Acetaminophen 325 MG TAB PO PRN ×2 (16:34)
[2021-10-31] MEDS ORDERED: Acetaminophen 650 MG Suppository PR PRN (16:34)
[2021-10-31] MEDS ORDERED: Calcium Carbonate 500 MG ChewTAB PO PRN (16:34)
[2021-10-31] MEDS ORDERED: Ondansetron PF 4 MG/2 ML Vial IVP PRN (16:34)
[2021-10-31] MEDS ORDERED: Albuterol Sulfate 2.5 mg/3 ml Neb NEB PRN (17:37)
[2021-10-31 17:42] VITALS: BMI 29.2
[2021-10-31 18:24] LABS: PTT 26.4 sec (22.9-36.1); Prothrombin Time 13.6 sec (12.0-14.7)
[2021-10-31] MEDS: Donepezil HCl 10 MG TAB PO SCH (20:51)
[2021-10-31] MEDS: Gabapentin 300 MG CAP PO SCH (20:51)
[2021-10-31] MEDS: clonazePAM 0.5 MG TAB PO SCH (20:51)
[2021-11-01] MEDS: Levothyroxine Sodium 75 MCG TAB PO SCH (05:45)
[2021-11-01 07:24] LABS: ALT (SGPT) 517 U/L (8-55); AST (SGOT) 334 U/L (5-34); Albumin 3.8 g/dL (3.4-4.8); Alkaline Phosphatase 56 U/L (40-110); Anion Gap 16 mmol/L (10-20); BUN (Urea Nitrogen) 31 mg/dL (9.8-20.1); Bilirubin, Total 0.6 mg/dL (0.2-1.2); Calc. Creatinine Clearance 37 mL/min (70-130); Calcium 9.1 mg/dL (7.8-10.44); Carbon Dioxide 21 mmol/L (23-31); Chloride 108 mmol/L (98-107); Estimated GFR 39; Globulin 2.7 g/dL (2.4-3.5); Glucose 131 mg/dL (83-110); Protein, Total 6.5 g/dL (5.8-8.1); Sodium 141 mmol/L (136-145)
[2021-11-01 07:40] LABS: Band 13 % (5-11); Burr Cells SLIGHT = 2-5 cells (100X) (0-1/hpf); Hemoglobin 12.7 g/dL (12.0-16.0); Lymphocytes 18 % (21-51); MDiff Complete? YES; Mean Corpuscular HGB CONC 32.1 g/dL (32.0-36.0); Mean Corpuscular Hemoglobin 28.4 pg (27.0-31.0); Mean Corpuscular Volume 88.7 fL (78.0-98.0); Mean Platelet Volume 10.1 fL (7.4-10.4); Monocytes 18 % (0-10); Neutrophil 49 % (42-75); Ovalocytes SLIGHT = 2-5 cells (100X) (0-1/hpf); Platelet Count 131 thou/uL (130-400); Platelet Morphology Comment Appears Adequate; RBC Distribution Width 13.8 % (11.5-14.5); Reactive Lymphocytes 2 % (0-10); Red Blood Cell (RBC) Count 4.48 mill/uL (4.20-5.40); Schistocytes SLIGHT = 2-5 cells (100X) (0-1/hpf); White Blood Cell (WBC) Count 3.3 thou/uL (4.8-10.8)
[2021-11-01] MEDS: FLUoxetine HCl 20 MG CAP PO SCH (09:36)
[2021-11-01] MEDS: Zinc Sulfate 220 MG CAP PO SCH (09:36)
[2021-11-01] MEDS: Cholecalciferol (Vitamin D3) 400 UNITS TAB PO SCH (09:36)
[2021-11-01] MEDS: Empagliflozin 10 MG TAB PO SCH (09:36)
[2021-11-01] MEDS: Ascorbic Acid 500 mg Chewable Tablet PO SCH (09:36)
[2021-11-01] MEDS: clonazePAM 0.5 MG TAB PO SCH (09:37)
[2021-11-01] MEDS: Dexamethasone 4 mg/ml Vial SLOW IVP SCH (09:37)
[2021-11-01] MEDS: Enoxaparin Sodium 30 MG/0.3 ML SYRINGE SC SCH (09:38)
[2021-11-01] MEDS ORDERED: Acetaminophen 650 MG Suppository PR PRN (10:45)
[2021-11-01] MEDS ORDERED: Acetaminophen 325 MG TAB PO PRN (10:45)
[2021-11-01] MEDS ORDERED: Albuterol 200 PUFF (6.7GM INHALER) INH PRN (16:37)
[2021-11-01] MEDS: Benzonatate 100 MG CAP PO PRN (18:02)
[2021-11-01] MEDS: cefTRIAXone\\ROCEPHIN 1 GM in Sodium Chloride 0.9% 100 ML IVPB SCH (18:28)
[2021-11-01] MEDS: Guaifenesin DM 100-10/5 ML UDCUP PO PRN (20:24)
[2021-11-01] MEDS: Gabapentin 300 MG CAP PO SCH (20:24)
[2021-11-01] MEDS: Donepezil HCl 10 MG TAB PO SCH (20:24)
[2021-11-01] MEDS: (RENAL) NIRMATRELVIR 150 MG/RITONAVIR 100 MG TABLET PO SCH (20:25)
[2021-11-01] MEDS: Acetaminophen 325 MG TAB PO PRN (20:26)
[2021-11-02] MEDS: Levothyroxine Sodium 75 MCG TAB PO SCH (05:54)
[2021-11-02 06:45] LABS: ALT (SGPT) 462 U/L (8-55); AST (SGOT) 239 U/L (5-34); Albumin 3.8 g/dL (3.4-4.8); Alkaline Phosphatase 52 U/L (40-110); Anion Gap 15 mmol/L (10-20); BUN (Urea Nitrogen) 25 mg/dL (9.8-20.1); Bilirubin, Total 0.9 mg/dL (0.2-1.2); Calc. Creatinine Clearance 39 mL/min (70-130); Calcium 8.9 mg/dL (7.8-10.44); Carbon Dioxide 22 mmol/L (23-31); Chloride 108 mmol/L (98-107); Estimated GFR 42; Globulin 2.6 g/dL (2.4-3.5); Glucose 108 mg/dL (83-110); Potassium 4.1 mmol/L (3.5-5.1); Protein, Total 6.4 g/dL (5.8-8.1); Sodium 141 mmol/L (136-145)
[2021-11-02 07:31] LABS: Band 10 % (5-11); Eosinophils 1 % (0-10); Hemoglobin 12.6 g/dL (12.0-16.0); Lymphocytes 15 % (21-51); MDiff Complete? YES; Mean Corpuscular HGB CONC 31.6 g/dL (32.0-36.0); Mean Corpuscular Hemoglobin 28.1 pg (27.0-31.0); Mean Platelet Volume 9.9 fL (7.4-10.4); Monocytes 15 % (0-10); Neutrophil 55 % (42-75); Platelet Count 130 thou/uL (130-400); Platelet Morphology Comment Appears Adequate; RBC Morphology Normal; Reactive Lymphocytes 4 % (0-10); Red Blood Cell (RBC) Count 4.48 mill/uL (4.20-5.40); White Blood Cell (WBC) Count 5.6 thou/uL (4.8-10.8)
[2021-11-02] MEDS: Zinc Sulfate 220 MG CAP PO SCH (09:46)
[2021-11-02] MEDS: Empagliflozin 10 MG TAB PO SCH (09:46)
[2021-11-02] MEDS: FLUoxetine HCl 20 MG CAP PO SCH (09:47)
[2021-11-02] MEDS: Cholecalciferol (Vitamin D3) 400 UNITS TAB PO SCH (09:47)
[2021-11-02] MEDS: Ascorbic Acid 500 mg Chewable Tablet PO SCH (09:47)
[2021-11-02] MEDS: Enoxaparin Sodium 30 MG/0.3 ML SYRINGE SC SCH (09:47)
[2021-11-02] MEDS: (RENAL) NIRMATRELVIR 150 MG/RITONAVIR 100 MG TABLET PO SCH ×2 (09:48→19:38)
[2021-11-02] MEDS: Dexamethasone 4 mg/ml Vial SLOW IVP SCH (09:55)
[2021-11-02] MEDS: Benzonatate 100 MG CAP PO PRN (13:12)
[2021-11-02] MEDS: D5 1/2 NS w/10 mEq KCl 1,000 ML/1,000 ML BAG IV SCH (13:12)
[2021-11-02] MEDS: Albuterol Sulfate 2.5 mg/3 ml Neb IPPB SCH ×2 (13:55→19:18)
[2021-11-02] MEDS: Albuterol 200 PUFF (6.7GM INHALER) INH PRN ×2 (15:38→19:18)
[2021-11-02] MEDS: cefTRIAXone\\ROCEPHIN 1 GM in Sodium Chloride 0.9% 100 ML IVPB SCH (18:17)
[2021-11-02] MEDS: Guaifenesin DM 100-10/5 ML UDCUP PO PRN (18:18)
[2021-11-02] MEDS: Gabapentin 300 MG CAP PO SCH (19:37)
[2021-11-02] MEDS: Donepezil HCl 10 MG TAB PO SCH (19:39)
[2021-11-02] MEDS: Melatonin 3 MG TAB PO PRN (20:39)
[2021-11-03] MEDS: Albuterol Sulfate 2.5 mg/3 ml Neb IPPB SCH ×3 (02:25→14:25)
[2021-11-03] MEDS: D5 1/2 NS w/10 mEq KCl 1,000 ML/1,000 ML BAG IV SCH ×3 (05:23→16:12)
[2021-11-03] MEDS: Levothyroxine Sodium 75 MCG TAB PO SCH (05:23)
[2021-11-03 07:36] LABS: Anion Gap 16 mmol/L (10-20); BUN (Urea Nitrogen) 20 mg/dL (9.8-20.1); Calc. Creatinine Clearance 48 mL/min (70-130); Calcium 8.4 mg/dL (7.8-10.44); Carbon Dioxide 19 mmol/L (23-31); Chloride 106 mmol/L (98-107); Estimated GFR 54; Glucose 147 mg/dL (83-110); Potassium 3.8 mmol/L (3.5-5.1); Sodium 137 mmol/L (136-145)
[2021-11-03] MEDS: Ascorbic Acid 500 mg Chewable Tablet PO SCH (08:38)
[2021-11-03] MEDS: Empagliflozin 10 MG TAB PO SCH (08:38)
[2021-11-03] MEDS: Zinc Sulfate 220 MG CAP PO SCH (08:38)
[2021-11-03] MEDS: FLUoxetine HCl 20 MG CAP PO SCH (08:38)
[2021-11-03] MEDS: Cholecalciferol (Vitamin D3) 400 UNITS TAB PO SCH (08:38)
[2021-11-03] MEDS: Enoxaparin Sodium 30 MG/0.3 ML SYRINGE SC SCH (08:39)
[2021-11-03] MEDS: Dexamethasone 4 mg/ml Vial SLOW IVP SCH (08:39)
[2021-11-03] MEDS: (RENAL) NIRMATRELVIR 150 MG/RITONAVIR 100 MG TABLET PO SCH ×2 (08:40→20:15)
[2021-11-03] MEDS: cefTRIAXone\\ROCEPHIN 1 GM in Sodium Chloride 0.9% 100 ML IVPB SCH (16:55)
[2021-11-03] MEDS: Albuterol 200 PUFF (6.7GM INHALER) INH SCH (20:14)
[2021-11-03] MEDS: Donepezil HCl 10 MG TAB PO SCH (20:14)
[2021-11-03] MEDS: Gabapentin 300 MG CAP PO SCH (20:14)
[2021-11-03] MEDS: Melatonin 3 MG TAB PO PRN (20:20)
[2021-11-04] MEDS: Albuterol 200 PUFF (6.7GM INHALER) INH SCH ×4 (00:04→18:27)
[2021-11-04] MEDS: Levothyroxine Sodium 75 MCG TAB PO SCH (05:58)
[2021-11-04 06:53] LABS: #Lymphocytes 0.5 thou/uL (1.20-3.40); #Monocytes 0.6 thou/uL (0.11-0.59); #Neutrophils 4.2 thou/uL (1.40-6.50); %Basophils 0.3 % (0.0-1.0); %Eosinophils 0.1 % (0.0-10.0); %Lymphocytes 9.8 % (21.0-51.0); %Monocytes 10.5 % (0.0-10.0); %Neutrophils 79.3 % (42.0-75.0); Hemoglobin 12.1 g/dL (12.0-16.0); Mean Corpuscular HGB CONC 31.6 g/dL (32.0-36.0); Mean Corpuscular Hemoglobin 27.9 pg (27.0-31.0); Mean Corpuscular Volume 88.3 fL (78.0-98.0); Platelet Count 136 thou/uL (130-400); RBC Distribution Width 14.2 % (11.5-14.5); Red Blood Cell (RBC) Count 4.36 mill/uL (4.20-5.40); White Blood Cell (WBC) Count 5.3 thou/uL (4.8-10.8)
[2021-11-04 08:06] LABS: ALT (SGPT) 237 U/L (8-55); AST (SGOT) 53 U/L (5-34); Albumin 3.7 g/dL (3.4-4.8); Alkaline Phosphatase 52 U/L (40-110); Anion Gap 13 mmol/L (10-20); BUN (Urea Nitrogen) 18 mg/dL (9.8-20.1); Bilirubin, Total 0.8 mg/dL (0.2-1.2); Calc. Creatinine Clearance 49 mL/min (70-130); Calcium 8.2 mg/dL (7.8-10.44); Carbon Dioxide 22 mmol/L (23-31); Chloride 106 mmol/L (98-107); Estimated GFR 55; Globulin 2.4 g/dL (2.4-3.5); Glucose 131 mg/dL (83-110); Potassium 4.2 mmol/L (3.5-5.1); Protein, Total 6.1 g/dL (5.8-8.1); Sodium 137 mmol/L (136-145)
[2021-11-04] MEDS: Enoxaparin Sodium 30 MG/0.3 ML SYRINGE SC SCH (08:40)
[2021-11-04] MEDS: FLUoxetine HCl 20 MG CAP PO SCH (08:41)
[2021-11-04] MEDS: Ascorbic Acid 500 mg Chewable Tablet PO SCH (08:41)
[2021-11-04] MEDS: Cholecalciferol (Vitamin D3) 400 UNITS TAB PO SCH (08:41)
[2021-11-04] MEDS: Zinc Sulfate 220 MG CAP PO SCH (08:41)
[2021-11-04] MEDS: Empagliflozin 10 MG TAB PO SCH (08:42)
[2021-11-04] MEDS: Dexamethasone 4 mg/ml Vial SLOW IVP SCH (08:42)
[2021-11-04] MEDS: (RENAL) NIRMATRELVIR 150 MG/RITONAVIR 100 MG TABLET PO SCH ×2 (08:47→20:25)
[2021-11-04] MEDS: Benzonatate 100 MG CAP PO PRN ×2 (08:48→19:19)
[2021-11-04] MEDS: D5 1/2 NS w/10 mEq KCl 1,000 ML/1,000 ML BAG IV SCH (08:55)
[2021-11-04] MEDS ORDERED: Furosemide 20 MG/2 ML VIAL SLOW IVP SCH (10:00)
[2021-11-04] MEDS: Albuterol 200 PUFF (6.7GM INHALER) INH PRN (12:05)
[2021-11-04] MEDS: cefTRIAXone\\ROCEPHIN 1 GM in Sodium Chloride 0.9% 100 ML IVPB SCH (18:26)
[2021-11-04] MEDS: Gabapentin 300 MG CAP PO SCH (20:25)
[2021-11-04] MEDS: Donepezil HCl 10 MG TAB PO SCH (20:28)
[2021-11-05] MEDS: Albuterol 200 PUFF (6.7GM INHALER) INH SCH ×4 (01:14→18:37)
[2021-11-05] MEDS: Levothyroxine Sodium 75 MCG TAB PO SCH (06:07)
[2021-11-05 07:31] LABS: ALT (SGPT) 184 U/L (8-55); AST (SGOT) 44 U/L (5-34); Albumin 3.6 g/dL (3.4-4.8); Alkaline Phosphatase 51 U/L (40-110); Anion Gap 18 mmol/L (10-20); BUN (Urea Nitrogen) 20 mg/dL (9.8-20.1); Bilirubin, Total 0.9 mg/dL (0.2-1.2); Calc. Creatinine Clearance 47 mL/min (70-130); Calcium 8.4 mg/dL (7.8-10.44); Carbon Dioxide 18 mmol/L (23-31); Chloride 105 mmol/L (98-107); Estimated GFR 53; Globulin 2.6 g/dL (2.4-3.5); Glucose 106 mg/dL (83-110); Protein, Total 6.2 g/dL (5.8-8.1); Sodium 137 mmol/L (136-145)
[2021-11-05] MEDS: Ascorbic Acid 500 mg Chewable Tablet PO SCH (09:35)
[2021-11-05] MEDS: Aspirin 81 mg Enteric Coated Tablet PO SCH (09:36)
[2021-11-05] MEDS: FLUoxetine HCl 20 MG CAP PO SCH (09:36)
[2021-11-05] MEDS: Zinc Sulfate 220 MG CAP PO SCH (09:36)
[2021-11-05] MEDS: Cholecalciferol (Vitamin D3) 400 UNITS TAB PO SCH (09:36)
[2021-11-05] MEDS: Empagliflozin 10 MG TAB PO SCH (09:36)
[2021-11-05] MEDS: Dexamethasone 4 mg/ml Vial SLOW IVP SCH (09:37)
[2021-11-05] MEDS: (RENAL) NIRMATRELVIR 150 MG/RITONAVIR 100 MG TABLET PO SCH ×2 (09:37→20:26)
[2021-11-05] MEDS: Enoxaparin Sodium 30 MG/0.3 ML SYRINGE SC SCH (09:40)
[2021-11-05] MEDS ORDERED: Dextrose 50% Abboject 50 ML SYRINGE SLOW IVP PRN (11:35)
[2021-11-05] MEDS ORDERED: Dextrose 5% in Water 1,000 ML IV PRN (11:35)
[2021-11-05] MEDS ORDERED: Albuterol 200 PUFF (6.7GM INHALER) INH PRN (12:30)
[2021-11-05] MEDS: guaiFENesin/Codeine 200 mg/20 mg 10 ml Cup PO PRN ×2 (12:43→20:27)
[2021-11-05] MEDS: methylPREDNISolone Sod Succ 40 MG VIAL IVP SCH ×2 (12:43→17:34)
[2021-11-05] MEDS: cefTRIAXone\\ROCEPHIN 1 GM in Sodium Chloride 0.9% 100 ML IVPB SCH (17:34)
[2021-11-05] MEDS: hydrALAZINE 20 MG/ML VIAL SLOW IVP PRN (18:30)
[2021-11-05] MEDS: Lisinopril 10 MG TAB PO SCH (20:27)
[2021-11-05] MEDS: Donepezil HCl 10 MG TAB PO SCH (20:27)
[2021-11-05] MEDS: Gabapentin 300 MG CAP PO SCH (20:27)
[2021-11-06] MEDS: methylPREDNISolone Sod Succ 40 MG VIAL IVP SCH ×5 (00:33→23:47)
[2021-11-06] MEDS: Albuterol 200 PUFF (6.7GM INHALER) INH SCH ×4 (01:16→18:15)
[2021-11-06] MEDS: Levothyroxine Sodium 75 MCG TAB PO SCH (05:31)
[2021-11-06] MEDS: guaiFENesin/Codeine 200 mg/20 mg 10 ml Cup PO PRN ×3 (05:38→19:55)
[2021-11-06 07:15] LABS: ALT (SGPT) 156 U/L (8-55); AST (SGOT) 34 U/L (5-34); Albumin 3.9 g/dL (3.4-4.8); Alkaline Phosphatase 54 U/L (40-110); Anion Gap 16 mmol/L (10-20); BUN (Urea Nitrogen) 29 mg/dL (9.8-20.1); Bilirubin, Total 0.7 mg/dL (0.2-1.2); Calc. Creatinine Clearance 43 mL/min (70-130); Calcium 8.8 mg/dL (7.8-10.44); Carbon Dioxide 22 mmol/L (23-31); Chloride 103 mmol/L (98-107); Estimated GFR 47; Globulin 2.5 g/dL (2.4-3.5); Glucose 156 mg/dL (83-110); Protein, Total 6.4 g/dL (5.8-8.1); Sodium 137 mmol/L (136-145)
[2021-11-06] MEDS ORDERED: Torsemide 20 MG TAB PO SCH (09:00)
[2021-11-06] MEDS: Enoxaparin Sodium 30 MG/0.3 ML SYRINGE SC SCH (09:26)
[2021-11-06] MEDS: Zinc Sulfate 220 MG CAP PO SCH (09:27)
[2021-11-06] MEDS: Amiodarone 200 MG TAB PO SCH (09:27)
[2021-11-06] MEDS: Cholecalciferol (Vitamin D3) 400 UNITS TAB PO SCH (09:27)
[2021-11-06] MEDS: Ascorbic Acid 500 mg Chewable Tablet PO SCH (09:27)
[2021-11-06] MEDS: FLUoxetine HCl 20 MG CAP PO SCH (09:27)
[2021-11-06] MEDS: Aspirin 81 mg Enteric Coated Tablet PO SCH (09:27)
[2021-11-06] MEDS: Empagliflozin 10 MG TAB PO SCH (09:27)
[2021-11-06] MEDS: (RENAL) NIRMATRELVIR 150 MG/RITONAVIR 100 MG TABLET PO SCH (09:35)
[2021-11-06] MEDS: cefTRIAXone\\ROCEPHIN 1 GM in Sodium Chloride 0.9% 100 ML IVPB SCH (18:16)
[2021-11-06] MEDS: Lisinopril 10 MG TAB PO SCH (19:54)
[2021-11-06] MEDS: Donepezil HCl 10 MG TAB PO SCH (19:54)
[2021-11-06] MEDS: Melatonin 3 MG TAB PO PRN (19:54)
[2021-11-06] MEDS: Gabapentin 300 MG CAP PO SCH (19:54)
[2021-11-07] MEDS: Albuterol 200 PUFF (6.7GM INHALER) INH SCH ×4 (01:41→17:54)
[2021-11-07] MEDS: Levothyroxine Sodium 75 MCG TAB PO SCH (05:23)
[2021-11-07] MEDS: methylPREDNISolone Sod Succ 40 MG VIAL IVP SCH ×3 (05:23→17:54)
[2021-11-07 07:24] LABS: ALT (SGPT) 130 U/L (8-55); AST (SGOT) 34 U/L (5-34); Albumin 3.4 g/dL (3.4-4.8); Alkaline Phosphatase 48 U/L (40-110); Anion Gap 16 mmol/L (10-20); BUN (Urea Nitrogen) 35 mg/dL (9.8-20.1); Bilirubin, Total 0.5 mg/dL (0.2-1.2); Calc. Creatinine Clearance 44 mL/min (70-130); Calcium 8.2 mg/dL (7.8-10.44); Carbon Dioxide 20 mmol/L (23-31); Chloride 105 mmol/L (98-107); Estimated GFR 49; Globulin 2.3 g/dL (2.4-3.5); Glucose 147 mg/dL (83-110); Potassium 4.1 mmol/L (3.5-5.1); Protein, Total 5.7 g/dL (5.8-8.1); Sodium 137 mmol/L (136-145)
[2021-11-07] MEDS: Enoxaparin Sodium 40 MG/0.4 ML SYRINGE SC SCH (09:05)
[2021-11-07] MEDS: Aspirin 81 mg Enteric Coated Tablet PO SCH (09:06)
[2021-11-07] MEDS: Zinc Sulfate 220 MG CAP PO SCH (09:06)
[2021-11-07] MEDS: FLUoxetine HCl 20 MG CAP PO SCH (09:06)
[2021-11-07] MEDS: Empagliflozin 10 MG TAB PO SCH (09:06)
[2021-11-07] MEDS: Amiodarone 200 MG TAB PO SCH (09:06)
[2021-11-07] MEDS: Ascorbic Acid 500 mg Chewable Tablet PO SCH (09:06)
[2021-11-07] MEDS: Cholecalciferol (Vitamin D3) 400 UNITS TAB PO SCH (09:06)
[2021-11-07] MEDS: Donepezil HCl 10 MG TAB PO SCH (19:58)
[2021-11-07] MEDS: guaiFENesin/Codeine 200 mg/20 mg 10 ml Cup PO PRN (19:58)
[2021-11-07] MEDS: Lisinopril 10 MG TAB PO SCH (19:58)
[2021-11-07] MEDS: Gabapentin 300 MG CAP PO SCH (19:58)
[2021-11-07] MEDS: Melatonin 3 MG TAB PO PRN (19:59)
[2021-11-08] MEDS: methylPREDNISolone Sod Succ 40 MG VIAL IVP SCH ×4 (00:34→17:56)
[2021-11-08] MEDS: Albuterol 200 PUFF (6.7GM INHALER) INH SCH ×4 (00:34→17:56)
[2021-11-08] MEDS: Levothyroxine Sodium 75 MCG TAB PO SCH (05:57)
[2021-11-08 07:10] LABS: Hemoglobin A1c 6.5 % (4.0-6.0)
[2021-11-08 07:26] LABS: Anion Gap 16 mmol/L (10-20); BUN (Urea Nitrogen) 36 mg/dL (9.8-20.1); Calc. Creatinine Clearance 47 mL/min (70-130); Calcium 8.5 mg/dL (7.8-10.44); Carbon Dioxide 21 mmol/L (23-31); Chloride 105 mmol/L (98-107); Estimated GFR 53; Glucose 145 mg/dL (83-110); Potassium 3.8 mmol/L (3.5-5.1); Sodium 138 mmol/L (136-145)
[2021-11-08 07:50] LABS: Thyroid Stimulating Hormone 0.3699 uIU/mL (0.35-4.94)
[2021-11-08] MEDS: Enoxaparin Sodium 40 MG/0.4 ML SYRINGE SC SCH (08:40)
[2021-11-08] MEDS: Empagliflozin 10 MG TAB PO SCH (08:41)
[2021-11-08] MEDS: Amiodarone 200 MG TAB PO SCH (08:41)
[2021-11-08] MEDS: Aspirin 81 mg Enteric Coated Tablet PO SCH (08:41)
[2021-11-08] MEDS: Ascorbic Acid 500 mg Chewable Tablet PO SCH (08:41)
[2021-11-08] MEDS: Cholecalciferol (Vitamin D3) 400 UNITS TAB PO SCH (08:41)
[2021-11-08] MEDS: Zinc Sulfate 220 MG CAP PO SCH (08:41)
[2021-11-08] MEDS: FLUoxetine HCl 20 MG CAP PO SCH (08:41)
[2021-11-08 09:02] LABS: Band 3 % (5-11); Lymphocytes 2 % (21-51); MDiff Complete? YES; Mean Corpuscular HGB CONC 32.1 g/dL (32.0-36.0); Mean Corpuscular Volume 87.3 fL (78.0-98.0); Mean Platelet Volume 10.4 fL (7.4-10.4); Metamyelocyte 1 % (0-0); Monocytes 3 % (0-10); Neutrophil 91 % (42-75); Platelet Count 176 thou/uL (130-400); Platelet Morphology Comment Appears Adequate; Poikilocytosis SLIGHT = 6-15 cells (100X) (0-5/hpf); RBC Distribution Width 14.8 % (11.5-14.5); Red Blood Cell (RBC) Count 4.62 mill/uL (4.20-5.40); White Blood Cell (WBC) Count 8.4 thou/uL (4.8-10.8)
[2021-11-08] MEDS: Lisinopril 10 MG TAB PO SCH (20:46)
[2021-11-08] MEDS: Gabapentin 300 MG CAP PO SCH (20:46)
[2021-11-08] MEDS: Donepezil HCl 10 MG TAB PO SCH (20:46)
[2021-11-08] MEDS: Melatonin 3 MG TAB PO PRN (20:47)
[2021-11-08] MEDS: guaiFENesin/Codeine 200 mg/20 mg 10 ml Cup PO PRN (20:47)
[2021-11-09] MEDS: methylPREDNISolone Sod Succ 40 MG VIAL IVP SCH ×5 (00:42→23:29)
[2021-11-09] MEDS: Albuterol 200 PUFF (6.7GM INHALER) INH SCH ×4 (03:25→18:03)
[2021-11-09] MEDS: Levothyroxine Sodium 75 MCG TAB PO SCH (05:33)
[2021-11-09] MEDS: FLUoxetine HCl 20 MG CAP PO SCH (09:00)
[2021-11-09] MEDS: Enoxaparin Sodium 40 MG/0.4 ML SYRINGE SC SCH (09:00)
[2021-11-09] MEDS: Cholecalciferol (Vitamin D3) 400 UNITS TAB PO SCH (09:00)
[2021-11-09] MEDS: Zinc Sulfate 220 MG CAP PO SCH (09:01)
[2021-11-09] MEDS: Empagliflozin 10 MG TAB PO SCH (09:01)
[2021-11-09] MEDS: Aspirin 81 mg Enteric Coated Tablet PO SCH (09:01)
[2021-11-09] MEDS: Amiodarone 200 MG TAB PO SCH (09:01)
[2021-11-09] MEDS: Ascorbic Acid 500 mg Chewable Tablet PO SCH (09:01)
[2021-11-09] MEDS ORDERED: Furosemide 40 MG/4 ML VIAL SLOW IVP SCH (15:45)
[2021-11-09] MEDS: Azithromycin 500 MG in Sodium Chloride 0.9% 250 ML 250 ML IVPB SCH (16:23)
[2021-11-09] MEDS: Lisinopril 20 MG TAB PO SCH (20:33)
[2021-11-09] MEDS: guaiFENesin/Codeine 200 mg/20 mg 10 ml Cup PO PRN (20:33)
[2021-11-09] MEDS: Gabapentin 300 MG CAP PO SCH (20:33)
[2021-11-09] MEDS: Donepezil HCl 10 MG TAB PO SCH (20:34)
[2021-11-10] MEDS ORDERED: Senokot S 8.6-50 MG TAB PO PRN (01:14)
[2021-11-10] MEDS ORDERED: Bisacodyl 5 MG TAB PO PRN (01:14)
[2021-11-10] MEDS: Albuterol 200 PUFF (6.7GM INHALER) INH SCH ×4 (03:53→18:27)
[2021-11-10] MEDS: Levothyroxine Sodium 75 MCG TAB PO SCH (05:31)
[2021-11-10] MEDS: methylPREDNISolone Sod Succ 40 MG VIAL IVP SCH ×3 (05:31→18:25)
[2021-11-10] MEDS: guaiFENesin/Codeine 200 mg/20 mg 10 ml Cup PO PRN ×3 (05:42→18:26)
[2021-11-10] MEDS: hydrALAZINE 20 MG/ML VIAL SLOW IVP PRN (05:42)
[2021-11-10 07:17] LABS: Anion Gap 19 mmol/L (10-20); BUN (Urea Nitrogen) 35 mg/dL (9.8-20.1); Calc. Creatinine Clearance 45 mL/min (70-130); Calcium 8.5 mg/dL (7.8-10.44); Carbon Dioxide 23 mmol/L (23-31); Chloride 102 mmol/L (98-107); Estimated GFR 50; Glucose 189 mg/dL (83-110); Potassium 3.5 mmol/L (3.5-5.1); Sodium 140 mmol/L (136-145)
[2021-11-10 07:22] LABS: Band 5 % (5-11); Lymphocytes 4 % (21-51); MDiff Complete? YES; Monocytes 2 % (0-10); Neutrophil 89 % (42-75); Platelet Morphology Comment Appears Adequate
[2021-11-10 07:23] LABS: Hemoglobin 14.1 g/dL (12.0-16.0); Mean Corpuscular HGB CONC 32.4 g/dL (32.0-36.0); Mean Corpuscular Hemoglobin 28.3 pg (27.0-31.0); Mean Corpuscular Volume 87.3 fL (78.0-98.0); Platelet Count 173 thou/uL (130-400); RBC Distribution Width 14.6 % (11.5-14.5); White Blood Cell (WBC) Count 7.9 thou/uL (4.8-10.8)
[2021-11-10] MEDS: Empagliflozin 10 MG TAB PO SCH (08:05)
[2021-11-10] MEDS: Aspirin 81 mg Enteric Coated Tablet PO SCH (08:06)
[2021-11-10] MEDS: Cholecalciferol (Vitamin D3) 400 UNITS TAB PO SCH (08:06)
[2021-11-10] MEDS: Zinc Sulfate 220 MG CAP PO SCH (08:06)
[2021-11-10] MEDS: Enoxaparin Sodium 40 MG/0.4 ML SYRINGE SC SCH (08:06)
[2021-11-10] MEDS: FLUoxetine HCl 20 MG CAP PO SCH (08:06)
[2021-11-10] MEDS: Amiodarone 200 MG TAB PO SCH (08:06)
[2021-11-10] MEDS: Ascorbic Acid 500 mg Chewable Tablet PO SCH (08:06)
[2021-11-10] MEDS: Acetaminophen 325 MG TAB PO PRN (12:27)
[2021-11-10] MEDS: Azithromycin 500 MG in Sodium Chloride 0.9% 250 ML 250 ML IVPB SCH (16:57)
[2021-11-10] MEDS: Lisinopril 20 MG TAB PO SCH (21:48)
[2021-11-10] MEDS: Polyethylene Glycol 3350 17 GM Packet PO SCH (21:48)
[2021-11-10] MEDS: Gabapentin 300 MG CAP PO SCH (21:48)
[2021-11-10] MEDS: Donepezil HCl 10 MG TAB PO SCH (21:49)
[2021-11-11] MEDS: Albuterol 200 PUFF (6.7GM INHALER) INH SCH ×4 (00:39→18:03)
[2021-11-11] MEDS: methylPREDNISolone Sod Succ 40 MG VIAL IVP SCH ×4 (00:39→20:32)
[2021-11-11] MEDS: Levothyroxine Sodium 75 MCG TAB PO SCH (06:23)
[2021-11-11] MEDS: FLUoxetine HCl 20 MG CAP PO SCH (09:04)
[2021-11-11] MEDS: Cholecalciferol (Vitamin D3) 400 UNITS TAB PO SCH (09:04)
[2021-11-11] MEDS: Ascorbic Acid 500 mg Chewable Tablet PO SCH (09:04)
[2021-11-11] MEDS: Amiodarone 200 MG TAB PO SCH (09:04)
[2021-11-11] MEDS: Enoxaparin Sodium 40 MG/0.4 ML SYRINGE SC SCH (09:04)
[2021-11-11] MEDS: Zinc Sulfate 220 MG CAP PO SCH (09:04)
[2021-11-11] MEDS: Aspirin 81 mg Enteric Coated Tablet PO SCH (09:04)
[2021-11-11] MEDS: Empagliflozin 10 MG TAB PO SCH (09:04)
[2021-11-11] MEDS: Benzonatate 100 MG CAP PO PRN (10:17)
[2021-11-11] MEDS: Acetaminophen 325 MG TAB PO PRN (10:17)
[2021-11-11] MEDS: guaiFENesin/Codeine 200 mg/20 mg 10 ml Cup PO PRN ×2 (10:17→20:56)
[2021-11-11] MEDS: Azithromycin 500 MG in Sodium Chloride 0.9% 250 ML 250 ML IVPB SCH (15:05)
[2021-11-11] MEDS: Lisinopril 20 MG TAB PO SCH (20:30)
[2021-11-11] MEDS: Gabapentin 300 MG CAP PO SCH (20:30)
[2021-11-11] MEDS: Donepezil HCl 10 MG TAB PO SCH (20:31)
[2021-11-11] MEDS: Polyethylene Glycol 3350 17 GM Packet PO SCH (20:32)
[2021-11-11] MEDS: HumaLOG 300 UNITS/3 ML VIAL SC PRN (20:53)
[2021-11-11] MEDS: Melatonin 3 MG TAB PO PRN (20:56)
[2021-11-12] MEDS: Albuterol 200 PUFF (6.7GM INHALER) INH SCH ×4 (00:51→18:05)
[2021-11-12] MEDS: Levothyroxine Sodium 75 MCG TAB PO SCH (05:19)
[2021-11-12] MEDS: HumaLOG 300 UNITS/3 ML VIAL SC PRN ×2 (05:19→18:03)
[2021-11-12] MEDS: Enoxaparin Sodium 40 MG/0.4 ML SYRINGE SC SCH (09:01)
[2021-11-12] MEDS: FLUoxetine HCl 20 MG CAP PO SCH (09:02)
[2021-11-12] MEDS: Amiodarone 200 MG TAB PO SCH (09:02)
[2021-11-12] MEDS: Zinc Sulfate 220 MG CAP PO SCH (09:02)
[2021-11-12] MEDS: Aspirin 81 mg Enteric Coated Tablet PO SCH (09:02)
[2021-11-12] MEDS: Empagliflozin 10 MG TAB PO SCH (09:02)
[2021-11-12] MEDS: Ascorbic Acid 500 mg Chewable Tablet PO SCH (09:02)
[2021-11-12] MEDS: methylPREDNISolone Sod Succ 40 MG VIAL IVP SCH (09:02)
[2021-11-12] MEDS: Cholecalciferol (Vitamin D3) 400 UNITS TAB PO SCH (09:02)
[2021-11-12] MEDS: Gabapentin 300 MG CAP PO SCH (20:53)
[2021-11-12] MEDS: Lisinopril 20 MG TAB PO SCH (20:53)
[2021-11-12] MEDS: Donepezil HCl 10 MG TAB PO SCH (20:53)
[2021-11-12] MEDS: Polyethylene Glycol 3350 17 GM Packet PO SCH (20:54)
[2021-11-13] MEDS: Albuterol 200 PUFF (6.7GM INHALER) INH SCH ×4 (00:12→18:20)
[2021-11-13] MEDS: Levothyroxine Sodium 75 MCG TAB PO SCH (05:55)
[2021-11-13] MEDS: Enoxaparin Sodium 40 MG/0.4 ML SYRINGE SC SCH (08:43)
[2021-11-13] MEDS: FLUoxetine HCl 20 MG CAP PO SCH (08:44)
[2021-11-13] MEDS: Aspirin 81 mg Enteric Coated Tablet PO SCH (08:44)
[2021-11-13] MEDS: Ascorbic Acid 500 mg Chewable Tablet PO SCH (08:44)
[2021-11-13] MEDS: Empagliflozin 10 MG TAB PO SCH (08:44)
[2021-11-13] MEDS: Amiodarone 200 MG TAB PO SCH (08:44)
[2021-11-13] MEDS: Cholecalciferol (Vitamin D3) 400 UNITS TAB PO SCH (08:44)
[2021-11-13] MEDS: Zinc Sulfate 220 MG CAP PO SCH (08:44)
[2021-11-13] MEDS: guaiFENesin/Codeine 200 mg/20 mg 10 ml Cup PO PRN (08:57)
[2021-11-13] MEDS ORDERED: methylPREDNISolone Sod Succ 40 MG VIAL IVP SCH (09:00)
[2021-11-13] MEDS: HumaLOG 300 UNITS/3 ML VIAL SC PRN (18:20)
[2021-11-13] MEDS: Lisinopril 20 MG TAB PO SCH (20:34)
[2021-11-13] MEDS: Gabapentin 300 MG CAP PO SCH (20:35)
[2021-11-13] MEDS: Polyethylene Glycol 3350 17 GM Packet PO SCH (20:35)
[2021-11-13] MEDS: Donepezil HCl 10 MG TAB PO SCH (20:35)
[2021-11-14] MEDS: Albuterol 200 PUFF (6.7GM INHALER) INH SCH ×2 (00:25→05:17)
[2021-11-14] MEDS: Levothyroxine Sodium 75 MCG TAB PO SCH (05:17)
[2021-11-14] MEDS ORDERED: predniSONE 20 MG TAB PO SCH ×2 (08:00)
[2021-11-14] MEDS ORDERED: Benzonatate 100 MG CAP PO PRN (08:20)
[2021-11-14] MEDS ORDERED: Ondansetron PF 4 MG/2 ML Vial IVP PRN (08:21)
[2021-11-14] MEDS ORDERED: Calcium Carbonate 500 MG ChewTAB PO PRN (08:21)
[2021-11-14] MEDS ORDERED: Acetaminophen 325 MG TAB PO PRN (08:22)
[2021-11-14] MEDS ORDERED: Melatonin 3 MG TAB PO PRN (08:23)
[2021-11-14] MEDS ORDERED: Acetaminophen 650 MG Suppository PR PRN (08:23)
[2021-11-14] MEDS ORDERED: Dextrose 50% Abboject 50 ML SYRINGE SLOW IVP PRN (08:24)
[2021-11-14] MEDS ORDERED: Dextrose 5% in Water 1,000 ML IV PRN (08:24)
[2021-11-14] MEDS ORDERED: guaiFENesin/Codeine 200 mg/20 mg 10 ml Cup PO PRN (08:24)
[2021-11-14] MEDS ORDERED: HumaLOG 300 UNITS/3 ML VIAL SC PRN (08:25)
[2021-11-14] MEDS ORDERED: Senokot S 8.6-50 MG TAB PO PRN (08:25)
[2021-11-14] MEDS ORDERED: hydrALAZINE 20 MG/ML VIAL SLOW IVP PRN (08:25)
[2021-11-14] MEDS ORDERED: Albuterol 200 PUFF (6.7GM INHALER) INH PRN (08:25)
[2021-11-14] MEDS ORDERED: Bisacodyl 5 MG TAB PO PRN (08:26)
[2021-11-14] MEDS ORDERED: Torsemide 20 MG TAB PO SCH (08:30)
[2021-11-14] MEDS ORDERED: Aspirin 81 mg Enteric Coated Tablet PO SCH (09:00)
[2021-11-14] MEDS ORDERED: Amiodarone 200 MG TAB PO SCH (09:00)
[2021-11-14] MEDS ORDERED: Ascorbic Acid 500 mg Chewable Tablet PO SCH (09:00)
[2021-11-14] MEDS ORDERED: Cholecalciferol (Vitamin D3) 400 UNITS TAB PO SCH (09:00)
[2021-11-14] MEDS ORDERED: Zinc Sulfate 220 MG CAP PO SCH (09:00)
[2021-11-14] MEDS ORDERED: Enoxaparin Sodium 40 MG/0.4 ML SYRINGE SC SCH (09:00)
[2021-11-14] MEDS ORDERED: FLUoxetine HCl 20 MG CAP PO SCH (09:00)
[2021-11-14] MEDS ORDERED: Empagliflozin 10 MG TAB PO SCH (09:00)
[2021-11-14 09:14] VITALS: BP 158/75; TEMP 99
[2021-11-14] MEDS ORDERED: Albuterol 200 PUFF (6.7GM INHALER) INH SCH (13:00)
[2021-11-14] MEDS ORDERED: Donepezil HCl 10 MG TAB PO SCH (21:00)
[2021-11-14] MEDS ORDERED: Lisinopril 20 MG TAB PO SCH (21:00)
[2021-11-14] MEDS ORDERED: Gabapentin 300 MG CAP PO SCH (21:00)
[2021-11-14] MEDS ORDERED: Polyethylene Glycol 3350 17 GM Packet PO SCH (21:00)
[2021-11-15] MEDS ORDERED: Levothyroxine Sodium 75 MCG TAB PO SCH (06:00)
== END 2021-11-14 11:35 | DRG 871 ==
LOC: ERS 10:50 → T4-B 15:33 → UNDODISIN 11-13 14:25
PROVIDERS: ADMIT Hospitalist; ATTEND Hospitalist
PROC: 8E0ZXY6 Isolation (ICD-10-PCS; 2021-10-31)
PROC: 3E03329 Introduction of Other Anti-infective into Peripheral Vein, Percutaneous Approach (ICD-10-PCS; 2021-10-31)
PROC: XW0DXF5 Introduction of Other New Technology Therapeutic Substance into Mouth and Pharynx, External Approach, New Technology Group 5 (ICD-10-PCS; principal; 2021-11-01)
DX: A41.89 Other specified sepsis (principal); Z66 Do not resuscitate; J96.01 Acute respiratory failure with hypoxia; U07.1 COVID-19; J84.9 Interstitial pulmonary disease, unspecified; J44.1 Chronic obstructive pulmonary disease with (acute) exacerbation; J44.0 Chronic obstructive pulmonary disease with (acute) lower respiratory infection; N39.0 Urinary tract infection, site not specified; I50.32 Chronic diastolic (congestive) heart failure; N17.9 Acute kidney failure, unspecified; I27.20 Pulmonary hypertension, unspecified; J40 Bronchitis, not specified as acute or chronic; R79.89 Other specified abnormal findings of blood chemistry; K75.81 Nonalcoholic steatohepatitis (NASH); E03.9 Hypothyroidism, unspecified; Z96.651 Presence of right artificial knee joint; F41.9 Anxiety disorder, unspecified; E78.5 Hyperlipidemia, unspecified; I48.0 Paroxysmal atrial fibrillation; B96.1 Klebsiella pneumoniae [K. pneumoniae] as the cause of diseases classified elsewhere; I08.1 Rheumatic disorders of both mitral and tricuspid valves; G31.84 Mild cognitive impairment of uncertain or unknown etiology; G25.81 Restless legs syndrome; I11.0 Hypertensive heart disease with heart failure; Z96.621 Presence of right artificial elbow joint; E11.9 Type 2 diabetes mellitus without complications; K59.00 Constipation, unspecified; Z82.49 Family history of ischemic heart disease and other diseases of the circulatory system; Z28.21 Immunization not carried out because of patient refusal; Z95.0 Presence of cardiac pacemaker; Z88.1 Allergy status to other antibiotic agents; Z79.899 Other long term (current) drug therapy; Z79.890 Hormone replacement therapy; Z79.51 Long term (current) use of inhaled steroids; Z90.49 Acquired absence of other specified parts of digestive tract; Z90.89 Acquired absence of other organs; Z87.891 Personal history of nicotine dependence
CPT/HCPCS: 36415; 36416; 71045; 71250; 80048; 80053; 81003; 81015; 82607; 83036; 83735; 83880; 84145; 84443; 84484; 85025; 85610; 85730; 86140; 87040; 87077; 87086; 87186; 93005; 93010; 93306; 96365; 96366; 96375; J0360; J0456; J0696; J1100; J1650; J1815; J1940; J2920; J2930; J3480; J3490; J7050; J7512; J7611; J7620

== ENCOUNTER 2021-12-16 13:12 | Inpatient (IN) | payer MEDICARE, BC ==
[2021-12-16 14:12] LABS: Hemoglobin 13.1 g/dL (12.0-16.0); Mean Corpuscular HGB CONC 32.5 g/dL (32.0-36.0); Mean Corpuscular Hemoglobin 29.5 pg (27.0-31.0); Mean Corpuscular Volume 90.9 fL (78.0-98.0); Mean Platelet Volume 8.6 fL (7.4-10.4); Platelet Count 182 thou/uL (130-400); RBC Distribution Width 17.2 % (11.5-14.5); Red Blood Cell (RBC) Count 4.43 mill/uL (4.20-5.40); White Blood Cell (WBC) Count 7.4 thou/uL (4.8-10.8)
[2021-12-16 14:32] LABS: ALT (SGPT) 36 U/L (8-55); AST (SGOT) 42 U/L (5-34); Albumin 3.8 g/dL (3.4-4.8); Alkaline Phosphatase 82 U/L (40-110); Anion Gap 16 mmol/L (10-20); BUN (Urea Nitrogen) 17 mg/dL (9.8-20.1); Band 1 % (5-11); Bilirubin, Total 0.8 mg/dL (0.2-1.2); Calc. Creatinine Clearance 0 mL/min (70-130); Calcium 8.4 mg/dL (7.8-10.44); Carbon Dioxide 26 mmol/L (23-31); Chloride 99 mmol/L (98-107); Estimated GFR 35; Globulin 2.3 g/dL (2.4-3.5); Glucose 111 mg/dL (83-110); Lymphocytes 9 % (21-51); MDiff Complete? YES; Monocytes 22 % (0-10); Neutrophil 61 % (42-75); Ovalocytes SLIGHT = 2-5 cells (100X) (0-1/hpf); Platelet Morphology Comment Appears Adequate; Polychromasia SLIGHT = 2-3 cells (100X) (0-2/hpf); Potassium 4.1 mmol/L (3.5-5.1); Protein, Total 6.1 g/dL (5.8-8.1); Reactive Lymphocytes 7 % (0-10); Sodium 137 mmol/L (136-145)
[2021-12-16 14:57] LABS: Bacteria/HPF Rare-Few HPF (None Seen); Bilirubin Negative (Negative); Blood, Urine Negative (Negative); Clarity Clear (Clear); Glucose, Urine (Dipstick) Greater than 1000 mg/dL (Negative); Ketone, Urine Negative (Negative); Leukocyte 500 Leu/uL (Negative); Nitrite Negative (Negative); Protein, Urine (Dipstick) Negative (Neg-Trace); RBC/HPF 0-3 HPF (0-3); Specific Gravity, Urine 1.009 (1.002-1.036); Squamous Epithelial None Seen HPF (0-3); Urobilinogen Normal mg/dL (Less than 2); WBC/HPF Greater than 50 HPF (0-3)
[2021-12-16] MEDS ORDERED: cefTRIAXone\\ROCEPHIN 1 GM VIAL ONE (15:50)
[2021-12-16] MEDS ORDERED: Lactated Ringer's 1,000 ML IV SCH (16:45)
[2021-12-16 16:54] LABS: Troponin I Less than 0.010 ng/mL (< 0.028)
[2021-12-16] MEDS ORDERED: Bisacodyl 5 MG TAB PO PRN (16:54)
[2021-12-16] MEDS ORDERED: Melatonin 3 MG TAB PO PRN (16:54)
[2021-12-16] MEDS ORDERED: Senokot S 8.6-50 MG TAB PO PRN (16:54)
[2021-12-16] MEDS ORDERED: Calcium Carbonate 500 MG ChewTAB PO PRN (16:54)
[2021-12-16 18:15] VITALS: BMI 28.5
[2021-12-16] MEDS ORDERED: Dextrose 5% in Water 1,000 ML IV PRN (18:17)
[2021-12-16] MEDS ORDERED: HumaLOG 300 UNITS/3 ML VIAL SC PRN ×2 (18:17)
[2021-12-16] MEDS ORDERED: Dextrose 50% Abboject 50 ML SYRINGE SLOW IVP PRN (18:17)
[2021-12-16] MEDS: Albuterol Sulfate 2.5 mg/3 ml Neb NEB SCH ×2 (18:57→23:47)
[2021-12-16] MEDS: Gabapentin 300 MG CAP PO SCH (20:09)
[2021-12-16] MEDS: Atorvastatin Calcium 20 MG TAB PO SCH (20:10)
[2021-12-16] MEDS: Donepezil HCl 10 MG TAB PO SCH (20:10)
[2021-12-16] MEDS: Cholecalciferol 1,000 UNITS (25 MCG) TAB PO SCH (20:10)
[2021-12-16 20:23] LABS: Troponin I 0.013 ng/mL (< 0.028)
[2021-12-17] MEDS: Levothyroxine Sodium 75 MCG TAB PO SCH (06:28)
[2021-12-17 06:47] LABS: Anion Gap 15 mmol/L (10-20); BUN (Urea Nitrogen) 15 mg/dL (9.8-20.1); Calc. Creatinine Clearance 36 mL/min (70-130); Calcium 8.7 mg/dL (7.8-10.44); Carbon Dioxide 26 mmol/L (23-31); Chloride 101 mmol/L (98-107); Estimated GFR 42; Glucose 102 mg/dL (83-110); Potassium 3.7 mmol/L (3.5-5.1); Sodium 138 mmol/L (136-145)
[2021-12-17 07:05] LABS: Hemoglobin 11.9 g/dL (12.0-16.0); Mean Corpuscular HGB CONC 31.5 g/dL (32.0-36.0); Mean Platelet Volume 8.8 fL (7.4-10.4); Platelet Count 177 thou/uL (130-400); RBC Distribution Width 17.2 % (11.5-14.5); Red Blood Cell (RBC) Count 4.12 mill/uL (4.20-5.40); White Blood Cell (WBC) Count 6.1 thou/uL (4.8-10.8)
[2021-12-17] MEDS: Albuterol Sulfate 2.5 mg/3 ml Neb NEB SCH ×3 (07:57→18:49)
[2021-12-17] MEDS ORDERED: Amiodarone 200 MG TAB PO SCH (09:00)
[2021-12-17] MEDS ORDERED: Enoxaparin Sodium 40 MG/0.4 ML SYRINGE SC SCH (09:00)
[2021-12-17] MEDS: Cholecalciferol 1,000 UNITS (25 MCG) TAB PO SCH ×2 (09:35→20:14)
[2021-12-17] MEDS: Zinc Sulfate 220 MG CAP PO SCH (09:35)
[2021-12-17] MEDS: FLUoxetine HCl 20 MG CAP PO SCH (09:35)
[2021-12-17] MEDS: Empagliflozin 10 MG TAB PO SCH (09:35)
[2021-12-17] MEDS: FLU VACC QS2022-23(65YR UP)/PF 240 MCG/0.7 ML SYRINGE IM ONE ×2 (09:36→12:27)
[2021-12-17 09:45] LABS: SARS-CoV-2 NAA Rapid Test Not Detected (NotDetected)
[2021-12-17 09:53] LABS: Lymphocytes 24 % (21-51); MDiff Complete? YES; Monocytes 25 % (0-10); Neutrophil 50 % (42-75); Platelet Morphology Comment Appears Adequate; RBC Morphology Normal; Reactive Lymphocytes 1 % (0-10)
[2021-12-17] MEDS: Lactated Ringer's 500 ML IV SCH ×2 (12:20→18:12)
[2021-12-17] MEDS: Gabapentin 300 MG CAP PO SCH (20:14)
[2021-12-17] MEDS: Atorvastatin Calcium 20 MG TAB PO SCH (20:14)
[2021-12-17] MEDS: Donepezil HCl 10 MG TAB PO SCH (20:15)
[2021-12-17] MEDS ORDERED: Lisinopril 20 MG TAB PO SCH (21:00)
[2021-12-18] MEDS: Albuterol Sulfate 2.5 mg/3 ml Neb NEB SCH ×3 (00:28→13:50)
[2021-12-18] MEDS: Levothyroxine Sodium 75 MCG TAB PO SCH (06:12)
[2021-12-18 06:52] LABS: Anion Gap 14 mmol/L (10-20); BUN (Urea Nitrogen) 13 mg/dL (9.8-20.1); Calc. Creatinine Clearance 42 mL/min (70-130); Calcium 8.9 mg/dL (7.8-10.44); Carbon Dioxide 25 mmol/L (23-31); Chloride 104 mmol/L (98-107); Estimated GFR 51; Glucose 106 mg/dL (83-110); Potassium 4.1 mmol/L (3.5-5.1); Sodium 139 mmol/L (136-145)
[2021-12-18 07:04] LABS: Band 3 % (5-11); Hemoglobin 11.9 g/dL (12.0-16.0); Lymphocytes 11 % (21-51); MDiff Complete? YES; Mean Corpuscular HGB CONC 31.7 g/dL (32.0-36.0); Mean Corpuscular Hemoglobin 29.1 pg (27.0-31.0); Mean Corpuscular Volume 91.7 fL (78.0-98.0); Monocytes 23 % (0-10); Neutrophil 61 % (42-75); Platelet Count 176 thou/uL (130-400); RBC Distribution Width 17.2 % (11.5-14.5); Reactive Lymphocytes 2 % (0-10); Red Blood Cell (RBC) Count 4.09 mill/uL (4.20-5.40); White Blood Cell (WBC) Count 5.8 thou/uL (4.8-10.8)
[2021-12-18] MEDS: FLUoxetine HCl 20 MG CAP PO SCH (08:45)
[2021-12-18] MEDS: Cholecalciferol 1,000 UNITS (25 MCG) TAB PO SCH (08:45)
[2021-12-18] MEDS: Empagliflozin 10 MG TAB PO SCH (08:46)
[2021-12-18] MEDS: Zinc Sulfate 220 MG CAP PO SCH (08:46)
[2021-12-18] MEDS ORDERED: Amiodarone 200 MG TAB PO SCH (09:00)
[2021-12-18] MEDS ORDERED: Cefdinir 300 MG CAP PO SCH (09:00)
[2021-12-18] MEDS ORDERED: Enoxaparin Sodium 30 MG/0.3 ML SYRINGE SC SCH (09:00)
[2021-12-18] MEDS ORDERED: Gentamicin 80 MG/2 ML VIAL IM SCH (15:30)
[2021-12-18 17:52] VITALS: BP 153/75; TEMP 98
[2021-12-18] MEDS ORDERED: Ciprofloxacin 500 MG TAB PO SCH (21:00)
[2021-12-18] MEDS ORDERED: Cefepime 1 GM in Sodium Chloride 0.9% 100 ML IVPB SCH (21:00)
[2021-12-19] MEDS ORDERED: Enoxaparin Sodium 40 MG/0.4 ML SYRINGE SC SCH (09:00)
== END 2021-12-18 17:48 | disposition home or self-care (01) | DRG 683 ==
LOC: ERS 13:12 → T4-A 17:59 → OBSVTOIN 12-18 15:56
PROVIDERS: ADMIT Family Medicine; ATTEND Family Medicine
DX: N17.9 Acute kidney failure, unspecified (principal); I13.0 Hypertensive heart and chronic kidney disease with heart failure and stage 1 through stage 4 chronic kidney disease, or unspecified chronic kidney disease; N39.0 Urinary tract infection, site not specified; I50.32 Chronic diastolic (congestive) heart failure; Z20.822 Contact with and (suspected) exposure to COVID-19; E86.0 Dehydration; E78.5 Hyperlipidemia, unspecified; K21.9 Gastro-esophageal reflux disease without esophagitis; E03.9 Hypothyroidism, unspecified; K59.00 Constipation, unspecified; F41.9 Anxiety disorder, unspecified; E11.22 Type 2 diabetes mellitus with diabetic chronic kidney disease; N18.32 Chronic kidney disease, stage 3b; I48.91 Unspecified atrial fibrillation; R00.1 Bradycardia, unspecified; B96.5 Pseudomonas (aeruginosa) (mallei) (pseudomallei) as the cause of diseases classified elsewhere; R94.31 Abnormal electrocardiogram [ECG] [EKG]; Z88.1 Allergy status to other antibiotic agents; Z86.16 Personal history of COVID-19; Z79.899 Other long term (current) drug therapy; Z79.890 Hormone replacement therapy; Z79.51 Long term (current) use of inhaled steroids; Z95.1 Presence of aortocoronary bypass graft; Z90.09 Acquired absence of other part of head and neck; Z90.710 Acquired absence of both cervix and uterus; Z87.891 Personal history of nicotine dependence; Z95.0 Presence of cardiac pacemaker
CPT/HCPCS: 36415; 36416; 80048; 80053; 81003; 81015; 83880; 84145; 84484; 85025; 87077; 87086; 87186; 90471; 90662; 93005; 94640; 96372; 96374; G0008; G0378; J0696; J1580; J1650; J7120; J7611; U0003; U0005

== ENCOUNTER 2023-01-29 09:24 | Inpatient (IN) | payer MEDICARE ==
[2023-01-29] MEDS ORDERED: Vancomycin (BATCH) 1.5 GM in Premix 1 BAG IVPB SCH (10:00)
[2023-01-29 10:01] LABS: Actual Bicarbonate (HCO3v) 22.8 mEq/L (22-28); Base Excess -2.2 mEq/L (-2.0 to +3.0); Calcium, Ionized (venous) 1.11 mmol/L (1.16-1.32); Chloride (VBG) 103 mmol/L (98-106); Hematocrit-VBG 39 % (36.0-47.0); Hemoglobin (Hb) 13.1 g/dL (11.7-16.1); Potassium (VBG) 4.02 mmol/L (3.70-5.30); Sodium 143 mmol/L (133-146); pH (venous) 7.371 (7.32-7.43)
[2023-01-29] MEDS ORDERED: methylPREDNISolone Sod Succ/PF 125 MG/2 ML VIAL ONE (10:10)
[2023-01-29] MEDS ORDERED: Cefepime 2 GM VIAL ONE (10:10)
[2023-01-29] MEDS ORDERED: Sodium Chloride 0.9% 100 ML ONE (10:10)
[2023-01-29 10:11] LABS: Hematocrit 39.4 % (36.0-47.0); Hemoglobin 12.3 g/dL (12.0-16.0); Manual Diff?? YES; Mean Corpuscular HGB CONC 31.2 g/dL (32.0-36.0); Mean Corpuscular Hemoglobin 24.5 pg (27.0-31.0); Mean Corpuscular Volume 78.5 fl (78.0-98.0); Mean Platelet Volume 10.5 fL (7.4-10.4); Platelet Count 230 10x3/uL (130-400); RBC Distribution Width 17.4 % (11.5-14.5); Red Blood Cell (RBC) Count 5.02 mill/uL (4.20-5.40); White Blood Cell (WBC) Count 16.8 10x3/uL (4.8-10.8)
[2023-01-29] MEDS ORDERED: Albuterol 2.5 MG/0.5 ML NEB ONE (10:14)
[2023-01-29 10:29] LABS: Delete Auto Diff?? YES
[2023-01-29 10:34] LABS: ALT (SGPT) 17 U/L (8-55); AST (SGOT) 21 U/L (5-34); Albumin 4.1 g/dL (3.4-4.8); Alkaline Phosphatase 55 U/L (40-110); Anion Gap 19 mmol/L (10-20); BUN (Urea Nitrogen) 21 mg/dL (9.8-20.1); Bilirubin, Total 1.4 mg/dL (0.2-1.2); Calc. Creatinine Clearance 0 mL/min (70-130); Calcium 9.1 mg/dL (7.8-10.44); Carbon Dioxide 21 mmol/L (23-31); Chloride 103 mmol/L (98-107); Estimated GFR 37; Globulin 2.9 g/dL (2.4-3.5); Glucose 151 mg/dL (83-110); Sodium 139 mmol/L (136-145)
[2023-01-29 10:43] LABS: Troponin I 0.027 ng/mL (< 0.028)
[2023-01-29 10:48] LABS: Burr Cells SLIGHT = 2-5 cells HPF (0-1); CellaVision Operator ID LAB.NR; Hypochromia SLIGHT = 6-15 cells HPF (0-5); Lymphocytes 13 % (21-51); Macrocytosis SLIGHT = 6-15 cells HPF (0-5); Monocytes 20 % (0-10); Neutrophil 67 % (42-75); Platelet Adequacy Comment Platelets Normal; Polychromasia SLIGHT = 2-3 cells HPF (0-2); Schistocytes SLIGHT = 2-5 cells HPF (0-1); Total Cell Count 100
[2023-01-29] MEDS ORDERED: Dextrose 50% Abboject 50 ML SYRINGE SLOW IVP PRN (12:28)
[2023-01-29] MEDS ORDERED: Ondansetron ODT 4 MG TAB PO PRN (12:28)
[2023-01-29] MEDS ORDERED: Ondansetron PF 4 MG/2 ML Vial IVP PRN (12:28)
[2023-01-29] MEDS ORDERED: Glucagon 1 MG/ML KIT IM PRN (12:28)
[2023-01-29] MEDS ORDERED: Calcium Carbonate 500 MG ChewTAB PO PRN (12:28)
[2023-01-29] MEDS ORDERED: Dextrose 5% in Water 1,000 ML IV PRN (12:28)
[2023-01-29 12:47] LABS: Bilirubin Negative (Negative); Blood, Urine 1+ (Negative); CAUTI Indications for Culture Pelvic or flank pain; Clarity Clear (Clear); Glucose, Urine (Dipstick) Greater than 1000 mg/dL (Negative); Ketone, Urine 20 mg/dL (Negative); Leukocyte Negative Leu/uL (Negative); Nitrite 2+ (Negative); Protein, Urine (Dipstick) 30 mg/dL (Neg-Trace); RBC/HPF 0-3 HPF (0-3); Specific Gravity, Urine 1.031 (1.002-1.036); Squamous Epithelial 0-3 HPF (0-3); Urobilinogen Normal mg/dL (Less than 2); WBC/HPF 0-3 HPF (0-3); pH, Urine 5.5 (5.0-9.0)
[2023-01-29 12:53] LABS: Bacteria/HPF 1+ HPF (None Seen)
[2023-01-29 12:54] LABS: Urine Culture Reflex No No
[2023-01-29 13:33] LABS: SARS-CoV-2 NAA Rapid Test Not Detected (NotDetected)
[2023-01-29] MEDS ORDERED: Melatonin 3 MG TAB PO PRN (13:56)
[2023-01-29 14:28] LABS: Troponin I 0.033 ng/mL (< 0.028)
[2023-01-29] MEDS ORDERED: Polyethylene Glycol 3350 17 GM Packet PO PRN (15:58)
[2023-01-29] MEDS ORDERED: Azithromycin 250 MG TAB PO SCH (16:00)
[2023-01-29 16:08] VITALS: BMI 28.5
[2023-01-29 16:56] LABS: Troponin I 0.044 ng/mL (< 0.028)
[2023-01-29] MEDS: cefTRIAXone\\ROCEPHIN 1 GM in Sodium Chloride 0.9% 100 ML IVPB SCH (17:33)
[2023-01-29] MEDS: Atorvastatin Calcium 20 MG TAB PO SCH (21:07)
[2023-01-29] MEDS: Gabapentin 300 MG CAP PO SCH (21:07)
[2023-01-29] MEDS: Donepezil HCl 10 MG TAB PO SCH (21:08)
[2023-01-29] MEDS: Diclofenac 1% 50 GM TOPICAL GEL TP SCH (21:09)
[2023-01-29] MEDS: HumaLOG 300 UNITS/3 ML VIAL SC PRN (21:09)
[2023-01-29 21:20] LABS: Troponin I 0.035 ng/mL (< 0.028)
[2023-01-29] MEDS: Albuterol 200 PUFF (6.7GM INHALER) INH SCH (21:55)
[2023-01-30] MEDS: Benzonatate 100 MG CAP PO PRN (01:00)
[2023-01-30] MEDS: Albuterol 200 PUFF (6.7GM INHALER) INH SCH (01:17)
[2023-01-30] MEDS: Levothyroxine Sodium 100 MCG TAB PO SCH (04:02)
[2023-01-30] MEDS ORDERED: Albuterol 200 PUFF (6.7GM INHALER) INH PRN (04:49)
[2023-01-30 05:03] LABS: Hematocrit 34.9 % (36.0-47.0); Hemoglobin 10.7 g/dL (12.0-16.0); Mean Corpuscular HGB CONC 30.7 g/dL (32.0-36.0); Mean Corpuscular Hemoglobin 23.9 pg (27.0-31.0); Mean Corpuscular Volume 78.1 fl (78.0-98.0); Mean Platelet Volume 10.6 fL (7.4-10.4); Platelet Count 206 10x3/uL (130-400); RBC Distribution Width 17.2 % (11.5-14.5); Red Blood Cell (RBC) Count 4.47 mill/uL (4.20-5.40); White Blood Cell (WBC) Count 15.9 10x3/uL (4.8-10.8)
[2023-01-30 05:08] LABS: Delete Auto Diff?? YES; Manual Diff?? YES
[2023-01-30 05:30] LABS: Anion Gap 15 mmol/L (10-20); BUN (Urea Nitrogen) 27 mg/dL (9.8-20.1); Calc. Creatinine Clearance 32 mL/min (70-130); Calcium 8.8 mg/dL (7.8-10.44); Carbon Dioxide 25 mmol/L (23-31); Chloride 107 mmol/L (98-107); Estimated GFR 36; Glucose 141 mg/dL (83-110); Potassium 4.2 mmol/L (3.5-5.1); Sodium 143 mmol/L (136-145)
[2023-01-30 05:43] LABS: Band 4 % (5-11); CellaVision Operator ID LAB.CLH1; Elliptocytes SLIGHT = 2-5 cells HPF (0-1); Hypochromia SLIGHT = 6-15 cells HPF (0-5); Lymphocytes 3 % (21-51); Neutrophil 93 % (42-75); Platelet Adequacy Comment Platelets Normal; Polychromasia SLIGHT = 2-3 cells HPF (0-2); Target Cells MODERATE= 6-15 cells HPF (0-1); Total Cell Count 100
[2023-01-30] MEDS ORDERED: Ipratropium/Albuterol 3 ML NEB NEB PRN (07:37)
[2023-01-30] MEDS: Cholecalciferol 1,000 UNITS (25 MCG) TAB PO SCH (08:52)
[2023-01-30] MEDS: Aspirin 81 mg Enteric Coated Tablet PO SCH (08:52)
[2023-01-30] MEDS: Azithromycin 250 MG TAB PO SCH (08:53)
[2023-01-30] MEDS: guaiFENesin 200 MG TAB PO SCH ×4 (08:54→20:39)
[2023-01-30] MEDS: Torsemide 20 MG TAB PO SCH (08:54)
[2023-01-30] MEDS: Azelastine 137 MCG/NASAL Spray 30 ML NS SCH (08:54)
[2023-01-30] MEDS: FLUoxetine HCl 20 MG CAP PO SCH (08:55)
[2023-01-30] MEDS: Famotidine 20 MG TAB PO SCH (08:56)
[2023-01-30] MEDS: Lisinopril 5 MG TAB PO SCH (08:56)
[2023-01-30] MEDS: Amiodarone 200 MG TAB PO SCH (08:56)
[2023-01-30] MEDS: Empagliflozin 10 MG TAB PO SCH (08:56)
[2023-01-30] MEDS: Diclofenac 1% 50 GM TOPICAL GEL TP SCH ×2 (08:57→20:40)
[2023-01-30] MEDS ORDERED: Diclofenac 1% 50 GM TOPICAL GEL TP SCH (09:00)
[2023-01-30] MEDS ORDERED: Torsemide 20 MG TAB PO SCH (09:00)
[2023-01-30] MEDS ORDERED: Amiodarone 200 MG TAB PO SCH (09:00)
[2023-01-30] MEDS: cefTRIAXone\\ROCEPHIN 1 GM in Sodium Chloride 0.9% 100 ML IVPB SCH (17:29)
[2023-01-30] MEDS: Gabapentin 300 MG CAP PO SCH (20:39)
[2023-01-30] MEDS: Donepezil HCl 10 MG TAB PO SCH (20:39)
[2023-01-30] MEDS: Atorvastatin Calcium 20 MG TAB PO SCH (20:40)
[2023-01-31] MEDS: guaiFENesin 200 MG TAB PO SCH ×6 (00:09→21:25)
[2023-01-31] MEDS: Levothyroxine Sodium 100 MCG TAB PO SCH (05:05)
[2023-01-31] MEDS: Ipratropium/Albuterol 3 ML NEB NEB SCH ×4 (08:35→23:01)
[2023-01-31] MEDS ORDERED: predniSONE 20 MG TAB PO SCH ×2 (09:19→09:30)
[2023-01-31] MEDS: Azelastine 137 MCG/NASAL Spray 30 ML NS SCH (09:23)
[2023-01-31] MEDS: Diclofenac 1% 50 GM TOPICAL GEL TP SCH ×2 (09:24→19:05)
[2023-01-31] MEDS: Lisinopril 5 MG TAB PO SCH (09:26)
[2023-01-31] MEDS: Empagliflozin 10 MG TAB PO SCH (09:26)
[2023-01-31] MEDS: Aspirin 81 mg Enteric Coated Tablet PO SCH (09:27)
[2023-01-31] MEDS: Amiodarone 200 MG TAB PO SCH (09:27)
[2023-01-31] MEDS: FLUoxetine HCl 20 MG CAP PO SCH (09:27)
[2023-01-31] MEDS: Famotidine 20 MG TAB PO SCH (09:28)
[2023-01-31] MEDS: Azithromycin 250 MG TAB PO SCH (09:28)
[2023-01-31] MEDS: Cholecalciferol 1,000 UNITS (25 MCG) TAB PO SCH (09:28)
[2023-01-31] MEDS: Torsemide 20 MG TAB PO SCH (09:28)
[2023-01-31] MEDS: cefTRIAXone\\ROCEPHIN 1 GM in Sodium Chloride 0.9% 100 ML IVPB SCH (17:39)
[2023-01-31] MEDS: Gabapentin 300 MG CAP PO SCH (21:24)
[2023-01-31] MEDS: Benzonatate 100 MG CAP PO PRN (21:25)
[2023-01-31] MEDS: Atorvastatin Calcium 20 MG TAB PO SCH (21:25)
[2023-01-31] MEDS: Donepezil HCl 10 MG TAB PO SCH (21:25)
[2023-02-01] MEDS: guaiFENesin 200 MG TAB PO SCH ×6 (01:47→20:27)
[2023-02-01] MEDS: Ipratropium/Albuterol 3 ML NEB NEB SCH ×6 (02:56→22:33)
[2023-02-01 05:21] LABS: Hematocrit 35.7 % (36.0-47.0); Manual Diff?? YES; Mean Corpuscular HGB CONC 30.8 g/dL (32.0-36.0); Mean Corpuscular Volume 77.8 fl (78.0-98.0); Mean Platelet Volume 10.8 fL (7.4-10.4); Platelet Count 234 10x3/uL (130-400); RBC Distribution Width 17.5 % (11.5-14.5); Red Blood Cell (RBC) Count 4.59 mill/uL (4.20-5.40); White Blood Cell (WBC) Count 12.3 10x3/uL (4.8-10.8)
[2023-02-01 05:26] LABS: Delete Auto Diff?? YES
[2023-02-01 05:44] LABS: Anion Gap 16 mmol/L (10-20); BUN (Urea Nitrogen) 33 mg/dL (9.8-20.1); Calc. Creatinine Clearance 32 mL/min (70-130); Calcium 8.9 mg/dL (7.8-10.44); Carbon Dioxide 28 mmol/L (23-31); Chloride 104 mmol/L (98-107); Estimated GFR 37; Glucose 98 mg/dL (83-110); Potassium 3.4 mmol/L (3.5-5.1); Sodium 145 mmol/L (136-145)
[2023-02-01] MEDS: Levothyroxine Sodium 100 MCG TAB PO SCH (05:45)
[2023-02-01 05:57] LABS: Band 4 % (5-11); CellaVision Operator ID LAB.CLH1; Eosinophils 1 % (0-10); Hypochromia SLIGHT = 6-15 cells HPF (0-5); Large Platelets 2.7 % (0-5); Lymphocytes 5 % (21-51); Microcytosis SLIGHT = 6-15 cells HPF (0-5); Monocytes 10 % (0-10); Neutrophil 80 % (42-75); Platelet Adequacy Comment Platelets Normal; Polychromasia SLIGHT = 2-3 cells HPF (0-2); Total Cell Count 113
[2023-02-01] MEDS ORDERED: Potassium Chloride 20 MEQ TAB PO SCH ×2 (06:15→08:00)
[2023-02-01] MEDS: Azelastine 137 MCG/NASAL Spray 30 ML NS SCH (08:05)
[2023-02-01] MEDS: FLUoxetine HCl 20 MG CAP PO SCH (08:07)
[2023-02-01] MEDS: Torsemide 20 MG TAB PO SCH (08:07)
[2023-02-01] MEDS: Empagliflozin 10 MG TAB PO SCH (08:07)
[2023-02-01] MEDS: Famotidine 20 MG TAB PO SCH (08:08)
[2023-02-01] MEDS: Azithromycin 250 MG TAB PO SCH (08:08)
[2023-02-01] MEDS: Cholecalciferol 1,000 UNITS (25 MCG) TAB PO SCH (08:08)
[2023-02-01] MEDS: predniSONE 20 MG TAB PO SCH (08:09)
[2023-02-01] MEDS: Lisinopril 5 MG TAB PO SCH (08:09)
[2023-02-01] MEDS: Amiodarone 200 MG TAB PO SCH (08:09)
[2023-02-01] MEDS: Aspirin 81 mg Enteric Coated Tablet PO SCH (08:09)
[2023-02-01] MEDS: Diclofenac 1% 50 GM TOPICAL GEL TP SCH ×2 (08:10→20:26)
[2023-02-01] MEDS: Polyethylene Glycol 3350 17 GM Packet PO SCH (10:20)
[2023-02-01] MEDS: Benzocaine/Menthol 1 LOZ LOZ PO PRN ×2 (10:26→16:58)
[2023-02-01] MEDS ORDERED: Mometasone 200 MCG/Formoterol 5 MCG 120 PUFF INHALER INH SCH (15:00)
[2023-02-01] MEDS: cefTRIAXone\\ROCEPHIN 1 GM in Sodium Chloride 0.9% 100 ML IVPB SCH (16:57)
[2023-02-01] MEDS: HumaLOG 300 UNITS/3 ML VIAL SC PRN (17:42)
[2023-02-01] MEDS: Mometasone 200 MCG/Formoterol 5 MCG 120 PUFF INHALER INH SCH (18:21)
[2023-02-01] MEDS: Donepezil HCl 10 MG TAB PO SCH (20:27)
[2023-02-01] MEDS: Atorvastatin Calcium 20 MG TAB PO SCH (20:27)
[2023-02-01] MEDS: Gabapentin 300 MG CAP PO SCH (20:27)
[2023-02-02] MEDS: guaiFENesin 200 MG TAB PO SCH ×6 (00:06→20:12)
[2023-02-02] MEDS: Ipratropium/Albuterol 3 ML NEB NEB SCH ×4 (02:38→19:23)
[2023-02-02] MEDS: Levothyroxine Sodium 100 MCG TAB PO SCH (04:55)
[2023-02-02] MEDS: Mometasone 200 MCG/Formoterol 5 MCG 120 PUFF INHALER INH SCH ×2 (06:44→19:23)
[2023-02-02 08:19] LABS: Anion Gap 17 mmol/L (10-20); BUN (Urea Nitrogen) 32 mg/dL (9.8-20.1); Calc. Creatinine Clearance 30 mL/min (70-130); Calcium 9.2 mg/dL (7.8-10.44); Carbon Dioxide 26 mmol/L (23-31); Chloride 106 mmol/L (98-107); Estimated GFR 35; Glucose 119 mg/dL (83-110); Potassium 3.9 mmol/L (3.5-5.1); Sodium 145 mmol/L (136-145)
[2023-02-02] MEDS: Amiodarone 200 MG TAB PO SCH (08:55)
[2023-02-02] MEDS: predniSONE 20 MG TAB PO SCH (08:55)
[2023-02-02] MEDS: Polyethylene Glycol 3350 17 GM Packet PO SCH ×2 (08:55→09:44)
[2023-02-02] MEDS: Aspirin 81 mg Enteric Coated Tablet PO SCH (08:55)
[2023-02-02] MEDS: Famotidine 20 MG TAB PO SCH (08:55)
[2023-02-02] MEDS: FLUoxetine HCl 20 MG CAP PO SCH (08:56)
[2023-02-02] MEDS: Losartan 25 MG TAB PO SCH (08:56)
[2023-02-02] MEDS: Benzonatate 100 MG CAP PO SCH ×3 (08:56→20:12)
[2023-02-02] MEDS: Cholecalciferol 1,000 UNITS (25 MCG) TAB PO SCH (08:56)
[2023-02-02] MEDS: Empagliflozin 10 MG TAB PO SCH (08:56)
[2023-02-02] MEDS: Torsemide 20 MG TAB PO SCH (08:57)
[2023-02-02] MEDS: Azithromycin 250 MG TAB PO SCH (08:57)
[2023-02-02] MEDS: Diclofenac 1% 50 GM TOPICAL GEL TP SCH ×2 (08:58→20:12)
[2023-02-02 09:10] LABS: Magnesium 2.4 mg/dL (1.6-2.6)
[2023-02-02] MEDS: Benzocaine/Menthol 1 LOZ LOZ PO PRN (12:17)
[2023-02-02] MEDS: cefTRIAXone\\ROCEPHIN 1 GM in Sodium Chloride 0.9% 100 ML IVPB SCH (16:34)
[2023-02-02] MEDS: Azelastine 137 MCG/NASAL Spray 30 ML NS SCH (16:35)
[2023-02-02] MEDS: Furosemide 20 MG/2 ML VIAL SLOW IVP SCH (16:47)
[2023-02-02] MEDS: Atorvastatin Calcium 20 MG TAB PO SCH (20:12)
[2023-02-02] MEDS: Donepezil HCl 10 MG TAB PO SCH (20:12)
[2023-02-02] MEDS: Gabapentin 300 MG CAP PO SCH (20:12)
[2023-02-03] MEDS: guaiFENesin 200 MG TAB PO SCH ×6 (00:49→20:25)
[2023-02-03 04:36] LABS: #Monocytes 2.2 thou/uL (0.11-0.59); #Neutrophils 7.3 thou/uL (1.40-6.50); %Basophils 0.1 % (0.0-1.0); %Eosinophils 0.4 % (0.0-10.0); %Lymphocytes 10.3 % (21.0-51.0); %Monocytes 19.7 % (0.0-10.0); %Neutrophils 66.1 % (42.0-75.0); Hematocrit 35.5 % (36.0-47.0); Hemoglobin 11.3 g/dL (12.0-16.0); Mean Corpuscular HGB CONC 31.8 g/dL (32.0-36.0); Mean Corpuscular Hemoglobin 24.4 pg (27.0-31.0); Mean Corpuscular Volume 76.5 fl (78.0-98.0); Mean Platelet Volume 10.6 fL (7.4-10.4); Platelet Count 258 10x3/uL (130-400); Red Blood Cell (RBC) Count 4.64 mill/uL (4.20-5.40); White Blood Cell (WBC) Count 11.1 10x3/uL (4.8-10.8)
[2023-02-03] MEDS: Levothyroxine Sodium 100 MCG TAB PO SCH (04:44)
[2023-02-03 05:01] LABS: Anion Gap 18 mmol/L (10-20); BUN (Urea Nitrogen) 35 mg/dL (9.8-20.1); Calc. Creatinine Clearance 30 mL/min (70-130); Calcium 9.2 mg/dL (7.8-10.44); Carbon Dioxide 25 mmol/L (23-31); Chloride 102 mmol/L (98-107); Estimated GFR 35; Glucose 100 mg/dL (83-110); Potassium 3.8 mmol/L (3.5-5.1); Sodium 141 mmol/L (136-145)
[2023-02-03] MEDS: Furosemide 20 MG/2 ML VIAL SLOW IVP SCH ×2 (06:13→13:14)
[2023-02-03] MEDS: Mometasone 200 MCG/Formoterol 5 MCG 120 PUFF INHALER INH SCH ×2 (07:33→19:15)
[2023-02-03] MEDS: Ipratropium/Albuterol 3 ML NEB NEB SCH ×3 (07:34→19:16)
[2023-02-03] MEDS ORDERED: Senokot 8.6 MG TAB PO PRN (08:28)
[2023-02-03] MEDS: predniSONE 20 MG TAB PO SCH (08:59)
[2023-02-03] MEDS: Azithromycin 250 MG TAB PO SCH (09:00)
[2023-02-03] MEDS: Aspirin 81 mg Enteric Coated Tablet PO SCH (09:00)
[2023-02-03] MEDS: Benzonatate 100 MG CAP PO SCH ×3 (09:00→20:07)
[2023-02-03] MEDS: Famotidine 20 MG TAB PO SCH (09:00)
[2023-02-03] MEDS: Losartan 25 MG TAB PO SCH (09:00)
[2023-02-03] MEDS: Empagliflozin 10 MG TAB PO SCH (09:00)
[2023-02-03] MEDS: FLUoxetine HCl 20 MG CAP PO SCH (09:00)
[2023-02-03] MEDS: Amiodarone 200 MG TAB PO SCH (09:00)
[2023-02-03] MEDS: Cholecalciferol 1,000 UNITS (25 MCG) TAB PO SCH (09:00)
[2023-02-03] MEDS: Azelastine 137 MCG/NASAL Spray 30 ML NS SCH (09:02)
[2023-02-03] MEDS: Diclofenac 1% 50 GM TOPICAL GEL TP SCH ×2 (09:02→20:03)
[2023-02-03] MEDS: Polyethylene Glycol 3350 17 GM Packet PO SCH (09:03)
[2023-02-03] MEDS: cefTRIAXone\\ROCEPHIN 1 GM in Sodium Chloride 0.9% 100 ML IVPB SCH (18:46)
[2023-02-03] MEDS: Donepezil HCl 10 MG TAB PO SCH (20:07)
[2023-02-03] MEDS: Atorvastatin Calcium 20 MG TAB PO SCH (20:08)
[2023-02-03] MEDS: Gabapentin 300 MG CAP PO SCH (20:08)
[2023-02-03 21:08] LABS: Mycoplasma pneumoniae IgG AB Less than 100 U/mL (0-99); Mycoplasma pneumoniae IgM AB Less than 770 U/mL (0-769)
[2023-02-04] MEDS: guaiFENesin 200 MG TAB PO SCH ×7 (00:15→20:37)
[2023-02-04] MEDS: Furosemide 20 MG/2 ML VIAL SLOW IVP SCH ×2 (05:29→14:59)
[2023-02-04] MEDS: Levothyroxine Sodium 100 MCG TAB PO SCH (05:29)
[2023-02-04] MEDS: Mometasone 200 MCG/Formoterol 5 MCG 120 PUFF INHALER INH SCH ×2 (07:35→19:33)
[2023-02-04] MEDS: Ipratropium/Albuterol 3 ML NEB NEB SCH ×3 (07:35→19:17)
[2023-02-04] MEDS: Famotidine 20 MG TAB PO SCH (09:27)
[2023-02-04] MEDS: Benzonatate 100 MG CAP PO SCH ×3 (09:27→20:38)
[2023-02-04] MEDS: Losartan 25 MG TAB PO SCH ×2 (09:27→09:28)
[2023-02-04] MEDS: Polyethylene Glycol 3350 17 GM Packet PO SCH (09:27)
[2023-02-04] MEDS: Amiodarone 200 MG TAB PO SCH (09:27)
[2023-02-04] MEDS: Azithromycin 250 MG TAB PO SCH (09:27)
[2023-02-04] MEDS: Aspirin 81 mg Enteric Coated Tablet PO SCH (09:27)
[2023-02-04] MEDS: Empagliflozin 10 MG TAB PO SCH (09:28)
[2023-02-04] MEDS: predniSONE 20 MG TAB PO SCH ×2 (09:28→09:30)
[2023-02-04] MEDS: Cholecalciferol 1,000 UNITS (25 MCG) TAB PO SCH (09:28)
[2023-02-04] MEDS: FLUoxetine HCl 20 MG CAP PO SCH (09:28)
[2023-02-04] MEDS: Azelastine 137 MCG/NASAL Spray 30 ML NS SCH (09:29)
[2023-02-04] MEDS: Diclofenac 1% 50 GM TOPICAL GEL TP SCH ×2 (12:10→20:32)
[2023-02-04] MEDS: cefTRIAXone\\ROCEPHIN 1 GM in Sodium Chloride 0.9% 100 ML IVPB SCH (16:37)
[2023-02-04] MEDS: Gabapentin 300 MG CAP PO SCH (20:37)
[2023-02-04] MEDS: Atorvastatin Calcium 20 MG TAB PO SCH (20:38)
[2023-02-04] MEDS: Donepezil HCl 10 MG TAB PO SCH (20:38)
[2023-02-05] MEDS: guaiFENesin 200 MG TAB PO SCH ×4 (01:24→14:13)
[2023-02-05 03:58] LABS: #Monocytes 1.9 thou/uL (0.11-0.59); #Neutrophils 9.7 thou/uL (1.40-6.50); %Basophils 0.2 % (0.0-1.0); %Eosinophils 0.2 % (0.0-10.0); %Lymphocytes 8.8 % (21.0-51.0); %Monocytes 14.2 % (0.0-10.0); %Neutrophils 73.8 % (42.0-75.0); Hematocrit 39.3 % (36.0-47.0); Hemoglobin 12.6 g/dL (12.0-16.0); Mean Corpuscular HGB CONC 32.1 g/dL (32.0-36.0); Mean Corpuscular Hemoglobin 24.4 pg (27.0-31.0); Mean Corpuscular Volume 76.2 fl (78.0-98.0); Mean Platelet Volume 10.1 fL (7.4-10.4); Platelet Count 276 10x3/uL (130-400); RBC Distribution Width 17.1 % (11.5-14.5); Red Blood Cell (RBC) Count 5.16 mill/uL (4.20-5.40); White Blood Cell (WBC) Count 13.1 10x3/uL (4.8-10.8)
[2023-02-05 04:25] LABS: Anion Gap 16 mmol/L (10-20); BUN (Urea Nitrogen) 44 mg/dL (9.8-20.1); Calc. Creatinine Clearance 25 mL/min (70-130); Calcium 9.3 mg/dL (7.8-10.44); Carbon Dioxide 29 mmol/L (23-31); Chloride 101 mmol/L (98-107); Estimated GFR 29; Glucose 114 mg/dL (83-110); Potassium 3.7 mmol/L (3.5-5.1); Sodium 142 mmol/L (136-145)
[2023-02-05] MEDS: Levothyroxine Sodium 100 MCG TAB PO SCH (04:25)
[2023-02-05] MEDS: Furosemide 20 MG/2 ML VIAL SLOW IVP SCH ×2 (06:10→14:14)
[2023-02-05] MEDS: Mometasone 200 MCG/Formoterol 5 MCG 120 PUFF INHALER INH SCH (07:15)
[2023-02-05] MEDS: Ipratropium/Albuterol 3 ML NEB NEB SCH ×2 (07:15→11:32)
[2023-02-05] MEDS: Empagliflozin 10 MG TAB PO SCH (08:58)
[2023-02-05] MEDS: Losartan 25 MG TAB PO SCH (08:58)
[2023-02-05] MEDS: Cholecalciferol 1,000 UNITS (25 MCG) TAB PO SCH (08:59)
[2023-02-05] MEDS: Benzonatate 100 MG CAP PO SCH (08:59)
[2023-02-05] MEDS: Aspirin 81 mg Enteric Coated Tablet PO SCH (08:59)
[2023-02-05] MEDS: Amiodarone 200 MG TAB PO SCH (08:59)
[2023-02-05] MEDS: Famotidine 20 MG TAB PO SCH (09:01)
[2023-02-05] MEDS: Polyethylene Glycol 3350 17 GM Packet PO SCH (09:01)
[2023-02-05] MEDS: Azelastine 137 MCG/NASAL Spray 30 ML NS SCH (09:02)
[2023-02-05] MEDS: Diclofenac 1% 50 GM TOPICAL GEL TP SCH (09:03)
[2023-02-05] MEDS: FLUoxetine HCl 20 MG CAP PO SCH (09:11)
[2023-02-05 12:14] VITALS: BP 142/65; TEMP 98
== END 2023-02-05 15:00 | DRG 193 ==
LOC: ERS 09:24 → OBSVTOIN 12:04 → ERHOLD 12:04 → INTOOBSV 12:04 → 2SW 14:59
PROVIDERS: ADMIT Student in an Organized Health Care Education/Training Program; ATTEND Student in an Organized Health Care Education/Training Program
DX: J18.9 Pneumonia, unspecified organism (principal); I50.33 Acute on chronic diastolic (congestive) heart failure; J96.01 Acute respiratory failure with hypoxia; I13.0 Hypertensive heart and chronic kidney disease with heart failure and stage 1 through stage 4 chronic kidney disease, or unspecified chronic kidney disease; J44.1 Chronic obstructive pulmonary disease with (acute) exacerbation; N17.9 Acute kidney failure, unspecified; I48.91 Unspecified atrial fibrillation; N18.32 Chronic kidney disease, stage 3b; E11.22 Type 2 diabetes mellitus with diabetic chronic kidney disease; E78.5 Hyperlipidemia, unspecified; K21.9 Gastro-esophageal reflux disease without esophagitis; F41.9 Anxiety disorder, unspecified; E03.9 Hypothyroidism, unspecified; F17.210 Nicotine dependence, cigarettes, uncomplicated; R53.81 Other malaise; R77.8 Other specified abnormalities of plasma proteins; I48.0 Paroxysmal atrial fibrillation; I27.20 Pulmonary hypertension, unspecified; Z90.710 Acquired absence of both cervix and uterus; Z90.89 Acquired absence of other organs; Z88.5 Allergy status to narcotic agent; Z88.1 Allergy status to other antibiotic agents; Z95.0 Presence of cardiac pacemaker; Z79.899 Other long term (current) drug therapy; Z79.82 Long term (current) use of aspirin; Z79.890 Hormone replacement therapy; Z98.890 Other specified postprocedural states; Z11.52 Encounter for screening for COVID-19
CPT/HCPCS: 36415; 36416; 71045; 71046; 80048; 80053; 81001; 82805; 83605; 83735; 83880; 84145; 84484; 85025; 87040; 87385; 87631; 87633; 87804; 93005; 93306; 94640; 94664; 96365; 96366; 96367; 96375; J0692; J0696; J1650; J1815; J1940; J2930; J3370; J3490; J7512; J7611; J7620; U0002